=== PATIENT | male | born 1970 | race Caucasian/White ===

== ENCOUNTER 2017-11-18 22:18 | Emergency (ER) | payer OTHER, MEDICAID, SELFPAY ==
[2017-11-18 22:41] VITALS: BP 148/98; PULSE 99; RESP 16; TEMP 36.3; O2SAT 99; BMI 24.3
[2017-11-18 23:04] LABS: Bacteria Urine None Seen
[2017-11-18 23:16] LABS: RBC Urine 30-100/HPF (0-5/HPF); WBC Urine 1-5/HPF (0-5/HPF)
[2017-11-18 23:17] LABS: Culture Indicated Urine Cult Not Indicated; Sperm Urine Few
--- NOTE | 2017-11-18 23:26 | DI.RAD.S_ITS ---
PROCEDURE: XR KUB INDICATIONS: known kidney stones left side TECHNIQUE: One view of the abdomen acquired. COMPARISON: [facility], CT, KIDNEY/ URETER/BLADDER, 06/21/2017, 7:36. [facility], CR, KUB XRAY (1 VIEW ABDOMEN), 05/29/2014, 17:12. FINDINGS: Surgical changes and devices: Right upper quadrant and bilateral lower quadrant surgical clips. Bowel: Bowel gas pattern is normal. Large amount of stool present in the right colon. Soft tissues: Previously identified small right renal calculi are not well visualized radiographically due to overlying stool projecting in the right kidney. There is a left pelvic calcification, which is technically nonspecific either phlebolith or previously described left ureteral calculus. Visualized solid organ contours appear normal in size. Bones: No suspicious bony lesions. IMPRESSION: Left pelvic calcification, possibly corresponding to the distal left ureteral calculus seen on the prior CT from 06/21/17 although technically indeterminate (especially since a similar appearing calcification was present on prior study dated 05/29/14 in this region). For further evaluation, dedicated CT KUB could be performed. Dictated by: Lacho Schwarz M.D. on 11/19/2017 at 8:14 Approved by: Lacho Schwarz M.D. on 11/19/2017 at 8:21
[2017-11-18 23:38] LABS: Add Manual Diff / Slide Review NO; Basophils Percent Auto 0.9 % (0-2); Eosinophils Percent Auto 1.5 % (2-4); Hematocrit 44.7 % (41-53); Hemoglobin 15.2 g/dL (13.5-17.5); Lymphocytes Percent Auto 26.8 % (25-40); Mean Corpuscular Hemoglobin 30.1 PG (26-34); Mean Corpuscular Volume 88.3 fL (80-100); Monocytes Percent Auto 7.8 % (3-14); Neutrophils Absolute Auto 4500 /uL (3000-5900); Platelet Count 350 X10^3/uL (150-400); Red Blood Cell Count 5.06 X10^6/uL (4.5-5.9); Red Cell Distribution Width 15.1 % (11.6-14.8); White Blood Cell Count 7.1 X10^3/uL (4.5-11.0)
[2017-11-18 23:39] LABS: Alanine Aminotransferase 63 IU/L (21-72); Albumin 5.1 g/dL (3.5-5.0); Albumin Globulin Ratio 1.5 (1.0-2.8); Alkaline Phosphatase 92 U/L (38-126); Aspartate Aminotransferase 43 IU/L (17-59); BUN Creatinine Ratio 15.6 (6-22); Bilirubin Total 0.7 mg/dL (0.2-1.3); Blood Urea Nitrogen 14 mg/dL (9-20); Calcium 10.4 mg/dL (8.4-10.2); Carbon Dioxide 24 mmol/L (22-32); Chloride 102 mmol/L (98-107); Estimated Glomerular Filt Rate > 60.0 mL/min (>60); Globulin 3.4 g/dL (1.7-4.1); Glucose 117 mg/dL (70-100); HEMOLYSIS < 15 (0-50); Lipase 246 U/L (23-300); Potassium 4.4 mmol/L (3.4-5.1); Sodium 143 mmol/L (137-145); Total Protein 8.5 g/dL (6.3-8.2)
[2017-11-18] MEDS: KETOROLAC 60 MG/2 ML VIAL 30 MG IV (23:49)
[2017-11-18] MEDS: ONDANSETRON 4 MG/2 ML INJ IV (23:50)
--- NOTE | 2017-11-19 00:21 | ED.ABDPAIN ---
HPI - Abdominal Pain General Chief Complaint: Abdominal Pain Stated Complaint: KIDNEY STONES Time Seen by Provider: 11/18/17 23:16 Source: patient Mode of arrival: ambulatory Limitations: no limitations History of Present Illness HPI narrative: Patient is a 47-year-old male who presents with left-sided flank abdominal pain. He has history of kidney stones. He usually passes them he can feel it when a calming he takes Flomax on usually not a big deal. He has had lithotripsy in the past. Of however this 1 he feels like it is stuck at the bladder. He has been taking Flomax he has not taken anything for pain. It has been going on for a day and a half but tonight it has become unbearable. He denies nausea or vomiting. No fever chills no flank pain. Related Data Home Medications Medication Instructions Recorded Confirmed tamsulosin [Flomax] 1 cap PO PRN PRN #0 06/21/17 11/18/17 ondansetron 4 mg SUBLINGUAL Q6HP PRN 11/18/17 11/18/17 Previous Rx's Medication Instructions Recorded oxycodone-acetaminophen 1 tab PO Q6H PRN #6 tab 11/19/17 Allergies Allergy/AdvReac Type Severity Reaction Status Date / Time No Known Allergies Allergy Uncoded 09/22/17 13:04 Review of Systems Review of Systems GENERAL: Denies chills, fatigue, malaise, fever, sweats, travel HEENT: Denies sinus pain, ear pain, sore throat, difficulty swallowing, neck pain RESPIRATORY: Denies dyspnea, cough, wheezing, hemoptysis, sputum. CARDIOVASCULAR: Denies chest pain, palpitations, orthopnea, edema GASTROINTESTINAL: Denies nausea, vomiting, abdominal pain, diarrhea, constipation, melena. : See HPI, denies testicular pain MUSCULOSKELETAL: Denies weakness, joint pain, or bony pain SKIN: No rash, no erythema, no pruritus NEUROLOGIC: Denies weakness, dizziness, headache, numbness, change in speech, confusion PSYCHIATRIC: No concerning psychosocial issues. 12 point review of systems is negative except for those stated above and HPI PFSH Medical History CVA (cerebral vascular accident) (Acute) Kidney stones (Acute) Patent foramen ovale (Acute) Surgical History History of lithotripsy (Acute) Social History Smoking Status: Current every day smoker Exam Initial Vital Signs Initial Vital Signs: Vital Signs Temperature 97.4 F L 11/18/17 22:41 Pulse Rate 99 H 11/18/17 22:41 Respiratory Rate 16 11/18/17 22:41 Blood Pressure 148/98 H 11/18/17 22:41 Pulse Oximetry 99 11/18/17 22:41 GENERAL: Well-appearing, well-nourished and in no acute distress. HEENT: Head atraumatic,EOMI, pupils reactive CARDIOVASCULAR: Regular rate and rhythm without murmurs, rubs or gallops. RESPIRATORY: Breath sounds equal bilaterally, no wheezes rales or rhonchi. ABDOMEN: Soft, mild left lower quadrant pain no guarding or rebound : No CVA tenderness EXTREMITIES: Normal range of motion, no clubbing or edema. Neurovascularly intact NEUROLOGICAL: Alert and oriented x4.Normal gait and speech. Cranial nerves II through XII grossly intact. SKIN: Warm, dry, no laceration, no petechiae, no rashes or lesions. Course Orders Ordered: ED Orders 11/18/17 22:25 Urine Microscopic Stat 11/18/17 22:35 Complete Blood Count AUTO DIFF Stat Comprehensive Metabolic Panel Stat Lipase Stat 11/18/17 23:26 XR KUB Stat Discontinued Medications Ketorolac Tromethamine (Toradol) 30 mg IV NOW ONE Stop: 11/18/17 23:27 Last Admin: 11/18/17 23:49 Dose: 30 mg Ondansetron HCl (Zofran) 4 mg IV NOW ONE Stop: 11/18/17 23:27 Last Admin: 11/18/17 23:50 Dose: 4 mg Oxycodone/Acetaminophen (Endocet 5/325 Prepack) 1 bottle MISC SEEINSTR ONE Stop: 11/19/17 00:27 Vital Signs - 8 hr 11/18/17 22:41 11/19/17 00:26 Temperature 97.4 F L Pulse Rate 99 H 63 Respiratory Rate 16 12 Blood Pressure 148/98 H Blood Pressure [Right Arm] 112/73 Pulse Oximetry 99 96 MDM - Abdominal Pain Lab Data Attestation: I reviewed the patient's lab results. Result diagrams: 11/18/17 22:35 11/18/17 22:35 Lab Results 11/18/17 11/18/17 11/18/17 Range/Units 22:25 22:35 22:35 WBC 7.1 (4.5-11.0) X10^3/uL RBC 5.06 (4.5-5.9) X10^6/uL Hgb 15.2 (13.5-17.5) g/dL Hct 44.7 (41-53) % MCV 88.3 (80-100) fL MCH 30.1 (26-34) PG MCHC 34.0 (30-36) % RDW 15.1 H (11.6-14.8) % Plt Count 350 (150-400) X10^3/uL Neut % (Auto) 63.0 (50-75) % Lymph % (Auto) 26.8 (25-40) % [place] % (Auto) 7.8 (3-14) % Eos % (Auto) 1.5 L (2-4) % Baso % (Auto) 0.9 (0-2) % Neut # (Auto) 4500 (6794-1650) /uL Sodium 143 (137-145) mmol/L Potassium 4.4 (3.4-5.1) mmol/L Chloride 102 (98-107) mmol/L Carbon Dioxide 24 (22-32) mmol/L BUN 14 (9-20) mg/dL Creatinine 0.90 (0.66-1.25) mg/dL Estimated GFR > 60.0 (>60) mL/min BUN/Creatinine Ratio 15.6 (6-22) Glucose 117 H (70-100) mg/dL Calcium 10.4 H (8.4-10.2) mg/dL Total Bilirubin 0.7 (0.2-1.3) mg/dL AST 43 (17-59) IU/L ALT 63 (21-72) IU/L Alkaline Phosphatase 92 (38-126) U/L Total Protein 8.5 H (6.3-8.2) g/dL Albumin 5.1 H (3.5-5.0) g/dL Globulin 3.4 (1.7-4.1) g/dL Albumin/Globulin Ratio 1.5 (1.0-2.8) Lipase 246 (23-300) U/L Urine RBC 30-100/hpf H (0-5/HPF) Urine WBC 1-5/hpf (0-5/HPF) Urine Bacteria None seen (None) Urine Sperm Few Ur Culture Indicated? Cult not indicated Micro UA Comment Not Reportable Imaging Data XR-KUB: Attestation: I personally reviewed and interpreted this imaging study as follows: My impression: Possible kidney stone in the pelvic region measures less than <0.2 cm. MDM Narrative Medical decision making narrative: Patient has no sign of renal failure or infection. History of kidney stones this is presenting like kidney stones. With probable kidney stone identified on x-ray. Discussed with him at this time trying hold off CT hopefully he passes the kidney stone soon. He has Flomax at home at. His pain actually did improve some with Toradol. He is given a prescription for small amount of Percocet. Recommended patient follow up with a urologist. Discharge Plan Departure Patient Disposition: Home, Self-Care Clinical Impression: Kidney stone on left side Instructions: DI for Kidney Stones Activity Restrictions/Additional Instructions: *You have been diagnosed with kidney stone *What to do: Increase fluid intake, blood work within normal limits no sign of infection at this time. If pain continues on you may require a CT *Continue to take medications as directed -Flomax once daily -Percocet 1 tablet every 6 hr if needed for severe pain *Follow up with your primary care provider in 2-3 days, follow up with Urology, call tomorrow to schedule point *Return to ER if you should have increased or worsening pain or any new, worsening or concerning symptoms CONTROLLED SUBSTANCE DISCHARGE (Narcotoic/benzodiazepine/Flexeril/Phenergan) 1. You have been prescribed narcotic medications, it does have acetaminophen/Tylenol/paracetamol in it so do not take extra Tylenol or Tylenol containing products 2. Please understand that we cannot provide further refills of narcotics, benzodiazepines or controlled substances through the ED and her pain management will need to be through your provider. 3. While on these medications you cannot drive or operate heavy machinery. 4. You cannot sign legal documents or perform any duties such as this. 5. As long as you're taking opiate pain medications he should also be taking a stool softener such as Colace, Dulcolax, MiraLAX or prune juice, to help avoid constipation. Prescriptions: New oxycodone-acetaminophen 5-325 mg tablet 1 tab PO Q6H PRN (Reason: pain) Qty: 6 RF: 0 No Action tamsulosin [Flomax] 0.4 MG capsule,extended release 24hr 1 cap PO PRN PRN (Reason: Nausea And Vomiting) Qty: 0 RF: 0 ondansetron 4 MG tablet,disintegrating 4 mg Sublingual Q6HP PRN (Reason: Nausea) RF: 0 Referrals: [facility] [Provider Group] Julio César Tompkins MD [Primary Care Provider] -
[2017-11-19 00:26] VITALS: BP 112/73; PULSE 63; RESP 12; O2SAT 96
[2017-11-19] MEDS: OXYCODONE/APAP 5/325 PREPACK 1 BOTTLE MISC (00:37)
== END 2017-11-19 00:38 | disposition home or self-care (01) ==
PROVIDERS: Emergency Provider Emergency Medicine; Family Provider Family Medicine; PCP Family Medicine
DX: N20.0 Calculus of kidney (principal)
CPT/HCPCS: 36591; 74018; 80053; 81003; 81015; 83690; 85025; 96374; 96375; 99283; 99284; J1885; J2405

== ENCOUNTER 2017-12-03 05:07 | Emergency (ER) | payer OTHER, MEDICAID, SELFPAY ==
--- NOTE | 2017-12-03 05:32 | DI.CT.S_ITS ---
PROCEDURE: CT KIDNEY URETER BLADDER (KUB) INDICATIONS: right flank pain, recently passed left stone TECHNIQUE: Noncontrast 5 mm thick sections acquired from the diaphragms to the symphysis. 5 mm thick coronal and sagittal reformats were then performed. For radiation dose reduction, the following was used: automated exposure control, adjustment of mA and/or kV according to patient size. COMPARISON: [facility], CT, KIDNEY/ URETER/BLADDER, 06/21/2017, 7:36. 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 Lung bases: Lung bases are clear. Heart size is normal. Urinary system: The left hydroureteronephrosis on last exam has resolved. No additional left kidney stones. The 5 mm calcification in the inferior pole of the right kidney is unchanged. The smaller 3 mm calcification previously present in the right kidney is now causing obstructive uropathy in the midportion of the right ureter at the S1 level. Urinary bladder is unremarkable with no stones. Prostate is normal in size and contains central calcifications. Other solid organs: Liver is normal in size. Gallbladder is surgically absent. Pancreas is normal in contours. Spleen is normal in size. No adrenal nodules. Peritoneum and bowel: Unenhanced bowel loops demonstrate normal wall thickness and caliber. The appendix is not seen, surgical changes around the cecum. Scattered colonic diverticula. No free fluid or air. Nodes and vessels: No retroperitoneal or mesenteric adenopathy by size criteria. Aorta and inferior vena cava are normal in caliber. Abdominal wall: No ventral hernias. Pelvis: No free pelvic fluid. No inguinal hernias or adenopathy. Bones: No suspicious bony lesions. No vertebral body compression fractures. IMPRESSION: 1. Right hydroureteronephrosis secondary to a 3 mm obstructing calculus in the midureter at the S1 level. Residual 5 mm right renal stone. 2. Left kidney, ureter and urinary bladder appear normal. 3. Status post cholecystectomy. Surgical changes around the cecum. Findings are concordant with the preliminary report. Dictated by: Steve Cuevas M.D. on 12/03/2017 at 8:17 Approved by: Steve Cuevas M.D. on 12/03/2017 at 8:30
[2017-12-03 05:39] VITALS: BP 136/91; PULSE 62; RESP 15; TEMP 36.5; O2SAT 97; BMI 25.1
--- NOTE | 2017-12-03 05:39 | ED_ITS ---
HPI - Abdominal Pain General Chief Complaint: Urogenital-Male Stated Complaint: HAS ANOTHER KIDNEY STONE Time Seen by Provider: 12/03/17 05:16 Source: patient, RN notes reviewed and old records reviewed Mode of arrival: ambulatory Limitations: no limitations History of Present Illness HPI narrative: Patient is a 47-year-old male with history of kidney stones presenting with right-sided flank pain. He said this time it started around 3: 00 a.m. this morning. He recently just passed left kidney stone. He says this 1 is pretty intense. Nauseated no vomiting sharp stabbing flank pain radiating to his groin. Similar to all other previous kidney stones. He was seen and evaluated here 11/19/2017 for left-sided stone. MD complaint: flank pain (Right) Onset (ago): hour(s) Related Data Home Medications Medication Instructions Recorded Confirmed tamsulosin [Flomax] 1 cap PO PRN PRN #0 06/21/17 11/18/17 ondansetron 4 mg SUBLINGUAL Q6HP PRN 11/18/17 11/18/17 Previous Rx's Medication Instructions Recorded oxycodone-acetaminophen 1 tab PO Q6H PRN #6 tab 11/19/17 ondansetron [Zofran ODT] 4 mg PO Q6H PRN #10 tab 12/03/17 oxycodone-acetaminophen [Percocet] 1 tab PO Q6H PRN #10 tab 12/03/17 Allergies Allergy/AdvReac Type Severity Reaction Status Date / Time No Known Drug Allergies Allergy Verified 12/03/17 05:39 Review of Systems Review of Systems GENERAL: Denies chills, fatigue, malaise, fever, sweats, travel HEENT: Denies sinus pain, ear pain, sore throat, difficulty swallowing, neck pain RESPIRATORY: Denies dyspnea, cough, wheezing, hemoptysis, sputum. CARDIOVASCULAR: Denies chest pain, palpitations, orthopnea, edema GASTROINTESTINAL: Denies nausea, vomiting, abdominal pain, diarrhea, constipation, melena. : See HPI MUSCULOSKELETAL: Denies weakness, joint pain, or bony pain SKIN: No rash, no erythema, no pruritus NEUROLOGIC: Denies weakness, dizziness, headache, numbness, change in speech, confusion PSYCHIATRIC: No concerning psychosocial issues. 12 point review of systems is negative except for those stated above and HPI PFSH Medical History CVA (cerebral vascular accident) (Acute) Kidney stones (Acute) Patent foramen ovale (Acute) Surgical History History of lithotripsy (Acute) Social History Smoking Status: Current every day smoker Exam Initial Vital Signs Initial Vital Signs: Vital Signs Temperature 97.7 F 12/03/17 05:39 Pulse Rate 62 12/03/17 05:39 Respiratory Rate 15 12/03/17 05:39 Blood Pressure 136/91 H 12/03/17 05:39 Pulse Oximetry 97 12/03/17 05:39 GENERAL: Well-appearing, well-nourished and in no acute distress. HEENT: Head atraumatic,EOMI, pupils reactive, face symmetric, moist mucous membranes CARDIOVASCULAR: Regular rate and rhythm without murmurs, rubs or gallops. RESPIRATORY: Breath sounds equal bilaterally, no wheezes rales or rhonchi. ABDOMEN: Soft, mild right lower quadrant pain. Normoactive bowel sounds all 4 quadrants. No guarding or rebound. : Right CVA tenderness EXTREMITIES: Normal range of motion, no clubbing or edema. Neurovascularly intact NEUROLOGICAL: Alert and oriented x4.Normal gait and speech. Cranial nerves II through XII grossly intact. SKIN: Warm, dry, no laceration, no petechiae, no rashes or lesions. Course Orders Ordered: Discontinued Medications Sodium Chloride (Normal Saline 0.9%) 1,000 mls @ 1,000 mls/hr IV CONT ELISABETH Last Infusion: 12/03/17 06:57 Dose: 1,000 mls/hr Admin: 12/03/17 06:12 Dose: 1,000 mls/hr Lidocaine HCl 6 ml/ Sodium (Chloride) 56 mls @ 336 mls/hr IV NOW ONE Stop: 12/03/17 05:40 Last Infusion: 12/03/17 06:24 Dose: 336 mls/hr Admin: 12/03/17 06:11 Dose: 336 mls/hr Ketorolac Tromethamine (Toradol) 30 mg IV NOW ONE Stop: 12/03/17 05:35 Last Admin: 12/03/17 06:10 Dose: 30 mg Ondansetron HCl (Zofran) 4 mg IV NOW ONE Stop: 12/03/17 05:35 Last Admin: 12/03/17 06:11 Dose: 4 mg Vital Signs - 8 hr 12/03/17 05:39 Temperature 97.7 F Pulse Rate 62 Respiratory Rate 15 Blood Pressure 136/91 H Pulse Oximetry 97 MDM - Abdominal Pain Medical Records Attestation: I reviewed the patient's medical records. Lab Data Attestation: I reviewed the patient's lab results. Result diagrams: 12/03/17 05:24 12/03/17 05:24 Lab Results 12/03/17 12/03/17 12/03/17 Range/Units 05:24 05:24 06:30 WBC 6.2 (4.5-11.0) X10^3/uL RBC 5.18 (4.5-5.9) X10^6/uL Hgb 15.7 (13.5-17.5) g/dL Hct 46.2 (41-53) % MCV 89.2 (80-100) fL MCH 30.3 (26-34) PG MCHC 34.0 (30-36) % RDW 15.2 H (11.6-14.8) % Plt Count 324 (150-400) X10^3/uL Neut % (Auto) 48.4 L (50-75) % Lymph % (Auto) 39.0 (25-40) % [place] % (Auto) 7.0 (3-14) % Eos % (Auto) 4.4 H (2-4) % Baso % (Auto) 1.2 (0-2) % Neut # (Auto) 3000 (5883-8154) /uL Sodium 139 (137-145) mmol/L Potassium 4.3 (3.4-5.1) mmol/L Chloride 102 (98-107) mmol/L Carbon Dioxide 23 (22-32) mmol/L BUN 13 (9-20) mg/dL Creatinine 0.80 (0.66-1.25) mg/dL Estimated GFR > 60.0 (>60) mL/min BUN/Creatinine Ratio 16.3 (6-22) Glucose 113 H (70-100) mg/dL Calcium 9.8 (8.4-10.2) mg/dL Total Bilirubin 0.4 (0.2-1.3) mg/dL AST 27 (17-59) IU/L ALT 45 (21-72) IU/L Alkaline Phosphatase 93 (38-126) U/L Total Protein 8.0 (6.3-8.2) g/dL Albumin 4.6 (3.5-5.0) g/dL Globulin 3.4 (1.7-4.1) g/dL Albumin/Globulin Ratio 1.4 (1.0-2.8) Lipase 221 (23-300) U/L Urine RBC 10-30/hpf H (0-5/HPF) Urine WBC None seen (0-5/HPF) Urine Bacteria None seen (None) Ur Culture Indicated? 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 The ureter is dilated to approximately image number 61 and 62 where there may be a small 2.5 mm calculus. There is no evidence of free air or free fluid. No gross bowel wall lesions identified. Surgical suture line in the right colon. Appendix is not visualized. Bladder appears morphologically unremarkable and there are no stones. There is calcification in the prostate gland where there are phleboliths in the pelvis. Discharge Plan Departure Patient Disposition: Home, Self-Care Clinical Impression: Kidney stone on right side Discharge Date/Time: 12/03/17 06:59 Interventions: ED Discharge Assessment Last Done: 12/03/17 06:58 Instructions: DI for Kidney Stones Activity Restrictions/Additional Instructions: *Increase fluid intake *Call urology office tomorrow, to schedule follow-up appointment. Strain urine, try to catch stone -If you should have fever, or pain is uncontrolled with medication at home or any other concerning symptoms return to ER for further evaluation MEDICATIONS Take Motrin 800 mg every 8 hours as needed for pain Take Percocet every 6 hours if needed for severe pain Take Zofran every 4-6 hours if needed for nausea CONTROLLED SUBSTANCE DISCHARGE (Narcotoic/benzodiazepine) 1. You have been prescribed narcotic medications, it does have acetaminophen/ Tylenol/paracetamol in it so do not take extra Tylenol or Tylenol containing products 2. Please understand that we cannot provide further refills of narcotics, benzodiazepines or controlled substances through the ED and her pain management will need to be through your provider. 3. While on these medications you cannot drive or operate heavy machinery. 4. You cannot sign legal documents or perform any duties such as this. 5. As long as you're taking opiate pain medications he should also be taking a stool softener such as Colace, Dulcolax, MiraLAX or prune juice, to help avoid constipation. Prescriptions: New ondansetron [Zofran ODT] 4 mg tablet,disintegrating 4 mg PO Q6H PRN (Reason: nausea and vomiting) Qty: 10 RF: 0 oxycodone-acetaminophen [Percocet] 5-325 mg tablet 1 tab PO Q6H PRN (Reason: pain) Qty: 10 RF: 0 No Action tamsulosin [Flomax] 0.4 MG capsule,extended release 24hr 1 cap PO PRN PRN (Reason: Nausea And Vomiting) Qty: 0 RF: 0 ondansetron 4 MG tablet,disintegrating 4 mg Sublingual Q6HP PRN (Reason: Nausea) RF: 0 oxycodone-acetaminophen 5-325 mg tablet 1 tab PO Q6H PRN (Reason: pain) Qty: 6 RF: 0 Referrals: Julio César Tompkins MD [Primary Care Provider] -
[2017-12-03 05:40] LABS: Add Manual Diff / Slide Review NO; Basophils Percent Auto 1.2 % (0-2); Eosinophils Percent Auto 4.4 % (2-4); Hematocrit 46.2 % (41-53); Hemoglobin 15.7 g/dL (13.5-17.5); Mean Corpuscular Hemoglobin 30.3 PG (26-34); Mean Corpuscular Volume 89.2 fL (80-100); Neutrophils Absolute Auto 3000 /uL (3000-5900); Neutrophils Percent Auto 48.4 % (50-75); Platelet Count 324 X10^3/uL (150-400); Red Blood Cell Count 5.18 X10^6/uL (4.5-5.9); Red Cell Distribution Width 15.2 % (11.6-14.8); White Blood Cell Count 6.2 X10^3/uL (4.5-11.0)
[2017-12-03 05:47] LABS: Alanine Aminotransferase 45 IU/L (21-72); Albumin 4.6 g/dL (3.5-5.0); Albumin Globulin Ratio 1.4 (1.0-2.8); Alkaline Phosphatase 93 U/L (38-126); Aspartate Aminotransferase 27 IU/L (17-59); BUN Creatinine Ratio 16.3 (6-22); Bilirubin Total 0.4 mg/dL (0.2-1.3); Blood Urea Nitrogen 13 mg/dL (9-20); Calcium 9.8 mg/dL (8.4-10.2); Carbon Dioxide 23 mmol/L (22-32); Chloride 102 mmol/L (98-107); Estimated Glomerular Filt Rate > 60.0 mL/min (>60); Globulin 3.4 g/dL (1.7-4.1); Glucose 113 mg/dL (70-100); HEMOLYSIS 36 (0-50); Lipase 221 U/L (23-300); Potassium 4.3 mmol/L (3.4-5.1); Sodium 139 mmol/L (137-145)
[2017-12-03] MEDS: KETOROLAC 60 MG/2 ML VIAL 30 MG IV (06:10)
[2017-12-03] MEDS: LIDOCAINE 2% 6 ML in SODIUM CHLORIDE 0.9% 50 ML 336 ML IV (06:11)
[2017-12-03] MEDS: ONDANSETRON 4 MG/2 ML INJ IV (06:11)
[2017-12-03] MEDS: SODIUM CHLORIDE 0.9% 1,000 ML 1000 ML IV (06:12)
[2017-12-03 06:58] VITALS: BP 110/83; PULSE 58; RESP 20; O2SAT 99
[2017-12-03 07:01] LABS: Bacteria Urine None Seen; WBC Urine None Seen (0-5/HPF)
[2017-12-03 07:09] LABS: Culture Indicated Urine Cult Not Indicated; RBC Urine 10-30/HPF (0-5/HPF)
== END 2017-12-03 06:59 | disposition home or self-care (01) ==
PROVIDERS: Emergency Provider Emergency Medicine; Family Provider Family Medicine; PCP Family Medicine
DX: N20.0 Calculus of kidney (principal)
CPT/HCPCS: 36591; 74176; 80053; 81003; 81015; 83690; 85025; 96361; 96374; 96375; 99283; 99284; J1885; J2405

== ENCOUNTER 2018-05-23 03:55 | Emergency (ER) | payer OTHER, MEDICAID, SELFPAY ==
[2018-05-23 04:16] VITALS: BMI 25.1
[2018-05-23 04:18] VITALS: BP 138/88; PULSE 67; RESP 18; TEMP 36.8; O2SAT 95
[2018-05-23 04:18] LABS: Bacteria Urine None Seen
--- NOTE | 2018-05-23 04:19 | DI.CT.S_ITS ---
PROCEDURE: CT KIDNEY URETER BLADDER (KUB) INDICATIONS: R flank pain, hematuria TECHNIQUE: Noncontrast 5 mm thick sections acquired from the diaphragms to the symphysis. 5 mm thick coronal and sagittal reformats were then performed. For radiation dose reduction, the following was used: automated exposure control, adjustment of mA and/or kV according to patient size. COMPARISON: [facility], CT, CT KIDNEY URETER BLADDER (KUB), 12/03/2017, 5:37. FINDINGS: Image quality: Excellent. Lung bases: No acute consolidation. There is scattered subsegmental atelectasis and/or scarring Heart size is normal. Urinary system: Trace right perinephric stranding. Multiple right renal calculi measuring from 3-5 mm. Mild-moderate right hydroureteronephrosis related to 3 mm mid to distal right ureteral calculus seen on image 65 series 2. No evidence of left-sided urolithiasis. or perinephric fat stranding. Both ureters appear non-dilated throughout their expected courses. Bladder wall thickness is normal; no calcified bladder stones. Other solid organs: Liver is normal in size. Gallbladder surgically absent. Pancreas is normal in contours. Spleen is normal in size. No adrenal nodules. Peritoneum and bowel: Unenhanced bowel loops demonstrate normal wall thickness and caliber. Also the anastomosis in the right lower quadrant. The appendix is not clearly identified however no suspicious pericecal inflammatory changes are identified No free fluid or air. Nodes and vessels: No retroperitoneal or mesenteric adenopathy by size criteria. Aorta and inferior vena cava are normal in caliber. Abdominal wall: No ventral hernias. Pelvis: No free pelvic fluid. No inguinal hernias or adenopathy. Bones: No suspicious bony lesions. No vertebral body compression fractures. IMPRESSION: Moderately obstructive 3 mm distal right ureteral calculus. Additional right nephrolithiasis as above. Status post cholecystectomy. Dictated by: Lacho Schwarz M.D. on 05/23/2018 at 7:25 Approved by: Lacho Schwarz M.D. on 05/23/2018 at 7:31
--- NOTE | 2018-05-23 04:33 | ED_ITS ---
HPI - Male Genitourinary General Chief complaint: Urogenital-Male Stated complaint: right side pain/back into groin poss kidney stone Time Seen by Provider: 05/23/18 04:15 Source: patient Mode of arrival: ambulatory Limitations: no limitations History of Present Illness HPI Narrative: The patient complains of pain in his right flank and pelvis, which feels like prior kidney stones. He states that he has not had any dysuria or fevers. No nausea or vomiting. Patient states that he has not noticed any gross blood in his urine. Patient said he has been seen by Urology in the past. He rates his pain 12/21. Nothing seems to make it better or worse he states. Related Data Home Medications Medication Instructions Recorded Confirmed tamsulosin [Flomax] 1 cap PO PRN PRN #0 06/21/17 11/18/17 ondansetron 4 mg SUBLINGUAL Q6HP PRN 11/18/17 11/18/17 Previous Rx's Medication Instructions Recorded oxycodone-acetaminophen 1 tab PO Q6H PRN #6 tab 11/19/17 ondansetron [Zofran ODT] 4 mg PO Q6H PRN #10 tab 12/03/17 oxycodone-acetaminophen [Percocet] 1 tab PO Q6H PRN #10 tab 12/03/17 hydrocodone-acetaminophen 2 tab PO Q4-6H PRN #7 tab 05/23/18 ondansetron 4 mg PO QID PRN #14 tab 05/23/18 Allergies Allergy/AdvReac Type Severity Reaction Status Date / Time No Known Drug Allergies Allergy Verified 12/03/17 05:39 Review of Systems Review of Systems All systems reviewed & are unremarkable except as noted in HPI and below Constitutional Denies chills, Denies fever(s), Denies lethargy and Denies weakness Eyes Denies change in vision, Denies eye discharge, Denies irritation and Denies loss of vision ENT Ears, Nose, Mouth, and Throat: Denies change in voice, Denies neck pain and Denies sore throat Cardiovascular Denies chest pain, Denies irregular heart rhythm, Denies lightheadedness, Denies palpitations, Denies dyspnea, Denies dyspnea on exertion and Denies orthopnea Respiratory Denies cough, Denies dyspnea, Denies dyspnea on exertion and Denies wheezing Gastrointestinal Gastrointestinal: Reports abdominal pain ( Pelvic), Denies change in bowel habits, Denies diarrhea, Denies nausea and Denies vomiting Genitourinary Denies hematuria, Denies flank pain, Denies urinary incontinence and Denies urinary urgency Musculoskeletal Denies neck pain Integumentary/Breasts Denies pruritus, Denies erythema, Denies rash and Denies wounds Neurologic Denies confusion, Denies loss of vision and Denies weakness Psychiatric Denies anxiety, Denies confusion, Denies depression, Denies homicidal ideation and Denies suicidal ideation Endocrine Denies palpitations Hematologic/Lymphatic Denies easy bruising Allergic/Immunologic Denies wheezing FORMERLY [facility], [facility] Medical History Kidney stones (Acute) CVA (cerebral vascular accident) (Acute) Surgical History History of lithotripsy (Acute) Patent foramen ovale (Acute) Social History Smoking Status: Current every day smoker Exam Initial Vital Signs Initial Vital Signs: Vital Signs Temperature 98.2 F 05/23/18 04:18 Pulse Rate 67 05/23/18 04:18 Respiratory Rate 18 05/23/18 04:18 Blood Pressure 138/88 05/23/18 04:18 Pulse Oximetry 95 05/23/18 04:18 Const General: cooperative and well developed Nutritional Appearance: well nourished Orientation: alert, awake, oriented x3 and not confused Other: Patient appears moderately uncomfortable. HENWI Head: normocephalic and atraumatic Ears: external ears normal and TM's normal bilaterally Nose: external nose normal and No nasal discharge Face and sinus: sinuses nontender, face symmetric, no sinus tenderness and No dry mucous membranes Mouth: oral mucosae normal and moist mucous membranes Teeth and gingiva: dentition normal Throat: tonsils normal and uvula midline Eyes General: appearance normal, both eyes and all related structures Eyelids: eyelids normal Conjunctivae: conjunctivae normal Sclera: sclerae normal Pupils: PERRL EOM: EOM intact bilaterally Neck Neck: normal visual inspection, trachea midline, No lymphadenopathy, No midline deformity and No JVD Lymphatic: No lymphedema Chest Chest: normal inspection of the chest Resp Effort & Inspection: normal respiratory effort, able to speak in complete sentences, no respiratory distress and no use of accessory muscles Auscultation: clear to auscultation bilaterally, no rales, no rhonchi and no wheezes Cardio Rate: regular rate Rhythm: regular rhythm Heart Sounds: no click, no gallops, no murmurs and no rubs Pulses: normal peripheral pulses GI Inspection: non-distended Palpation: soft, no hepatosplenomegaly, No guarding, No pulsatile mass and tender ( Moderate, right pelvis.) Back/Spine/Pelvis Back: No CVA tenderness Cervical Spine: cervical ROM normal and No pain with cervical ROM Thoracic/Lumbar Spine: thoracic and lumbar spine normal to inspection Skin General: no rashes or lesions noted, No jaundice and No petechiae Neuro General: alert, oriented x3, gait normal and no focal motor deficits Speech: speech normal Extrem General: full ROM, no clubbing, cyanosis or edema, no pedal edema and no calf tenderness Psych Appearance: well kempt Mental Status: mental status grossly normal Attitude: cooperative Thought Content: normal and suicidality Judgment: judgment good Course Course Narrative: Patient was treated symptomatically with IV fluids and analgesia. His urinalysis did show hematuria. He was sent for CT scan of the abdomen and pelvis without contrast , which did show a 3 mm right distal ureteral stone. I discussed with patient that he has been found to have a kidney stone again. He has been treated symptomatically in the emergency department and is symptomatically improved. Patient is very familiar with kidney stones as he has had many in the past, and states he will drink plenty of water and follow up with his urologist. Orders Ordered: ED Orders 05/23/18 04:00 Urine Microscopic Stat 05/23/18 04:19 CT kidney ureter bladder (KUB) Stat Discontinued Medications Hydromorphone HCl (Dilaudid) 0.5 mg IV NOW ONE Stop: 05/23/18 05:19 Hydromorphone HCl (Dilaudid) 1 mg IV NOW ONE Stop: 05/23/18 05:25 Last Admin: 05/23/18 05:31 Dose: 1 mg Sodium Chloride (Normal Saline 0.9%) 1,000 mls @ 1,000 mls/hr IV BOLUS ONE Stop: 05/23/18 05:32 Last Admin: 05/23/18 04:43 Dose: 1,000 mls/hr Ketorolac Tromethamine (Toradol) 30 mg IV NOW ONE Stop: 05/23/18 04:34 Last Admin: 05/23/18 04:43 Dose: 30 mg Vital Signs - 8 hr 05/23/18 04:18 Temperature 98.2 F Pulse Rate 67 Respiratory Rate 18 Blood Pressure [Right Arm] 138/88 Pulse Oximetry 95 MDM - Male Genitourinary Medical Records Attestation: I reviewed the patient's medical records. Lab Data Attestation: I reviewed the patient's lab results. Lab Results 05/23/18 Range/Units 04:00 Urine RBC >100/hpf (0-5/HPF) Urine WBC 0-1/hpf (0-5/HPF) Urine Bacteria None seen (None) Ur Culture Indicated? Cult not indicated Micro UA Comment Not Reportable Urine Dip Bedside Urine Glucose Negative Bedside Urine Bilirubin - Negative Bedside Urine Ketone - Negative Urine Specific [place] 1.030 Bedside Urine Occult Blood +++ Bedside Urine pH 6.0 Bedside Urine Protein +/- 15 Bedside Urine Urobilinogen - Negative Bedside Urine Nitrite - Negative Bedside Urine Leukocytes - Negative Esterase Imaging Data CT scan - abdomen: Radiologist's impression: PROCEDURE: CT KIDNEY URETER BLADDER (KUB) INDICATIONS: right flank pain, recently passed left stone TECHNIQUE: Noncontrast 5 mm thick sections acquired from the diaphragms to the symphysis. 5 mm thick coronal and sagittal reformats were then performed. For radiation dose reduction, the following was used: automated exposure control, adjustment of mA and/or kV according to patient size. COMPARISON: [facility], CT, KIDNEY/ URETER/BLADDER, 06/21/2017, 7:36. FINDINGS: Preliminary report by material handler 1st shift radiology Image quality: Excellent. Lung bases: Lung bases are clear. Heart size is normal. Urinary system: The left hydroureteronephrosis on last exam has resolved. No additional left kidney stones. The 5 mm calcification in the inferior pole of the right kidney is unchanged. The smaller 3 mm calcification previously present in the right kidney is now causing obstructive uropathy in the midportion of the right ureter at the S1 level. Urinary bladder is unremarkable with no stones. Prostate is normal in size and contains central calcifications. Other solid organs: Liver is normal in size. Gallbladder is surgically absent. Pancreas is normal in contours. Spleen is normal in size. No adrenal nodules. Peritoneum and bowel: Unenhanced bowel loops demonstrate normal wall thickness and caliber. The appendix is not seen, surgical changes around the cecum. Scattered colonic diverticula. No free fluid or air. Nodes and vessels: No retroperitoneal or mesenteric adenopathy by size criteria. Aorta and inferior vena cava are normal in caliber. Abdominal wall: No ventral hernias. Pelvis: No free pelvic fluid. No inguinal hernias or adenopathy. Bones: No suspicious bony lesions. No vertebral body compression fractures. IMPRESSION: 1. Right hydroureteronephrosis secondary to a 3 mm obstructing calculus in the midureter at the S1 level. Residual 5 mm right renal stone. 2. Left kidney, ureter and urinary bladder appear normal. 3. Status post cholecystectomy. Surgical changes around the cecum. Findings are concordant with the preliminary report. Dictated by: Steve Cuevas M.D. on 12/03/2017 at 8:17 Approved by: Steve Cuevas M.D. on 12/03/2017 at 8:30 Discharge Plan Departure Patient Disposition: Home Clinical Impression: Kidney stones Instructions: DI for Kidney Stones Activity Restrictions/Additional Instructions: Your CT scan shows you have a stone in your right ureter, the tube that goes between your kidney and bladder. This should pass soon, as it is only 3 mm, and has made it most of the way through the tube. Prescriptions: New hydrocodone-acetaminophen 5-325 mg tablet 2 tab PO Q4-6H PRN (Reason: pain) Qty: 7 RF: 0 ondansetron 4 mg tablet,disintegrating 4 mg PO QID PRN (Reason: nausea and vomiting) Qty: 14 RF: 0 No Action tamsulosin [Flomax] 0.4 MG capsule,extended release 24hr 1 cap PO PRN PRN (Reason: Nausea And Vomiting) Qty: 0 RF: 0 ondansetron 4 MG tablet,disintegrating 4 mg Sublingual Q6HP PRN (Reason: Nausea) RF: 0 oxycodone-acetaminophen 5-325 mg tablet 1 tab PO Q6H PRN (Reason: pain) Qty: 6 RF: 0 ondansetron [Zofran ODT] 4 mg tablet,disintegrating 4 mg PO Q6H PRN (Reason: nausea and vomiting) Qty: 10 RF: 0 oxycodone-acetaminophen [Percocet] 5-325 mg tablet 1 tab PO Q6H PRN (Reason: pain) Qty: 10 RF: 0 Referrals: Julio César Tompkins MD [Primary Care Provider] -
[2018-05-23] MEDS: KETOROLAC 60 MG/2 ML VIAL 30 MG IV (04:43)
[2018-05-23] MEDS: SODIUM CHLORIDE 0.9% 1,000 ML 1000 ML IV (04:43)
[2018-05-23 04:45] LABS: Culture Indicated Urine Cult Not Indicated; RBC Urine >100/HPF (0-5/HPF); WBC Urine 0-1/HPF (0-5/HPF)
[2018-05-23] MEDS: HYDROMORPHONE 1 MG INJ IV (05:31)
[2018-05-23 06:21] VITALS: BP 114/69; PULSE 74; RESP 15; O2SAT 95
--- NOTE | 2018-07-19 02:52 | PC.NURSE ---
LATE ENTRY 1 liter NS infused IV. Completed 05/23/18 at 0540.
== END 2018-05-23 06:22 | disposition home or self-care (01) ==
PROVIDERS: Emergency Provider Emergency Medicine; Family Provider Family Medicine; PCP Family Medicine
DX: N20.0 Calculus of kidney (principal)
CPT/HCPCS: 74176; 81003; 81015; 96361; 96374; 96375; 99282; 99284; J1170; J1885

== ENCOUNTER 2018-07-14 14:14 | Emergency (ER) | payer OTHER, MEDICAID, SELFPAY ==
[2018-07-14 14:25] VITALS: BP 121/84; PULSE 73; RESP 16; TEMP 36.4; O2SAT 100
[2018-07-14 14:30] VITALS: BP 119/85; PULSE 72; RESP 16; O2SAT 99
--- NOTE | 2018-07-14 14:40 | PC.NURSE ---
pt reports episode of dizziness, fussy ,blurry lasting 5minutes, occured this morning at 9am, then felt fatigue,tired. denies dm, denies nausea,vomiting and diarrhea. hx of s\p titanium plug heart last january,at [facility] , also has hx of stroke.
--- NOTE | 2018-07-14 14:44 | PC.NURSE ---
asymptomatic at this time.
--- NOTE | 2018-07-14 14:56 | ED.DIZZY ---
HPI - Dizziness General Chief Complaint: Dizziness Stated Complaint: dizzy spells Time Seen by Provider: 07/14/18 14:44 Source: patient Mode of arrival: ambulatory Limitations: no limitations History of Present Illness HPI Narrative: Patient is a 48-year-old male who presents with dizziness. He says he he got onto some scaffolding this afternoon where he had sudden-onset dizziness he had a grab on to something so he did not fall off. He went home lie down and still does not feel quite right. It is worse whenever he moves. He had some blurry vision. No focal deficits. He has felt nauseated at times but no vomiting. MD complaint: dizziness and lightheadedness Timing: sudden onset Description: sense of movement Related Data Home Medications Medication Instructions Recorded Confirmed tamsulosin [Flomax] 1 cap PO PRN PRN #0 06/21/17 11/18/17 ondansetron 4 mg SUBLINGUAL Q6HP PRN 11/18/17 11/18/17 Previous Rx's Medication Instructions Recorded oxycodone-acetaminophen 1 tab PO Q6H PRN #6 tab 11/19/17 hydrocodone-acetaminophen 2 tab PO Q4-6H PRN #7 tab 05/23/18 meclizine 25 mg PO BID-TID PRN #20 tab 07/14/18 ondansetron 4 mg PO Q6-8H PRN #10 tab 07/14/18 Allergies Allergy/AdvReac Type Severity Reaction Status Date / Time No Known Drug Allergies Allergy Verified 07/14/18 14:24 Review of Systems Review of Systems ROS Unobtainable: All systems reviewed & are unremarkable except as noted in HPI and below Constitutional Denies chills, Denies fever(s), Denies lethargy and Denies weakness Cardiovascular Denies chest pain, Denies syncope, Reports palpitations and Denies dyspnea Respiratory Denies chest congestion, Denies cough and Denies dyspnea Gastrointestinal Gastrointestinal: Denies abdominal pain, Denies change in bowel habits, Denies diarrhea, Reports nausea and Denies vomiting Genitourinary Denies hematuria, Denies flank pain, Denies urinary incontinence and Denies urinary urgency Musculoskeletal Denies back pain, Denies muscle weakness, Denies numbness and Denies tingling Integumentary/Breasts Denies pruritus, Denies erythema, Denies rash and Denies wounds Neurologic Denies syncope, Denies numbness, Denies tingling and Denies weakness Endocrine Reports palpitations [facility] Medical History CVA (cerebral vascular accident) (Acute) Kidney stones (Acute) Surgical History History of lithotripsy (Acute) Patent foramen ovale (Acute) Social History Smoking Status: Current every day smoker Social History Smoking Status: Current every day smoker Exam Initial Vital Signs Initial Vital Signs: Vital Signs Temperature 97.6 F 07/14/18 14:25 Pulse Rate 73 07/14/18 14:25 Respiratory Rate 16 07/14/18 14:25 Blood Pressure 121/84 07/14/18 14:25 Pulse Oximetry 100 07/14/18 14:25 GENERAL: Well-appearing male in no acute distress HEENT: Head atraumatic,EOMI, pupils reactive, face symmetric, moist mucous membranes CARDIOVASCULAR: Regular rate and rhythm without murmurs, rubs or gallops. RESPIRATORY: Breath sounds equal bilaterally, no wheezes rales or rhonchi. ABDOMEN: Soft, nontender. Normoactive bowel sounds all 4 quadrants. No guarding or rebound. EXTREMITIES: Normal range of motion, no clubbing or edema. Neurovascularly intact NEUROLOGICAL: Alert and oriented x4.Normal gait and speech. Cranial nerves II through XII grossly intact. Good [id number], good [id number], strength equal bilaterally, no dysarthria or aphasia, sensation in tact to soft touch bilaterally, no visual changes, no facial droop SKIN: Warm, dry, no laceration, no petechiae, no rashes or lesions. Scores NIH Stroke Scale Level of Conciousness: Alert, keenly responsive Ask month/age: Answers both questions correctly. Open/close eyes, close hand: Performs both tasks correctly Best gaze horizontal: Normal Visual barney: No visual loss Facial palsy: Normal symetrical movement Left arm drift: No drift for full 10 sec Right arm drift: No drift for full 10 sec Left leg drift: No drift for full 10 sec Right leg drift: No drift for full 10 sec Limb ataxia: Absent Sensory on face/arms/legs: Normal, no sensory loss Best language: No aphasia, normal Dysarthria: Normal Extinction or inattention: No abnormality Total NIH Stroke scale score: 0 Course Orders Ordered: ED Orders 07/14/18 14:27 EKG-12 Lead Stat 07/14/18 14:50 Complete Blood Count AUTO DIFF Stat Comprehensive Metabolic Panel Stat Troponin & CK Cardiac Panel Stat 07/14/18 15:07 CT head/brain wo con Stat Discontinued Medications Sodium Chloride (Normal Saline 0.9%) 1,000 mls @ 1,000 mls/hr IV BOLUS ONE Stop: 07/14/18 16:05 Last Infusion: 07/14/18 16:38 Dose: 0 mls/hr Admin: 07/14/18 15:20 Dose: 1,000 mls/hr Meclizine HCl (Antivert) 25 mg PO NOW ONE Stop: 07/14/18 15:07 Last Admin: 07/14/18 15:20 Dose: 25 mg Ondansetron HCl (Zofran) 4 mg IV NOW ONE Stop: 07/14/18 15:07 Last Admin: 07/14/18 15:20 Dose: 4 mg Vital Signs - 8 hr 07/14/18 14:25 07/14/18 14:30 07/14/18 15:00 Temperature 97.6 F Pulse Rate 73 72 68 Respiratory Rate 16 16 18 Blood Pressure 121/84 Blood Pressure [Left Arm] 119/85 122/83 Pulse Oximetry 100 99 98 07/14/18 15:55 07/14/18 16:00 Temperature Pulse Rate 64 69 Respiratory Rate 15 19 Blood Pressure Blood Pressure [Left Arm] 124/79 115/85 Pulse Oximetry 98 98 MDM - Dizziness Lab Data Attestation: I reviewed the patient's lab results. Result diagrams: 07/14/18 14:50 07/14/18 14:50 Lab Results 07/14/18 07/14/18 Range/Units 14:50 14:50 WBC 7.3 (4.5-11.0) X10^3/uL RBC 4.96 (4.5-5.9) X10^6/uL Hgb 15.2 (13.5-17.5) g/dL Hct 45.2 (41-53) % MCV 91.0 (80-100) fL MCH 30.7 (26-34) PG MCHC 33.7 (30-36) % RDW 15.3 H (11.6-14.8) % Plt Count 324 (150-400) X10^3/uL Neut % (Auto) 72.9 (50-75) % Lymph % (Auto) 20.6 L (25-40) % [place] % (Auto) 4.4 (3-14) % Eos % (Auto) 1.1 L (2-4) % Baso % (Auto) 1.0 (0-2) % Neut # (Auto) 5400 (9636-1827) /uL Lymph # (Auto) 1500 (8113-0469) /uL [place] # (Auto) 300 (0-900) /uL Eos # (Auto) 100 (0-450) /uL Baso # (Auto) 100 (0-100) /uL Sodium 143 (137-145) mmol/L Potassium 4.1 (3.4-5.1) mmol/L Chloride 105 (98-107) mmol/L Carbon Dioxide 27 (22-32) mmol/L BUN 15 (9-20) mg/dL Creatinine 1.10 (0.66-1.25) mg/dL Estimated GFR > 60.0 (>60) mL/min BUN/Creatinine Ratio 13.6 (6-22) Glucose 102 H (70-100) mg/dL Calcium 9.8 (8.4-10.2) mg/dL Total Bilirubin 0.4 (0.2-1.3) mg/dL AST 30 (17-59) IU/L ALT 47 (21-72) IU/L Alkaline Phosphatase 75 (38-126) U/L Total Creatine Kinase 190 H (55-170) U/L CK-MB (CK-2) 0.98 (<2.37) ng/mL CK-MB (CK-2) Rel Index 0.5 L (1.5-5.0) % Troponin I < 0.012 (0.01-0.034) ng/mL Total Protein 7.6 (6.3-8.2) g/dL Albumin 4.7 (3.5-5.0) g/dL Globulin 2.9 (1.7-4.1) g/dL Albumin/Globulin Ratio 1.6 (1.0-2.8) ECG Data Attestation: I personally reviewed and interpreted this ECG as follows: Prior ECG tracings: available for review Interpretation: Normal sinus rhythm rate [address] changes no T-wave inversions except for lead 3 which is unchanged. WA interval 134 MDM Narrative Medical decision making narrative: Patient overall is feeling much better. He is sitting up looking at photos of his dog with his friend. Does not appear in any acute distress. Feels ready and able to go home. I strongly advised him not to be a dangerous heights while feeling dizzy in case he fell. Discharge Plan Departure Patient Disposition: Home Clinical Impression: Benign paroxysmal positional vertigo Discharge Date/Time: 07/14/18 16:57 Interventions: ED Discharge Assessment Last Done: 07/14/18 16:56 Instructions: Benign Paroxysmal Positional Vertigo Activity Restrictions/Additional Instructions: *You have been diagnosed with benign paroxysmal positional vertigo *What to do: Recommending rest increase fluids. This should resolve spontaneously. Recommend not being in high or dangerous places until vertigo has resolved *Continue to take medications as directed Meclizine 25-50 mg every 8 hr if needed for dizziness Zofran 4 mg every 6-8 hours as needed for nausea or vomiting *Follow up with your primary care provider in 2-3 days *Return to ER if you should have worsening dizziness persistent vomiting weakness speech difficulty or any new, worsening or concerning symptoms Prescriptions: New meclizine 25 mg tablet 25 mg PO BID-TID PRN (Reason: dizziness) Qty: 20 RF: 0 ondansetron 4 mg tablet,disintegrating 4 mg PO Q6-8H PRN (Reason: nausea and vomiting) Qty: 10 RF: 0 No Action tamsulosin [Flomax] 0.4 MG capsule,extended release 24hr 1 cap PO PRN PRN (Reason: Nausea And Vomiting) Qty: 0 RF: 0 ondansetron 4 MG tablet,disintegrating 4 mg Sublingual Q6HP PRN (Reason: Nausea) RF: 0 oxycodone-acetaminophen 5-325 mg tablet 1 tab PO Q6H PRN (Reason: pain) Qty: 6 RF: 0 hydrocodone-acetaminophen 5-325 mg tablet 2 tab PO Q4-6H PRN (Reason: pain) Qty: 7 RF: 0 Referrals: Julio César Tompkins MD [Primary Care Provider] -
[2018-07-14 15:00] VITALS: BP 122/83; PULSE 68; RESP 18; O2SAT 98
[2018-07-14 15:05] LABS: Add Manual Diff / Slide Review NO; Basophils Absolute Auto 100 /uL (0-100); Eosinophils Absolute Auto 100 /uL (0-450); Eosinophils Percent Auto 1.1 % (2-4); Hematocrit 45.2 % (41-53); Hemoglobin 15.2 g/dL (13.5-17.5); Lymphocytes Absolute Auto 1500 /uL (1100-4500); Lymphocytes Percent Auto 20.6 % (25-40); Mean Corpuscular HGB Conc 33.7 % (30-36); Mean Corpuscular Hemoglobin 30.7 PG (26-34); Monocytes Absolute Auto 300 /uL (0-900); Monocytes Percent Auto 4.4 % (3-14); Neutrophils Absolute Auto 5400 /uL (1500-7000); Neutrophils Percent Auto 72.9 % (50-75); Platelet Count 324 X10^3/uL (150-400); Red Blood Cell Count 4.96 X10^6/uL (4.5-5.9); Red Cell Distribution Width 15.3 % (11.6-14.8); White Blood Cell Count 7.3 X10^3/uL (4.5-11.0)
--- NOTE | 2018-07-14 15:07 | DI.CT.S_ITS ---
PROCEDURE: CT HEAD/BRAIN WO CON INDICATIONS: Dizziness, history of cerebral vascular accident TECHNIQUE: Noncontrast 4.5 mm thick angled axial sections acquired from the foramen magnum to the vertex, with coronal and sagittal reformats. For radiation dose reduction, the following was used: automated exposure control, adjustment of mA and/or kV according to patient size. COMPARISON: [facility], CT, HEAD WITHOUT CONTRAST, 06/25/2017, 11:27. FINDINGS: Image quality: Excellent. CSF spaces: Basal cisterns are patent. No extra-axial fluid collections. Ventricles are normal in size and shape. Brain: No intracranial hemorrhage, mass, or mass effect. Snider-white matter interface is preserved. Skull and face: Calvarium and visualized facial bones are intact, without suspicious lesions. Sinuses: Visualized sinuses and mastoids are clear. IMPRESSION: 1. No acute intracranial abnormality. Dictated by: Sampson Hardwick M.D. on 07/14/2018 at 15:45 Approved by: Sampson Hardwick M.D. on 07/14/2018 at 15:46
[2018-07-14 15:10] LABS: BUN Creatinine Ratio 13.6 (6-22); Blood Urea Nitrogen 15 mg/dL (9-20); Calcium 9.8 mg/dL (8.4-10.2); Carbon Dioxide 27 mmol/L (22-32); Chloride 105 mmol/L (98-107); Estimated Glomerular Filt Rate > 60.0 mL/min (>60); Glucose 102 mg/dL (70-100); HEMOLYSIS 27 (0-50); Potassium 4.1 mmol/L (3.4-5.1); Sodium 143 mmol/L (137-145)
[2018-07-14] MEDS: SODIUM CHLORIDE 0.9% 1,000 ML 1000 ML IV (15:20)
[2018-07-14] MEDS: MECLIZINE HCL 12.5 MG TABLET 25 MG PO (15:20)
[2018-07-14] MEDS: ONDANSETRON 4 MG/2 ML INJ IV (15:20)
[2018-07-14 15:26] LABS: Troponin I < 0.012 ng/mL (0.01-0.034)
[2018-07-14 15:55] VITALS: BP 124/79; PULSE 64; RESP 15; O2SAT 98
[2018-07-14 16:00] VITALS: BP 115/85; PULSE 69; RESP 19; O2SAT 98
[2018-07-14 16:22] LABS: Alanine Aminotransferase 47 IU/L (21-72); Albumin 4.7 g/dL (3.5-5.0); Albumin Globulin Ratio 1.6 (1.0-2.8); Alkaline Phosphatase 75 U/L (38-126); Aspartate Aminotransferase 30 IU/L (17-59); Bilirubin Total 0.4 mg/dL (0.2-1.3); Creatine Kinase 190 U/L (55-170); Globulin 2.9 g/dL (1.7-4.1); Total Protein 7.6 g/dL (6.3-8.2)
[2018-07-14 16:38] LABS: CKMB % Relative Index 0.5 % (1.5-5.0); Creatine Kinase MB 0.98 ng/mL (<2.37)
== END 2018-07-14 16:57 | disposition home or self-care (01) ==
PROVIDERS: Emergency Provider Emergency Medicine; Family Provider Family Medicine; PCP Family Medicine
DX: H81.10 Benign paroxysmal vertigo, unspecified ear (principal)
CPT/HCPCS: 70450; 80053; 82550; 82553; 84484; 85025; 93005; 96361; 96374; 99283; 99285; 99291; J2405

== ENCOUNTER 2018-08-21 20:24 | Emergency (ER) | payer OTHER, MEDICAID, SELFPAY ==
[2018-08-21 21:15] VITALS: BP 146/93; PULSE 79; RESP 18; TEMP 37.1; O2SAT 98; BMI 25.1
--- NOTE | 2018-08-21 22:17 | ED_ITS ---
HPI - Extremity Injury (Upper) <JAMES Montero - Last Filed: 08/21/18 22:20> General Chief Complaint: Extremity Injury, Upper Stated Complaint: swollen right elbow Time Seen by Provider: 08/21/18 20:47 Source: patient Mode of arrival: ambulatory Limitations: no limitations History of Present Illness HPI narrative: 48-year-old male with history of Crohn's disease and is an everyday smoker here for complaint of pain and redness to his right elbow area that started earlier today. He denies any trauma to the area. He reports increased pain with palpitation to the right elbow. He denies any recent strenuous activities. He denies any fevers or chills. No drainage from the right elbow area. No other concerns or complaints at this timeframe. Related Data Home Medications Medication Instructions Recorded Confirmed tamsulosin [Flomax] 1 cap PO PRN PRN #0 06/21/17 11/18/17 ondansetron 4 mg SUBLINGUAL Q6HP PRN 11/18/17 11/18/17 Previous Rx's Medication Instructions Recorded oxycodone-acetaminophen 1 tab PO Q6H PRN #6 tab 11/19/17 hydrocodone-acetaminophen 2 tab PO Q4-6H PRN #7 tab 05/23/18 meclizine 25 mg PO BID-TID PRN #20 tab 07/14/18 ondansetron 4 mg PO Q6-8H PRN #10 tab 07/14/18 clindamycin HCl 450 mg PO TID 14 Days #126 cap 08/21/18 Allergies Allergy/AdvReac Type Severity Reaction Status Date / Time No Known Drug Allergies Allergy Verified 08/21/18 21:19 Review of Systems <JAMES Montero - Last Filed: 08/21/18 22:20> Constitutional Denies chills, Denies fever(s), Denies lethargy and Denies weakness Eyes Denies change in vision, Denies eye discharge, Denies irritation and Denies loss of vision ENT Ears, Nose, Mouth, and Throat: Denies change in voice, Denies neck pain and Denies sore throat Cardiovascular Denies chest pain, Denies irregular heart rhythm, Denies lightheadedness, Denies palpitations, Denies dyspnea, Denies dyspnea on exertion and Denies orthopnea Respiratory Denies cough, Denies dyspnea, Denies dyspnea on exertion and Denies wheezing Gastrointestinal Gastrointestinal: Denies abdominal pain, Denies change in bowel habits, Denies diarrhea, Denies nausea and Denies vomiting Genitourinary Denies hematuria, Denies flank pain, Denies urinary incontinence and Denies ur inary urgency Musculoskeletal Denies neck pain Comments: Redness and swelling to right elbow Integumentary/Breasts Denies pruritus, Denies erythema, Denies rash and Denies wounds Neurologic Denies confusion, Denies loss of vision and Denies weakness Psychiatric Denies anxiety, Denies confusion, Denies depression, Denies homicidal ideation and Denies suicidal ideation Endocrine Denies palpitations Hematologic/Lymphatic Denies easy bruising Allergic/Immunologic Denies wheezing PFSH <JAMES Montero - Last Filed: 08/21/18 22:20> Medical History CVA (cerebral vascular accident) (Acute) Kidney stones (Acute) Surgical History History of lithotripsy (Acute) Patent foramen ovale (Acute) Social History Smoking Status: Current every day smoker Social History Smoking Status: Current every day smoker Exam <JAMES Montero - Last Filed: 08/21/18 22:20> Initial Vital Signs Initial Vital Signs: Vital Signs Temperature 98.7 F 08/21/18 21:15 Pulse Rate 79 08/21/18 21:15 Respiratory Rate 18 08/21/18 21:15 Blood Pressure 146/93 H 08/21/18 21:15 Pulse Oximetry 98 08/21/18 21:15 Const General: cooperative and well developed Nutritional Appearance: well nourished Orientation: alert, awake, oriented x3 and not confused HENMT Mouth: oral mucosae normal and moist mucous membranes Eyes Conjunctivae: conjunctivae normal Sclera: sclerae normal Pupils: PERRL EOM: EOM intact bilaterally Resp Effort & Inspection: normal respiratory effort, able to speak in complete sentences, no respiratory distress and no use of accessory muscles Auscultation: clear to auscultation bilaterally, no rales, no rhonchi and no w heezes Cardio Rate: regular rate Rhythm: regular rhythm Heart Sounds: no click, no gallops, no murmurs and no rubs Pulses: normal peripheral pulses Skin General: no rashes or lesions noted, No jaundice and No petechiae Neuro General: alert, oriented x3, gait normal and no focal motor deficits Speech: speech normal Extrem Other: Swelling and redness to the right elbow to the olcranon area. No open lesions. Distal sensation is intact. Distal pulses are intact. Distal range of motion is intact. <Arcenio Marte DO - Last Filed: 08/22/18 04:27> Initial Vital Signs Initial Vital Signs: Vital Signs Temperature 98.7 F 08/21/18 21:15 Pulse Rate 79 08/21/18 21:15 Respiratory Rate 18 08/21/18 21:15 Blood Pressure 146/93 H 08/21/18 21:15 Pulse Oximetry 98 08/21/18 21:15 Course <JAMES Montero - Last Filed: 08/21/18 22:20> Orders Ordered: Discontinued Medications Clindamycin HCl (Cleocin) 450 mg PO NOW ONE Stop: 08/21/18 22:12 Last Admin: 08/21/18 22:19 Dose: 450 mg Vital Signs - 8 hr 08/21/18 21:15 Temperature 98.7 F Pulse Rate 79 Respiratory Rate 18 Blood Pressure 146/93 H Pulse Oximetry 98 <Arcenio Marte DO - Last Filed: 08/22/18 04:27> Orders Ordered: Discontinued Medications Clindamycin HCl (Cleocin) 450 mg PO NOW ONE Stop: 08/21/18 22:12 Last Admin: 08/21/18 22:19 Dose: 450 mg Vital Signs - 8 hr 08/21/18 21:15 Temperature 98.7 F Pulse Rate 79 Respiratory Rate 18 Blood Pressure 146/93 H Pulse Oximetry 98 MDM - Extremity Injury (Upper) <JAMES Montero - Last Filed: 08/21/18 22:20> [facility] Narrative Medical decision making narrative: Sinus symptoms presents as a starting septic bursitis to the right olcranon area. Attempted to drain fluid from the bursitis area and was unable to obtain any drainage. Patient tolerated well no complications. He is placed on clindamycin. [id number] ibuprofen as needed for any discomfort. Follow up with primary care for the next few days for re-evaluation. For any worsening symptoms return to the emergency room. Discharge Plan Departure Patient Disposition: Home Clinical Impression: Bursitis of elbow Qualifiers: Elbow bursitis location: olecranon bursitis Laterality: right Qualified Code(s): M70.21 - Olecranon bursitis, right elbow Discharge Date/Time: 08/21/18 22:37 Interventions: ED Discharge Assessment Last Done: 08/21/18 22:37 Instructions: DI for Elbow Bursitis Activity Restrictions/Additional Instructions: Sinus symptoms presents as bursitis to the right elbow with infection. UR placed on an antibiotic called clindamycin use as directed. Follow up with her primary care provider next few days for re-evaluation. [id number] Tylenol or Motrin as needed for any discomfort. For any worsening symptoms return to the emergency room. Prescriptions: New clindamycin HCl 150 mg capsule 450 mg PO TID 14 Days Qty: 126 RF: 0 No Action tamsulosin [Flomax] 0.4 MG capsule,extended release 24hr 1 cap PO PRN PRN (Reason: Nausea And Vomiting) Qty: 0 RF: 0 ondansetron 4 MG tablet,disintegrating 4 mg Sublingual Q6HP PRN (Reason: Nausea) RF: 0 oxycodone-acetaminophen 5-325 mg tablet 1 tab PO Q6H PRN (Reason: pain) Qty: 6 RF: 0 hydrocodone-acetaminophen 5-325 mg tablet 2 tab PO Q4-6H PRN (Reason: pain) Qty: 7 RF: 0 meclizine 25 mg tablet 25 mg PO BID-TID PRN (Reason: dizziness) Qty: 20 RF: 0 ondansetron 4 mg tablet,disintegrating 4 mg PO Q6-8H PRN (Reason: nausea and vomiting) Qty: 10 RF: 0 Referrals: Julio César Tompkins MD [Primary Care Provider] - <Arcenio Marte DO - Last Filed: 08/22/18 04:27> [facility] Att[facility]: I was immediately available in the department for consultation. Documentation has been reviewed. I agree with assessment and plan.
[2018-08-21] MEDS: CLINDAMYCIN 150 MG CAPSULE 450 MG PO (22:19)
== END 2018-08-21 22:37 | disposition home or self-care (01) ==
PROVIDERS: Emergency Provider Nurse Practitioner Family; Family Provider Family Medicine; PCP Family Medicine
DX: M70.21 Olecranon bursitis, right elbow (principal)
CPT/HCPCS: 99282; 99283

== ENCOUNTER 2018-10-13 16:29 | Emergency (ER) | payer OTHER, MEDICAID, SELFPAY ==
[2018-10-13 16:32] VITALS: BP 137/92; PULSE 91; RESP 17; TEMP 36.4; O2SAT 97
[2018-10-13 17:16] LABS: Bacteria Urine None Seen
[2018-10-13 17:50] LABS: Calcium Oxalate Crystals Urine Occasional; RBC Urine 1-5/HPF (0-5/HPF); WBC Urine 0-1/HPF (0-5/HPF)
[2018-10-13 17:51] LABS: Culture Indicated Urine Cult Not Indicated
--- NOTE | 2018-10-13 17:53 | ED.MALEGU ---
HPI - Male Genitourinary General Chief complaint: Urogenital-Male Stated complaint: Kidney stones Time Seen by Provider: 10/13/18 17:47 Source: patient Mode of arrival: ambulatory Limitations: no limitations History of Present Illness HPI Narrative: 48-year-old former smoker with a history of kidney stones presents with severe, sudden onset right flank pain. His pain has no provocation or palliation and radiates into his right groin. He denies fever or shaking chills. He denies dysuria, frequency or urgency. He states this feels like prior episodes of kidney stones. Onset (ago): hour(s) Duration: intermittent Radiation: right flank Severity: moderate Quality: aching, burning and sharp Relieving factors: none Exacerbating factors: none Reports denies other symptoms Related Data Home Medications Medication Instructions Recorded Confirmed tamsulosin [Flomax] 1 cap PO PRN PRN #0 06/21/17 11/18/17 ondansetron 4 mg SUBLINGUAL Q6HP PRN 11/18/17 11/18/17 Previous Rx's Medication Instructions Recorded oxycodone-acetaminophen 1 tab PO Q6H PRN #6 tab 11/19/17 hydrocodone-acetaminophen 2 tab PO Q4-6H PRN #7 tab 05/23/18 meclizine 25 mg PO BID-TID PRN #20 tab 07/14/18 ondansetron 4 mg PO Q6-8H PRN #10 tab 07/14/18 hydrocodone-acetaminophen 1 tab PO Q4-6H PRN #10 tab 10/13/18 ketorolac 10 mg PO Q6H PRN #14 tab 10/13/18 ondansetron 4 mg PO TID-QID PRN #10 tab 10/13/18 tamsulosin [Flomax] 0.4 mg PO DAILY #10 cap 10/13/18 Allergies Allergy/AdvReac Type Severity Reaction Status Date / Time No Known Drug Allergies Allergy Verified 10/13/18 16:32 Review of Systems Constitutional Denies chills, Denies fever(s), Denies lethargy and Denies weakness Eyes Denies change in vision, Denies eye discharge, Denies irritation and Denies loss of vision ENT Ears, Nose, Mouth, and Throat: Denies change in voice, Denies neck pain and Denies sore throat Cardiovascular Denies chest pain, Denies irregular heart rhythm, Denies lightheadedness, Denies palpitations, Denies dyspnea, Denies dyspnea on exertion and Denies orthopnea Respiratory Denies cough, Denies dyspnea, Denies dyspnea on exertion and Denies wheezing Gastrointestinal Gastrointestinal: Denies abdominal pain, Denies change in bowel habits, Denies diarrhea, Denies nausea and Denies vomiting Genitourinary Denies hematuria, Reports flank pain, Denies urinary incontinence and Denies urinary urgency Musculoskeletal Denies neck pain Integumentary/Breasts Denies pruritus, Denies erythema, Denies rash and Denies wounds Neurologic Denies confusion, Denies loss of vision and Denies weakness Psychiatric Denies anxiety, Denies confusion, Denies depression, Denies homicidal ideation and Denies suicidal ideation Endocrine Denies palpitations Hematologic/Lymphatic Denies easy bruising Allergic/Immunologic Denies wheezing [facility] Medical History CVA (cerebral vascular accident) (Acute) Kidney stones (Acute) Surgical History History of lithotripsy (Acute) Patent foramen ovale (Acute) Social History Smoking Status: Current every day smoker Social History Smoking Status: Current every day smoker Exam Narrative Exam Narrative: GENERAL: 48-year-old male, obviously uncomfortable, pacing in his room and clutching his right flank HEAD: Atraumatic. Normocephalic. No temporal or scalp tenderness. EYES: Pupils equal round and reactive. Extraocular motions intact. No scleral icterus. No injection or drainage. ENT: Nose without bleeding, purulent drainage or septal hematoma. Throat without erythema, tonsillar hypertrophy or exudate. Uvula midline. Airway patent. NECK: Trachea midline. No JVD or lymphadenopathy. Supple, nontender, no meningeal signs. CARDIOVASCULAR: Regular rate and rhythm without murmurs, gallops, or rubs. RESPIRATORY: Clear to auscultation. Breath sounds equal bilaterally. No wheezes, rales, or rhonchi. GASTROINTESTINAL: Abdomen soft, non-tender, nondistended. No hepato-splenomegaly, or palpable masses. No guarding. EXTREMITIES: No clubbing, cyanosis, or edema. No joint tenderness, effusion, or edema noted. BACK: Nontender without deformity or crepitance. No flank tenderness. NEURO: AOx3. SKIN: No rash or erythema. Initial Vital Signs Initial Vital Signs: Vital Signs Temperature 97.6 F 10/13/18 16:32 Pulse Rate 91 H 10/13/18 16:32 Respiratory Rate 17 10/13/18 16:32 Blood Pressure 137/92 H 10/13/18 16:32 Pulse Oximetry 97 10/13/18 16:32 Course Orders Ordered: Discontinued Medications Hydromorphone HCl (Dilaudid) 1 mg IV NOW ONE Stop: 10/13/18 19:22 Last Admin: 10/13/18 19:31 Dose: 1 mg Sodium Chloride (Normal Saline 0.9%) 1,000 mls @ 1,000 mls/hr IV BOLUS ONE Stop: 10/13/18 19:30 Last Infusion: 10/13/18 20:17 Dose: 0 mls/hr Admin: 10/13/18 18:40 Dose: 1,000 mls/hr Ketorolac Tromethamine (Toradol) 15 mg IV NOW ONE Stop: 10/13/18 18:32 Last Admin: 10/13/18 18:41 Dose: 15 mg Vital Signs - 8 hr 10/13/18 16:32 Temperature 97.6 F Pulse Rate 91 H Respiratory Rate 17 Blood Pressure 137/92 H Pulse Oximetry 97 MDM - Male Genitourinary Lab Data Result diagrams: 10/13/18 18:20 10/13/18 18:20 Lab Results 10/13/18 10/13/18 10/13/18 Range/Units 17:00 18:20 18:20 WBC 7.1 (4.5-11.0) X10^3/uL RBC 4.95 (4.5-5.9) X10^6/uL Hgb 14.9 (13.5-17.5) g/dL Hct 45.0 (41-53) % MCV 90.9 (80-100) fL MCH 30.2 (26-34) PG MCHC 33.2 (30-36) % RDW 14.5 (11.6-14.8) % Plt Count 316 (150-400) X10^3/uL Neut % (Auto) 56.4 (50-75) % Lymph % (Auto) 30.8 (25-40) % Marshall % (Auto) 9.9 (3-14) % Eos % (Auto) 2.0 (2-4) % Baso % (Auto) 0.9 (0-2) % Neut # (Auto) 4000 (6326-7840) /uL Lymph # (Auto) 2200 (4887-2493) /uL Marshall # (Auto) 700 (0-900) /uL Eos # (Auto) 100 (0-450) /uL Baso # (Auto) 100 (0-100) /uL Sodium 137 (137-145) mmol/L Potassium 4.3 (3.4-5.1) mmol/L Chloride 102 (98-107) mmol/L Carbon Dioxide 24 (22-32) mmol/L BUN 15 (9-20) mg/dL Creatinine 0.90 (0.66-1.25) mg/dL Estimated GFR > 60.0 (>60) mL/min BUN/Creatinine Ratio 16.7 (6-22) Glucose 100 (70-100) mg/dL Calcium 9.7 (8.4-10.2) mg/dL Urine RBC 1-5/hpf (0-5/HPF) Urine WBC 0-1/hpf (0-5/HPF) Calcium Oxalate Crystal Occasional H Urine Bacteria None seen (None) Ur Culture Indicated? Cult not indicated Urine Dip Bedside Urine Glucose Negative Bedside Urine Bilirubin - Negative Bedside Urine Ketone - Negative Urine Specific [place] 1.025 Bedside Urine Occult Blood + Bedside Urine pH 6.5 Bedside Urine Protein +/- 15 Bedside Urine Urobilinogen - Negative Bedside Urine Nitrite - Negative Bedside Urine Leukocytes - Negative Esterase Imaging Data CT scan - abdomen: Radiologist's impression: [address] [address] [address] Scan Report Signed Patient: Maceil Urban RMR#: [id number] : 1970Acct:[id number] Age/Sex: 48 / MDate of Service: 10/13/18 Loc: ED Accession Number: [id number] Procedure: CT kidney ureter bladder (KUB) Ordering Provider: Arcenio Marte D.O. PROCEDURE: CT KIDNEY URETER BLADDER (KUB) INDICATIONS: kidney stone pain TECHNIQUE: Noncontrast 5 mm thick sections acquired from the diaphragms to the symphysis. 5 mm thick coronal and sagittal reformats were then performed. For radiation dose reduction, the following was used: automated exposure control, adjustment of mA and/or kV according to patient size. COMPARISON: [facility], CT, CT KIDNEY URETER BLADDER (KUB), 05/23/2018, 4:43. FINDINGS: Image quality: Excellent. Lung bases: Lung bases are clear. Heart size is normal. Urinary system: Multiple right renal calculi measuring up to 5 mm in size. No left nephrolithiasis. No perinephric stranding. No hydronephrosis. No bladder calculus seen. Ureters are nondilated. Other solid organs: Liver is normal in size. Gallbladder surgically absent. Pancreas is normal in contours. Spleen is normal in size. No adrenal nodules. Peritoneum and bowel: Unenhanced bowel loops demonstrate normal wall thickness and caliber. No free fluid or air. Surgical anastomosis in the right lower quadrant. Appendix is not clearly identified however no suspicious pericecal inflammatory changes are identified Nodes and vessels: No retroperitoneal or mesenteric adenopathy by size criteria. Aorta and inferior vena cava are normal in caliber. Abdominal wall: No ventral hernias. Pelvis: No free pelvic fluid. No inguinal hernias or adenopathy. Bones: No suspicious bony lesions. No vertebral body compression fractures. IMPRESSION: Right nephrolithiasis measuring up to 5 mm. No evidence of urinary obstruction. Elsewhere, no acute process. Dictated by: Lacho Schwarz M.D. on 10/13/2018 at 19:35 Approved by: Lacho Schwarz M.D. on 10/13/2018 at 19:44 Discharge Plan Departure Patient Disposition: Home Clinical Impression: Ureterolithiasis Discharge Date/Time: 10/13/18 20:15 Interventions: ED Discharge Assessment Last Done: 10/13/18 20:15 Instructions: DI for Kidney Stones Prescriptions: New hydrocodone-acetaminophen 5-325 mg tablet 1 tab PO Q4-6H PRN (Reason: pain) Qty: 10 RF: 0 ketorolac 10 mg tablet 10 mg PO Q6H PRN (Reason: pain) Qty: 14 RF: 0 tamsulosin [Flomax] 0.4 mg capsule 0.4 mg PO DAILY Qty: 10 RF: 0 ondansetron 4 mg tablet,disintegrating 4 mg PO TID-QID PRN (Reason: nausea and vomiting) Qty: 10 RF: 0 No Action tamsulosin [Flomax] 0.4 MG capsule,extended release 24hr 1 cap PO PRN PRN (Reason: Nausea And Vomiting) Qty: 0 RF: 0 ondansetron 4 MG tablet,disintegrating 4 mg Sublingual Q6HP PRN (Reason: Nausea) RF: 0 oxycodone-acetaminophen 5-325 mg tablet 1 tab PO Q6H PRN (Reason: pain) Qty: 6 RF: 0 hydrocodone-acetaminophen 5-325 mg tablet 2 tab PO Q4-6H PRN (Reason: pain) Qty: 7 RF: 0 meclizine 25 mg tablet 25 mg PO BID-TID PRN (Reason: dizziness) Qty: 20 RF: 0 ondansetron 4 mg tablet,disintegrating 4 mg PO Q6-8H PRN (Reason: nausea and vomiting) Qty: 10 RF: 0 Referrals: Farrukh Jauregui MD [Non-Staff] -
--- NOTE | 2018-10-13 18:04 | PC.NURSE ---
Hx of multiple kidney stones and feels over past few days one may be stuck
--- NOTE | 2018-10-13 18:31 | DI.CT.S_ITS ---
PROCEDURE: CT KIDNEY URETER BLADDER (KUB) INDICATIONS: kidney stone pain TECHNIQUE: Noncontrast 5 mm thick sections acquired from the diaphragms to the symphysis. 5 mm thick coronal and sagittal reformats were then performed. For radiation dose reduction, the following was used: automated exposure control, adjustment of mA and/or kV according to patient size. COMPARISON: [facility], CT, CT KIDNEY URETER BLADDER (KUB), 05/23/2018, 4:43. FINDINGS: Image quality: Excellent. Lung bases: Lung bases are clear. Heart size is normal. Urinary system: Multiple right renal calculi measuring up to 5 mm in size. No left nephrolithiasis. No perinephric stranding. No hydronephrosis. No bladder calculus seen. Ureters are nondilated. Other solid organs: Liver is normal in size. Gallbladder surgically absent. Pancreas is normal in contours. Spleen is normal in size. No adrenal nodules. Peritoneum and bowel: Unenhanced bowel loops demonstrate normal wall thickness and caliber. No free fluid or air. Surgical anastomosis in the right lower quadrant. Appendix is not clearly identified however no suspicious pericecal inflammatory changes are identified Nodes and vessels: No retroperitoneal or mesenteric adenopathy by size criteria. Aorta and inferior vena cava are normal in caliber. Abdominal wall: No ventral hernias. Pelvis: No free pelvic fluid. No inguinal hernias or adenopathy. Bones: No suspicious bony lesions. No vertebral body compression fractures. IMPRESSION: Right nephrolithiasis measuring up to 5 mm. No evidence of urinary obstruction. Elsewhere, no acute process. Dictated by: Lacho Schwarz M.D. on 10/13/2018 at 19:35 Approved by: Lacho Schwarz M.D. on 10/13/2018 at 19:44
[2018-10-13 18:38] LABS: Add Manual Diff / Slide Review NO; Basophils Absolute Auto 100 /uL (0-100); Basophils Percent Auto 0.9 % (0-2); Eosinophils Absolute Auto 100 /uL (0-450); Hemoglobin 14.9 g/dL (13.5-17.5); Lymphocytes Absolute Auto 2200 /uL (1100-4500); Lymphocytes Percent Auto 30.8 % (25-40); Mean Corpuscular HGB Conc 33.2 % (30-36); Mean Corpuscular Hemoglobin 30.2 PG (26-34); Mean Corpuscular Volume 90.9 fL (80-100); Monocytes Absolute Auto 700 /uL (0-900); Monocytes Percent Auto 9.9 % (3-14); Neutrophils Absolute Auto 4000 /uL (1500-7000); Neutrophils Percent Auto 56.4 % (50-75); Platelet Count 316 X10^3/uL (150-400); Red Blood Cell Count 4.95 X10^6/uL (4.5-5.9); Red Cell Distribution Width 14.5 % (11.6-14.8); White Blood Cell Count 7.1 X10^3/uL (4.5-11.0)
[2018-10-13] MEDS: SODIUM CHLORIDE 0.9% 1,000 ML 1000 ML IV (18:40)
[2018-10-13] MEDS: KETOROLAC 30 MG/ML VIAL 15 MG IV (18:41)
[2018-10-13 18:48] LABS: BUN Creatinine Ratio 16.7 (6-22); Blood Urea Nitrogen 15 mg/dL (9-20); Calcium 9.7 mg/dL (8.4-10.2); Carbon Dioxide 24 mmol/L (22-32); Chloride 102 mmol/L (98-107); Estimated Glomerular Filt Rate > 60.0 mL/min (>60); Glucose 100 mg/dL (70-100); HEMOLYSIS < 15 (0-50); Potassium 4.3 mmol/L (3.4-5.1); Sodium 137 mmol/L (137-145)
[2018-10-13] MEDS: HYDROMORPHONE 1 MG INJ IV (19:31)
--- NOTE | 2018-10-13 20:04 | ED_ITS ---
HPI - Male Genitourinary General Chief complaint: Urogenital-Male Stated complaint: Kidney stones Time Seen by Provider: 10/13/18 17:47 Source: patient Mode of arrival: ambulatory Limitations: no limitations History of Present Illness HPI Narrative: 48-year-old former smoker with a history of kidney stones presents with severe, sudden onset right flank pain. His pain has no provocation or palliation and radiates into his right groin. He denies fever or shaking chills. He denies dysuria, frequency or urgency. He states this feels like prior episodes of kidney stones. Onset (ago): hour(s) Duration: intermittent Radiation: right flank Severity: moderate Quality: aching, burning and sharp Relieving factors: none Exacerbating factors: none Reports denies other symptoms Related Data Home Medications Medication Instructions Recorded Confirmed tamsulosin [Flomax] 1 cap PO PRN PRN #0 06/21/17 11/18/17 ondansetron 4 mg SUBLINGUAL Q6HP PRN 11/18/17 11/18/17 Previous Rx's Medication Instructions Recorded oxycodone-acetaminophen 1 tab PO Q6H PRN #6 tab 11/19/17 hydrocodone-acetaminophen 2 tab PO Q4-6H PRN #7 tab 05/23/18 meclizine 25 mg PO BID-TID PRN #20 tab 07/14/18 ondansetron 4 mg PO Q6-8H PRN #10 tab 07/14/18 hydrocodone-acetaminophen 1 tab PO Q4-6H PRN #10 tab 10/13/18 ketorolac 10 mg PO Q6H PRN #14 tab 10/13/18 ondansetron 4 mg PO TID-QID PRN #10 tab 10/13/18 tamsulosin [Flomax] 0.4 mg PO DAILY #10 cap 10/13/18 Allergies Allergy/AdvReac Type Severity Reaction Status Date / Time No Known Drug Allergies Allergy Verified 10/13/18 16:32 Review of Systems Constitutional Denies chills, Denies fever(s), Denies lethargy and Denies weakness Eyes Denies change in vision, Denies eye discharge, Denies irritation and Denies loss of vision ENT Ears, Nose, Mouth, and Throat: Denies change in voice, Denies neck pain and Denies sore throat Cardiovascular Denies chest pain, Denies irregular heart rhythm, Denies lightheadedness, Denies palpitations, Denies dyspnea, Denies dyspnea on exertion and Denies orthopnea Respiratory Denies cough, Denies dyspnea, Denies dyspnea on exertion and Denies wheezing Gastrointestinal Gastrointestinal: Denies abdominal pain, Denies change in bowel habits, Denies diarrhea, Denies nausea and Denies vomiting Genitourinary Denies hematuria, Reports flank pain, Denies urinary incontinence and Denies urinary urgency Musculoskeletal Denies neck pain Integumentary/Breasts Denies pruritus, Denies erythema, Denies rash and Denies wounds Neurologic Denies confusion, Denies loss of vision and Denies weakness Psychiatric Denies anxiety, Denies confusion, Denies depression, Denies homicidal ideation and Denies suicidal ideation Endocrine Denies palpitations Hematologic/Lymphatic Denies easy bruising Allergic/Immunologic Denies wheezing [facility] Medical History CVA (cerebral vascular accident) (Acute) Kidney stones (Acute) Surgical History History of lithotripsy (Acute) Patent foramen ovale (Acute) Social History Smoking Status: Current every day smoker Social History Smoking Status: Current every day smoker Exam Narrative Exam Narrative: GENERAL: 48-year-old male, obviously uncomfortable, pacing in his room and clutching his right flank HEAD: Atraumatic. Normocephalic. No temporal or scalp tenderness. EYES: Pupils equal round and reactive. Extraocular motions intact. No scleral icterus. No injection or drainage. ENT: Nose without bleeding, purulent drainage or septal hematoma. Throat without erythema, tonsillar hypertrophy or exudate. Uvula midline. Airway patent. NECK: Trachea midline. No JVD or lymphadenopathy. Supple, nontender, no meningeal signs. CARDIOVASCULAR: Regular rate and rhythm without murmurs, gallops, or rubs. RESPIRATORY: Clear to auscultation. Breath sounds equal bilaterally. No wheezes, rales, or rhonchi. GASTROINTESTINAL: Abdomen soft, non-tender, nondistended. No hepato-splenomegal y, or palpable masses. No guarding. EXTREMITIES: No clubbing, cyanosis, or edema. No joint tenderness, effusion, or edema noted. BACK: Nontender without deformity or crepitance. No flank tenderness. NEURO: AOx3. SKIN: No rash or erythema. Initial Vital Signs Initial Vital Signs: Vital Signs Temperature 97.6 F 10/13/18 16:32 Pulse Rate 91 H 10/13/18 16:32 Respiratory Rate 17 10/13/18 16:32 Blood Pressure 137/92 H 10/13/18 16:32 Pulse Oximetry 97 10/13/18 16:32 Course Orders Ordered: Discontinued Medications Hydromorphone HCl (Dilaudid) 1 mg IV NOW ONE Stop: 10/13/18 19:22 Last Admin: 10/13/18 19:31 Dose: 1 mg Sodium Chloride (Normal Saline 0.9%) 1,000 mls @ 1,000 mls/hr IV BOLUS ONE Stop: 10/13/18 19:30 Last Infusion: 10/13/18 20:17 Dose: 0 mls/hr Admin: 10/13/18 18:40 Dose: 1,000 mls/hr Ketorolac Tromethamine (Toradol) 15 mg IV NOW ONE Stop: 10/13/18 18:32 Last Admin: 10/13/18 18:41 Dose: 15 mg Vital Signs - 8 hr 10/13/18 16:32 Temperature 97.6 F Pulse Rate 91 H Respiratory Rate 17 Blood Pressure 137/92 H Pulse Oximetry 97 MDM - Male Genitourinary Lab Data Result diagrams: 10/13/18 18:20 10/13/18 18:20 Lab Results 10/13/18 10/13/18 10/13/18 Range/Units 17:00 18:20 18:20 WBC 7.1 (4.5-11.0) X10^3/uL RBC 4.95 (4.5-5.9) X10^6/uL Hgb 14.9 (13.5-17.5) g/dL Hct 45.0 (41-53) % MCV 90.9 (80-100) fL MCH 30.2 (26-34) PG MCHC 33.2 (30-36) % RDW 14.5 (11.6-14.8) % Plt Count 316 (150-400) X10^3/uL Neut % (Auto) 56.4 (50-75) % Lymph % (Auto) 30.8 (25-40) % Phelps % (Auto) 9.9 (3-14) % Eos % (Auto) 2.0 (2-4) % Baso % (Auto) 0.9 (0-2) % Neut # (Auto) 4000 (0011-8195) /uL Lymph # (Auto) 2200 (4782-0809) /uL Phelps # (Auto) 700 (0-900) /uL Eos # (Auto) 100 (0-450) /uL Baso # (Auto) 100 (0-100) /uL Sodium 137 (137-145) mmol/L Potassium 4.3 (3.4-5.1) mmol/L Chloride 102 (98-107) mmol/L Carbon Dioxide 24 (22-32) mmol/L BUN 15 (9-20) mg/dL Creatinine 0.90 (0.66-1.25) mg/dL Estimated GFR > 60.0 (>60) mL/min BUN/Creatinine Ratio 16.7 (6-22) Glucose 100 (70-100) mg/dL Calcium 9.7 (8.4-10.2) mg/dL Urine RBC 1-5/hpf (0-5/HPF) Urine WBC 0-1/hpf (0-5/HPF) Calcium Oxalate Crystal Occasional H Urine Bacteria None seen (None) Ur Culture Indicated? Cult not indicated Urine Dip Bedside Urine Glucose Negative Bedside Urine Bilirubin - Negative Bedside Urine Ketone - Negative Urine Specific [place] 1.025 Bedside Urine Occult Blood + Bedside Urine pH 6.5 Bedside Urine Protein +/- 15 Bedside Urine Urobilinogen - Negative Bedside Urine Nitrite - Negative Bedside Urine Leukocytes - Negative Esterase Imaging Data CT scan - abdomen: Radiologist's impression: [address] [address] [address] Scan Report Signed Patient: Maciel Urban RMR#: [id number] : 1970Acct:[id number] Age/Sex: 48 / MDate of Service: 10/13/18 Loc: ED Accession Number: [id number] Procedure: CT kidney ureter bladder (KUB) Ordering Provider: Arcenio Marte D.O. PROCEDURE: CT KIDNEY URETER BLADDER (KUB) INDICATIONS: kidney stone pain TECHNIQUE: Noncontrast 5 mm thick sections acquired from the diaphragms to the symphysis. 5 mm thick coronal and sagittal reformats were then performed. For radiation dose reduction, the following was used: automated exposure control, adjustment of mA and/or kV according to patient size. COMPARISON: [facility], CT, CT KIDNEY URETER BLADDER (KUB), 05/23/2018, 4:43. FINDINGS: Image quality: Excellent. Lung bases: Lung bases are clear. Heart size is normal. Urinary system: Multiple right renal calculi measuring up to 5 mm in size. No left nephrolithiasis. No perinephric stranding. No hydronephrosis. No bladder calculus seen. Ureters are nondilated. Other solid organs: Liver is normal in size. Gallbladder surgically absent. Pancreas is normal in contours. Spleen is normal in size. No adrenal nodules. Peritoneum and bowel: Unenhanced bowel loops demonstrate normal wall thickness and caliber. No free fluid or air. Surgical anastomosis in the right lower quadr ant. Appendix is not clearly identified however no suspicious pericecal inflammatory changes are identified Nodes and vessels: No retroperitoneal or mesenteric adenopathy by size criteria. Aorta and inferior vena cava are normal in caliber. Abdominal wall: No ventral hernias. Pelvis: No free pelvic fluid. No inguinal hernias or adenopathy. Bones: No suspicious bony lesions. No vertebral body compression fractures. IMPRESSION: Right nephrolithiasis measuring up to 5 mm. No evidence of urinary obstruction. Elsewhere, no acute process. Dictated by: Lacho Schwarz M.D. on 10/13/2018 at 19:35 Approved by: Lacho Schwarz M.D. on 10/13/2018 at 19:44 Discharge Plan Departure Patient Disposition: Home Clinical Impression: Ureterolithiasis Discharge Date/Time: 10/13/18 20:15 Interventions: ED Discharge Assessment Last Done: 10/13/18 20:15 Instructions: DI for Kidney Stones Prescriptions: New hydrocodone-acetaminophen 5-325 mg tablet 1 tab PO Q4-6H PRN (Reason: pain) Qty: 10 RF: 0 ketorolac 10 mg tablet 10 mg PO Q6H PRN (Reason: pain) Qty: 14 RF: 0 tamsulosin [Flomax] 0.4 mg capsule 0.4 mg PO DAILY Qty: 10 RF: 0 ondansetron 4 mg tablet,disintegrating 4 mg PO TID-QID PRN (Reason: nausea and vomiting) Qty: 10 RF: 0 No Action tamsulosin [Flomax] 0.4 MG capsule,extended release 24hr 1 cap PO PRN PRN (Reason: Nausea And Vomiting) Qty: 0 RF: 0 ondansetron 4 MG tablet,disintegrating 4 mg Sublingual Q6HP PRN (Reason: Nausea) RF: 0 oxycodone-acetaminophen 5-325 mg tablet 1 tab PO Q6H PRN (Reason: pain) Qty: 6 RF: 0 hydrocodone-acetaminophen 5-325 mg tablet 2 tab PO Q4-6H PRN (Reason: pain) Qty: 7 RF: 0 meclizine 25 mg tablet 25 mg PO BID-TID PRN (Reason: dizziness) Qty: 20 RF: 0 ondansetron 4 mg tablet,disintegrating 4 mg PO Q6-8H PRN (Reason: nausea and vomiting) Qty: 10 RF: 0 Referrals: Farrukh Jauregui MD [Non-Staff] -
[2018-10-13 20:15] VITALS: BP 119/76; PULSE 80; RESP 16; O2SAT 98
== END 2018-10-13 20:15 | disposition home or self-care (01) ==
PROVIDERS: Emergency Medicine; Emergency Provider Emergency Medicine; Family Provider Family Medicine; PCP Family Medicine
DX: N20.1 Calculus of ureter (principal)
CPT/HCPCS: 36591; 74176; 80048; 81003; 81015; 85025; 96361; 96374; 96375; 99283; 99284; J1170; J1885

== ENCOUNTER 2018-10-19 14:50 | Emergency (ER) | payer OTHER, MEDICAID, SELFPAY ==
[2018-10-19 14:54] VITALS: BP 126/84; PULSE 96; RESP 19; TEMP 36.6; O2SAT 96; BMI 25.1
--- NOTE | 2018-10-19 15:20 | DI.US.S_ITS ---
PROCEDURE: US RENAL COMPLETE INDICATIONS: STONES, WORSENING PAIN TECHNIQUE: Real-time scanning was performed of the kidneys and bladder, with image documentation. COMPARISON: [facility], CT, CT KIDNEY URETER BLADDER (KUB), 10/13/2018, 19:06. FINDINGS: Kidneys: Right kidney measures 12.5 cm long; left kidney measures 12.3 cm long. Right renal cortical thickness is 1.6 cm; left renal cortical thickness is 1.4 cm. Renal cortical echotexture is normal. No hydronephrosis. There are clustered small renal stones inserted within the inferior pole of the right kidney corresponding to the findings on recent CT. These measure up to approximately 0.5 cm. The right superior pole stone seen on CT is not discretely visualized on ultrasound. No left renal stones identified. Bladder: Pre-void bladder volume is 31 mL. Post-void residual is 0 mL. Pre-void images demonstrate no intraluminal masses or stones. On pre-void images, the right ureteral jet is noted with color Doppler interrogation. (Of note, ureteral jets may not be detectable in up to 25% of cases due to insufficient differences in specific gravity between ureteral and bladder urine). Miscellaneous: There is an echogenic focus within the prostate compatible with nonspecific prostatic calcifications. No free pelvic fluid. There is increased hepatic echogenicity compatible with steatosis. IMPRESSION: 1. No evidence of hydronephrosis. 2. Right nephrolithiasis redemonstrated as seen on the recent CT. Dictated by: Sampson Hardwick M.D. on 10/19/2018 at 16:54 Approved by: Sampson Hardwick M.D. on 10/19/2018 at 16:58
--- NOTE | 2018-10-19 15:22 | ED.MALEGU ---
HPI - Male Genitourinary <SUGEY Storm - Last Filed: 10/19/18 18:19> General Chief complaint: Urogenital-Male Stated complaint: kidney stones Time Seen by Provider: 10/19/18 14:59 Source: patient Mode of arrival: ambulatory Limitations: no limitations History of Present Illness HPI Narrative: The patient is a 48 year male current smoker with history of kidney stones who presents with a chief complaint of flank pain. he was seen at this facility on 10/13, head CT and was found to have multiple right renal calculi. He states he is still taking his Flomax and Toradol, but he is out of his [place]. He states his flank pain is worsening. He denies any fevers and nausea vomiting diarrhea. He states he has not followed up with his primary care or his urologist. He states he is out of his pain medication. He took Toradol this morning. He denies any dysuria urgency or frequency. he states that he knows what it feels like to have an infected kidney stone and this one is not. He states he has had to have multiple stones removed via lithotripsy in the past. Related Data Home Medications Medication Instructions Recorded Confirmed amoxicillin 500 mg PO TID 10/19/18 10/19/18 Previous Rx's Medication Instructions Recorded hydrocodone-acetaminophen 2 tab PO Q4-6H PRN #7 tab 05/23/18 meclizine 25 mg PO BID-TID PRN #20 tab 07/14/18 ketorolac 10 mg PO Q6H PRN #14 tab 10/13/18 ondansetron 4 mg PO TID-QID PRN #10 tab 10/13/18 tamsulosin [Flomax] 0.4 mg PO DAILY #10 cap 10/13/18 hydrocodone-acetaminophen 1 tab PO Q4-6H PRN #10 tab 10/19/18 Allergies Allergy/AdvReac Type Severity Reaction Status Date / Time No Known Drug Allergies Allergy Verified 10/13/18 16:32 Review of Systems <SUGEY Storm - Last Filed: 10/19/18 18:19> Review of Systems GENERAL: Denies chills, fatigue, malaise, fever, sweats. HEENT: Denies sinus pain, ear pain, sore throat, difficulty swallowing, dizziness. RESPIRATORY: Denies dyspnea, cough, wheezing, hemoptysis, sputum. CARDIOVASCULAR: Denies chest pain, palpitations, orthopnea, edema, GASTROINTESTINAL: See HPI : See HPI MUSCULOSKELETAL: denies weakness, joint pain, or bony pain SKIN: Denies rash, skin lesions, or other NEUROLOGIC: Denies weakness, headache, numbness, change in speech, confusion, seizures, incoordination. PSYCHIATRIC: No concerning psychosocial issues. 12 point review of systems is negative except for those stated above PFSH <SUGEY Storm - Last Filed: 10/19/18 18:19> Medical History CVA (cerebral vascular accident) (Acute) Kidney stones (Acute) Surgical History History of lithotripsy (Acute) Patent foramen ovale (Acute) Social History Smoking Status: Current every day smoker Social History Smoking Status: Current every day smoker Exam <SUGEY Storm - Last Filed: 10/19/18 18:19> Narrative Exam Narrative: GENERAL: This is a well-nourished, well-developed patient, no acute distress HEAD: Atraumatic. Normocephalic. No temporal or scalp tenderness. EYES: Pupils equal round and reactive. Extraocular motions intact. No scleral icterus. No injection or drainage. ENT: Nose without bleeding, purulent drainage or septal hematoma. Throat without erythema, tonsillar hypertrophy or exudate. Uvula midline. Airway patent. NECK: Trachea midline. No JVD or lymphadenopathy. Supple, nontender, no meningeal signs. CARDIOVASCULAR: Regular rate and rhythm RESPIRATORY: Clear to auscultation. Breath sounds equal bilaterally. No wheezes, rales, or rhonchi. No cough. No increased respiratory effort. GASTROINTESTINAL: Abdomen soft, non-tender, nondistended. No hepato-splenomegaly, or palpable masses. No guarding. active bowel sounds. EXTREMITIES: No clubbing, cyanosis, or edema. No joint tenderness, effusion, or edema noted. BACK: Nontender without deformity or crepitance. Flank tenderness on right side. No CVA tenderness left side. NEURO: AOx3. SKIN: No rash or erythema. Initial Vital Signs Initial Vital Signs: Vital Signs Temperature 98 F 10/19/18 14:54 Pulse Rate 96 H 10/19/18 14:54 Respiratory Rate 10/19/18 14:54 Blood Pressure 126/84 10/19/18 14:54 Pulse Oximetry 96 10/19/18 14:54 <Arcenio Marte DO - Last Filed: 10/20/18 08:48> Initial Vital Signs Initial Vital Signs: Vital Signs Temperature 98 F 10/19/18 14:54 Pulse Rate 96 H 10/19/18 14:54 Respiratory Rate 10/19/18 14:54 Blood Pressure 126/84 10/19/18 14:54 Pulse Oximetry 96 10/19/18 14:54 Course <MARIA DE JESUS Storm-JUANITA - Last Filed: 10/19/18 18:19> Orders Ordered: Discontinued Medications Hydromorphone HCl (Dilaudid) 0.5 mg IV NOW ONE Stop: 10/19/18 16:04 Last Admin: 10/19/18 16:13 Dose: 0.5 mg Sodium Chloride (Normal Saline 0.9%) 1,000 mls @ 1,000 mls/hr IV BOLUS ONE Stop: 10/19/18 16:06 Last Infusion: 10/19/18 16:37 Dose: 0 mls/hr Admin: 10/19/18 15:32 Dose: 1,000 mls/hr Ketorolac Tromethamine (Toradol) 15 mg IV NOW ONE Stop: 10/19/18 15:23 Last Admin: 10/19/18 15:33 Dose: 15 mg Vital Signs - 8 hr 10/19/18 14:54 10/19/18 15:30 10/19/18 17:00 Temperature 98 F Pulse Rate 96 H 78 76 Respiratory Rate 19 17 16 Blood Pressure 126/84 Blood Pressure [Right Arm] 132/76 129/76 Pulse Oximetry 96 99 97 <Arcenio Marte DO - Last Filed: 10/20/18 08:48> Orders Ordered: Discontinued Medications Hydromorphone HCl (Dilaudid) 0.5 mg IV NOW ONE Stop: 10/19/18 16:04 Last Admin: 10/19/18 16:13 Dose: 0.5 mg Sodium Chloride (Normal Saline 0.9%) 1,000 mls @ 1,000 mls/hr IV BOLUS ONE Stop: 10/19/18 16:06 Last Infusion: 10/19/18 16:37 Dose: 0 mls/hr Admin: 10/19/18 15:32 Dose: 1,000 mls/hr Ketorolac Tromethamine (Toradol) 15 mg IV NOW ONE Stop: 10/19/18 15:23 Last Admin: 10/19/18 15:33 Dose: 15 mg Vital Signs - 8 hr 10/19/18 14:54 10/19/18 15:30 10/19/18 17:00 Temperature 98 F Pulse Rate 96 H 78 76 Respiratory Rate 19 17 16 Blood Pressure 126/84 Blood Pressure [Right Arm] 132/76 129/76 Pulse Oximetry 96 99 97 MDM - Male Genitourinary <MARIA DE JESUS Storm- - Last Filed: 10/19/18 18:19> Lab Data Result diagrams: 10/19/18 15:30 10/19/18 15:30 Lab Results 10/19/18 10/19/18 10/19/18 Range/Units 15:30 15:30 16:30 WBC 7.2 (4.5-11.0) X10^3/uL RBC 5.02 (4.5-5.9) X10^6/uL Hgb 15.1 (13.5-17.5) g/dL Hct 45.7 (41-53) % MCV 91.0 (80-100) fL MCH 30.0 (26-34) PG MCHC 32.9 (30-36) % RDW 14.8 (11.6-14.8) % Plt Count 295 (150-400) X10^3/uL Neut % (Auto) 67.5 (50-75) % Lymph % (Auto) 24.5 L (25-40) % Craig % (Auto) 6.3 (3-14) % Eos % (Auto) 1.0 L (2-4) % Baso % (Auto) 0.7 (0-2) % Neut # (Auto) 4800 (6011-1146) /uL Lymph # (Auto) 1800 (8761-9330) /uL Craig # (Auto) 500 (0-900) /uL Eos # (Auto) 100 (0-450) /uL Baso # (Auto) 100 (0-100) /uL Sodium 141 (137-145) mmol/L Potassium 4.1 (3.4-5.1) mmol/L Chloride 106 (98-107) mmol/L Carbon Dioxide 24 (22-32) mmol/L BUN 17 (9-20) mg/dL Creatinine 1.00 (0.66-1.25) mg/dL Estimated GFR > 60.0 (>60) mL/min BUN/Creatinine Ratio 17.0 (6-22) Glucose 108 H (70-100) mg/dL Calcium 10.0 (8.4-10.2) mg/dL Total Bilirubin 0.4 (0.2-1.3) mg/dL AST 31 (17-59) IU/L ALT 47 (21-72) IU/L Alkaline Phosphatase 87 (38-126) U/L Total Protein 8.0 (6.3-8.2) g/dL Albumin 4.9 (3.5-5.0) g/dL Globulin 3.1 (1.7-4.1) g/dL Albumin/Globulin Ratio 1.6 (1.0-2.8) Urine Ictotest Negative (Negative) Urine RBC 5-10/hpf H (0-5/HPF) Urine WBC 5-10/hpf H (0-5/HPF) Ur Squamous Epith Cells 0-1 /hpf (0-5/HPF) Calcium Oxalate Crystal Few H Urine Bacteria Occasional (0-1) (None) Urine Mucus 1+ H (Negative) Ur Culture Indicated? Specimen cultured Urine Dip Bedside Urine Glucose Negative Bedside Urine Bilirubin + 1 Bedside Urine Ketone +/- 5 Urine Specific [place] 1.030 Bedside Urine Occult Blood +/- Bedside Urine pH 5.5 Bedside Urine Protein +/- 15 Bedside Urine Urobilinogen +/- 1mg Bedside Urine Nitrite - Negative Bedside Urine Leukocytes +/- 15 Esterase Imaging Data renal US: Radiologist's impression: [address] [address] Ultrasound Report Signed Patient: Maciel Urban RMR#: [id number] : 1970Acct:[id number] Age/Sex: 48 / MDate of Service: 10/19/18 Loc: ED Accession Number: [id number] Procedure: US renal complete Ordering Provider: Elidia Forte PROCEDURE: US RENAL COMPLETE INDICATIONS: STONES, WORSENING PAIN TECHNIQUE: Real-time scanning was performed of the kidneys and bladder, with image documentation. COMPARISON: [facility], CT, CT KIDNEY URETER BLADDER ([facility]), 10/13/2018, 19:06. FINDINGS: Kidneys: Right kidney measures 12.5 cm long; left kidney measures 12.3 cm long. Right renal cortical thickness is 1.6 cm; left renal cortical thickness is 1.4 cm. Renal cortical echotexture is normal. No hydronephrosis. There are clustered small renal stones inserted within the inferior pole of the right kidney corresponding to the findings on recent CT. These measure up to approximately 0.5 cm. The right superior pole stone seen on CT is not discretely visualized on ultrasound. No left renal stones identified. Bladder: Pre-void bladder volume is 31 mL. Post-void residual is 0 mL. Pre-void images demonstrate no intraluminal masses or stones. On pre-void images, the right ureteral jet is noted with color Doppler interrogation. (Of note, ureteral jets may not be detectable in up to 25% of cases due to insufficient differences in specific gravity between ureteral and bladder urine). Miscellaneous: There is an echogenic focus within the prostate compatible with nonspecific prostatic calcifications. No free pelvic fluid. There is increased hepatic echogenicity compatible with steatosis. IMPRESSION: 1. No evidence of hydronephrosis. 2. Right nephrolithiasis redemonstrated as seen on the recent CT. Dictated by: Sampson Hardwick M.D. on 10/19/2018 at 16:54 Approved by: Sampson Hardwick M.D. on 10/19/2018 at 16:58 [facility] Narrative Medical decision making narrative: The patient is a 48-year-old male with recent history of renal calculi who presents with continued flank pain. he does not have any nitrates or significant bacteria in his urinalysis. His renal function is good bye labs as well as ultrasound. I did give him a small prescription of pain medication with strict instructions to follow up with primary care and/or urologist if he does not pass the stones. He states he has enough nausea medication and Flomax at home. He is hemodynamically stable throughout stay in the emergency department. Of note the patient requested 10 mg hydrocodone upon discharge, stating that the 5 mg were not strong enough. I continued 5 mg dosage. Discussed return precautions including chest pain or shortness of breath. patient has no questions or concerns upon discharge. <Arcenio Marte, DO - Last Filed: 10/20/18 08:48> Lab Data Lab Results 10/19/18 10/19/18 10/19/18 Range/Units 15:30 15:30 16:30 WBC 7.2 (4.5-11.0) X10^3/uL RBC 5.02 (4.5-5.9) X10^6/uL Hgb 15.1 (13.5-17.5) g/dL Hct 45.7 (41-53) % MCV 91.0 (80-100) fL MCH 30.0 (26-34) PG MCHC 32.9 (30-36) % RDW 14.8 (11.6-14.8) % Plt Count 295 (150-400) X10^3/uL Neut % (Auto) 67.5 (50-75) % Lymph % (Auto) 24.5 L (25-40) % Craig % (Auto) 6.3 (3-14) % Eos % (Auto) 1.0 L (2-4) % Baso % (Auto) 0.7 (0-2) % Neut # (Auto) 4800 (0005-5264) /uL Lymph # (Auto) 1800 (7719-5021) /uL Craig # (Auto) 500 (0-900) /uL Eos # (Auto) 100 (0-450) /uL Baso # (Auto) 100 (0-100) /uL Sodium 141 (137-145) mmol/L Potassium 4.1 (3.4-5.1) mmol/L Chloride 106 (98-107) mmol/L Carbon Dioxide 24 (22-32) mmol/L BUN 17 (9-20) mg/dL Creatinine 1.00 (0.66-1.25) mg/dL Estimated GFR > 60.0 (>60) mL/min BUN/Creatinine Ratio 17.0 (6-22) Glucose 108 H (70-100) mg/dL Calcium 10.0 (8.4-10.2) mg/dL Total Bilirubin 0.4 (0.2-1.3) mg/dL AST 31 (17-59) IU/L ALT 47 (21-72) IU/L Alkaline Phosphatase 87 (38-126) U/L Total Protein 8.0 (6.3-8.2) g/dL Albumin 4.9 (3.5-5.0) g/dL Globulin 3.1 (1.7-4.1) g/dL Albumin/Globulin Ratio 1.6 (1.0-2.8) Urine Ictotest Negative (Negative) Urine RBC 5-10/hpf H (0-5/HPF) Urine WBC 5-10/hpf H (0-5/HPF) Ur Squamous Epith Cells 0-1 /hpf (0-5/HPF) Calcium Oxalate Crystal Few H Urine Bacteria Occasional (0-1) (None) Urine Mucus 1+ H (Negative) Ur Culture Indicated? Specimen cultured Urine Dip Bedside Urine Glucose Negative Bedside Urine Bilirubin + 1 Bedside Urine Ketone +/- 5 Urine Specific [place] 1.030 Bedside Urine Occult Blood +/- Bedside Urine pH 5.5 Bedside Urine Protein +/- 15 Bedside Urine Urobilinogen +/- 1mg Bedside Urine Nitrite - Negative Bedside Urine Leukocytes +/- 15 Esterase Discharge Plan Departure Patient Disposition: Home Clinical Impression: Renal calculi Discharge Date/Time: 10/19/18 17:47 Interventions: ED Discharge Assessment Last Done: 10/19/18 17:46 Instructions: DI for Kidney Stones Activity Restrictions/Additional Instructions: I have given you another prescription for some pain medicine. Please follow up with primary care provider soon as possible. Please continue straining your urine. Please continue Flomax. Please follow up with primary care provider and/or urologist as soon as possible. Back to the emergency department for any urgent concerns such as chest pain or shortness of breath. we are sending off a urine culture. These results are normal, you will get a phone call in a few days. Prescriptions: New hydrocodone-acetaminophen 5-325 mg tablet 1 tab PO Q4-6H PRN (Reason: pain) Qty: 10 RF: 0 No Action hydrocodone-acetaminophen 5-325 mg tablet 2 tab PO Q4-6H PRN (Reason: pain) Qty: 7 RF: 0 amoxicillin 500 mg capsule 500 mg PO TID RF: 0 meclizine 25 mg tablet 25 mg PO BID-TID PRN (Reason: dizziness) Qty: 20 RF: 0 ketorolac 10 mg tablet 10 mg PO Q6H PRN (Reason: pain) Qty: 14 RF: 0 tamsulosin [Flomax] 0.4 mg capsule 0.4 mg PO DAILY Qty: 10 RF: 0 ondansetron 4 mg tablet,disintegrating 4 mg PO TID-QID PRN (Reason: nausea and vomiting) Qty: 10 RF: 0 Referrals: Julio César Tompkins MD [Primary Care Provider] - <Arcenio Marte DO - Last Filed: 10/20/18 08:48> Cosign ED Attending Siennaature Attestation: I was immediately available in the department for consultation. Documentation has been reviewed. I agree with assessment and plan.
[2018-10-19 15:30] VITALS: BP 132/76; PULSE 78; RESP 17; O2SAT 99
[2018-10-19] MEDS: SODIUM CHLORIDE 0.9% 1,000 ML 1000 ML IV (15:32)
[2018-10-19] MEDS: KETOROLAC 60 MG/2 ML VIAL 15 MG IV (15:33)
[2018-10-19 15:36] LABS: Add Manual Diff / Slide Review NO; Basophils Absolute Auto 100 /uL (0-100); Basophils Percent Auto 0.7 % (0-2); Eosinophils Absolute Auto 100 /uL (0-450); Hematocrit 45.7 % (41-53); Hemoglobin 15.1 g/dL (13.5-17.5); Lymphocytes Absolute Auto 1800 /uL (1100-4500); Lymphocytes Percent Auto 24.5 % (25-40); Mean Corpuscular HGB Conc 32.9 % (30-36); Monocytes Absolute Auto 500 /uL (0-900); Monocytes Percent Auto 6.3 % (3-14); Neutrophils Absolute Auto 4800 /uL (1500-7000); Neutrophils Percent Auto 67.5 % (50-75); Platelet Count 295 X10^3/uL (150-400); Red Blood Cell Count 5.02 X10^6/uL (4.5-5.9); Red Cell Distribution Width 14.8 % (11.6-14.8); White Blood Cell Count 7.2 X10^3/uL (4.5-11.0)
--- NOTE | 2018-10-19 15:44 | PC.NURSE ---
Known kidney stones, has passed 2-3 of them but is still in extreme pain. Ran out of vicodin.
[2018-10-19 15:50] LABS: Alanine Aminotransferase 47 IU/L (21-72); Albumin 4.9 g/dL (3.5-5.0); Albumin Globulin Ratio 1.6 (1.0-2.8); Alkaline Phosphatase 87 U/L (38-126); Aspartate Aminotransferase 31 IU/L (17-59); Bilirubin Total 0.4 mg/dL (0.2-1.3); Blood Urea Nitrogen 17 mg/dL (9-20); Carbon Dioxide 24 mmol/L (22-32); Chloride 106 mmol/L (98-107); Estimated Glomerular Filt Rate > 60.0 mL/min (>60); Globulin 3.1 g/dL (1.7-4.1); Glucose 108 mg/dL (70-100); HEMOLYSIS < 15 (0-50); Potassium 4.1 mmol/L (3.4-5.1); Sodium 141 mmol/L (137-145)
[2018-10-19] MEDS: HYDROMORPHONE 1 MG INJ 0.5 MG IV (16:13)
--- NOTE | 2018-10-19 16:37 | ED_ITS ---
HPI - Male Genitourinary <SUGEY Storm - Last Filed: 10/19/18 18:19> General Chief complaint: Urogenital-Male Stated complaint: kidney stones Time Seen by Provider: 10/19/18 14:59 Source: patient Mode of arrival: ambulatory Limitations: no limitations History of Present Illness HPI Narrative: The patient is a 48 year male current smoker with history of kidney stones who presents with a chief complaint of flank pain. he was seen at this facility on 10/13, head CT and was found to have multiple right renal calculi. He states he is still taking his Flomax and Toradol, but he is out of his [place]. He states his flank pain is worsening. He denies any fevers and nausea vomiting diarrhea. He states he has not followed up with his primary care or his urologist. He states he is out of his pain medication. He took Toradol this morning. He denies any dysuria urgency or frequency. he states that he knows what it feels like to have an infected kidney stone and this one is not. He states he has had to have multiple stones removed via lithotripsy in the past. Related Data Home Medications Medication Instructions Recorded Confirmed amoxicillin 500 mg PO TID 10/19/18 10/19/18 Previous Rx's Medication Instructions Recorded hydrocodone-acetaminophen 2 tab PO Q4-6H PRN #7 tab 05/23/18 meclizine 25 mg PO BID-TID PRN #20 tab 07/14/18 ketorolac 10 mg PO Q6H PRN #14 tab 10/13/18 ondansetron 4 mg PO TID-QID PRN #10 tab 10/13/18 tamsulosin [Flomax] 0.4 mg PO DAILY #10 cap 10/13/18 hydrocodone-acetaminophen 1 tab PO Q4-6H PRN #10 tab 10/19/18 Allergies Allergy/AdvReac Type Severity Reaction Status Date / Time No Known Drug Allergies Allergy Verified 10/13/18 16:32 Review of Systems <SUGEY Storm - Last Filed: 10/19/18 18:19> Review of Systems GENERAL: Denies chills, fatigue, malaise, fever, sweats. HEENT: Denies sinus pain, ear pain, sore throat, difficulty swallowing, dizziness. RESPIRATORY: Denies dyspnea, cough, wheezing, hemoptysis, sputum. CARDIOVASCULAR: Denies chest pain, palpitations, orthopnea, edema, GASTROINTESTINAL: See HPI : See HPI MUSCULOSKELETAL: denies weakness, joint pain, or bony pain SKIN: Denies rash, skin lesions, or other NEUROLOGIC: Denies weakness, headache, numbness, change in speech, confusion, seizures, incoordination. PSYCHIATRIC: No concerning psychosocial issues. 12 point review of systems is negative except for those stated above PFSH <SUGEY Storm - Last Filed: 10/19/18 18:19> Medical History CVA (cerebral vascular accident) (Acute) Kidney stones (Acute) Surgical History History of lithotripsy (Acute) Patent foramen ovale (Acute) Social History Smoking Status: Current every day smoker Social History Smoking Status: Current every day smoker Exam <SUGEY Storm - Last Filed: 10/19/18 18:19> Narrative Exam Narrative: GENERAL: This is a well-nourished, well-developed patient, no acute distress HEAD: Atraumatic. Normocephalic. No temporal or scalp tenderness. EYES: Pupils equal round and reactive. Extraocular motions intact. No scleral icterus. No injection or drainage. ENT: Nose without bleeding, purulent drainage or septal hematoma. Throat without erythema, tonsillar hypertrophy or exudate. Uvula midline. Airway patent. NECK: Trachea midline. No JVD or lymphadenopathy. Supple, nontender, no meningeal signs. CARDIOVASCULAR: Regular rate and rhythm RESPIRATORY: Clear to auscultation. Breath sounds equal bilaterally. No wheezes, rales, or rhonchi. No cough. No increased respiratory effort. GASTROINTESTINAL: Abdomen soft, non-tender, nondistended. No hepato- splenomegaly, or palpable masses. No guarding. active bowel sounds. EXTREMITIES: No clubbing, cyanosis, or edema. No joint tenderness, effusion, or edema noted. BACK: Nontender without deformity or crepitance. Flank tenderness on right side. No CVA tenderness left side. NEURO: AOx3. SKIN: No rash or erythema. Initial Vital Signs Initial Vital Signs: Vital Signs Temperature 98 F 10/19/18 14:54 Pulse Rate 96 H 10/19/18 14:54 Respiratory Rate 10/19/18 14:54 Blood Pressure 126/84 10/19/18 14:54 Pulse Oximetry 96 10/19/18 14:54 <Arcenio Marte DO - Last Filed: 10/20/18 08:48> Initial Vital Signs Initial Vital Signs: Vital Signs Temperature 98 F 10/19/18 14:54 Pulse Rate 96 H 10/19/18 14:54 Respiratory Rate 10/19/18 14:54 Blood Pressure 126/84 10/19/18 14:54 Pulse Oximetry 96 10/19/18 14:54 Course <MARIA DE JESUS Storm-JUANITA - Last Filed: 10/19/18 18:19> Orders Ordered: Discontinued Medications Hydromorphone HCl (Dilaudid) 0.5 mg IV NOW ONE Stop: 10/19/18 16:04 Last Admin: 10/19/18 16:13 Dose: 0.5 mg Sodium Chloride (Normal Saline 0.9%) 1,000 mls @ 1,000 mls/hr IV BOLUS ONE Stop: 10/19/18 16:06 Last Infusion: 10/19/18 16:37 Dose: 0 mls/hr Admin: 10/19/18 15:32 Dose: 1,000 mls/hr Ketorolac Tromethamine (Toradol) 15 mg IV NOW ONE Stop: 10/19/18 15:23 Last Admin: 10/19/18 15:33 Dose: 15 mg Vital Signs - 8 hr 10/19/18 14:54 10/19/18 15:30 10/19/18 17:00 Temperature 98 F Pulse Rate 96 H 78 76 Respiratory Rate 19 17 16 Blood Pressure 126/84 Blood Pressure [Right Arm] 132/76 129/76 Pulse Oximetry 96 99 97 <Arcenio Marte DO - Last Filed: 10/20/18 08:48> Orders Ordered: Discontinued Medications Hydromorphone HCl (Dilaudid) 0.5 mg IV NOW ONE Stop: 10/19/18 16:04 Last Admin: 10/19/18 16:13 Dose: 0.5 mg Sodium Chloride (Normal Saline 0.9%) 1,000 mls @ 1,000 mls/hr IV BOLUS ONE Stop: 10/19/18 16:06 Last Infusion: 10/19/18 16:37 Dose: 0 mls/hr Admin: 10/19/18 15:32 Dose: 1,000 mls/hr Ketorolac Tromethamine (Toradol) 15 mg IV NOW ONE Stop: 10/19/18 15:23 Last Admin: 10/19/18 15:33 Dose: 15 mg Vital Signs - 8 hr 10/19/18 14:54 10/19/18 15:30 10/19/18 17:00 Temperature 98 F Pulse Rate 96 H 78 76 Respiratory Rate 19 17 16 Blood Pressure 126/84 Blood Pressure [Right Arm] 132/76 129/76 Pulse Oximetry 96 99 97 MDM - Male Genitourinary <MARIA DE JESUS Storm- - Last Filed: 10/19/18 18:19> Lab Data Result diagrams: 10/19/18 15:30 10/19/18 15:30 Lab Results 10/19/18 10/19/18 10/19/18 Range/Units 15:30 15:30 16:30 WBC 7.2 (4.5-11.0) X10^3/uL RBC 5.02 (4.5-5.9) X10^6/uL Hgb 15.1 (13.5-17.5) g/dL Hct 45.7 (41-53) % MCV 91.0 (80-100) fL MCH 30.0 (26-34) PG MCHC 32.9 (30-36) % RDW 14.8 (11.6-14.8) % Plt Count 295 (150-400) X10^3/uL Neut % (Auto) 67.5 (50-75) % Lymph % (Auto) 24.5 L (25-40) % [place] % (Auto) 6.3 (3-14) % Eos % (Auto) 1.0 L (2-4) % Baso % (Auto) 0.7 (0-2) % Neut # (Auto) 4800 (2085-1548) /uL Lymph # (Auto) 1800 (1157-2066) /uL [place] # (Auto) 500 (0-900) /uL Eos # (Auto) 100 (0-450) /uL Baso # (Auto) 100 (0-100) /uL Sodium 141 (137-145) mmol/L Potassium 4.1 (3.4-5.1) mmol/L Chloride 106 (98-107) mmol/L Carbon Dioxide 24 (22-32) mmol/L BUN 17 (9-20) mg/dL Creatinine 1.00 (0.66-1.25) mg/dL Estimated GFR > 60.0 (>60) mL/min BUN/Creatinine Ratio 17.0 (6-22) Glucose 108 H (70-100) mg/dL Calcium 10.0 (8.4-10.2) mg/dL Total Bilirubin 0.4 (0.2-1.3) mg/dL AST 31 (17-59) IU/L ALT 47 (21-72) IU/L Alkaline Phosphatase 87 (38-126) U/L Total Protein 8.0 (6.3-8.2) g/dL Albumin 4.9 (3.5-5.0) g/dL Globulin 3.1 (1.7-4.1) g/dL Albumin/Globulin Ratio 1.6 (1.0-2.8) Urine Ictotest Negative (Negative) Urine RBC 5-10/hpf H (0-5/HPF) Urine WBC 5-10/hpf H (0-5/HPF) Ur Squamous Epith Cells 0-1 /hpf (0-5/HPF) Calcium Oxalate Crystal Few H Urine Bacteria Occasional (0-1) (None) Urine Mucus 1+ H (Negative) Ur Culture Indicated? Specimen cultured Urine Dip Bedside Urine Glucose Negative Bedside Urine Bilirubin + 1 Bedside Urine Ketone +/- 5 Urine Specific [place] 1.030 Bedside Urine Occult Blood +/- Bedside Urine pH 5.5 Bedside Urine Protein +/- 15 Bedside Urine Urobilinogen +/- 1mg Bedside Urine Nitrite - Negative Bedside Urine Leukocytes +/- 15 Esterase Imaging Data renal US: Radiologist's impression: [address] [address] Ultrasound Report Signed Patient: Maciel Urban RMR#: [id number] : 1970Acct:[id number] Age/Sex: 48 / MDate of Service: 10/19/18 Loc: ED Accession Number: [id number] Procedure: US renal complete Ordering Provider: Elidia Forte PROCEDURE: US RENAL COMPLETE INDICATIONS: STONES, WORSENING PAIN TECHNIQUE: Real-time scanning was performed of the kidneys and bladder, with image documentation. COMPARISON: [facility], CT, CT KIDNEY URETER BLADDER (KUB), 10/13/2018, 19:06. FINDINGS: Kidneys: Right kidney measures 12.5 cm long; left kidney measures 12.3 cm long. Right renal cortical thickness is 1.6 cm; left renal cortical thickness is 1.4 cm. Renal cortical echotexture is normal. No hydronephrosis. There are clustered small renal stones inserted within the inferior pole of the right kidney corresponding to the findings on recent CT. These measure up to approximately 0.5 cm. The right superior pole stone seen on CT is not discretely visualized on ultrasound. No left renal stones identified. Bladder: Pre-void bladder volume is 31 mL. Post-void residual is 0 mL. Pre- void images demonstrate no intraluminal masses or stones. On pre-void images, the right ureteral jet is noted with color Doppler interrogation. (Of note, ureteral jets may not be detectable in up to 25% of cases due to insufficient differences in specific gravity between ureteral and bladder urine). Miscellaneous: There is an echogenic focus within the prostate compatible with nonspecific prostatic calcifications. No free pelvic fluid. There is increased hepatic echogenicity compatible with steatosis. IMPRESSION: 1. No evidence of hydronephrosis. 2. Right nephrolithiasis redemonstrated as seen on the recent CT. Dictated by: Sampson Hardwick M.D. on 10/19/2018 at 16:54 Approved by: Sampson Hardwick M.D. on 10/19/2018 at 16:58 [facility] Narrative Medical decision making narrative: The patient is a 48-year-old male with recent history of renal calculi who presents with continued flank pain. he does not have any nitrates or significant bacteria in his urinalysis. His renal function is good bye labs as well as ultrasound. I did give him a small prescription of pain medication with strict instructions to follow up with primary care and/or urologist if he does not pass the stones. He states he has enough nausea medication and Flomax at home. He is hemodynamically stable throughout stay in the emergency department. Of note the patient requested 10 mg hydrocodone upon discharge, stating that the 5 mg were not strong enough. I continued 5 mg dosage. Discussed return precautions including chest pain or shortness of breath. patient has no questions or concerns upon discharge. <Arcenio Marte, DO - Last Filed: 10/20/18 08:48> Lab Data Lab Results 10/19/18 10/19/18 10/19/18 Range/Units 15:30 15:30 16:30 WBC 7.2 (4.5-11.0) X10^3/uL RBC 5.02 (4.5-5.9) X10^6/uL Hgb 15.1 (13.5-17.5) g/dL Hct 45.7 (41-53) % MCV 91.0 (80-100) fL MCH 30.0 (26-34) PG MCHC 32.9 (30-36) % RDW 14.8 (11.6-14.8) % Plt Count 295 (150-400) X10^3/uL Neut % (Auto) 67.5 (50-75) % Lymph % (Auto) 24.5 L (25-40) % [place] % (Auto) 6.3 (3-14) % Eos % (Auto) 1.0 L (2-4) % Baso % (Auto) 0.7 (0-2) % Neut # (Auto) 4800 (2530-8303) /uL Lymph # (Auto) 1800 (0322-6655) /uL [place] # (Auto) 500 (0-900) /uL Eos # (Auto) 100 (0-450) /uL Baso # (Auto) 100 (0-100) /uL Sodium 141 (137-145) mmol/L Potassium 4.1 (3.4-5.1) mmol/L Chloride 106 (98-107) mmol/L Carbon Dioxide 24 (22-32) mmol/L BUN 17 (9-20) mg/dL Creatinine 1.00 (0.66-1.25) mg/dL Estimated GFR > 60.0 (>60) mL/min BUN/Creatinine Ratio 17.0 (6-22) Glucose 108 H (70-100) mg/dL Calcium 10.0 (8.4-10.2) mg/dL Total Bilirubin 0.4 (0.2-1.3) mg/dL AST 31 (17-59) IU/L ALT 47 (21-72) IU/L Alkaline Phosphatase 87 (38-126) U/L Total Protein 8.0 (6.3-8.2) g/dL Albumin 4.9 (3.5-5.0) g/dL Globulin 3.1 (1.7-4.1) g/dL Albumin/Globulin Ratio 1.6 (1.0-2.8) Urine Ictotest Negative (Negative) Urine RBC 5-10/hpf H (0-5/HPF) Urine WBC 5-10/hpf H (0-5/HPF) Ur Squamous Epith Cells 0-1 /hpf (0-5/HPF) Calcium Oxalate Crystal Few H Urine Bacteria Occasional (0-1) (None) Urine Mucus 1+ H (Negative) Ur Culture Indicated? Specimen cultured Urine Dip Bedside Urine Glucose Negative Bedside Urine Bilirubin + 1 Bedside Urine Ketone +/- 5 Urine Specific [place] 1.030 Bedside Urine Occult Blood +/- Bedside Urine pH 5.5 Bedside Urine Protein +/- 15 Bedside Urine Urobilinogen +/- 1mg Bedside Urine Nitrite - Negative Bedside Urine Leukocytes +/- 15 Esterase Discharge Plan Departure Patient Disposition: Home Clinical Impression: Renal calculi Discharge Date/Time: 10/19/18 17:47 Interventions: ED Discharge Assessment Last Done: 10/19/18 17:46 Instructions: DI for Kidney Stones Activity Restrictions/Additional Instructions: I have given you another prescription for some pain medicine. Please follow up with primary care provider soon as possible. Please continue straining your urine. Please continue Flomax. Please follow up with primary care provider and/or urologist as soon as possible. Back to the emergency department for any urgent concerns such as chest pain or shortness of breath. we are sending off a urine culture. These results are normal, you will get a phone call in a few days. Prescriptions: New hydrocodone-acetaminophen 5-325 mg tablet 1 tab PO Q4-6H PRN (Reason: pain) Qty: 10 RF: 0 No Action hydrocodone-acetaminophen 5-325 mg tablet 2 tab PO Q4-6H PRN (Reason: pain) Qty: 7 RF: 0 amoxicillin 500 mg capsule 500 mg PO TID RF: 0 meclizine 25 mg tablet 25 mg PO BID-TID PRN (Reason: dizziness) Qty: 20 RF: 0 ketorolac 10 mg tablet 10 mg PO Q6H PRN (Reason: pain) Qty: 14 RF: 0 tamsulosin [Flomax] 0.4 mg capsule 0.4 mg PO DAILY Qty: 10 RF: 0 ondansetron 4 mg tablet,disintegrating 4 mg PO TID-QID PRN (Reason: nausea and vomiting) Qty: 10 RF: 0 Referrals: Julio César Tompkins MD [Primary Care Provider] - <Arcenio Marte DO - Last Filed: 10/20/18 08:48> Cosign ED Attending Siennaature Attestation: I was immediately available in the department for consultation. Documentation has been reviewed. I agree with assessment and plan.
[2018-10-19 16:52] LABS: Bacteria Urine Occasional (0-1); Calcium Oxalate Crystals Urine Few; Culture Indicated Urine Specimen Cultured; Ictotest Urine Negative (Negative); Mucus Urine 1+ (Negative); RBC Urine 5-10/HPF (0-5/HPF); Squamous Epithelial Cell Urine 0-1 /HPF (0-5/HPF); WBC Urine 5-10/HPF (0-5/HPF)
[2018-10-19 17:00] VITALS: BP 129/76; PULSE 76; RESP 16; O2SAT 97
== END 2018-10-19 17:47 | disposition home or self-care (01) ==
PROVIDERS: Emergency Provider Nurse Practitioner Family; Family Provider Family Medicine; PCP Family Medicine
DX: N20.0 Calculus of kidney (principal); R10.9 Unspecified abdominal pain
CPT/HCPCS: 36591; 76770; 80053; 81003; 81015; 85025; 87086; 96361; 96374; 96375; 99283; 99284; J1170; J1885

== ENCOUNTER 2018-12-10 07:11 | Emergency (ER) | payer OTHER, MEDICAID, SELFPAY ==
[2018-12-10 07:16] VITALS: BP 140/94; PULSE 76; RESP 18; O2SAT 97; BMI 55.3
--- NOTE | 2018-12-10 07:29 | ED.MALEGU ---
HPI - Male Genitourinary General Chief complaint: Urogenital-Male Stated complaint: Kidney stone Time Seen by Provider: 12/10/18 07:22 Source: patient Mode of arrival: ambulatory Limitations: no limitations History of Present Illness HPI Narrative: Patient is a 48-year-old male with history of kidney stones presenting with right flank and right testicle pain. Started this morning he took a hydrocodone at home but he still in quite severe pain. He actually had a kidney stone in October he was seen evaluated here twice for the same. At that time he was found to have a 5 mm stone on the right side CT showed multiple stones in the kidney pelvis. He says his urine is dark this morning but does not notice any gross blood. He feels nauseous this feels like previous kidney stones. Duration: intermittent and progressively worsening Location: right flank Radiation: right testicle Severity: moderate Quality: sharp Related Data Home Medications Medication Instructions Recorded Confirmed amoxicillin 500 mg PO TID 10/19/18 10/19/18 Previous Rx's Medication Instructions Recorded hydrocodone-acetaminophen 2 tab PO Q4-6H PRN #7 tab 05/23/18 meclizine 25 mg PO BID-TID PRN #20 tab 07/14/18 ketorolac 10 mg PO Q6H PRN #14 tab 10/13/18 ondansetron 4 mg PO TID-QID PRN #10 tab 10/13/18 tamsulosin [Flomax] 0.4 mg PO DAILY #10 cap 10/13/18 hydrocodone-acetaminophen 1 tab PO Q4-6H PRN #10 tab 10/19/18 hydrocodone-acetaminophen [[place]] 1 tab PO Q4-6H PRN #14 tab 12/10/18 ondansetron 4 mg PO Q6-8H PRN #20 tab 12/10/18 tamsulosin [Flomax] 0.4 mg PO DAILY #30 cap 12/10/18 Allergies Allergy/AdvReac Type Severity Reaction Status Date / Time No Known Drug Allergies Allergy Verified 10/13/18 16:32 Review of Systems Review of Systems GENERAL: Denies chills, fatigue, malaise, fever, sweats, travel HEENT: Denies sinus pain, ear pain, sore throat, difficulty swallowing, neck pain RESPIRATORY: Denies dyspnea, cough, wheezing, hemoptysis, sputum. CARDIOVASCULAR: Denies chest pain, palpitations, orthopnea, edema GASTROINTESTINAL: Denies nausea, vomiting, abdominal pain, diarrhea, constipation, melena. : See HPI MUSCULOSKELETAL: Denies weakness, joint pain, or bony pain SKIN: No rash, no erythema, no pruritus NEUROLOGIC: Denies weakness, dizziness, headache, numbness, change in speech, confusion PSYCHIATRIC: No concerning psychosocial issues. 12 point review of systems is negative except for those stated above and HPI [facility] Medical History CVA (cerebral vascular accident) (Acute) Kidney stones (Acute) Surgical History History of lithotripsy (Acute) Patent foramen ovale (Acute) Social History Smoking Status: Current every day smoker Social History Smoking Status: Current every day smoker Exam Initial Vital Signs Initial Vital Signs: Vital Signs Pulse Rate 76 12/10/18 07:16 Respiratory Rate 18 12/10/18 07:16 Blood Pressure 140/94 H 12/10/18 07:16 Pulse Oximetry 97 12/10/18 07:16 GENERAL: Patient appears in pain and in no acute distress. HEENT: Head atraumatic,EOMI, pupils reactive CARDIOVASCULAR: Regular rate and rhythm without murmurs, rubs or gallops. RESPIRATORY: Breath sounds equal bilaterally, no wheezes rales or rhonchi. ABDOMEN: Soft, minimal tenderness in right lower abdomen no guarding no rebound : Mild right CVA tenderness EXTREMITIES: Normal range of motion, no clubbing or edema. Neurovascularly intact NEUROLOGICAL: Alert and oriented x4.Normal gait and speech. Cranial nerves II through XII grossly intact. SKIN: Warm, dry, no laceration, no petechiae, no rashes or lesions. Course Orders Ordered: ED Orders 12/10/18 05:49 Urine Culture Stat Urine Microscopic Stat 12/10/18 07:28 renal complete Stat 12/10/18 07:30 Complete Blood Count AUTO DIFF Stat Comprehensive Metabolic Panel Stat Lipase Stat Partial Thromboplastin Time Stat Prothrombin Time INR Stat Discontinued Medications Hydromorphone HCl (Dilaudid) 1 mg IV NOW ONE Stop: 12/10/18 07:29 Last Admin: 12/10/18 07:38 Dose: 1 mg Hydromorphone HCl (Dilaudid) 0.5 mg IV NOW ONE Stop: 12/10/18 09:19 Last Admin: 12/10/18 09:36 Dose: 0.5 mg Ketorolac Tromethamine (Toradol) 30 mg IV NOW ONE Stop: 12/10/18 07:23 Last Admin: 12/10/18 07:38 Dose: 30 mg Ondansetron HCl (Zofran) 4 mg IV NOW ONE Stop: 12/10/18 07:40 Last Admin: 12/10/18 07:39 Dose: 4 mg Vital Signs - 8 hr 12/10/18 07:16 12/10/18 08:34 12/10/18 09:32 Pulse Rate 76 70 72 Respiratory Rate 18 18 16 Blood Pressure 140/94 H Blood Pressure [Right Arm] 122/80 127/85 Pulse Oximetry 97 97 98 MDM - Male Genitourinary Lab Data Attestation: I reviewed the patient's lab results. Result diagrams: 12/10/18 07:30 12/10/18 07:30 Lab Results 12/10/18 12/10/18 12/10/18 Range/Units 05:49 07:30 07:30 WBC 9.1 (4.5-11.0) X10^3/uL RBC 5.05 (4.5-5.9) X10^6/uL Hgb 15.5 (13.5-17.5) g/dL Hct 45.8 (41-53) % MCV 90.5 (80-100) fL MCH 30.7 (26-34) PG MCHC 33.9 (30-36) % RDW 14.8 (11.6-14.8) % Plt Count 307 (150-400) X10^3/uL Neut % (Auto) 59.6 (50-75) % Lymph % (Auto) 28.8 (25-40) % [place] % (Auto) 7.6 (3-14) % Eos % (Auto) 2.9 (2-4) % Baso % (Auto) 1.1 (0-2) % Neut # (Auto) 5400 (6236-7378) /uL Lymph # (Auto) 2600 (9778-4453) /uL [place] # (Auto) 700 (0-900) /uL Eos # (Auto) 300 (0-450) /uL Baso # (Auto) 100 (0-100) /uL PT 9.9 L (10.1-12.7) SECONDS INR 0.9 (0.9-1.3) APTT 33 (26.4-36.2) SECONDS Sodium (137-145) mmol/L Potassium (3.4-5.1) mmol/L Chloride (98-107) mmol/L Carbon Dioxide (22-32) mmol/L BUN (9-20) mg/dL Creatinine (0.66-1.25) mg/dL Estimated GFR (>60) mL/min BUN/Creatinine Ratio (6-22) Glucose (70-100) mg/dL Calcium (8.4-10.2) mg/dL Total Bilirubin (0.2-1.3) mg/dL AST (17-59) IU/L ALT (21-72) IU/L Alkaline Phosphatase (38-126) U/L Total Protein (6.3-8.2) g/dL Albumin (3.5-5.0) g/dL Globulin (1.7-4.1) g/dL Albumin/Globulin Ratio (1.0-2.8) Lipase (23-300) U/L Urine RBC >100/hpf (0-5/HPF) Urine WBC 1-5/hpf (0-5/HPF) Ur Squamous Epith Cells 0-1 /hpf (0-5/HPF) Calcium Oxalate Crystal Few H Urine Bacteria Moderate (10-30) H (None) Urine Mucus 4+ H D (Negative) Ur Culture Indicated? Specimen cultured 12/10/18 Range/Units 07:30 WBC (4.5-11.0) X10^3/uL RBC (4.5-5.9) X10^6/uL Hgb (13.5-17.5) g/dL Hct (41-53) % MCV (80-100) fL MCH (26-34) PG MCHC (30-36) % RDW (11.6-14.8) % Plt Count (150-400) X10^3/uL Neut % (Auto) (50-75) % Lymph % (Auto) (25-40) % [place] % (Auto) (3-14) % Eos % (Auto) (2-4) % Baso % (Auto) (0-2) % Neut # (Auto) (4245-6534) /uL Lymph # (Auto) (4859-8620) /uL [place] # (Auto) (0-900) /uL Eos # (Auto) (0-450) /uL Baso # (Auto) (0-100) /uL PT (10.1-12.7) SECONDS INR (0.9-1.3) APTT (26.4-36.2) SECONDS Sodium 145 (137-145) mmol/L Potassium 4.1 (3.4-5.1) mmol/L Chloride 109 H (98-107) mmol/L Carbon Dioxide 23 (22-32) mmol/L BUN 16 (9-20) mg/dL Creatinine 1.00 (0.66-1.25) mg/dL Estimated GFR > 60.0 (>60) mL/min BUN/Creatinine Ratio 16.0 (6-22) Glucose 94 (70-100) mg/dL Calcium 9.9 (8.4-10.2) mg/dL Total Bilirubin 0.4 (0.2-1.3) mg/dL AST 23 (17-59) IU/L ALT 29 (21-72) IU/L Alkaline Phosphatase 100 (38-126) U/L Total Protein 7.6 (6.3-8.2) g/dL Albumin 4.5 (3.5-5.0) g/dL Globulin 3.1 (1.7-4.1) g/dL Albumin/Globulin Ratio 1.5 (1.0-2.8) Lipase 320 H (23-300) U/L Urine RBC (0-5/HPF) Urine WBC (0-5/HPF) Ur Squamous Epith Cells (0-5/HPF) Calcium Oxalate Crystal Urine Bacteria (None) Urine Mucus (Negative) Ur Culture Indicated? Urine Dip Bedside Urine Glucose Negative Bedside Urine Bilirubin + 1 Bedside Urine Ketone +/- 5 Urine Specific [place] 1.030 Bedside Urine Occult Blood +++ Bedside Urine pH 6.0 Bedside Urine Protein + 30 Bedside Urine Urobilinogen +/- 1mg Bedside Urine Nitrite - Negative Bedside Urine Leukocytes +/- 15 Esterase Imaging Data us renal: Radiologist's impression: PROCEDURE: US RENAL COMPLETE INDICATIONS: RT FLANK PAIN, HX OF MANY STONES TECHNIQUE: Real-time scanning was performed of the kidneys and bladder, with image documentation. COMPARISON: [facility], , US RENAL COMPLETE, 10/19/2018, 16:05. FINDINGS: Kidneys: Kidneys are normal in size. Right kidney measures 11.7 cm long; left kidney measures 12.2 cm long. Right renal cortical thickness is 1.6 cm; left renal cortical thickness is 1.8 cm. Renal cortical echotexture is normal. No hydronephrosis or nephrolithiasis on the left. Note is made of a dilatation of the right ureter up to 1.2 cm and there is a moderate to moderately severe degree of right-sided hydronephrosis with collecting system calculi at the lower third of the right renal collecting system measuring up to 9 mm. A left-sided smaller calculus is seen measuring 5 mm within the mid kidney which is not associated with hydronephrosis. No suspicious solid mass lesions. Bladder: Pre-void bladder volume is 103 mL. Post-void residual is 7.0 mL. Pre-void images demonstrate no intraluminal masses or stones. On pre-void images, neither ureteral jets are noted with color Doppler interrogation. (Of note, ureteral jets may not be detectable in up to 25% of cases due to insufficient differences in specific gravity between ureteral and bladder urine). Note is made of a calculus seen in the distal right ureter at the ureteral-vesicular junction. Miscellaneous: No free pelvic fluid. IMPRESSION: Moderately severe hydronephrosis on the right with a far distal right ureteral stone identified by transve bladder imaging. The ureter on the right measures up to 1.2 cm in diameter. The calculus at the far distal right ureter measures approximately 9 mm, and a stone of this size may not pass into the bladder lumen without urologic intervention. Small calculus noted within the nondistended left renal collecting system, mid-kidney level. Dictated by: Miguelito Meek M.D. on 12/10/2018 at 9:44 MDM Narrative Medical decision making narrative: I spoke with Dr. turcios who will help arrange for urology referral and outpatient follow-up. Discharge Plan Departure Patient Disposition: Home Clinical Impression: Kidney stones Discharge Date/Time: 12/10/18 10:20 Interventions: ED Discharge Assessment Last Done: 12/10/18 10:23 Instructions: DI for Kidney Stones Activity Restrictions/Additional Instructions: *Increase fluid intake *Call urology office tomorrow, to schedule follow-up appointment. Strain urine, try to catch stone -If you should have fever, or pain is uncontrolled with medication at home or any other concerning symptoms return to ER for further evaluation MEDICATIONS--> SENT TO [facility] Take Motrin 800 mg every 8 hours as needed for pain Take [place] every 6 hours if needed for severe pain Take Zofran every 4-6 hours if needed for nausea Take Flomax 1 tablet daily to help with passage of stone CONTROLLED SUBSTANCE DISCHARGE (Narcotoic/benzodiazepine) 1. You have been prescribed narcotic medications, it does have acetaminophen/Tylenol/paracetamol in it so do not take extra Tylenol or Tylenol containing products 2. Please understand that we cannot provide further refills of narcotics, benzodiazepines or controlled substances through the ED and her pain management will need to be through your provider. 3. While on these medications you cannot drive or operate heavy machinery. 4. You cannot sign legal documents or perform any duties such as this. 5. As long as you're taking opiate pain medications he should also be taking a stool softener such as Colace, Dulcolax, MiraLAX or prune juice, to help avoid constipation. Prescriptions: New tamsulosin [Flomax] 0.4 mg capsule,extended release 24hr 0.4 mg PO DAILY Qty: 30 RF: 0 hydrocodone-acetaminophen [[place]] 5-325 mg tablet 1 tab PO Q4-6H PRN (Reason: pain) Qty: 14 RF: 0 ondansetron 4 mg tablet,disintegrating 4 mg PO Q6-8H PRN (Reason: nausea and vomiting) Qty: 20 RF: 0 No Action hydrocodone-acetaminophen 5-325 mg tablet 2 tab PO Q4-6H PRN (Reason: pain) Qty: 7 RF: 0 amoxicillin 500 mg capsule 500 mg PO TID RF: 0 hydrocodone-acetaminophen 5-325 mg tablet 1 tab PO Q4-6H PRN (Reason: pain) Qty: 10 RF: 0 meclizine 25 mg tablet 25 mg PO BID-TID PRN (Reason: dizziness) Qty: 20 RF: 0 ketorolac 10 mg tablet 10 mg PO Q6H PRN (Reason: pain) Qty: 14 RF: 0 tamsulosin [Flomax] 0.4 mg capsule 0.4 mg PO DAILY Qty: 10 RF: 0 ondansetron 4 mg tablet,disintegrating 4 mg PO TID-QID PRN (Reason: nausea and vomiting) Qty: 10 RF: 0 Referrals: Latesha Ulloa MD [Non-Staff] - Julio César Tompkins MD [Primary Care Provider] - Patricia Bourne MD [Non-Staff] - Farrukh Jauregui MD [Non-Staff] -
--- NOTE | 2018-12-10 07:32 | ED_ITS ---
HPI - Male Genitourinary General Chief complaint: Urogenital-Male Stated complaint: Kidney stone Time Seen by Provider: 12/10/18 07:22 Source: patient Mode of arrival: ambulatory Limitations: no limitations History of Present Illness HPI Narrative: Patient is a 48-year-old male with history of kidney stones presenting with right flank and right testicle pain. Started this morning he took a hydrocodone at home but he still in quite severe pain. He actually had a kidney stone in October he was seen evaluated here twice for the same. At that time he was found to have a 5 mm stone on the right side CT showed multiple stones in the kidney pelvis. He says his urine is dark this morning but does not notice any gross blood. He feels nauseous this feels like previous kidney stones. Duration: intermittent and progressively worsening Location: right flank Radiation: right testicle Severity: moderate Quality: sharp Related Data Home Medications Medication Instructions Recorded Confirmed amoxicillin 500 mg PO TID 10/19/18 10/19/18 Previous Rx's Medication Instructions Recorded hydrocodone-acetaminophen 2 tab PO Q4-6H PRN #7 tab 05/23/18 meclizine 25 mg PO BID-TID PRN #20 tab 07/14/18 ketorolac 10 mg PO Q6H PRN #14 tab 10/13/18 ondansetron 4 mg PO TID-QID PRN #10 tab 10/13/18 tamsulosin [Flomax] 0.4 mg PO DAILY #10 cap 10/13/18 hydrocodone-acetaminophen 1 tab PO Q4-6H PRN #10 tab 10/19/18 hydrocodone-acetaminophen [Shafter] 1 tab PO Q4-6H PRN #14 tab 12/10/18 ondansetron 4 mg PO Q6-8H PRN #20 tab 12/10/18 tamsulosin [Flomax] 0.4 mg PO DAILY #30 cap 12/10/18 Allergies Allergy/AdvReac Type Severity Reaction Status Date / Time No Known Drug Allergies Allergy Verified 10/13/18 16:32 Review of Systems Review of Systems GENERAL: Denies chills, fatigue, malaise, fever, sweats, travel HEENT: Denies sinus pain, ear pain, sore throat, difficulty swallowing, neck p ain RESPIRATORY: Denies dyspnea, cough, wheezing, hemoptysis, sputum. CARDIOVASCULAR: Denies chest pain, palpitations, orthopnea, edema GASTROINTESTINAL: Denies nausea, vomiting, abdominal pain, diarrhea, constipation, melena. : See HPI MUSCULOSKELETAL: Denies weakness, joint pain, or bony pain SKIN: No rash, no erythema, no pruritus NEUROLOGIC: Denies weakness, dizziness, headache, numbness, change in speech, confusion PSYCHIATRIC: No concerning psychosocial issues. 12 point review of systems is negative except for those stated above and HPI [facility] Medical History CVA (cerebral vascular accident) (Acute) Kidney stones (Acute) Surgical History History of lithotripsy (Acute) Patent foramen ovale (Acute) Social History Smoking Status: Current every day smoker Social History Smoking Status: Current every day smoker Exam Initial Vital Signs Initial Vital Signs: Vital Signs Pulse Rate 76 12/10/18 07:16 Respiratory Rate 18 12/10/18 07:16 Blood Pressure 140/94 H 12/10/18 07:16 Pulse Oximetry 97 12/10/18 07:16 GENERAL: Patient appears in pain and in no acute distress. HEENT: Head atraumatic,EOMI, pupils reactive CARDIOVASCULAR: Regular rate and rhythm without murmurs, rubs or gallops. RESPIRATORY: Breath sounds equal bilaterally, no wheezes rales or rhonchi. ABDOMEN: Soft, minimal tenderness in right lower abdomen no guarding no rebound : Mild right CVA tenderness EXTREMITIES: Normal range of motion, no clubbing or edema. Neurovascularly intact NEUROLOGICAL: Alert and oriented x4.Normal gait and speech. Cranial nerves II through XII grossly intact. SKIN: Warm, dry, no laceration, no petechiae, no rashes or lesions. Course Orders Ordered: ED Orders 12/10/18 05:49 Urine Culture Stat Urine Microscopic Stat 12/10/18 07:28 US renal complete Stat 12/10/18 07:30 Complete Blood Count AUTO DIFF Stat Comprehensive Metabolic Panel Stat Lipase Stat Partial Thromboplastin Time Stat Prothrombin Time INR Stat Discontinued Medications Hydromorphone HCl (Dilaudid) 1 mg IV NOW ONE Stop: 12/10/18 07:29 Last Admin: 12/10/18 07:38 Dose: 1 mg Hydromorphone HCl (Dilaudid) 0.5 mg IV NOW ONE Stop: 12/10/18 09:19 Last Admin: 12/10/18 09:36 Dose: 0.5 mg Ketorolac Tromethamine (Toradol) 30 mg IV NOW ONE Stop: 12/10/18 07:23 Last Admin: 12/10/18 07:38 Dose: 30 mg Ondansetron HCl (Zofran) 4 mg IV NOW ONE Stop: 12/10/18 07:40 Last Admin: 12/10/18 07:39 Dose: 4 mg Vital Signs - 8 hr 12/10/18 07:16 12/10/18 08:34 12/10/18 09:32 Pulse Rate 76 70 72 Respiratory Rate 18 18 16 Blood Pressure 140/94 H Blood Pressure [Right Arm] 122/80 127/85 Pulse Oximetry 97 97 98 MDM - Male Genitourinary Lab Data Attestation: I reviewed the patient's lab results. Result diagrams: 12/10/18 07:30 12/10/18 07:30 Lab Results 12/10/18 12/10/18 12/10/18 Range/Units 05:49 07:30 07:30 WBC 9.1 (4.5-11.0) X10^3/uL RBC 5.05 (4.5-5.9) X10^6/uL Hgb 15.5 (13.5-17.5) g/dL Hct 45.8 (41-53) % MCV 90.5 (80-100) fL MCH 30.7 (26-34) PG MCHC 33.9 (30-36) % RDW 14.8 (11.6-14.8) % Plt Count 307 (150-400) X10^3/uL Neut % (Auto) 59.6 (50-75) % Lymph % (Auto) 28.8 (25-40) % [place] % (Auto) 7.6 (3-14) % Eos % (Auto) 2.9 (2-4) % Baso % (Auto) 1.1 (0-2) % Neut # (Auto) 5400 (6950-9526) /uL Lymph # (Auto) 2600 (9966-7891) /uL [place] # (Auto) 700 (0-900) /uL Eos # (Auto) 300 (0-450) /uL Baso # (Auto) 100 (0-100) /uL PT 9.9 L (10.1-12.7) SECONDS INR 0.9 (0.9-1.3) APTT 33 (26.4-36.2) SECONDS Sodium (137-145) mmol/L Potassium (3.4-5.1) mmol/L Chloride (98-107) mmol/L Carbon Dioxide (22-32) mmol/L BUN (9-20) mg/dL Creatinine (0.66-1.25) mg/dL Estimated GFR (>60) mL/min BUN/Creatinine Ratio (6-22) Glucose (70-100) mg/dL Calcium (8.4-10.2) mg/dL Total Bilirubin (0.2-1.3) mg/dL AST (17-59) IU/L ALT (21-72) IU/L Alkaline Phosphatase (38-126) U/L Total Protein (6.3-8.2) g/dL Albumin (3.5-5.0) g/dL Globulin (1.7-4.1) g/dL Albumin/Globulin Ratio (1.0-2.8) Lipase (23-300) U/L Urine RBC >100/hpf (0-5/HPF) Urine WBC 1-5/hpf (0-5/HPF) Ur Squamous Epith Cells 0-1 /hpf (0-5/HPF) Calcium Oxalate Crystal Few H Urine Bacteria Moderate (10-30) H (None) Urine Mucus 4+ H D (Negative) Ur Culture Indicated? Specimen cultured 12/10/18 Range/Units 07:30 WBC (4.5-11.0) X10^3/uL RBC (4.5-5.9) X10^6/uL Hgb (13.5-17.5) g/dL Hct (41-53) % MCV (80-100) fL MCH (26-34) PG MCHC (30-36) % RDW (11.6-14.8) % Plt Count (150-400) X10^3/uL Neut % (Auto) (50-75) % Lymph % (Auto) (25-40) % [place] % (Auto) (3-14) % Eos % (Auto) (2-4) % Baso % (Auto) (0-2) % Neut # (Auto) (2518-6008) /uL Lymph # (Auto) (5860-9139) /uL [place] # (Auto) (0-900) /uL Eos # (Auto) (0-450) /uL Baso # (Auto) (0-100) /uL PT (10.1-12.7) SECONDS INR (0.9-1.3) APTT (26.4-36.2) SECONDS Sodium 145 (137-145) mmol/L Potassium 4.1 (3.4-5.1) mmol/L Chloride 109 H (98-107) mmol/L Carbon Dioxide 23 (22-32) mmol/L BUN 16 (9-20) mg/dL Creatinine 1.00 (0.66-1.25) mg/dL Estimated GFR > 60.0 (>60) mL/min BUN/Creatinine Ratio 16.0 (6-22) Glucose 94 (70-100) mg/dL Calcium 9.9 (8.4-10.2) mg/dL Total Bilirubin 0.4 (0.2-1.3) mg/dL AST 23 (17-59) IU/L ALT 29 (21-72) IU/L Alkaline Phosphatase 100 (38-126) U/L Total Protein 7.6 (6.3-8.2) g/dL Albumin 4.5 (3.5-5.0) g/dL Globulin 3.1 (1.7-4.1) g/dL Albumin/Globulin Ratio 1.5 (1.0-2.8) Lipase 320 H (23-300) U/L Urine RBC (0-5/HPF) Urine WBC (0-5/HPF) Ur Squamous Epith Cells (0-5/HPF) Calcium Oxalate Crystal Urine Bacteria (None) Urine Mucus (Negative) Ur Culture Indicated? Urine Dip Bedside Urine Glucose Negative Bedside Urine Bilirubin + 1 Bedside Urine Ketone +/- 5 Urine Specific [place] 1.030 Bedside Urine Occult Blood +++ Bedside Urine pH 6.0 Bedside Urine Protein + 30 Bedside Urine Urobilinogen +/- 1mg Bedside Urine Nitrite - Negative Bedside Urine Leukocytes +/- 15 Esterase Imaging Data us renal: Radiologist's impression: PROCEDURE: US RENAL COMPLETE INDICATIONS: RT FLANK PAIN, HX OF MANY STONES TECHNIQUE: Real-time scanning was performed of the kidneys and bladder, with image documentation. COMPARISON: [facility], , US RENAL COMPLETE, 10/19/2018, 16:05. FINDINGS: Kidneys: Kidneys are normal in size. Right kidney measures 11.7 cm long; left kidney measures 12.2 cm long. Right renal cortical thickness is 1.6 cm; left renal cor tical thickness is 1.8 cm. Renal cortical echotexture is normal. No hydronephrosis or nephrolithiasis on the left. Note is made of a dilatation of the right ureter up to 1.2 cm and there is a moderate to moderately severe degree of right-sided hydronephrosis with collecting system calculi at the lower third of the right renal collecting system measuring up to 9 mm. A left-sided smaller calculus is seen measuring 5 mm within the mid kidney which is not associated with hydronephrosis. No suspicious solid mass lesions. Bladder: Pre-void bladder volume is 103 mL. Post-void residual is 7.0 mL. Pre-void images demonstrate no intraluminal masses or stones. On pre-void images, n either ureteral jets are noted with color Doppler interrogation. (Of note, ureteral jets may not be detectable in up to 25% of cases due to insufficient differences in specific gravity between ureteral and bladder urine). Note is made of a calculus seen in the distal right ureter at the ureteral-vesicular junction. Miscellaneous: No free pelvic fluid. IMPRESSION: Moderately severe hydronephrosis on the right with a far distal right ureteral stone identified by transve bladder imaging. The ureter on the right measures up to 1.2 cm in diameter. The calculus at the far distal right ureter measures approximately 9 mm, and a stone of this size may not pass into the bladder lumen without urologic intervention. Small calculus noted within the nondistended left renal collecting system, mid- kidney level. Dictated by: Miguelito Meek M.D. on 12/10/2018 at 9:44 MDM Narrative Medical decision making narrative: I spoke with Dr. turcios who will help arrange for urology referral and outpatient follow-up. Discharge Plan Departure Patient Disposition: Home Clinical Impression: Kidney stones Discharge Date/Time: 12/10/18 10:20 Interventions: ED Discharge Assessment Last Done: 12/10/18 10:23 Instructions: DI for Kidney Stones Activity Restrictions/Additional Instructions: *Increase fluid intake *Call urology office tomorrow, to schedule follow-up appointment. Strain urine, try to catch stone -If you should have fever, or pain is uncontrolled with medication at home or any other concerning symptoms return to ER for further evaluation MEDICATIONS--> SENT TO [facility] Take Motrin 800 mg every 8 hours as needed for pain Take Shafter every 6 hours if needed for severe pain Take Zofran every 4-6 hours if needed for nausea Take Flomax 1 tablet daily to help with passage of stone CONTROLLED SUBSTANCE DISCHARGE (Narcotoic/benzodiazepine) 1. You have been prescribed narcotic medications, it does have acetaminophen/Tylenol/paracetamol in it so do not take extra Tylenol or Tylenol containing products 2. Please understand that we cannot provide further refills of narcotics, benzodiazepines or controlled substances through the ED and her pain management will need to be through your provider. 3. While on these medications you cannot drive or operate heavy machinery. 4. You cannot sign legal documents or perform any duties such as this. 5. As long as you're taking opiate pain medications he should also be taking a stool softener such as Colace, Dulcolax, MiraLAX or prune juice, to help avoid constipation. Prescriptions: New tamsulosin [Flomax] 0.4 mg capsule,extended release 24hr 0.4 mg PO DAILY Qty: 30 RF: 0 hydrocodone-acetaminophen [Shafter] 5-325 mg tablet 1 tab PO Q4-6H PRN (Reason: pain) Qty: 14 RF: 0 ondansetron 4 mg tablet,disintegrating 4 mg PO Q6-8H PRN (Reason: nausea and vomiting) Qty: 20 RF: 0 No Action hydrocodone-acetaminophen 5-325 mg tablet 2 tab PO Q4-6H PRN (Reason: pain) Qty: 7 RF: 0 amoxicillin 500 mg capsule 500 mg PO TID RF: 0 hydrocodone-acetaminophen 5-325 mg tablet 1 tab PO Q4-6H PRN (Reason: pain) Qty: 10 RF: 0 meclizine 25 mg tablet 25 mg PO BID-TID PRN (Reason: dizziness) Qty: 20 RF: 0 ketorolac 10 mg tablet 10 mg PO Q6H PRN (Reason: pain) Qty: 14 RF: 0 tamsulosin [Flomax] 0.4 mg capsule 0.4 mg PO DAILY Qty: 10 RF: 0 ondansetron 4 mg tablet,disintegrating 4 mg PO TID-QID PRN (Reason: nausea and vomiting) Qty: 10 RF: 0 Referrals: Latesha Ulloa MD [Non-Staff] - Julio César Tompkins MD [Primary Care Provider] - Patricia Bourne MD [Non-Staff] - Farrukh Jauregui MD [Non-Staff] -
[2018-12-10] MEDS: HYDROMORPHONE 1 MG INJ IV (07:38)
[2018-12-10] MEDS: KETOROLAC 60 MG/2 ML VIAL 30 MG IV (07:38)
[2018-12-10] MEDS: ONDANSETRON 4 MG/2 ML INJ IV (07:39)
[2018-12-10 07:42] LABS: Add Manual Diff / Slide Review NO; Basophils Absolute Auto 100 /uL (0-100); Basophils Percent Auto 1.1 % (0-2); Eosinophils Absolute Auto 300 /uL (0-450); Eosinophils Percent Auto 2.9 % (2-4); Hematocrit 45.8 % (41-53); Hemoglobin 15.5 g/dL (13.5-17.5); Lymphocytes Absolute Auto 2600 /uL (1100-4500); Lymphocytes Percent Auto 28.8 % (25-40); Mean Corpuscular HGB Conc 33.9 % (30-36); Mean Corpuscular Hemoglobin 30.7 PG (26-34); Mean Corpuscular Volume 90.5 fL (80-100); Monocytes Absolute Auto 700 /uL (0-900); Monocytes Percent Auto 7.6 % (3-14); Neutrophils Absolute Auto 5400 /uL (1500-7000); Neutrophils Percent Auto 59.6 % (50-75); Platelet Count 307 X10^3/uL (150-400); Red Blood Cell Count 5.05 X10^6/uL (4.5-5.9); Red Cell Distribution Width 14.8 % (11.6-14.8); White Blood Cell Count 9.1 X10^3/uL (4.5-11.0)
--- NOTE | 2018-12-10 07:47 | PC.NURSE ---
Patient has chronic kidney stones. Had severe right flank pain upon waking this morning. Vomited x1 in shower secondary to pain. Patient reports shooting pains to tip of penis and testicles.
[2018-12-10 07:53] LABS: INR 0.9 (0.9-1.3); Prothrombin Time 9.9 SECONDS (10.1-12.7)
[2018-12-10 07:55] LABS: PTT Partial Thromboplastin Tim 33 SECONDS (26.4-36.2)
[2018-12-10 07:57] LABS: Alanine Aminotransferase 29 IU/L (21-72); Albumin 4.5 g/dL (3.5-5.0); Albumin Globulin Ratio 1.5 (1.0-2.8); Alkaline Phosphatase 100 U/L (38-126); Aspartate Aminotransferase 23 IU/L (17-59); Bilirubin Total 0.4 mg/dL (0.2-1.3); Blood Urea Nitrogen 16 mg/dL (9-20); Calcium 9.9 mg/dL (8.4-10.2); Carbon Dioxide 23 mmol/L (22-32); Chloride 109 mmol/L (98-107); Estimated Glomerular Filt Rate > 60.0 mL/min (>60); Globulin 3.1 g/dL (1.7-4.1); Glucose 94 mg/dL (70-100); HEMOLYSIS 38 (0-50); Lipase 320 U/L (23-300); Potassium 4.1 mmol/L (3.4-5.1); Sodium 145 mmol/L (137-145); Total Protein 7.6 g/dL (6.3-8.2)
[2018-12-10 08:16] LABS: RBC Urine >100/HPF (0-5/HPF); Squamous Epithelial Cell Urine 0-1 /HPF (0-5/HPF); WBC Urine 1-5/HPF (0-5/HPF)
[2018-12-10 08:17] LABS: Calcium Oxalate Crystals Urine Few
[2018-12-10 08:18] LABS: Bacteria Urine Moderate (10-30); Culture Indicated Urine Specimen Cultured; Mucus Urine 4+ (Negative)
[2018-12-10 08:34] VITALS: BP 122/80; PULSE 70; RESP 18; O2SAT 97
[2018-12-10 09:32] VITALS: BP 127/85; PULSE 72; RESP 16; O2SAT 98
[2018-12-10] MEDS: HYDROMORPHONE 1 MG INJ 0.5 MG IV (09:36)
== END 2018-12-10 10:20 | disposition home or self-care (01) ==
PROVIDERS: Emergency Provider Emergency Medicine; PCP Family Medicine
DX: N20.0 Calculus of kidney (principal)
CPT/HCPCS: 36415; 36591; 76770; 80053; 81003; 81015; 83690; 85025; 85610; 85730; 87086; 96374; 96375; 96376; 99282; 99284; J1170; J1885; J2405

== ENCOUNTER 2018-12-12 20:10 | Emergency (ER) | payer OTHER, MEDICAID, SELFPAY ==
[2018-12-12 20:14] VITALS: BP 128/90; PULSE 81; RESP 18; TEMP 36.4; O2SAT 98; BMI 25.1
--- NOTE | 2018-12-12 20:26 | ED_ITS ---
HPI - Male Genitourinary General Chief complaint: Urogenital-Male Stated complaint: Kidney Stones Time Seen by Provider: 12/12/18 20:21 Source: patient Mode of arrival: ambulatory Limitations: no limitations History of Present Illness HPI Narrative: 48-year-old male with history of kidney stones with a known right-sided 9 mm distal kidney stone seen when he was in the emergency department several days ago. He has a follow-up with his primary doctor on Wednesday to discuss further evaluation. Here for pain control. He states that he has run out of all of his pain medications. Denies any fevers. Still ureva merrillg found any problems. Related Data Home Medications Medication Instructions Recorded Confirmed amoxicillin 500 mg PO TID 10/19/18 10/19/18 Previous Rx's Medication Instructions Recorded hydrocodone-acetaminophen 2 tab PO Q4-6H PRN #7 tab 05/23/18 meclizine 25 mg PO BID-TID PRN #20 tab 07/14/18 ketorolac 10 mg PO Q6H PRN #14 tab 10/13/18 ondansetron 4 mg PO TID-QID PRN #10 tab 10/13/18 tamsulosin [Flomax] 0.4 mg PO DAILY #10 cap 10/13/18 hydrocodone-acetaminophen 1 tab PO Q4-6H PRN #10 tab 10/19/18 hydrocodone-acetaminophen [[place]] 1 tab PO Q4-6H PRN #14 tab 12/10/18 ondansetron 4 mg PO Q6-8H PRN #20 tab 12/10/18 tamsulosin [Flomax] 0.4 mg PO DAILY #30 cap 12/10/18 oxycodone-acetaminophen [Percocet] 1 tab PO Q4-6H PRN #14 tab 12/12/18 Allergies Allergy/AdvReac Type Severity Reaction Status Date / Time No Known Drug Allergies Allergy Verified 10/13/18 16:32 Review of Systems Constitutional Denies fever(s) Cardiovascular Denies chest pain, Denies palpitations and Denies dyspnea Respiratory Denies dyspnea Gastrointestinal Gastrointestinal: Denies abdominal pain, Denies nausea and Denies vomiting Genitourinary Comments: Blood in his urine Musculoskeletal Denies myalgias and Denies arthralgias Integumentary/Breasts Denies rash Endocrine Denies palpitations Hematologic/Lymphatic Denies easy bleeding and Denies easy bruising [facility] Medical History CVA (cerebral vascular accident) (Acute) Kidney stones (Acute) Social History Smoking Status: Current every day smoker Exam Initial Vital Signs Initial Vital Signs: Vital Signs Temperature 97.6 F 12/12/18 20:14 Pulse Rate 81 12/12/18 20:14 Respiratory Rate 18 12/12/18 20:14 Blood Pressure 128/90 12/12/18 20:14 Pulse Oximetry 98 12/12/18 20:14 Const General: cooperative, comfortable, well developed, well groomed and No acute distress Orientation: alert and awake HENMT Head: normal to inspection and normocephalic Resp Effort & Inspection: normal respiratory effort Cardio Rate: regular rate Skin Lesions: no lesions Rashes: no rashes Neuro General: alert and awake Cognition: normal cognition Speech: speech normal Extrem General: normal to inspection and capillary refill normal Psych Appearance: grossly normal and well kempt Course Orders Ordered: ED Orders 12/12/18 20:46 Urine Culture Stat Urine Microscopic Stat 12/12/18 20:50 Basic Metabolic Panel Stat Complete Blood Count AUTO DIFF Stat Discontinued Medications Hydromorphone HCl (Dilaudid) 1 mg IM NOW ONE Stop: 12/12/18 20:33 Last Admin: 12/12/18 20:46 Dose: 1 mg Oxycodone/Acetaminophen (Endocet 5/325 Prepack) 1 bottle MISC SEEINSTR ONE Stop: 12/12/18 21:34 Last Admin: 12/12/18 21:39 Dose: 1 bottle Vital Signs - 8 hr 12/12/18 20:14 12/12/18 21:41 Temperature 97.6 F 97.7 F Pulse Rate 81 69 Respiratory Rate 18 18 Blood Pressure 128/90 121/82 Pulse Oximetry 98 98 MDM - Male Genitourinary Lab Data Attestation: I reviewed the patient's lab results. Result diagrams: 12/12/18 20:50 12/12/18 20:50 Lab Results 12/12/18 12/12/18 12/12/18 Range/Units 20:46 20:50 20:50 WBC 7.5 (4.5-11.0) X10^3/uL RBC 5.01 (4.5-5.9) X10^6/uL Hgb 15.3 (13.5-17.5) g/dL Hct 45.1 (41-53) % MCV 90.1 (80-100) fL MCH 30.5 (26-34) PG MCHC 33.9 (30-36) % RDW 14.6 (11.6-14.8) % Plt Count 310 (150-400) X10^3/uL Neut % (Auto) 63.5 (50-75) % Lymph % (Auto) 26.3 (25-40) % [place] % (Auto) 7.3 (3-14) % Eos % (Auto) 2.1 (2-4) % Baso % (Auto) 0.8 (0-2) % Neut # (Auto) 4800 (4714-7839) /uL Lymph # (Auto) 2000 (8409-3031) /uL [place] # (Auto) 500 (0-900) /uL Eos # (Auto) 200 (0-450) /uL Baso # (Auto) 100 (0-100) /uL Sodium 142 (137-145) mmol/L Potassium 4.1 (3.4-5.1) mmol/L Chloride 104 (98-107) mmol/L Carbon Dioxide 29 (22-32) mmol/L BUN 15 (9-20) mg/dL Creatinine 1.10 (0.66-1.25) mg/dL Estimated GFR > 60.0 (>60) mL/min BUN/Creatinine Ratio 13.6 (6-22) Glucose 103 H (70-100) mg/dL Calcium 10.1 (8.4-10.2) mg/dL Urine RBC 30-100/hpf H (0-5/HPF) Urine WBC 1-5/hpf (0-5/HPF) Ur Squamous Epith Cells 0-1 /hpf (0-5/HPF) Calcium Oxalate Crystal Few H Amorphous Sediment 1+ Urine Bacteria Occasional (0-1) D (None) Urine Mucus 2+ H D (Negative) Ur Culture Indicated? Specimen cultured Urine Dip Bedside Urine Glucose Negative Bedside Urine Bilirubin - Negative Bedside Urine Ketone - Negative Urine Specific [place] 1.025 Bedside Urine Occult Blood +++ Bedside Urine pH 6.0 Bedside Urine Protein +/- 15 Bedside Urine Urobilinogen +/- 1mg Bedside Urine Nitrite - Negative Bedside Urine Leukocytes +/- 15 Esterase MDM Narrative Medical decision making narrative: Urine shows no signs of infection, creatinine is unremarkable. He does have a follow-up with his primary doctor in a couple days. Refill his pain medication for that period of time and have him keep this follow-up appoint. He was given return precautions and follow-up instructions. He expressed understanding and agreement with plan. Discharge Plan Departure Patient Disposition: Home Clinical Impression: Renal colic Discharge Date/Time: 12/12/18 21:46 Interventions: ED Discharge Assessment Last Done: 12/12/18 21:41 Instructions: DI for Kidney Stones Activity Restrictions/Additional Instructions: Continue your medications as directed. Keep your follow-up appointment on Wednesday. Return to the emergency department for any new symptoms to include worsening pain, fevers, inability to urinate or any other concerning symptoms. Prescriptions: New oxycodone-acetaminophen [Percocet] 5-325 mg tablet 1 tab PO Q4-6H PRN (Reason: pain) Qty: 14 RF: 0 No Action hydrocodone-acetaminophen 5-325 mg tablet 2 tab PO Q4-6H PRN (Reason: pain) Qty: 7 RF: 0 amoxicillin 500 mg capsule 500 mg PO TID RF: 0 hydrocodone-acetaminophen 5-325 mg tablet 1 tab PO Q4-6H PRN (Reason: pain) Qty: 10 RF: 0 meclizine 25 mg tablet 25 mg PO BID-TID PRN (Reason: dizziness) Qty: 20 RF: 0 ketorolac 10 mg tablet 10 mg PO Q6H PRN (Reason: pain) Qty: 14 RF: 0 tamsulosin [Flomax] 0.4 mg capsule 0.4 mg PO DAILY Qty: 10 RF: 0 ondansetron 4 mg tablet,disintegrating 4 mg PO TID-QID PRN (Reason: nausea and vomiting) Qty: 10 RF: 0 tamsulosin [Flomax] 0.4 mg capsule,extended release 24hr 0.4 mg PO DAILY Qty: 30 RF: 0 hydrocodone-acetaminophen [[place]] 5-325 mg tablet 1 tab PO Q4-6H PRN (Reason: pain) Qty: 14 RF: 0 ondansetron 4 mg tablet,disintegrating 4 mg PO Q6-8H PRN (Reason: nausea and vomiting) Qty: 20 RF: 0 Referrals: Julio César Tompkins MD [Primary Care Provider] -
[2018-12-12] MEDS: HYDROMORPHONE 1 MG INJ IM (20:46)
[2018-12-12 21:05] LABS: Add Manual Diff / Slide Review NO; Basophils Absolute Auto 100 /uL (0-100); Basophils Percent Auto 0.8 % (0-2); Eosinophils Absolute Auto 200 /uL (0-450); Eosinophils Percent Auto 2.1 % (2-4); Hematocrit 45.1 % (41-53); Hemoglobin 15.3 g/dL (13.5-17.5); Lymphocytes Absolute Auto 2000 /uL (1100-4500); Lymphocytes Percent Auto 26.3 % (25-40); Mean Corpuscular HGB Conc 33.9 % (30-36); Mean Corpuscular Hemoglobin 30.5 PG (26-34); Mean Corpuscular Volume 90.1 fL (80-100); Monocytes Absolute Auto 500 /uL (0-900); Monocytes Percent Auto 7.3 % (3-14); Neutrophils Absolute Auto 4800 /uL (1500-7000); Neutrophils Percent Auto 63.5 % (50-75); Platelet Count 310 X10^3/uL (150-400); Red Blood Cell Count 5.01 X10^6/uL (4.5-5.9); Red Cell Distribution Width 14.6 % (11.6-14.8); White Blood Cell Count 7.5 X10^3/uL (4.5-11.0)
[2018-12-12 21:12] LABS: BUN Creatinine Ratio 13.6 (6-22); Blood Urea Nitrogen 15 mg/dL (9-20); Calcium 10.1 mg/dL (8.4-10.2); Carbon Dioxide 29 mmol/L (22-32); Chloride 104 mmol/L (98-107); Estimated Glomerular Filt Rate > 60.0 mL/min (>60); Glucose 103 mg/dL (70-100); HEMOLYSIS < 15 (0-50); Potassium 4.1 mmol/L (3.4-5.1); Sodium 142 mmol/L (137-145)
[2018-12-12 21:31] LABS: Amorphous Sediment Urine 1+; Bacteria Urine Occasional (0-1); Calcium Oxalate Crystals Urine Few; Culture Indicated Urine Specimen Cultured; Mucus Urine 2+ (Negative); RBC Urine 30-100/HPF (0-5/HPF); Squamous Epithelial Cell Urine 0-1 /HPF (0-5/HPF); WBC Urine 1-5/HPF (0-5/HPF)
[2018-12-12] MEDS: OXYCODONE/APAP 5/325 PREPACK 1 BOTTLE MISC (21:39)
[2018-12-12 21:41] VITALS: BP 121/82; PULSE 69; RESP 18; TEMP 36.5; O2SAT 98
== END 2018-12-12 21:46 | disposition home or self-care (01) ==
PROVIDERS: Emergency Provider Emergency Medicine; PCP Family Medicine
DX: N23 Unspecified renal colic (principal)
CPT/HCPCS: 36415; 80048; 81003; 81015; 85025; 87086; 96372; 99282; 99283; J1170

== ENCOUNTER → 2019-01-10 09:03 | Outpatient (CLI) | payer OTHER, MEDICAID, SELFPAY ==
--- NOTE | 2019-01-10 09:06 | DI.CT.S_ITS ---
PROCEDURE: CT KIDNEY URETER BLADDER (KUB) INDICATIONS: KIDNEY STONES TECHNIQUE: Noncontrast 5 mm thick sections acquired from the diaphragms to the symphysis. 5 mm thick coronal and sagittal reformats were then performed. For radiation dose reduction, the following was used: automated exposure control, adjustment of mA and/or kV according to patient size. COMPARISON: [facility], CT, CT KIDNEY URETER BLADDER (KUB), 10/13/2018, 19:06. [facility], CT, CT KIDNEY URETER BLADDER (KUB), 12/03/2017, 5:37. [facility], CT, KIDNEY/ URETER/BLADDER, 01/23/2016, 10:20. FINDINGS: Image quality: Diagnostic. Lung bases: Lung bases are clear. Heart size is normal. Urinary system: There is a large at least partially obstructing mid right ureteral calculus that measures 6.8 x 8 mm (image 57, series 2) with corresponding dominant hydronephrosis and hydroureter. An additional nonobstructing inferior right renal calculus is present. No additional ureteral calculi are present. No left-sided renal or ureteral calculi are evident. There is no left-sided hydronephrosis or hydroureter. The urinary bladder is decompressed. No bladder calculi are evident. The prostate gland is borderline enlarged and contains coarse calcifications. Other solid organs: The liver is somewhat hypodense when compared to the spleen with areas of abnormal density within the region of the gallbladder fossa. The gallbladder is surgically absent. The spleen, adrenals, and pancreas are within normal limits. Peritoneum and bowel: The stomach and duodenum are grossly unremarkable, but not well valuated without intraluminal contrast. The small bowel loops are nondilated. There appear to be postoperative changes at the base of the cecum. Areas of distal colonic diverticulosis are present. There appear to be areas of fatty infiltration involving the wall of the rectosigmoid colon. No surrounding mesenteric inflammation is evident. No free fluid, loculated fluid collection or free air is evident. Nodes and vessels: No retroperitoneal or mesenteric adenopathy by size criteria. Aorta and inferior vena cava are normal in caliber. Other pelvic soft tissues: No free pelvic fluid. No inguinal hernias or adenopathy. No free fluid or loculated fluid collection is appreciated. Bones: No suspicious bony lesions. No vertebral body compression fractures. Moderate degenerative changes of the bilateral sacroiliac joints are noted. There mild degenerative changes of the lower lumbar spine and bilateral hips. IMPRESSION: 1. Prominent at least partially obstructing distal right ureteral calculus measuring up to 8 mm. 2. Moderate to severe right-sided hydronephrosis and proximal hydroureter. 3. Hepatic steatosis. 4. Mild rectosigmoid wall fatty infiltration is often seen in the setting of chronic inflammation. Please correlate clinically to exclude the possibility of an infectious or inflammatory colitis-type process, such as Crohn's disease or ulcerative colitis. 5. Prominence of the wall of the stomach and proximal small bowel is nonspecific and likely within normal limits. Please correlate clinically to exclude gastroenteritis. Dictated by: Duncan Tejeda M.D. on 01/10/2019 at 10:17 Approved by: Duncan Tejeda M.D. on 01/10/2019 at 10:29
== END ==
PROVIDERS: PCP Student in an Organized Health Care Education/Training Program; Visit Provider Urology
DX: N20.0 Calculus of kidney (principal); N13.30 Unspecified hydronephrosis; N13.4 Hydroureter; K76.0 Fatty (change of) liver, not elsewhere classified
CPT/HCPCS: 74176

== ENCOUNTER 2019-01-29 21:15 | Emergency (ER) | payer OTHER, MEDICAID, SELFPAY ==
[2019-01-29 21:21] VITALS: BP 127/82; PULSE 78; RESP 16; TEMP 36.8; O2SAT 95; BMI 25.8
[2019-01-29 21:55] LABS: Bacteria Urine None Seen
[2019-01-29 22:00] VITALS: BP 125/85; PULSE 68; O2SAT 96
[2019-01-29 22:00] LABS: Add Manual Diff / Slide Review NO; Basophils Absolute Auto 100 /uL (0-100); Basophils Percent Auto 0.7 % (0-2); Eosinophils Absolute Auto 200 /uL (0-450); Eosinophils Percent Auto 3.1 % (2-4); Hematocrit 45.5 % (41-53); Hemoglobin 15.5 g/dL (13.5-17.5); Lymphocytes Absolute Auto 2300 /uL (1100-4500); Lymphocytes Percent Auto 30.9 % (25-40); Mean Corpuscular HGB Conc 34.1 % (30-36); Mean Corpuscular Hemoglobin 30.8 PG (26-34); Mean Corpuscular Volume 90.2 fL (80-100); Monocytes Absolute Auto 700 /uL (0-900); Monocytes Percent Auto 8.8 % (3-14); Neutrophils Absolute Auto 4200 /uL (1500-7000); Neutrophils Percent Auto 56.5 % (50-75); Platelet Count 317 X10^3/uL (150-400); Red Blood Cell Count 5.04 X10^6/uL (4.5-5.9); Red Cell Distribution Width 14.6 % (11.6-14.8); White Blood Cell Count 7.4 X10^3/uL (4.5-11.0)
[2019-01-29 22:06] LABS: BUN Creatinine Ratio 14.4 (6-22); Blood Urea Nitrogen 13 mg/dL (9-20); Calcium 10.1 mg/dL (8.4-10.2); Carbon Dioxide 27 mmol/L (22-32); Chloride 104 mmol/L (98-107); Estimated Glomerular Filt Rate > 60.0 mL/min (>60); Glucose 97 mg/dL (70-100); HEMOLYSIS < 15 (0-50); Potassium 4.1 mmol/L (3.4-5.1); Sodium 138 mmol/L (137-145)
[2019-01-29 22:07] LABS: Calcium Oxalate Crystals Urine Many; Culture Indicated Urine Specimen Cultured; RBC Urine 5-10/HPF (0-5/HPF); Squamous Epithelial Cell Urine None Seen (0-5/HPF); WBC Urine 5-10/HPF (0-5/HPF)
--- NOTE | 2019-01-29 22:23 | DI.US.S_ITS ---
PROCEDURE: US RENAL COMPLETE INDICATIONS: RIGHT FLANK PAIN TECHNIQUE: Real-time scanning was performed of the kidneys and bladder, with image documentation. COMPARISON: None. FINDINGS: Kidneys: Kidneys are normal in size. Right kidney measures 10.7 cm long; left kidney measures 13.5 cm long. Right renal cortical thickness is 1.7 cm; left renal cortical thickness is 1.9 cm. Renal cortical echotexture is normal. The 5 mm and 6 mm stones are noted in the inferior pole of the right kidney. Moderate right sided hydronephrosis. No suspicious solid mass lesions. Bladder: Pre-void bladder volume is 86 mL. Post-void residual is minimal zero mL. Pre-void images demonstrate no intraluminal masses or stones. On pre-void images, left ureteral jet is noted with color Doppler interrogation. (Of note, ureteral jets may not be detectable in up to 25% of cases due to insufficient differences in specific gravity between ureteral and bladder urine). Miscellaneous: No free pelvic fluid. IMPRESSION: Right nephrolithiasis, right hydronephrosis and hydroureter with absence of right ureteral jet. Findings highly concerning for right ureteral stone. Recommend CT KUB for further evaluation. Dictated by: Candy Menon MD, PhD on 01/30/2019 at 8:45 Approved by: Candy Menon MD, PhD on 01/30/2019 at 8:49
[2019-01-29] MEDS: HYDROMORPHONE 1 MG INJ IV (22:28)
[2019-01-29 23:06] VITALS: BP 124/99; PULSE 85; RESP 17; O2SAT 69
--- NOTE | 2019-01-29 23:58 | ED_ITS ---
HPI - Male Genitourinary General Chief complaint: Urogenital-Male Stated complaint: kidney stones,left side shoulder numbness Time Seen by Provider: 01/29/19 21:19 Source: patient and family Mode of arrival: ambulatory Limitations: no limitations History of Present Illness HPI Narrative: 48-year-old male smoker with history of kidney stones and a known right-sided kidney stone presents with worsening right flank pain. He admits to some worsening of pain, worse with motions and improves with rest. He denies fever, chills, N/V. He has an appointment on Wednesday with [facility] to have this surgically addressed, has known stone is 8-9 mm Onset (ago): week(s) Duration: constant Location: right flank Radiation: right inguinal region Severity: moderate Quality: aching and sharp Relieving factors: none Exacerbating factors: none Reports denies other symptoms Related Data Home Medications Medication Instructions Recorded Confirmed amoxicillin 500 mg PO TID 10/19/18 10/19/18 Previous Rx's Medication Instructions Recorded hydrocodone-acetaminophen 2 tab PO Q4-6H PRN #7 tab 05/23/18 meclizine 25 mg PO BID-TID PRN #20 tab 07/14/18 ketorolac 10 mg PO Q6H PRN #14 tab 10/13/18 ondansetron 4 mg PO TID-QID PRN #10 tab 10/13/18 tamsulosin [Flomax] 0.4 mg PO DAILY #10 cap 10/13/18 hydrocodone-acetaminophen 1 tab PO Q4-6H PRN #10 tab 10/19/18 hydrocodone-acetaminophen [[facility]] 1 tab PO Q4-6H PRN #14 tab 12/10/18 ondansetron 4 mg PO Q6-8H PRN #20 tab 12/10/18 tamsulosin [Flomax] 0.4 mg PO DAILY #30 cap 12/10/18 oxycodone-acetaminophen [Percocet] 1 tab PO Q4-6H PRN #14 tab 12/12/18 cephalexin [Keflex] 500 mg PO QID 7 Days #28 cap 01/29/19 hydrocodone-acetaminophen 1 tab PO Q4-6H PRN #10 tab 01/29/19 Allergies Allergy/AdvReac Type Severity Reaction Status Date / Time No Known Drug Allergies Allergy Verified 01/29/19 21:25 Review of Systems Constitutional Denies chills, Denies fever(s), Denies lethargy and Denies weakness Eyes Denies change in vision, Denies eye discharge, Denies irritation and Denies loss of vision ENT Ears, Nose, Mouth, and Throat: Denies change in voice, Denies neck pain and Denies sore throat Cardiovascular Denies chest pain, Denies irregular heart rhythm, Denies lightheadedness, Denies palpitations, Denies dyspnea, Denies dyspnea on exertion and Denies orthopnea Respiratory Denies cough, Denies dyspnea, Denies dyspnea on exertion and Denies wheezing Gastrointestinal Gastrointestinal: Denies abdominal pain, Denies change in bowel habits, Denies diarrhea, Denies nausea and Denies vomiting Genitourinary Denies hematuria, Reports flank pain, Denies urinary incontinence and Denies urinary urgency Musculoskeletal Denies neck pain Integumentary/Breasts Denies pruritus, Denies erythema, Denies rash and Denies wounds Neurologic Denies confusion, Denies loss of vision and Denies weakness Psychiatric Denies anxiety, Denies confusion, Denies depression, Denies homicidal ideation and Denies suicidal ideation Endocrine Denies palpitations Hematologic/Lymphatic Denies easy bruising Allergic/Immunologic Denies wheezing PFSH Medical History CVA (cerebral vascular accident) (Acute) Kidney stones (Acute) Surgical History History of lithotripsy (Acute) Patent foramen ovale (Acute) Social History Smoking Status: Current every day smoker Social History Smoking Status: Current every day smoker Exam Narrative Exam Narrative: GENERAL: [48] year old patient appears stated age. Well- nourished, well-developed patient, in mild distress. HEAD: Atraumatic. Normocephalic. EYES: Pupils equal round and reactive. Extraocular motions intact. No scleral icterus. No injection or drainage. ENT: Nose without bleeding, purulent drainage. Throat without erythema, tonsillar hypertrophy or exudate. Airway patent. NECK: Trachea midline. Non tender CARDIOVASCULAR: Regular rate and rhythm without murmurs, gallops, or rubs. RESPIRATORY: Clear to auscultation. Breath sounds equal bilaterally. No wheezes, rales, or rhonchi. GASTROINTESTINAL: Abdomen soft, non-tender, nondistended. EXTREMITIES: No edema or joint tenderness. BACK: Nontender without deformity or crepitance. Right flank tenderness to palpation NEURO: AOx3. SKIN: No rash or erythema of visible areas Initial Vital Signs Initial Vital Signs: Vital Signs Temperature 98.2 F 01/29/19 21:21 Pulse Rate 78 01/29/19 21:21 Respiratory Rate 16 01/29/19 21:21 Blood Pressure 127/82 01/29/19 21:21 Pulse Oximetry 95 01/29/19 21:21 Course Orders Ordered: Discontinued Medications Hydrocodone Bitart/Acetaminophen (Vicodin Prepack) 1 bottle MISC SEEINSTR ONE Stop: 01/29/19 23:42 Last Admin: 01/30/19 00:06 Dose: 1 bottle Cefazolin Sodium (Keflex 250 Mg Prepack) 1 bottle MISC SEEINSTR ONE Stop: 01/29/19 23:42 Last Admin: 01/30/19 00:06 Dose: 2 cap Hydromorphone HCl (Dilaudid) 1 mg IV NOW ONE Stop: 01/29/19 22:19 Last Admin: 01/29/19 22:28 Dose: 1 mg Vital Signs - 8 hr 01/30/19 00:14 Temperature 98.5 F Pulse Rate 70 Respiratory Rate 13 Blood Pressure 130/83 Pulse Oximetry 95 MDM - Male Genitourinary Lab Data Result diagrams: 01/29/19 21:45 01/29/19 21:45 Lab Results 01/29/19 01/29/19 01/29/19 Range/Units 21:36 21:45 21:45 WBC 7.4 (4.5-11.0) X10^3/uL RBC 5.04 (4.5-5.9) X10^6/uL Hgb 15.5 (13.5-17.5) g/dL Hct 45.5 (41-53) % MCV 90.2 (80-100) fL MCH 30.8 (26-34) PG MCHC 34.1 (30-36) % RDW 14.6 (11.6-14.8) % Plt Count 317 (150-400) X10^3/uL Neut % (Auto) 56.5 (50-75) % Lymph % (Auto) 30.9 (25-40) % [place] % (Auto) 8.8 (3-14) % Eos % (Auto) 3.1 (2-4) % Baso % (Auto) 0.7 (0-2) % Neut # (Auto) 4200 (5813-5553) /uL Lymph # (Auto) 2300 (0434-4675) /uL [place] # (Auto) 700 (0-900) /uL Eos # (Auto) 200 (0-450) /uL Baso # (Auto) 100 (0-100) /uL Sodium 138 (137-145) mmol/L Potassium 4.1 (3.4-5.1) mmol/L Chloride 104 (98-107) mmol/L Carbon Dioxide 27 (22-32) mmol/L BUN 13 (9-20) mg/dL Creatinine 0.90 (0.66-1.25) mg/dL Estimated GFR > 60.0 (>60) mL/min BUN/Creatinine Ratio 14.4 (6-22) Glucose 97 (70-100) mg/dL Calcium 10.1 (8.4-10.2) mg/dL Urine RBC 5-10/hpf H (0-5/HPF) Urine WBC 5-10/hpf H (0-5/HPF) Ur Squamous Epith Cells None seen (0-5/HPF) Calcium Oxalate Crystal Many H Urine Bacteria None seen (None) Ur Culture Indicated? Specimen cultured Urine Dip Bedside Urine Glucose Negative Bedside Urine Bilirubin + 1 Bedside Urine Ketone +/- 5 Urine Specific [employer] 1.020 Bedside Urine Occult Blood + Bedside Urine pH 6.5 Bedside Urine Protein +/- 15 Bedside Urine Urobilinogen +/- 1mg Bedside Urine Nitrite - Negative Bedside Urine Leukocytes +/- 15 Esterase Discharge Plan Departure Patient Disposition: Home Clinical Impression: Kidney stone, Acute UTI Discharge Date/Time: 01/30/19 00:16 Interventions: ED Discharge Assessment Last Done: 01/30/19 00:14 Instructions: DI for Kidney Stones Activity Restrictions/Additional Instructions: *You have been diagnosed with [ kidney stone, UTI ] *What to do: *Take medications as directed *Follow up with your primary care provider in 2-3 days, call for an appointment. Let them know you were seen in the Emergency Department and that we ask that you be seen in follow up *Return to ER if you should have any new, worsening or concerning symptoms Prescriptions: New hydrocodone-acetaminophen 5-325 mg tablet 1 tab PO Q4-6H PRN (Reason: pain) Qty: 10 RF: 0 cephalexin [Keflex] 500 mg capsule 500 mg PO QID 7 Days Qty: 28 RF: 0 No Action hydrocodone-acetaminophen 5-325 mg tablet 2 tab PO Q4-6H PRN (Reason: pain) Qty: 7 RF: 0 amoxicillin 500 mg capsule 500 mg PO TID RF: 0 hydrocodone-acetaminophen 5-325 mg tablet 1 tab PO Q4-6H PRN (Reason: pain) Qty: 10 RF: 0 oxycodone-acetaminophen [Percocet] 5-325 mg tablet 1 tab PO Q4-6H PRN (Reason: pain) Qty: 14 RF: 0 meclizine 25 mg tablet 25 mg PO BID-TID PRN (Reason: dizziness) Qty: 20 RF: 0 ketorolac 10 mg tablet 10 mg PO Q6H PRN (Reason: pain) Qty: 14 RF: 0 tamsulosin [Flomax] 0.4 mg capsule 0.4 mg PO DAILY Qty: 10 RF: 0 ondansetron 4 mg tablet,disintegrating 4 mg PO TID-QID PRN (Reason: nausea and vomiting) Qty: 10 RF: 0 tamsulosin [Flomax] 0.4 mg capsule,extended release 24hr 0.4 mg PO DAILY Qty: 30 RF: 0 hydrocodone-acetaminophen [[facility]] 5-325 mg tablet 1 tab PO Q4-6H PRN (Reason: pain) Qty: 14 RF: 0 ondansetron 4 mg tablet,disintegrating 4 mg PO Q6-8H PRN (Reason: nausea and vomiting) Qty: 20 RF: 0 Referrals: Patricia Bourne MD [Primary Care Provider] -
[2019-01-30] MEDS: HYDROCODONE/ACET 5/325 PREPACK 1 BOTTLE MISC (00:06)
[2019-01-30] MEDS: cephALEXin 250 MG PREPACK 1 BOTTLE MISC (00:06)
[2019-01-30 00:14] VITALS: BP 130/83; PULSE 70; RESP 13; TEMP 36.9; O2SAT 95
== END 2019-01-30 00:16 | disposition home or self-care (01) ==
PROVIDERS: Emergency Provider Emergency Medicine; PCP Student in an Organized Health Care Education/Training Program
DX: N20.0 Calculus of kidney (principal); N39.0 Urinary tract infection, site not specified
CPT/HCPCS: 36591; 76770; 80048; 81003; 81015; 85025; 87086; 96374; 99282; 99284; J1170

== ENCOUNTER 2019-02-04 19:19 | Emergency (ER) | payer OTHER, MEDICAID, SELFPAY ==
[2019-02-04 19:28] VITALS: BP 142/95; PULSE 67; RESP 18; TEMP 36.5; O2SAT 100; BMI 25.8
--- NOTE | 2019-02-04 19:29 | ED.GENADULT ---
HPI - General Adult General Chief complaint: Urogenital-Male Stated complaint: recent kidney stone removal,still bleeding,dizzy Time Seen by Provider: 02/04/19 19:23 Source: patient Mode of arrival: ambulatory Limitations: no limitations History of Present Illness HPI narrative: Patient is a 49-year-old male who has been seen multiple times in this emergency department over the past several weeks/months for right-sided kidney stone. Yesterday he underwent a removal of the stone with a stent placed. Was sent home with pain medication. He is still currently on antibiotics from a prior visit. He states that he has continued to have some bleeding and also some abdominal pain. He states that he has never had this much bleeding this far out from the procedure with prior stent placements. He also describes lightheadedness. Has no vertigo. Has not passed out. Related Data Home Medications Medication Instructions Recorded Confirmed amoxicillin 500 mg PO TID 10/19/18 10/19/18 Previous Rx's Medication Instructions Recorded hydrocodone-acetaminophen 2 tab PO Q4-6H PRN #7 tab 05/23/18 meclizine 25 mg PO BID-TID PRN #20 tab 07/14/18 ketorolac 10 mg PO Q6H PRN #14 tab 10/13/18 ondansetron 4 mg PO TID-QID PRN #10 tab 10/13/18 tamsulosin [Flomax] 0.4 mg PO DAILY #10 cap 10/13/18 hydrocodone-acetaminophen 1 tab PO Q4-6H PRN #10 tab 10/19/18 hydrocodone-acetaminophen [[place]] 1 tab PO Q4-6H PRN #14 tab 12/10/18 ondansetron 4 mg PO Q6-8H PRN #20 tab 12/10/18 tamsulosin [Flomax] 0.4 mg PO DAILY #30 cap 12/10/18 oxycodone-acetaminophen [Percocet] 1 tab PO Q4-6H PRN #14 tab 12/12/18 hydrocodone-acetaminophen 1 tab PO Q4-6H PRN #10 tab 01/29/19 hydrocodone-acetaminophen [[facility]] 1 tab PO Q4-6H PRN #10 tab 02/04/19 Allergies Allergy/AdvReac Type Severity Reaction Status Date / Time No Known Drug Allergies Allergy Verified 01/29/19 21:25 Review of Systems Constitutional Denies fever(s), Denies frequent falls and Denies headache(s) ENT Ears, Nose, Mouth, and Throat: Denies headache(s) and Reports disequilibrium Cardiovascular Denies chest pain and Denies dyspnea Respiratory Denies dyspnea Gastrointestinal Gastrointestinal: Reports abdominal pain, Denies nausea and Denies vomiting Genitourinary Reports hematuria Musculoskeletal Denies tingling Integumentary/Breasts Denies lesions and Denies rash Neurologic Denies frequent falls, Denies headache(s), Denies focal weakness, Denies tingling, Denies paresthesias and Reports disequilibrium Hematologic/Lymphatic Denies easy bleeding and Denies easy bruising [facility] Medical History CVA (cerebral vascular accident) (Acute) Kidney stones (Acute) Social History Smoking Status: Current every day smoker Exam Initial Vital Signs Initial Vital Signs: Vital Signs Temperature 97.7 F 02/04/19 19:28 Pulse Rate 67 02/04/19 19:28 Respiratory Rate 18 02/04/19 19:28 Blood Pressure 142/95 H 02/04/19 19:28 Pulse Oximetry 100 02/04/19 19:28 Const General: cooperative, well developed and well groomed Orientation: alert and awake [facility] Head: normal to inspection and normocephalic Resp Effort & Inspection: normal respiratory effort Auscultation: clear to auscultation bilaterally Cardio Rate: regular rate Rhythm: regular rhythm GI Inspection: non-distended Palpation: soft and tender (Diffuse tenderness) Skin Lesions: no lesions Neuro General: alert and awake Cognition: normal cognition Speech: speech normal Extrem General: normal to inspection and capillary refill normal Course Orders Ordered: ED Orders 02/04/19 19:30 Basic Metabolic Panel Stat Complete Blood Count AUTO DIFF Stat EKG-12 Lead Stat Vital Signs - 8 hr 02/04/19 19:28 02/04/19 21:00 02/04/19 21:36 Temperature 97.7 F Pulse Rate 67 62 60 Respiratory Rate 18 16 16 Blood Pressure 142/95 H 138/92 H Blood Pressure [Left Arm] 138/92 H Pulse Oximetry 100 96 96 Medical Decision Making Lab Data Lab results reviewed: Yes I reviewed the patient's lab results. Result diagrams: 02/04/19 19:30 02/04/19 19:30 Lab Results 02/04/19 02/04/19 Range/Units 19:30 19:30 WBC 8.6 (4.5-11.0) X10^3/uL RBC 5.03 (4.5-5.9) X10^6/uL Hgb 15.5 (13.5-17.5) g/dL Hct 45.2 (41-53) % MCV 89.9 (80-100) fL MCH 30.8 (26-34) PG MCHC 34.3 (30-36) % RDW 14.9 H (11.6-14.8) % Plt Count 290 (150-400) X10^3/uL Neut % (Auto) 62.1 (50-75) % Lymph % (Auto) 28.1 (25-40) % [place] % (Auto) 6.9 (3-14) % Eos % (Auto) 1.8 L (2-4) % Baso % (Auto) 1.1 (0-2) % Neut # (Auto) 5300 (7164-5300) /uL Lymph # (Auto) 2400 (1437-4471) /uL [place] # (Auto) 600 (0-900) /uL Eos # (Auto) 200 (0-450) /uL Baso # (Auto) 100 (0-100) /uL Sodium 140 (137-145) mmol/L Potassium 3.9 (3.4-5.1) mmol/L Chloride 101 (98-107) mmol/L Carbon Dioxide 27 (22-32) mmol/L BUN 13 (9-20) mg/dL Creatinine 1.00 (0.66-1.25) mg/dL Estimated GFR > 60.0 (>60) mL/min BUN/Creatinine Ratio 13.0 (6-22) Glucose 127 H (70-100) mg/dL Calcium 10.1 (8.4-10.2) mg/dL ECG Data Attestation: I personally reviewed and interpreted this ECG as follows: Prior ECG tracings: not available for review Interpretation: Sinus bradycardia Ventricular rate of 59 Normal axis Normal QRS Normal QTC No ST T wave changes MDM Narrative Medical decision making narrative: Labs unremarkable, patient is not anemic. EKG is unremarkable. Creatinine is unremarkable. I do suspect that all of his symptoms are secondary to the procedure he had performed yesterday. I tried to reassure the patient that having bleeding and abdominal pain after these types of procedures is not uncommon. I will send home with another short course of pain medication. I did inform him that further pain medication does need to come from either his primary provider or his urologist. The patient expressed understanding and agreement. Discharge Plan Departure Patient Disposition: Home Clinical Impression: Pain due to ureteral stent Qualifiers: Encounter type: initial encounter Qualified Code(s): T83.84XA - Pain due to genitourinary prosthetic devices, implants and grafts, initial encounter Discharge Date/Time: 02/04/19 21:37 Interventions: ED Discharge Assessment Last Done: 02/04/19 21:36 Instructions: DI for Ureteral Stent Placement Activity Restrictions/Additional Instructions: Future pain management does need to come by either your primary provider or your urologist. Return to the emergency department for any new or worsening symptoms Prescriptions: New hydrocodone-acetaminophen [[place]] 5-325 mg tablet 1 tab PO Q4-6H PRN (Reason: pain) Qty: 10 RF: 0 No Action hydrocodone-acetaminophen 5-325 mg tablet 2 tab PO Q4-6H PRN (Reason: pain) Qty: 7 RF: 0 amoxicillin 500 mg capsule 500 mg PO TID RF: 0 hydrocodone-acetaminophen 5-325 mg tablet 1 tab PO Q4-6H PRN (Reason: pain) Qty: 10 RF: 0 oxycodone-acetaminophen [Percocet] 5-325 mg tablet 1 tab PO Q4-6H PRN (Reason: pain) Qty: 14 RF: 0 meclizine 25 mg tablet 25 mg PO BID-TID PRN (Reason: dizziness) Qty: 20 RF: 0 ketorolac 10 mg tablet 10 mg PO Q6H PRN (Reason: pain) Qty: 14 RF: 0 tamsulosin [Flomax] 0.4 mg capsule 0.4 mg PO DAILY Qty: 10 RF: 0 ondansetron 4 mg tablet,disintegrating 4 mg PO TID-QID PRN (Reason: nausea and vomiting) Qty: 10 RF: 0 tamsulosin [Flomax] 0.4 mg capsule,extended release 24hr 0.4 mg PO DAILY Qty: 30 RF: 0 hydrocodone-acetaminophen [[place]] 5-325 mg tablet 1 tab PO Q4-6H PRN (Reason: pain) Qty: 14 RF: 0 ondansetron 4 mg tablet,disintegrating 4 mg PO Q6-8H PRN (Reason: nausea and vomiting) Qty: 20 RF: 0 hydrocodone-acetaminophen 5-325 mg tablet 1 tab PO Q4-6H PRN (Reason: pain) Qty: 10 RF: 0 Referrals: Patricia Bourne MD [Primary Care Provider] -
[2019-02-04 19:41] LABS: Add Manual Diff / Slide Review NO; Basophils Absolute Auto 100 /uL (0-100); Basophils Percent Auto 1.1 % (0-2); Eosinophils Absolute Auto 200 /uL (0-450); Eosinophils Percent Auto 1.8 % (2-4); Hematocrit 45.2 % (41-53); Hemoglobin 15.5 g/dL (13.5-17.5); Lymphocytes Absolute Auto 2400 /uL (1100-4500); Lymphocytes Percent Auto 28.1 % (25-40); Mean Corpuscular HGB Conc 34.3 % (30-36); Mean Corpuscular Hemoglobin 30.8 PG (26-34); Mean Corpuscular Volume 89.9 fL (80-100); Monocytes Absolute Auto 600 /uL (0-900); Monocytes Percent Auto 6.9 % (3-14); Neutrophils Absolute Auto 5300 /uL (1500-7000); Neutrophils Percent Auto 62.1 % (50-75); Platelet Count 290 X10^3/uL (150-400); Red Blood Cell Count 5.03 X10^6/uL (4.5-5.9); Red Cell Distribution Width 14.9 % (11.6-14.8); White Blood Cell Count 8.6 X10^3/uL (4.5-11.0)
[2019-02-04 19:57] LABS: Blood Urea Nitrogen 13 mg/dL (9-20); Calcium 10.1 mg/dL (8.4-10.2); Carbon Dioxide 27 mmol/L (22-32); Chloride 101 mmol/L (98-107); Estimated Glomerular Filt Rate > 60.0 mL/min (>60); Glucose 127 mg/dL (70-100); HEMOLYSIS 39 (0-50); Potassium 3.9 mmol/L (3.4-5.1); Sodium 140 mmol/L (137-145)
[2019-02-04 21:00] VITALS: BP 138/92; PULSE 62; RESP 16; O2SAT 96
[2019-02-04 21:36] VITALS: BP 138/92; PULSE 60; RESP 16; O2SAT 96
== END 2019-02-04 21:37 | disposition home or self-care (01) ==
PROVIDERS: Emergency Provider Emergency Medicine; PCP Student in an Organized Health Care Education/Training Program
DX: T83.84XA Pain due to genitourinary prosthetic devices, implants and grafts, initial encounter (principal)
CPT/HCPCS: 36591; 51798; 80048; 85025; 93005; 99283; 99284

== ENCOUNTER 2019-02-21 17:38 | Emergency (ER) | payer OTHER, MEDICAID, SELFPAY ==
[2019-02-21 17:48] VITALS: BP 136/80; PULSE 87; RESP 18; TEMP 36.7; O2SAT 98
[2019-02-21 18:10] LABS: Add Manual Diff / Slide Review NO; Basophils Absolute Auto 100 /uL (0-100); Basophils Percent Auto 1.4 % (0-2); Eosinophils Absolute Auto 200 /uL (0-450); Eosinophils Percent Auto 1.7 % (2-4); Hematocrit 42.1 % (41-53); Hemoglobin 14.6 g/dL (13.5-17.5); Lymphocytes Absolute Auto 1700 /uL (1100-4500); Lymphocytes Percent Auto 18.6 % (25-40); Mean Corpuscular HGB Conc 34.6 % (30-36); Mean Corpuscular Hemoglobin 31.2 PG (26-34); Mean Corpuscular Volume 90.3 fL (80-100); Monocytes Absolute Auto 500 /uL (0-900); Monocytes Percent Auto 5.9 % (3-14); Neutrophils Absolute Auto 6600 /uL (1500-7000); Neutrophils Percent Auto 72.4 % (50-75); Platelet Count 338 X10^3/uL (150-400); Red Blood Cell Count 4.67 X10^6/uL (4.5-5.9); Red Cell Distribution Width 14.3 % (11.6-14.8); White Blood Cell Count 9.1 X10^3/uL (4.5-11.0)
[2019-02-21 18:20] LABS: HEMOLYSIS < 15 (0-50); Potassium 3.6 mmol/L (3.4-5.1)
[2019-02-21 18:22] LABS: Alanine Aminotransferase 36 IU/L (21-72); Albumin 4.5 g/dL (3.5-5.0); Albumin Globulin Ratio 1.5 (1.0-2.8); Alkaline Phosphatase 88 U/L (38-126); Aspartate Aminotransferase 30 IU/L (17-59); BUN Creatinine Ratio 14.4 (6-22); Bilirubin Total 0.5 mg/dL (0.2-1.3); Blood Urea Nitrogen 13 mg/dL (9-20); Calcium 9.8 mg/dL (8.4-10.2); Carbon Dioxide 25 mmol/L (22-32); Chloride 103 mmol/L (98-107); Estimated Glomerular Filt Rate > 60.0 mL/min (>60); Globulin 3.1 g/dL (1.7-4.1); Glucose 125 mg/dL (70-100); Sodium 141 mmol/L (137-145); Total Protein 7.6 g/dL (6.3-8.2)
[2019-02-21] MEDS: ONDANSETRON 4 MG/2 ML INJ IV (18:27)
[2019-02-21] MEDS: SODIUM CHLORIDE 0.9% 1,000 ML 1000 ML IV (18:28)
[2019-02-21] MEDS: MECLIZINE HCL 12.5 MG TABLET 25 MG PO (18:28)
--- NOTE | 2019-02-21 18:50 | ED.DIZZY ---
HPI - Dizziness General Chief Complaint: Dizziness Stated Complaint: Dizziness Time Seen by Provider: 02/21/19 17:42 Source: patient Mode of arrival: ambulatory Limitations: no limitations History of Present Illness HPI Narrative: This is a 49-year-old male comes to the emergency department with complaint of dizziness. Patient states that he had a ureteral stent that had complications with surgically removed had another 1 placed and that 1 was removed today. He states he has been urinating blood and had a little bit of discomfort and dribbling with urination. Patient today at 1:00 p.m. Um felt very dizzy, he denies vertigo or room spinning symptoms but describes it sort of like when your drunk and feel dizzy. Patient states that he laid down and felt better, he got better about 2 or 230 and had another episode. He had some fluids and orally hydrated. He continues to feel sort of fuzzy. He does not have any spinning of the room, he does not have any numbness or tingling except for a spot on his calf which resolved. He denies any weakness. He denies any nausea or vomiting denies any vision changes other than feeling it is a little blurry, he denies any headache. Denies any chest pain or shortness of breath. Patient has been taking Flomax, Zofran he has tramadol available as well as Percocet and Vicodin as needed. He does have a history of CVA in the past, he states it was noted on MRI and he had a what sounds like a PFO that was closed several months later. He has had a cholecystectomy, appendectomy and portion of his small bowel removed. He denies any allergies. He does continue to smoke. Related Data Previous Rx's Medication Instructions Recorded tamsulosin [Flomax] 0.4 mg PO DAILY #30 cap 12/10/18 oxycodone-acetaminophen [Percocet] 1 tab PO Q4-6H PRN #14 tab 12/12/18 hydrocodone-acetaminophen [[place]] 1 tab PO Q4-6H PRN #10 tab 02/04/19 meclizine 25 mg PO TID PRN #14 tab 02/21/19 Allergies Allergy/AdvReac Type Severity Reaction Status Date / Time No Known Drug Allergies Allergy Verified 01/29/19 21:25 Review of Systems Review of Systems ROS Unobtainable: All systems reviewed & are unremarkable except as noted in HPI and below Constitutional Constitutional: Denies chills, Denies fever(s), Denies headache(s), Denies lethargy and Denies weakness Eyes Eyes: Reports blurry vision (quickly resolved) and Denies other (facialdroop) ENT Ears, Nose, Mouth, and Throat: Denies headache(s) and Reports disequilibrium Cardiovascular Cardiovascular: Denies chest pain, Denies diaphoresis, Denies syncope, Denies rapid heart rate, Denies irregular heart rhythm, Reports lightheadedness, Denies radiating jaw, neck or arm pain, Denies palpitations, Denies dyspnea, Denies dyspnea on exertion and Denies orthopnea Respiratory Respiratory: Denies dyspnea and Denies dyspnea on exertion Gastrointestinal Gastrointestinal: Denies abdominal pain, Denies change in bowel habits, Denies diarrhea, Denies nausea and Denies vomiting Genitourinary Genitourinary: Reports as per HPI, Denies hematuria, Reports difficulty urinating (dribbling), Denies dysuria, Denies flank pain, Reports urinary frequency, Reports urinary hesitancy, Denies urinary incontinence and Denies urinary urgency Musculoskeletal Musculoskeletal: Reports as per HPI, Denies abnormal gait, Denies limited range of motion, Denies muscle weakness, Reports numbness and Denies tingling Neurologic Neurologic: Reports as per HPI, Denies abnormal movements, Denies abnormal speech, Denies abnormal gait, Denies syncope, Denies headache(s), Denies focal weakness, Reports numbness, Denies sensory deficit, Denies tingling, Reports disequilibrium and Denies weakness Endocrine Endocrine: Denies palpitations [facility] Medical History CVA (cerebral vascular accident) (Acute) Kidney stones (Acute) Surgical History History of lithotripsy (Acute) Patent foramen ovale (Acute) Social History Smoking Status: Current every day smoker Social History Smoking Status: Current every day smoker Exam Narrative Exam Narrative: GEN: well nourished, well appearing male, alert and oriented x 3, patient appears to be in moderate distress. HEENT: Atraumatic, pupils are equal round reactive to light, extraocular movements are intact, nares are clear, no facial droop. HEART: Regular rate and rhythm without murmur, clicks, rubs. Pulses are equal in upper and lower extremities LUNGS:Lungs clear to auscultation, no wheezes, rales, crackles, chest moves symmetrically ABD:bowel sounds normal, soft, non-tender, no guarding, rebound, rigidity, no masses noted, no hepatosplenomegaly MSCL: Non-tender, no muscle atrophy, muscles strength 5/5 upper and lower extremities, full range of motion, normal gait NEURO:CN 2-12 intact, sensation normal, reflexes 2/4 upper and lower extremities. finger nose finger test normal, heel pace test normal. Normal speech. SKIN: no rash, no petechiae, no ecchymosis. Initial Vital Signs Initial Vital Signs: Vital Signs Temperature 98.1 F 02/21/19 17:48 Pulse Rate 87 02/21/19 17:48 Respiratory Rate 18 02/21/19 17:48 Blood Pressure 136/80 02/21/19 17:48 Pulse Oximetry 98 02/21/19 17:48 Scores NIH Stroke Scale Level of Conciousness: Alert, keenly responsive Ask month/age: Answers both questions correctly. Open/close eyes, close hand: Performs both tasks correctly Best gaze horizontal: Normal Visual barney: No visual loss Facial palsy: Normal symetrical movement Left arm drift: No drift for full 10 sec Right arm drift: No drift for full 10 sec Left leg drift: No drift for full 10 sec Right leg drift: No drift for full 10 sec Limb ataxia: Absent Sensory on face/arms/legs: Normal, no sensory loss Best language: No aphasia, normal Dysarthria: Normal Extinction or inattention: No abnormality Total NIH Stroke scale score: 0 Course Orders Ordered: ED Orders 02/21/19 17:45 EKG-12 Lead Stat 02/21/19 18:00 Complete Blood Count AUTO DIFF Stat Comprehensive Metabolic Panel Stat Partial Thromboplastin Time Stat Prothrombin Time INR Stat Troponin & CK Cardiac Panel Stat 02/21/19 19:13 CT head/brain wo con Stat 02/21/19 19:56 Urine Culture Stat Urine Microscopic Stat Discontinued Medications Sodium Chloride (Normal Saline 0.9%) 1,000 mls @ 1,000 mls/hr IV CONT ELISABETH Last Infusion: 02/21/19 19:43 Dose: 0 mls/hr Documented by: Admin: 02/21/19 18:28 Dose: 1,000 mls/hr Documented by: RUSSELL Meclizine HCl (Antivert) 25 mg PO NOW ONE Stop: 02/21/19 17:49 Last Admin: 02/21/19 18:28 Dose: 25 mg Documented by: RUSSELL Ondansetron HCl (Zofran) 4 mg IV NOW ONE Stop: 02/21/19 17:49 Last Admin: 02/21/19 18:27 Dose: 4 mg Documented by: RUSSELL Vital Signs Vital signs: Vital Signs - 8 hr 02/21/19 17:48 02/21/19 19:48 02/21/19 20:40 Temperature 98.1 F Pulse Rate 87 74 65 Respiratory Rate 18 20 20 Blood Pressure 136/80 Blood Pressure [Right Arm] 119/76 121/74 Pulse Oximetry 98 100 98 02/21/19 21:04 Temperature Pulse Rate 64 Respiratory Rate 15 Blood Pressure 121/74 Blood Pressure [Right Arm] Pulse Oximetry 97 MDM - Dizziness Lab Data Attestation: I reviewed the patient's lab results. Result diagrams: 02/21/19 18:00 02/21/19 18:00 Labs: Lab Results 02/21/19 02/21/19 02/21/19 Range/Units 18:00 18:00 18:00 WBC 9.1 (4.5-11.0) X10^3/uL RBC 4.67 (4.5-5.9) X10^6/uL Hgb 14.6 (13.5-17.5) g/dL Hct 42.1 (41-53) % MCV 90.3 (80-100) fL MCH 31.2 (26-34) PG MCHC 34.6 (30-36) % RDW 14.3 (11.6-14.8) % Plt Count 338 (150-400) X10^3/uL Neut % (Auto) 72.4 (50-75) % Lymph % (Auto) 18.6 L (25-40) % [place] % (Auto) 5.9 (3-14) % Eos % (Auto) 1.7 L (2-4) % Baso % (Auto) 1.4 (0-2) % Neut # (Auto) 6600 (2720-5538) /uL Lymph # (Auto) 1700 (3416-9508) /uL [place] # (Auto) 500 (0-900) /uL Eos # (Auto) 200 (0-450) /uL Baso # (Auto) 100 (0-100) /uL PT (10.1-12.7) SECONDS INR (0.9-1.3) APTT (26.4-36.2) SECONDS Sodium 141 (137-145) mmol/L Potassium 3.6 (3.4-5.1) mmol/L Chloride 103 (98-107) mmol/L Carbon Dioxide 25 (22-32) mmol/L BUN 13 (9-20) mg/dL Creatinine 0.90 (0.66-1.25) mg/dL Estimated GFR > 60.0 (>60) mL/min BUN/Creatinine Ratio 14.4 (6-22) Glucose 125 H (70-100) mg/dL Calcium 9.8 (8.4-10.2) mg/dL Total Bilirubin 0.5 (0.2-1.3) mg/dL AST 30 (17-59) IU/L ALT 36 (21-72) IU/L Alkaline Phosphatase 88 (38-126) U/L Total Creatine Kinase 208 H (55-170) U/L CK-MB (CK-2) 0.54 (<2.37) ng/mL CK-MB (CK-2) Rel Index 0.3 L (1.5-5.0) % Troponin I < 0.012 (0.01-0.034) ng/mL Total Protein 7.6 (6.3-8.2) g/dL Albumin 4.5 (3.5-5.0) g/dL Globulin 3.1 (1.7-4.1) g/dL Albumin/Globulin Ratio 1.5 (1.0-2.8) Urine RBC (0-5/HPF) Urine WBC (0-5/HPF) Urine Bacteria (None) Ur Culture Indicated? 02/21/19 02/21/19 Range/Units 18:00 19:56 WBC (4.5-11.0) X10^3/uL RBC (4.5-5.9) X10^6/uL Hgb (13.5-17.5) g/dL Hct (41-53) % MCV (80-100) fL MCH (26-34) PG MCHC (30-36) % RDW (11.6-14.8) % Plt Count (150-400) X10^3/uL Neut % (Auto) (50-75) % Lymph % (Auto) (25-40) % [place] % (Auto) (3-14) % Eos % (Auto) (2-4) % Baso % (Auto) (0-2) % Neut # (Auto) (6549-4623) /uL Lymph # (Auto) (6638-4473) /uL [place] # (Auto) (0-900) /uL Eos # (Auto) (0-450) /uL Baso # (Auto) (0-100) /uL PT 11.5 (10.1-12.7) SECONDS INR 1.0 (0.9-1.3) APTT 34 (26.4-36.2) SECONDS Sodium (137-145) mmol/L Potassium (3.4-5.1) mmol/L Chloride (98-107) mmol/L Carbon Dioxide (22-32) mmol/L BUN (9-20) mg/dL Creatinine (0.66-1.25) mg/dL Estimated GFR (>60) mL/min BUN/Creatinine Ratio (6-22) Glucose (70-100) mg/dL Calcium (8.4-10.2) mg/dL Total Bilirubin (0.2-1.3) mg/dL AST (17-59) IU/L ALT (21-72) IU/L Alkaline Phosphatase (38-126) U/L Total Creatine Kinase (55-170) U/L CK-MB (CK-2) (<2.37) ng/mL CK-MB (CK-2) Rel Index (1.5-5.0) % Troponin I (0.01-0.034) ng/mL Total Protein (6.3-8.2) g/dL Albumin (3.5-5.0) g/dL Globulin (1.7-4.1) g/dL Albumin/Globulin Ratio (1.0-2.8) Urine RBC 30-100/hpf H (0-5/HPF) Urine WBC 10-30/hpf H (0-5/HPF) Urine Bacteria None seen (None) Ur Culture Indicated? Specimen cultured Urine Dip Bedside Urine Glucose Negative Bedside Urine Bilirubin - Negative Bedside Urine Ketone +/- 5 Urine Specific [place] 1.020 Bedside Urine Occult Blood +++ Bedside Urine pH 6.0 Bedside Urine Protein ++ 100 Bedside Urine Urobilinogen +/- 1mg Bedside Urine Nitrite - Negative Bedside Urine Leukocytes + [address] scan - head: Radiologist's impression: Maciel Urban 49 M [address] [id number] [address] Scan Report Signed Patient: Maciel Urban RMR#: [id number] : 1970Acct:[id number] Age/Sex: 49 / MDate of Service: 02/21/19 Loc: ED Accession Number: [id number] Procedure: CT head/brain wo con Ordering Provider: Elidia Madsen D.O. PROCEDURE: CT HEAD/BRAIN WO CON INDICATIONS: dizziness, procedure today, hx cva TECHNIQUE: Noncontrast 4.5 mm thick angled axial sections acquired from the foramen magnum to the vertex, with coronal and sagittal reformats. For radiation dose reduction, the following was used: automated exposure control, adjustment of mA and/or kV according to patient size. COMPARISON: [facility], CT, CT HEAD/BRAIN WO CON, 07/14/2018, 15:17. FINDINGS: Image quality: Excellent. CSF spaces: Basal cisterns are patent. No extra-axial fluid collections. Ventricles are normal in size and shape. Brain: No midline shift. No intracranial masses or hemorrhage. Snider-white matter interface is normal. Skull and face: Calvarium and visualized facial bones are intact, without suspicious lesions. Sinuses: Visualized sinuses and mastoids are clear. IMPRESSION: 1. No acute intracranial process. Dictated by: Joanna Peralta M.D. on 02/21/2019 at 19:55 Approved by: Joanna Peralta M.D. on 02/21/2019 at 19:57 ECG Data Attestation: I personally reviewed and interpreted this ECG as follows: Interpretation: Sinus rhythm with a rate 86 P are 131 QRS of 105 and QTC of 404. No ST elevation or depression appreciated. MDM Narrative Medical decision making narrative: patient has blood and leuks, sent for urine culture. Patient aware it is pending. He just had his stent removed today so this is not unexpected findings but he has not had any clear UTI symptoms other than some dribbling and blood on urination. Discussed with patient he has had some dizziness but his symptoms are not quite vertigo in nature. He did complain of a small area of numbness on his leg. He has had a history of stroke in the past his NIH is 0 but we discussed I cannot rule out that he potentially could have stroke. Patient was offered observation but prefers to return home and follow up with primary care for outpatient MRI and workup. Patient's lab work does not show any other acute abnormalities he is feeling much better after meclizine. Patient's CK is slightly elevated at 208 and his glucose is 125 but no other major abnormalities were noted. We did discuss that he did not have any medications when he had his procedure earlier today. He is feeling better and was able to ambulate to the bathroom without issue. His prior stroke symptoms included cecile-neglect that lasted for an hour and a half. Spoke with Dr. Montiel, he will have Dr. Bourne contact tomorrow and they will get him in for follow up. Discharge Plan Departure Patient Disposition: Home Clinical Impression: Dizziness Discharge Date/Time: 02/21/19 21:05 Instructions: DI for Dizziness-Nonvertigo Activity Restrictions/Additional Instructions: Follow up with Dr. Bourne, call for an appointment in the next 24-48 hours for recheck. Discuss with your physician about getting and MRI as outpatient. Continue home medications as prescribed. You may take meclizine 1-2 tablets every 6-8 hours as needed for symptoms. This medication can make you sleepy so do not drive, for his have his activities or make any major decisions while taking it. Your prescription was sent to [facility] Return to the emergency department for fevers greater than 100.4, new severe headaches, vision changes, difficulty with speech no weakness numbness, loss of sensation or other new or concerning symptoms. Prescriptions: New meclizine 25 mg tablet,chewable 25 mg PO TID PRN (Reason: dizziness) Qty: 14 RF: 0 No Action oxycodone-acetaminophen [Percocet] 5-325 mg tablet 1 tab PO Q4-6H PRN (Reason: pain) Qty: 14 RF: 0 hydrocodone-acetaminophen [[place]] 5-325 mg tablet 1 tab PO Q4-6H PRN (Reason: pain) Qty: 10 RF: 0 tamsulosin [Flomax] 0.4 mg capsule,extended release 24hr 0.4 mg PO DAILY Qty: 30 RF: 0 Referrals: Patricia Bourne MD [Primary Care Provider] -
--- NOTE | 2019-02-21 19:13 | DI.CT.S_ITS ---
PROCEDURE: CT HEAD/BRAIN WO CON INDICATIONS: dizziness, procedure today, hx cva TECHNIQUE: Noncontrast 4.5 mm thick angled axial sections acquired from the foramen magnum to the vertex, with coronal and sagittal reformats. For radiation dose reduction, the following was used: automated exposure control, adjustment of mA and/or kV according to patient size. COMPARISON: [facility], CT, CT HEAD/BRAIN WO CON, 07/14/2018, 15:17. FINDINGS: Image quality: Excellent. CSF spaces: Basal cisterns are patent. No extra-axial fluid collections. Ventricles are normal in size and shape. Brain: No midline shift. No intracranial masses or hemorrhage. Snider-white matter interface is normal. Skull and face: Calvarium and visualized facial bones are intact, without suspicious lesions. Sinuses: Visualized sinuses and mastoids are clear. IMPRESSION: 1. No acute intracranial process. Dictated by: Joanna Peralta M.D. on 02/21/2019 at 19:55 Approved by: Joanna Peralta M.D. on 02/21/2019 at 19:57
[2019-02-21 19:25] LABS: Prothrombin Time 11.5 SECONDS (10.1-12.7)
[2019-02-21 19:28] LABS: PTT Partial Thromboplastin Tim 34 SECONDS (26.4-36.2)
[2019-02-21 19:29] LABS: Creatine Kinase 208 U/L (55-170)
[2019-02-21 19:42] LABS: Troponin I < 0.012 ng/mL (0.01-0.034)
[2019-02-21 19:45] LABS: CKMB % Relative Index 0.3 % (1.5-5.0); Creatine Kinase MB 0.54 ng/mL (<2.37)
[2019-02-21 19:48] VITALS: BP 119/76; PULSE 74; RESP 20; O2SAT 100
[2019-02-21 20:24] LABS: Bacteria Urine None Seen
[2019-02-21 20:31] LABS: Culture Indicated Urine Specimen Cultured; RBC Urine 30-100/HPF (0-5/HPF); WBC Urine 10-30/HPF (0-5/HPF)
[2019-02-21 20:40] VITALS: BP 121/74; PULSE 65; RESP 20; O2SAT 98
[2019-02-21 21:04] VITALS: BP 121/74; PULSE 64; RESP 15; O2SAT 97
== END 2019-02-21 21:05 | disposition home or self-care (01) ==
PROVIDERS: Emergency Medicine; Emergency Provider Emergency Medicine; PCP Student in an Organized Health Care Education/Training Program
DX: R42 Dizziness and giddiness (principal)
CPT/HCPCS: 36591; 51798; 70450; 80053; 81003; 81015; 82550; 82553; 84484; 85025; 85610; 85730; 87086; 93005; 93010; 96361; 96374; 99283; 99285; J2405

== ENCOUNTER 2019-03-29 05:43 | Emergency (ER) | payer OTHER, MEDICAID, SELFPAY ==
[2019-03-29 05:51] VITALS: BP 148/90; PULSE 55; RESP 15; TEMP 36.2; O2SAT 100; BMI 25.8
[2019-03-29] MEDS: ONDANSETRON 4 MG/2 ML INJ IV (06:09)
[2019-03-29] MEDS: SODIUM CHLORIDE 0.9% 1,000 ML 1000 ML IV (06:09)
[2019-03-29] MEDS: HYDROMORPHONE 1 MG INJ IV (06:10)
--- NOTE | 2019-03-29 06:12 | ED_ITS ---
HPI - Male Genitourinary <DO Marcelina Neville Last Filed: 03/29/19 07:15> General Chief complaint: Urogenital-Male Stated complaint: states right side pain, thinks kidney stone Time Seen by Provider: 03/29/19 05:56 Source: patient Mode of arrival: Ambulatory Limitations: no limitations History of Present Illness HPI Narrative: Patient is a 49-year-old male with history of kidney stone pre senting with right-sided flank pain. It woke him from sleep around 4:30 a.m.. He took Flomax and heating pad at home. He says it is not helping. He had a stent and lithotripsy back in February. He has been doing okay until now. This feels like his typical kidney stone pain. His previous stone was 8-9 mm. Duration: intermittent Related Data Previous Rx's Medication Instructions Recorded tamsulosin [Flomax] 0.4 mg PO DAILY #30 cap 12/10/18 oxycodone-acetaminophen [Percocet] 1 tab PO Q4-6H PRN #14 tab 12/12/18 hydrocodone-acetaminophen [[place]] 1 tab PO Q4-6H PRN #10 tab 02/04/19 meclizine 25 mg PO TID PRN #14 tab 02/21/19 Allergies Allergy/AdvReac Type Severity Reaction Status Date / Time No Known Drug Allergies Allergy Verified 01/29/19 21:25 Review of Systems <DO Marcelina Neville Last Filed: 03/29/19 07:15> Review of Systems Narrative: GENERAL: Denies chills, fatigue, malaise, fever, sweats, travel HEENT: Denies sinus pain, ear pain, sore throat, difficulty swallowing, neck pain RESPIRATORY: Denies dyspnea, cough, wheezing, hemoptysis, sputum. CARDIOVASCULAR: Denies chest pain, palpitations, orthopnea, edema GASTROINTESTINAL: Denies nausea, vomiting, abdominal pain, diarrhea, constipation, melena. : see HPI MUSCULOSKELETAL: Denies weakness, joint pain, or bony pain SKIN: No rash, no erythema, no pruritus NEUROLOGIC: Denies weakness, dizziness, headache, numbness, change in speech, confusion PSYCHIATRIC: No concerning psychosocial issues. 12 point review of systems is negative except for those stated above and HPI Patient History <DO Marcelina Neville Last Filed: 03/29/19 07:15> Social History Smoking Status: Current every day smoker alcohol intake frequency: a few times a month Substance Use Type: does not use Exam <Litzy Toney DO - Last Filed: 03/29/19 07:15> Initial Vital Signs Initial Vital Signs: Vital Signs Temperature 97.1 F L 03/29/19 05:51 Pulse Rate 55 L 03/29/19 05:51 Respiratory Rate 15 03/29/19 05:51 Blood Pressure 148/90 H 03/29/19 05:51 Pulse Oximetry 100 03/29/19 05:51 GENERAL: Alert male appears in pain HEENT: Head atraumatic,EOMI, pupils reactive, face symmetric, moist mucous m embranes CARDIOVASCULAR: Regular rate and rhythm without murmurs, rubs or gallops. RESPIRATORY: Breath sounds equal bilaterally, no wheezes rales or rhonchi. ABDOMEN: Soft, nontender. Normoactive bowel sounds all 4 quadrants. No guarding or rebound. : Right CVA tenderness EXTREMITIES: Normal range of motion, no clubbing or edema. Neurovascularly intact NEUROLOGICAL: Alert and oriented x4.Normal gait and speech. Cranial nerves II through XII grossly intact. SKIN: Warm, dry, no laceration, no petechiae, no rashes or lesions. <Bel Woods MD - Last Filed: 03/30/19 08:42> Initial Vital Signs Initial Vital Signs: Vital Signs Temperature 97.1 F L 03/29/19 05:51 Pulse Rate 55 L 03/29/19 05:51 Respiratory Rate 15 03/29/19 05:51 Blood Pressure 148/90 H 03/29/19 05:51 Pulse Oximetry 100 03/29/19 05:51 Course <Litzy Toney DO - Last Filed: 03/29/19 07:15> Orders Ordered: Discontinued Medications Hydromorphone HCl (Dilaudid) 1 mg IV NOW ONE Stop: 03/29/19 05:58 Last Admin: 03/29/19 06:10 Dose: 1 mg Documented by: MMCFARL Sodium Chloride (Normal Saline 0.9%) 1,000 mls @ 1,000 mls/hr IV CONT ELISABETH Last Infusion: 03/29/19 07:30 Dose: 0 mls/hr Documented by: Admin: 03/29/19 06:09 Dose: 1,000 mls/hr Documented by: ODETTE Lidocaine HCl 6.1 ml/ Sodium (Chloride) 56.1 mls @ 336.6 mls/hr IV NOW ONE Stop: 03/29/19 06:53 Last Infusion: 03/29/19 07:50 Dose: 0 mls/hr Documented by: Admin: 03/29/19 07:39 Dose: 336.6 mls/hr Documented by: ASHLEY Ketorolac Tromethamine (Toradol) 30 mg IV NOW ONE Stop: 03/29/19 06:53 Last Admin: 03/29/19 06:58 Dose: 30 mg Documented by: ODETTE Ondansetron HCl (Zofran) 4 mg IV NOW ONE Stop: 03/29/19 05:58 Last Admin: 03/29/19 06:09 Dose: 4 mg Documented by: ODETTE Vital Signs Vital signs: Vital Signs - 8 hr 03/29/19 05:51 Temperature 97.1 F L Pulse Rate 55 L Respiratory Rate 15 Blood Pressure 148/90 H Pulse Oximetry 100 <Bel Woods MD - Last Filed: 03/30/19 08:42> Course Course Narrative: Peggy note: Patient was signed out to me by Dr. Toney, pending CT scan results. He presented to the emergency department with flank pain which felt like his prior kidney stone pain. The patient had an extensive history of urinary calculi, with ongoing urological management. He had been seen about a month and ago for stones with stent placement and lithotripsy at that time. The patient's CT scan showed the stone fragments to have migrated slightly, but to still be in the mid ureter and causing some hydronephrosis that appeared somewhat worse than the patient's last scan. The patient appointment coming up with Urology, I have instructed him to call their office and try to be seen as soon as possible to discuss this ongoing issue. The patient has been treated with analgesia been given a prescription for analgesics to take at home. We have discussed the usual indications for return. Orders Ordered: Discontinued Medications Hydromorphone HCl (Dilaudid) 1 mg IV NOW ONE Stop: 03/29/19 05:58 Last Admin: 03/29/19 06:10 Dose: 1 mg Documented by: ODETTE Sodium Chloride (Normal Saline 0.9%) 1,000 mls @ 1,000 mls/hr IV CONT ELISABETH Last Infusion: 03/29/19 07:30 Dose: 0 mls/hr Documented by: Admin: 03/29/19 06:09 Dose: 1,000 mls/hr Documented by: ODETTE Lidocaine HCl 6.1 ml/ Sodium (Chloride) 56.1 mls @ 336.6 mls/hr IV NOW ONE Stop: 03/29/19 06:53 Last Infusion: 03/29/19 07:50 Dose: 0 mls/hr Documented by: Admin: 03/29/19 07:39 Dose: 336.6 mls/hr Documented by: ASHLEY Ketorolac Tromethamine (Toradol) 30 mg IV NOW ONE Stop: 03/29/19 06:53 Last Admin: 03/29/19 06:58 Dose: 30 mg Documented by: ODETTE Ondansetron HCl (Zofran) 4 mg IV NOW ONE Stop: 03/29/19 05:58 Last Admin: 03/29/19 06:09 Dose: 4 mg Documented by: ODETET Vital Signs Vital signs: Vital Signs - 8 hr 03/29/19 05:51 Temperature 97.1 F L Pulse Rate 55 L Respiratory Rate 15 Blood Pressure 148/90 H Pulse Oximetry 100 MDM - Male Genitourinary <Litzy Toney DO - Last Filed: 03/29/19 07:15> Lab Data Attestation: I reviewed the patient's lab results. Result diagrams: 03/29/19 05:57 03/29/19 05:57 Labs: Lab Results 03/29/19 03/29/19 03/29/19 Range/Units 05:57 05:57 07:40 WBC 7.4 (4.5-11.0) X10^3/uL RBC 4.92 (4.5-5.9) X10^6/uL Hgb 15.1 (13.5-17.5) g/dL Hct 45.0 (41-53) % MCV 91.4 (80-100) fL MCH 30.8 (26-34) PG MCHC 33.7 (30-36) % RDW 14.7 (11.6-14.8) % Plt Count 317 (150-400) X10^3/uL Neut % (Auto) 58.7 (50-75) % Lymph % (Auto) 28.6 (25-40) % [place] % (Auto) 9.4 (3-14) % Eos % (Auto) 2.4 (2-4) % Baso % (Auto) 0.9 (0-2) % Neut # (Auto) 4300 (5255-9033) /uL Lymph # (Auto) 2100 (7696-7270) /uL [place] # (Auto) 700 (0-900) /uL Eos # (Auto) 200 (0-450) /uL Baso # (Auto) 100 (0-100) /uL Sodium 141 (137-145) mmol/L Potassium 4.6 (3.4-5.1) mmol/L Chloride 104 (98-107) mmol/L Carbon Dioxide 21 L (22-32) mmol/L BUN 15 (9-20) mg/dL Creatinine 0.90 (0.66-1.25) mg/dL Estimated GFR > 60.0 (>60) mL/min BUN/Creatinine Ratio 16.7 (6-22) Glucose 97 (70-100) mg/dL Calcium 8.5 (8.4-10.2) mg/dL Total Bilirubin 0.6 (0.2-1.3) mg/dL AST 51 (17-59) IU/L ALT 32 (21-72) IU/L Alkaline Phosphatase 88 (38-126) U/L Total Protein 7.7 (6.3-8.2) g/dL Albumin 4.7 (3.5-5.0) g/dL Globulin 3.0 (1.7-4.1) g/dL Albumin/Globulin Ratio 1.6 (1.0-2.8) Lipase 241 (23-300) U/L Urine RBC 10-30/hpf H (0-5/HPF) Urine WBC 5-10/hpf H (0-5/HPF) Urine Bacteria None seen (None) Ur Culture Indicated? Specimen cultured Urine Dip Bedside Urine Glucose Negative Bedside Urine Bilirubin - Negative Bedside Urine Ketone - Negative Urine Specific [place] 1.020 Bedside Urine Occult Blood +++ Bedside Urine pH 6.0 Bedside Urine Protein +/- 15 Bedside Urine Urobilinogen +/- 1mg Bedside Urine Nitrite - Negative Bedside Urine Leukocytes + 70 Esterase MDM Narrative Medical decision making narrative: Signed out to Dr. Woods awaiting CT. Need pain control. <Bel Woods MD - Last Filed: 03/30/19 08:42> Medical Records Attestation: I reviewed the patient's medical records. Lab Data Attestation: I reviewed the patient's lab results. Labs: Lab Results 03/29/19 03/29/19 03/29/19 Range/Units 05:57 05:57 07:40 WBC 7.4 (4.5-11.0) X10^3/uL RBC 4.92 (4.5-5.9) X10^6/uL Hgb 15.1 (13.5-17.5) g/dL Hct 45.0 (41-53) % MCV 91.4 (80-100) fL MCH 30.8 (26-34) PG MCHC 33.7 (30-36) % RDW 14.7 (11.6-14.8) % Plt Count 317 (150-400) X10^3/uL Neut % (Auto) 58.7 (50-75) % Lymph % (Auto) 28.6 (25-40) % [place] % (Auto) 9.4 (3-14) % Eos % (Auto) 2.4 (2-4) % Baso % (Auto) 0.9 (0-2) % Neut # (Auto) 4300 (5466-4110) /uL Lymph # (Auto) 2100 (3745-3571) /uL [place] # (Auto) 700 (0-900) /uL Eos # (Auto) 200 (0-450) /uL Baso # (Auto) 100 (0-100) /uL Sodium 141 (137-145) mmol/L Potassium 4.6 (3.4-5.1) mmol/L Chloride 104 (98-107) mmol/L Carbon Dioxide 21 L (22-32) mmol/L BUN 15 (9-20) mg/dL Creatinine 0.90 (0.66-1.25) mg/dL Estimated GFR > 60.0 (>60) mL/min BUN/Creatinine Ratio 16.7 (6-22) Glucose 97 (70-100) mg/dL Calcium 8.5 (8.4-10.2) mg/dL Total Bilirubin 0.6 (0.2-1.3) mg/dL AST 51 (17-59) IU/L ALT 32 (21-72) IU/L Alkaline Phosphatase 88 (38-126) U/L Total Protein 7.7 (6.3-8.2) g/dL Albumin 4.7 (3.5-5.0) g/dL Globulin 3.0 (1.7-4.1) g/dL Albumin/Globulin Ratio 1.6 (1.0-2.8) Lipase 241 (23-300) U/L Urine RBC 10-30/hpf H (0-5/HPF) Urine WBC 5-10/hpf H (0-5/HPF) Urine Bacteria None seen (None) Ur Culture Indicated? Specimen cultured Urine Dip Bedside Urine Glucose Negative Bedside Urine Bilirubin - Negative Bedside Urine Ketone - Negative Urine Specific [place] 1.020 Bedside Urine Occult Blood +++ Bedside Urine pH 6.0 Bedside Urine Protein +/- 15 Bedside Urine Urobilinogen +/- 1mg Bedside Urine Nitrite - Negative Bedside Urine Leukocytes + [address] scan - abdomen: Radiologist's impression: PROCEDURE: CT KIDNEY URETER BLADDER (KUB) INDICATIONS: right falnk pain TECHNIQUE: Noncontrast 5 mm thick sections acquired from the diaphragms to the symphysis. 5 mm thick coronal and sagittal reformats were then performed. For radiation dose reduction, the following was used: automated exposure control, adjustment of mA and/or kV according to patient size. COMPARISON: Renal ultrasound 03/28/2019. Retrograde urogram 02/16/2019. [facility], CT, CT KIDNEY URETER BLADDER (KUB), 01/10/2019, 9:10. FINDINGS: Image quality: Excellent. Lung bases: Mild atelectasis at the right lung base. No pleural effusion. Heart size is normal. ASD closure device. Urinary system: Both kidneys are normal in size. Two obstructing calculi in the inferior right ureter measuring 4 x 3 mm and 2 mm, (/). The stone is now fragmented and has moved distally compared to the prior CT. There is severe right-sided hydroureteronephrosis, increased. Additional nonobstructing right kidney inferior pole calculus measuring 6 mm, unchanged. A few punctate nodular calculi the left kidney. Bladder wall thickness is normal; no calcified bladder stones. Bladder is mostly decompressed. Other solid organs: Liver is normal in size. Hepatic steatosis. Gallbladder is surgically absent. Pancreas is normal in contours. Spleen is normal in size. No adrenal nodules. Peritoneum and bowel: Unenhanced bowel loops demonstrate normal wall thickness and caliber. No free fluid or air. Nodes and vessels: No retroperitoneal or mesenteric adenopathy by size criteria. Aorta and inferior vena cava are normal in caliber. Abdominal wall: No ventral hernias. Pelvis: No free pelvic fluid. No inguinal hernias or adenopathy. Bones: No suspicious bony lesions. No vertebral body compression fractures. Sclerosis of the anterior lower thoracic vertebral bodies, unchanged. IMPRESSION: 1. Fragmented stone in the inferior right ureter has moved distally. However, there is increased severe right-sided hydroureteronephrosis. 2. Stable additional nonobstructing calculus in the inferior pole the right kidney. Punctate nonobstructing calculi in the left kidney. 3. Hepatic steatosis. Dictated by: Johny Whaley M.D. on 03/29/2019 at 8:03 Approved by: Johny Whaley M.D. on 03/29/2019 at 8:22 ADDENDUM: Results were called to the emergency room and relayed to Bel Woods M.D. at 8:25 AM by Johny Whaley M.D. Dictated by: Johny Whaley M.D. on 03/29/2019 at 8:25 Approved by: Johny Whaley M.D. on 03/29/2019 at 8:27 Addendum Dictated By:Johny Whaley MD Addendum Signed By: Addendum Cosigned By: DD/ TD/TT: 03/29/19 PROCEDURE: CT KIDNEY URETER BLADDER (KUB) INDICATIONS: right falnk pain TECHNIQUE: Noncontrast 5 mm thick sections acquired from the diaphragms to the symphysis. 5 mm thick coronal and sagittal reformats were then performed. For radiation dose reduction, the following was used: automated exposure control, adjustment of mA and/or kV according to patient size. COMPARISON: Renal ultrasound 03/28/2019. Retrograde urogram 02/16/2019. [facility], CT, CT KIDNEY URETER BLADDER (KUB), 01/10/2019, 9:10. FINDINGS: Image quality: Excellent. Lung bases: Mild atelectasis at the right lung base. No pleural effusion. Heart size is normal. ASD closure device. Urinary system: Both kidneys are normal in size. Two obstructing calculi in the inferior right ureter measuring 4 x 3 mm and 2 mm, (5/35). The stone is now fragmented and has moved distally compared to the prior CT. There is severe right-sided hydroureteronephrosis, increased. Additional nonobstructing right kidney inferior pole calculus measuring 6 mm, unchanged. A few punctate nodular calculi the left kidney. Bladder wall thickness is normal; no calcified bladder stones. Bladder is mostly decompressed. Other solid organs: Liver is normal in size. Hepatic steatosis. Gallbladder is surgically absent. Pancreas is normal in contours. Spleen is normal in size. No adrenal nodules. Peritoneum and bowel: Unenhanced bowel loops demonstrate normal wall thickness and caliber. No free fluid or air. Nodes and vessels: No retroperitoneal or mesenteric adenopathy by size criteria. Aorta and inferior vena cava are normal in caliber. Abdominal wall: No ventral hernias. Pelvis: No free pelvic fluid. No inguinal hernias or adenopathy. Bones: No suspicious bony lesions. No vertebral body compression fractures. Sclerosis of the anterior lower thoracic vertebral bodies, unchanged. IMPRESSION: 1. Fragmented stone in the inferior right ureter has moved distally. However, there is increased severe right-sided hydroureteronephrosis. 2. Stable additional nonobstructing calculus in the inferior pole the right kidney. Punctate nonobstructing calculi in the left kidney. 3. Hepatic steatosis. Dictated by: Johny Whaley M.D. on 03/29/2019 at 8:03 Approved by: Johny Whaley M.D. on 03/29/2019 at 8:22 Discharge Plan Departure Patient Disposition: Home Clinical Impression: Ureterolithiasis Discharge Date/Time: 03/29/19 08:59 Instructions: DI for Kidney Stones Activity Restrictions/Additional Instructions: Your labs today look good. Your CT scan shows that you still have stones in place in your right ureter, and that there is still some backup of urine which appears to have gotten somewhat worse since your last CT scan. As such, you will need to see the urologist again to determine what further should be done to help the stones to pass. Please call their office today to set up an appointment for follow-up within the next week. If you have any trouble getting an appointment within this time frame, please call our emergency department back today. Prescriptions: No Action oxycodone-acetaminophen [Percocet] 5-325 mg tablet 1 tab PO Q4-6H PRN (Reason: pain) Qty: 14 RF: 0 hydrocodone-acetaminophen [[place]] 5-325 mg tablet 1 tab PO Q4-6H PRN (Reason: pain) Qty: 10 RF: 0 meclizine 25 mg tablet,chewable 25 mg PO TID PRN (Reason: dizziness) Qty: 14 RF: 0 tamsulosin [Flomax] 0.4 mg capsule,extended release 24hr 0.4 mg PO DAILY Qty: 30 RF: 0 Referrals: [facility] [Provider Group] Patricia Bourne MD [Primary Care Provider] -
[2019-03-29 06:19] LABS: Add Manual Diff / Slide Review NO; Basophils Absolute Auto 100 /uL (0-100); Basophils Percent Auto 0.9 % (0-2); Eosinophils Absolute Auto 200 /uL (0-450); Eosinophils Percent Auto 2.4 % (2-4); Hemoglobin 15.1 g/dL (13.5-17.5); Lymphocytes Absolute Auto 2100 /uL (1100-4500); Lymphocytes Percent Auto 28.6 % (25-40); Mean Corpuscular HGB Conc 33.7 % (30-36); Mean Corpuscular Hemoglobin 30.8 PG (26-34); Mean Corpuscular Volume 91.4 fL (80-100); Monocytes Absolute Auto 700 /uL (0-900); Monocytes Percent Auto 9.4 % (3-14); Neutrophils Absolute Auto 4300 /uL (1500-7000); Neutrophils Percent Auto 58.7 % (50-75); Platelet Count 317 X10^3/uL (150-400); Red Blood Cell Count 4.92 X10^6/uL (4.5-5.9); Red Cell Distribution Width 14.7 % (11.6-14.8); White Blood Cell Count 7.4 X10^3/uL (4.5-11.0)
[2019-03-29 06:24] LABS: Alanine Aminotransferase 32 IU/L (21-72); Albumin 4.7 g/dL (3.5-5.0); Albumin Globulin Ratio 1.6 (1.0-2.8); Alkaline Phosphatase 88 U/L (38-126); Aspartate Aminotransferase 51 IU/L (17-59); BUN Creatinine Ratio 16.7 (6-22); Bilirubin Total 0.6 mg/dL (0.2-1.3); Blood Urea Nitrogen 15 mg/dL (9-20); Calcium 8.5 mg/dL (8.4-10.2); Carbon Dioxide 21 mmol/L (22-32); Chloride 104 mmol/L (98-107); Estimated Glomerular Filt Rate > 60.0 mL/min (>60); Glucose 97 mg/dL (70-100); Lipase 241 U/L (23-300); Potassium 4.6 mmol/L (3.4-5.1); Sodium 141 mmol/L (137-145); Total Protein 7.7 g/dL (6.3-8.2)
[2019-03-29 06:25] LABS: HEMOLYSIS 52 (0-50)
[2019-03-29] MEDS: KETOROLAC 60 MG/2 ML VIAL 30 MG IV (06:58)
--- NOTE | 2019-03-29 07:11 | DI.CT.S_ITS ---
PROCEDURE: CT KIDNEY URETER BLADDER (KUB) INDICATIONS: right falnk pain TECHNIQUE: Noncontrast 5 mm thick sections acquired from the diaphragms to the symphysis. 5 mm thick coronal and sagittal reformats were then performed. For radiation dose reduction, the following was used: automated exposure control, adjustment of mA and/or kV according to patient size. COMPARISON: Renal ultrasound 03/28/2019. Retrograde urogram 02/16/2019. [facility], CT, CT KIDNEY URETER BLADDER (KUB), 01/10/2019, 9:10. FINDINGS: Image quality: Excellent. Lung bases: Mild atelectasis at the right lung base. No pleural effusion. Heart size is normal. ASD closure device. Urinary system: Both kidneys are normal in size. Two obstructing calculi in the inferior right ureter measuring 4 x 3 mm and 2 mm, (5/35). The stone is now fragmented and has moved distally compared to the prior CT. There is severe right-sided hydroureteronephrosis, increased. Additional nonobstructing right kidney inferior pole calculus measuring 6 mm, unchanged. A few punctate nodular calculi the left kidney. Bladder wall thickness is normal; no calcified bladder stones. Bladder is mostly decompressed. Other solid organs: Liver is normal in size. Hepatic steatosis. Gallbladder is surgically absent. Pancreas is normal in contours. Spleen is normal in size. No adrenal nodules. Peritoneum and bowel: Unenhanced bowel loops demonstrate normal wall thickness and caliber. No free fluid or air. Nodes and vessels: No retroperitoneal or mesenteric adenopathy by size criteria. Aorta and inferior vena cava are normal in caliber. Abdominal wall: No ventral hernias. Pelvis: No free pelvic fluid. No inguinal hernias or adenopathy. Bones: No suspicious bony lesions. No vertebral body compression fractures. Sclerosis of the anterior lower thoracic vertebral bodies, unchanged. IMPRESSION: 1. Fragmented stone in the inferior right ureter has moved distally. However, there is increased severe right-sided hydroureteronephrosis. 2. Stable additional nonobstructing calculus in the inferior pole the right kidney. Punctate nonobstructing calculi in the left kidney. 3. Hepatic steatosis. Dictated by: Johny Whaley M.D. on 03/29/2019 at 8:03 Approved by: Johny Whaley M.D. on 03/29/2019 at 8:22
[2019-03-29] MEDS: LIDOCAINE 2% 6.1 ML in SODIUM CHLORIDE 0.9% 50 ML 336.6 ML IV (07:39)
--- NOTE | 2019-03-29 07:40 | PC.NURSE ---
pt placed on dance master and Lido infusion initiated. Pt in NAD. given warm blanket.
[2019-03-29 07:49] VITALS: BP 127/91; PULSE 57; RESP 21; O2SAT 100
[2019-03-29 07:58] LABS: Bacteria Urine None Seen
[2019-03-29 08:01] VITALS: BP 123/92; PULSE 56; RESP 12; O2SAT 99
[2019-03-29 08:12] LABS: Culture Indicated Urine Specimen Cultured; RBC Urine 10-30/HPF (0-5/HPF); WBC Urine 5-10/HPF (0-5/HPF)
== END 2019-03-29 08:59 | disposition home or self-care (01) ==
PROVIDERS: Emergency Medicine; Emergency Provider Emergency Medicine; PCP Student in an Organized Health Care Education/Training Program
DX: N20.2 Calculus of kidney with calculus of ureter (principal); Z87.442 Personal history of urinary calculi
CPT/HCPCS: 36415; 74176; 80053; 81003; 81015; 83690; 85025; 87086; 96361; 96374; 96375; 99283; 99284; J1170; J1885; J2405

== ENCOUNTER 2019-04-29 11:10 | Emergency (ER) | payer OTHER, MEDICAID, SELFPAY ==
[2019-04-29 11:23] VITALS: BP 137/89; PULSE 75; RESP 14; TEMP 36.4; O2SAT 98
[2019-04-29 11:31] LABS: Bacteria Urine None Seen
--- NOTE | 2019-04-29 11:32 | DI.US.S_ITS ---
PROCEDURE: US RENAL COMPLETE INDICATIONS: FLANK PAIN, HISTORY STONES TECHNIQUE: Real-time scanning was performed of the kidneys and bladder, with image documentation. COMPARISON: [facility], CT, CT KIDNEY URETER BLADDER (KUB), 03/29/2019, 6:31. FINDINGS: Kidneys: Kidneys are normal in size. Right kidney measures 12.2 cm long; left kidney measures 12.3 cm long. Right renal cortical thickness is 1.1 cm; left renal cortical thickness is 1.8 cm. Renal cortical echotexture is normal. Previously seen right-sided hydronephrosis has resolved in the interim. There is a catheter was positioned evident involving the anterior margin of the right kidney. A calculus within the mid-to inferior aspect of the left kidney also appears to be present. Bladder: Pre-void bladder volume is 162 mL. Post-void residual is 5 mL. Pre-void images demonstrate no intraluminal masses or stones. On pre-void images, bilateral ureteral jets are noted with color Doppler interrogation. Miscellaneous: No free pelvic fluid. Increased echogenicity of the liver suggestive of hepatic steatosis. IMPRESSION: 1. Previously seen a prominent right sided hydronephrosis has resolved. 2. Nonobstructing nephrolithiasis. 3. Probable hepatic steatosis. Dictated by: Duncan Tejeda M.D. on 04/29/2019 at 12:07 Approved by: Duncan Tejeda M.D. on 04/29/2019 at 12:08
--- NOTE | 2019-04-29 11:36 | ED_ITS ---
HPI - Male Genitourinary <SUGEY Storm - Last Filed: 04/29/19 16:44> General Chief complaint: Urogenital-Male Stated complaint: Kidney stone Lft side/Fever, nauseous Time Seen by Provider: 04/29/19 11:19 Source: patient Mode of arrival: Ambulatory Limitations: no limitations History of Present Illness HPI Narrative: The patient is a 49-year-old male current smoker with history of kidney stones who presents with a chief complaint of left-sided flank pain that started yesterday, fever chills and nausea that started yesterday. He states that he feels like he has the flu, as night sweats and muscle aches. He does have an extensive history of kidney stones and has been seen at this facility multiple times for the kidney stones. He states that his left flank pain started yesterday, that he took Flomax and ibuprofen yesterday. Today he states his pain is 10/10 and nonradiating and his left flank and very consistent with his previous kidney stones. He states he woke up yesterday feeling congested, febrile, overall aches and pains. Denies any cough. States he has chronic diarrhea, some nausea no vomiting. Denies any dysuria urgency or frequency. Does complain of some hematuria. Have history of lithotripsy last month. Related Data Previous Rx's Medication Instructions Recorded tamsulosin [Flomax] 0.4 mg PO DAILY #30 cap 12/10/18 oxycodone-acetaminophen [Percocet] 1 tab PO Q4-6H PRN #14 tab 12/12/18 hydrocodone-acetaminophen [[place]] 1 tab PO Q4-6H PRN #10 tab 02/04/19 meclizine 25 mg PO TID PRN #14 tab 02/21/19 hydrocodone-acetaminophen 1 tab PO Q4-6H PRN #7 tab 04/29/19 ketorolac 10 mg PO Q6H PRN #14 tab 04/29/19 ondansetron 4 mg PO Q6H PRN #20 tab 04/29/19 tamsulosin 0.4 mg PO DAILY #7 cap 04/29/19 Allergies Allergy/AdvReac Type Severity Reaction Status Date / Time No Known Drug Allergies Allergy Verified 01/29/19 21:25 Review of Systems <SUGEY Storm - Last Filed: 04/29/19 16:44> Review of Systems Narrative: GENERAL: See HPI HEENT: Denies sinus pain, ear pain, sore throat, difficulty swallowing, dizz iness. RESPIRATORY: Denies dyspnea, cough, wheezing, hemoptysis, sputum. CARDIOVASCULAR: Denies chest pain, palpitations, orthopnea, edema, GASTROINTESTINAL: See HPI : See HPI MUSCULOSKELETAL: denies weakness, joint pain, or bony pain SKIN: Denies rash, skin lesions, or other NEUROLOGIC: Denies weakness, headache, numbness, change in speech, confusion, seizures, incoordination. PSYCHIATRIC: No concerning psychosocial issues. 12 point review of systems is negative except for those stated above Patient History <SUGEY Storm - Last Filed: 04/29/19 16:44> Medical History CVA (cerebral vascular accident) (Acute) Kidney stones (Acute) Surgical History History of lithotripsy (Acute) Patent foramen ovale (Acute) Social History Smoking Status: Current every day smoker alcohol intake frequency: a few times a month Substance Use Type: does not use Exam <SUGEY Storm - Last Filed: 04/29/19 16:44> Narrative Exam Narrative: GENERAL: This is a well-nourished, well-developed patient, in appears uncomfortable HEAD: Atraumatic. Normocephalic. No temporal or scalp tenderness. EYES: Pupils equal round and reactive. Extraocular motions intact. No scleral icterus. No injection or drainage. ENT: Nose without bleeding, purulent drainage or septal hematoma. Throat without erythema, tonsillar hypertrophy or exudate. Uvula midline. Airway patent. NECK: Trachea midline. No JVD or lymphadenopathy. Supple, nontender, no meningeal signs. CARDIOVASCULAR: Regular rate and rhythm RESPIRATORY: Clear to auscultation. Breath sounds equal bilaterally. No wheezes, rales, or rhonchi. No cough. No increased respiratory effort. No accessory muscle use. GASTROINTESTINAL: Abdomen soft, non-tender, nondistended. No hepato- splenomegaly, or palpable masses. No guarding. EXTREMITIES: No clubbing, cyanosis, or edema. No joint tenderness, effusion, or edema noted. BACK: Nontender without deformity or crepitance. Flank tenderness noted on exam, no flank tenderness on right side NEURO: AOx3. Clear speech. No gross cranial nerve deficit. No accessory muscle use. SKIN: No rash or erythema on visible skin Initial Vital Signs Initial Vital Signs: Vital Signs Temperature 97.5 F L 04/29/19 11:23 Pulse Rate 75 04/29/19 11:23 Respiratory Rate 14 04/29/19 11:23 Blood Pressure 137/89 04/29/19 11:23 Pulse Oximetry 98 04/29/19 11:23 <Arcenio Marte DO - Last Filed: 04/30/19 07:39> Initial Vital Signs Initial Vital Signs: Vital Signs Temperature 97.5 F L 04/29/19 11:23 Pulse Rate 75 04/29/19 11:23 Respiratory Rate 14 04/29/19 11:23 Blood Pressure 137/89 04/29/19 11:23 Pulse Oximetry 98 04/29/19 11:23 Course <MARIA DE JESUS Storm-BC - Last Filed: 04/29/19 16:44> Orders Ordered: Discontinued Medications Hydromorphone HCl (Dilaudid) 1 mg IV NOW ONE Stop: 04/29/19 11:32 Last Admin: 04/29/19 11:48 Dose: 1 mg Documented by: MODESTASENAngelo Sodium Chloride (Normal Saline 0.9%) 1,000 mls @ 1,000 mls/hr IV BOLUS ONE Stop: 04/29/19 12:30 Last Infusion: 04/29/19 13:43 Dose: 0 mls/hr Documented by: Admin: 04/29/19 11:48 Dose: 1,000 mls/hr Documented by: MEISENAngelo Ketorolac Tromethamine (Toradol) 30 mg IV NOW ONE Stop: 04/29/19 11:46 Last Admin: 04/29/19 11:50 Dose: 30 mg Documented by: MEISENAngelo Ondansetron HCl (Zofran) 4 mg IV NOW ONE Stop: 04/29/19 11:32 Last Admin: 04/29/19 11:48 Dose: 4 mg Documented by: MODESTASENAngelo Vital Signs Vital signs: Vital Signs - 8 hr 04/29/19 11:23 04/29/19 12:53 04/29/19 13:59 Temperature 97.5 F L Pulse Rate 75 56 L 59 L Respiratory Rate 14 16 16 Blood Pressure 137/89 Blood Pressure [Right Arm] 138/83 131/90 Pulse Oximetry 98 95 97 <Arcenio Marte DO - Last Filed: 04/30/19 07:39> Orders Ordered: Discontinued Medications Hydromorphone HCl (Dilaudid) 1 mg IV NOW ONE Stop: 04/29/19 11:32 Last Admin: 04/29/19 11:48 Dose: 1 mg Documented by: MODESTASENAngelo Sodium Chloride (Normal Saline 0.9%) 1,000 mls @ 1,000 mls/hr IV BOLUS ONE Stop: 04/29/19 12:30 Last Infusion: 04/29/19 13:43 Dose: 0 mls/hr Documented by: Admin: 04/29/19 11:48 Dose: 1,000 mls/hr Documented by: MODESTASENAngelo Ketorolac Tromethamine (Toradol) 30 mg IV NOW ONE Stop: 04/29/19 11:46 Last Admin: 04/29/19 11:50 Dose: 30 mg Documented by: MODESTASENAngelo Ondansetron HCl (Zofran) 4 mg IV NOW ONE Stop: 04/29/19 11:32 Last Admin: 04/29/19 11:48 Dose: 4 mg Documented by: MODESTASENAngelo Vital Signs Vital signs: Vital Signs - 8 hr 04/29/19 11:23 04/29/19 12:53 04/29/19 13:59 Temperature 97.5 F L Pulse Rate 75 56 L 59 L Respiratory Rate 14 16 16 Blood Pressure 137/89 Blood Pressure [Right Arm] 138/83 131/90 Pulse Oximetry 98 95 97 MDM - Male Genitourinary <SUGEY Storm - Last Filed: 04/29/19 16:44> Lab Data Result diagrams: 04/29/19 11:25 04/29/19 11:25 Labs: Lab Results 04/29/19 04/29/19 04/29/19 Range/Units 11:25 11:25 11:25 WBC 7.1 (4.5-11.0) X10^3/uL RBC 4.96 (4.5-5.9) X10^6/uL Hgb 15.5 (13.5-17.5) g/dL Hct 45.0 (41-53) % MCV 90.7 (80-100) fL MCH 31.3 (26-34) PG MCHC 34.5 (30-36) % RDW 14.9 H (11.6-14.8) % Plt Count 291 (150-400) X10^3/uL Neut % (Auto) 66.4 (50-75) % Lymph % (Auto) 22.5 L (25-40) % [place] % (Auto) 7.9 (3-14) % Eos % (Auto) 2.2 (2-4) % Baso % (Auto) 1.0 (0-2) % Neut # (Auto) 4700 (7634-2336) /uL Lymph # (Auto) 1600 (3174-0663) /uL [place] # (Auto) 600 (0-900) /uL Eos # (Auto) 200 (0-450) /uL Baso # (Auto) 100 (0-100) /uL Sodium 140 (137-145) mmol/L Potassium 4.4 (3.4-5.1) mmol/L Chloride 106 (98-107) mmol/L Carbon Dioxide 23 (22-32) mmol/L BUN 11 (9-20) mg/dL Creatinine 0.90 (0.66-1.25) mg/dL Estimated GFR > 60.0 (>60) mL/min BUN/Creatinine Ratio 12.2 (6-22) Glucose 109 H (70-100) mg/dL Calcium 10.1 (8.4-10.2) mg/dL Total Bilirubin 0.6 (0.2-1.3) mg/dL AST 43 (17-59) IU/L ALT 32 (<50) IU/L Alkaline Phosphatase 90 (38-126) U/L Total Protein 7.6 (6.3-8.2) g/dL Albumin 4.7 (3.5-5.0) g/dL Globulin 2.9 (1.7-4.1) g/dL Albumin/Globulin Ratio 1.6 (1.0-2.8) Amylase 103 (30-110) U/L Lipase 224 (23-300) U/L Urine RBC (0-5/HPF) Urine WBC (0-5/HPF) Urine Bacteria (None) Ur Culture Indicated? Influenza A & B (PCR) Negative (Negative) 04/29/19 Range/Units 11:29 WBC (4.5-11.0) X10^3/uL RBC (4.5-5.9) X10^6/uL Hgb (13.5-17.5) g/dL Hct (41-53) % MCV (80-100) fL MCH (26-34) PG MCHC (30-36) % RDW (11.6-14.8) % Plt Count (150-400) X10^3/uL Neut % (Auto) (50-75) % Lymph % (Auto) (25-40) % [place] % (Auto) (3-14) % Eos % (Auto) (2-4) % Baso % (Auto) (0-2) % Neut # (Auto) (2475-6404) /uL Lymph # (Auto) (4556-1928) /uL [place] # (Auto) (0-900) /uL Eos # (Auto) (0-450) /uL Baso # (Auto) (0-100) /uL Sodium (137-145) mmol/L Potassium (3.4-5.1) mmol/L Chloride (98-107) mmol/L Carbon Dioxide (22-32) mmol/L BUN (9-20) mg/dL Creatinine (0.66-1.25) mg/dL Estimated GFR (>60) mL/min BUN/Creatinine Ratio (6-22) Glucose (70-100) mg/dL Calcium (8.4-10.2) mg/dL Total Bilirubin (0.2-1.3) mg/dL AST (17-59) IU/L ALT (<50) IU/L Alkaline Phosphatase (38-126) U/L Total Protein (6.3-8.2) g/dL Albumin (3.5-5.0) g/dL Globulin (1.7-4.1) g/dL Albumin/Globulin Ratio (1.0-2.8) Amylase (30-110) U/L Lipase (23-300) U/L Urine RBC 1-5/hpf D (0-5/HPF) Urine WBC 5-10/hpf H (0-5/HPF) Urine Bacteria None seen (None) Ur Culture Indicated? Specimen cultured Influenza A & B (PCR) (Negative) Urine Dip Bedside Urine Glucose Negative Bedside Urine Bilirubin - Negative Bedside Urine Ketone +/- 5 Urine Specific [place] 1.015 Bedside Urine Occult Blood +/- Bedside Urine pH 6.0 Bedside Urine Protein + 30 Bedside Urine Urobilinogen +/- 1mg Bedside Urine Nitrite - Negative Bedside Urine Leukocytes +/- 15 Esterase MDM Narrative Medical decision making narrative: Male well known to this department for history of kidney stones. The presents with chief complaint of chills, flank pain on his left side, and concern for a kidney stone. His urine has no nitrites and no bacteria decreasing concern for an infected stone at this point time. He has no leukocytosis as well. The patient has had multiple abdomen pelvis CTs in the past year, we elected to get an ultrasound rather about another CT. His previously right-sided hydronephrosis has resolved. He has non obstructing nephrolithiasis, and a calculus noted in the mid to inferior aspect of the left kidney. I discussed at length the importance of following up with his urologist, PCP etc. Discussed use of Flomax, Toradol, pain medicine and nausea medicine. Patient has no questions or concerns upon discharge and states understanding of return precautions of acute concerns such as inability keep down fluids, signs of UTI etc. <Arcenio Marte, DO - Last Filed: 04/30/19 07:39> Lab Data Labs: Lab Results 04/29/19 04/29/19 04/29/19 Range/Units 11:25 11:25 11:25 WBC 7.1 (4.5-11.0) X10^3/uL RBC 4.96 (4.5-5.9) X10^6/uL Hgb 15.5 (13.5-17.5) g/dL Hct 45.0 (41-53) % MCV 90.7 (80-100) fL MCH 31.3 (26-34) PG MCHC 34.5 (30-36) % RDW 14.9 H (11.6-14.8) % Plt Count 291 (150-400) X10^3/uL Neut % (Auto) 66.4 (50-75) % Lymph % (Auto) 22.5 L (25-40) % [place] % (Auto) 7.9 (3-14) % Eos % (Auto) 2.2 (2-4) % Baso % (Auto) 1.0 (0-2) % Neut # (Auto) 4700 (1245-4648) /uL Lymph # (Auto) 1600 (9208-0990) /uL [place] # (Auto) 600 (0-900) /uL Eos # (Auto) 200 (0-450) /uL Baso # (Auto) 100 (0-100) /uL Sodium 140 (137-145) mmol/L Potassium 4.4 (3.4-5.1) mmol/L Chloride 106 (98-107) mmol/L Carbon Dioxide 23 (22-32) mmol/L BUN 11 (9-20) mg/dL Creatinine 0.90 (0.66-1.25) mg/dL Estimated GFR > 60.0 (>60) mL/min BUN/Creatinine Ratio 12.2 (6-22) Glucose 109 H (70-100) mg/dL Calcium 10.1 (8.4-10.2) mg/dL Total Bilirubin 0.6 (0.2-1.3) mg/dL AST 43 (17-59) IU/L ALT 32 (<50) IU/L Alkaline Phosphatase 90 (38-126) U/L Total Protein 7.6 (6.3-8.2) g/dL Albumin 4.7 (3.5-5.0) g/dL Globulin 2.9 (1.7-4.1) g/dL Albumin/Globulin Ratio 1.6 (1.0-2.8) Amylase 103 (30-110) U/L Lipase 224 (23-300) U/L Urine RBC (0-5/HPF) Urine WBC (0-5/HPF) Urine Bacteria (None) Ur Culture Indicated? Influenza A & B (PCR) Negative (Negative) 04/29/19 Range/Units 11:29 WBC (4.5-11.0) X10^3/uL RBC (4.5-5.9) X10^6/uL Hgb (13.5-17.5) g/dL Hct (41-53) % MCV (80-100) fL MCH (26-34) PG MCHC (30-36) % RDW (11.6-14.8) % Plt Count (150-400) X10^3/uL Neut % (Auto) (50-75) % Lymph % (Auto) (25-40) % [place] % (Auto) (3-14) % Eos % (Auto) (2-4) % Baso % (Auto) (0-2) % Neut # (Auto) (8614-1147) /uL Lymph # (Auto) (2388-6762) /uL [place] # (Auto) (0-900) /uL Eos # (Auto) (0-450) /uL Baso # (Auto) (0-100) /uL Sodium (137-145) mmol/L Potassium (3.4-5.1) mmol/L Chloride (98-107) mmol/L Carbon Dioxide (22-32) mmol/L BUN (9-20) mg/dL Creatinine (0.66-1.25) mg/dL Estimated GFR (>60) mL/min BUN/Creatinine Ratio (6-22) Glucose (70-100) mg/dL Calcium (8.4-10.2) mg/dL Total Bilirubin (0.2-1.3) mg/dL AST (17-59) IU/L ALT (<50) IU/L Alkaline Phosphatase (38-126) U/L Total Protein (6.3-8.2) g/dL Albumin (3.5-5.0) g/dL Globulin (1.7-4.1) g/dL Albumin/Globulin Ratio (1.0-2.8) Amylase (30-110) U/L Lipase (23-300) U/L Urine RBC 1-5/hpf D (0-5/HPF) Urine WBC 5-10/hpf H (0-5/HPF) Urine Bacteria None seen (None) Ur Culture Indicated? Specimen cultured Influenza A & B (PCR) (Negative) Urine Dip Bedside Urine Glucose Negative Bedside Urine Bilirubin - Negative Bedside Urine Ketone +/- 5 Urine Specific [place] 1.015 Bedside Urine Occult Blood +/- Bedside Urine pH 6.0 Bedside Urine Protein + 30 Bedside Urine Urobilinogen +/- 1mg Bedside Urine Nitrite - Negative Bedside Urine Leukocytes +/- 15 Esterase Discharge Plan Departure Patient Disposition: Home Clinical Impression: Left nephrolithiasis, Acute left flank pain Discharge Date/Time: 04/29/19 14:09 Instructions: Kidney Stones -- Adult, DI for Kidney Stones Activity Restrictions/Additional Instructions: As discussed, please follow up with primary care provider as well as urologist. Please come back to the emergency department for any acute concerns such as inability keep down fluids, please monitor for signs of urinary tract infection or infection I have given you a prescription of Toradol. This is an NSAID. Do not combine it with other NSAIDs such as Aleve or ibuprofen. I suggest taking it with some food, as it can irritate your stomach. Be aware that the [place] can be constipating and sedating. Prescriptions: New hydrocodone-acetaminophen 5-325 mg tablet 1 tab PO Q4-6H PRN (Reason: pain) Qty: 7 RF: 0 tamsulosin 0.4 mg capsule 0.4 mg PO DAILY Qty: 7 RF: 0 ketorolac 10 mg tablet 10 mg PO Q6H PRN (Reason: pain) Qty: 14 RF: 0 ondansetron 4 mg tablet,disintegrating 4 mg PO Q6H PRN (Reason: nausea and vomiting) Qty: 20 RF: 0 No Action oxycodone-acetaminophen [Percocet] 5-325 mg tablet 1 tab PO Q4-6H PRN (Reason: pain) Qty: 14 RF: 0 hydrocodone-acetaminophen [[place]] 5-325 mg tablet 1 tab PO Q4-6H PRN (Reason: pain) Qty: 10 RF: 0 meclizine 25 mg tablet,chewable 25 mg PO TID PRN (Reason: dizziness) Qty: 14 RF: 0 tamsulosin [Flomax] 0.4 mg capsule,extended release 24hr 0.4 mg PO DAILY Qty: 30 RF: 0 Referrals: Patricia Bourne MD [Primary Care Provider] -
[2019-04-29 11:42] LABS: Add Manual Diff / Slide Review NO; Basophils Absolute Auto 100 /uL (0-100); Eosinophils Absolute Auto 200 /uL (0-450); Eosinophils Percent Auto 2.2 % (2-4); Hemoglobin 15.5 g/dL (13.5-17.5); Lymphocytes Absolute Auto 1600 /uL (1100-4500); Lymphocytes Percent Auto 22.5 % (25-40); Mean Corpuscular HGB Conc 34.5 % (30-36); Mean Corpuscular Hemoglobin 31.3 PG (26-34); Mean Corpuscular Volume 90.7 fL (80-100); Monocytes Absolute Auto 600 /uL (0-900); Monocytes Percent Auto 7.9 % (3-14); Neutrophils Absolute Auto 4700 /uL (1500-7000); Neutrophils Percent Auto 66.4 % (50-75); Platelet Count 291 X10^3/uL (150-400); Red Blood Cell Count 4.96 X10^6/uL (4.5-5.9); Red Cell Distribution Width 14.9 % (11.6-14.8); White Blood Cell Count 7.1 X10^3/uL (4.5-11.0)
[2019-04-29 11:47] LABS: Culture Indicated Urine Specimen Cultured; RBC Urine 1-5/HPF (0-5/HPF); WBC Urine 5-10/HPF (0-5/HPF)
[2019-04-29] MEDS: ONDANSETRON 4 MG/2 ML INJ IV (11:48)
[2019-04-29] MEDS: SODIUM CHLORIDE 0.9% 1,000 ML 1000 ML IV (11:48)
[2019-04-29] MEDS: HYDROMORPHONE 1 MG INJ IV (11:48)
[2019-04-29 11:50] LABS: Alanine Aminotransferase 32 IU/L (<50); Albumin 4.7 g/dL (3.5-5.0); Albumin Globulin Ratio 1.6 (1.0-2.8); Alkaline Phosphatase 90 U/L (38-126); Amylase 103 U/L (30-110); Aspartate Aminotransferase 43 IU/L (17-59); BUN Creatinine Ratio 12.2 (6-22); Bilirubin Total 0.6 mg/dL (0.2-1.3); Blood Urea Nitrogen 11 mg/dL (9-20); Calcium 10.1 mg/dL (8.4-10.2); Carbon Dioxide 23 mmol/L (22-32); Chloride 106 mmol/L (98-107); Estimated Glomerular Filt Rate > 60.0 mL/min (>60); Globulin 2.9 g/dL (1.7-4.1); Glucose 109 mg/dL (70-100); HEMOLYSIS 20 (0-50); Lipase 224 U/L (23-300); Potassium 4.4 mmol/L (3.4-5.1); Sodium 140 mmol/L (137-145); Total Protein 7.6 g/dL (6.3-8.2)
[2019-04-29] MEDS: KETOROLAC 60 MG/2 ML VIAL 30 MG IV (11:50)
[2019-04-29 11:53] LABS: Influenza A and B by PCR Rapid Negative (Negative)
[2019-04-29 12:53] VITALS: BP 138/83; PULSE 56; RESP 16; O2SAT 95
[2019-04-29 13:59] VITALS: BP 131/90; PULSE 59; RESP 16; O2SAT 97
== END 2019-04-29 14:09 | disposition home or self-care (01) ==
PROVIDERS: Emergency Provider Nurse Practitioner Family; PCP Student in an Organized Health Care Education/Training Program
DX: N20.0 Calculus of kidney (principal); Z87.442 Personal history of urinary calculi; R10.9 Unspecified abdominal pain
CPT/HCPCS: 36415; 76770; 80053; 81003; 81015; 82150; 83690; 85025; 87086; 87502; 96361; 96374; 96375; 99283; 99284; J1170; J1885; J2405

== ENCOUNTER 2019-06-14 16:26 | Emergency (ER) | payer OTHER, MEDICAID, SELFPAY ==
[2019-06-14 16:38] VITALS: BP 126/84; PULSE 78; RESP 16; TEMP 35.9; O2SAT 97; BMI 25.8
--- NOTE | 2019-06-14 16:42 | DI.RAD.S_ITS ---
PROCEDURE: XR CHEST 2V INDICATIONS: coughing x 2 weeks TECHNIQUE: 2 views of the chest were acquired. COMPARISON: [facility], CHEST 1 VIEW, 05/23/2017, 7:54. [facility], CHEST 1 VIEW, 06/25/2017, 11:06. FINDINGS: Surgical changes and devices: A cardiac closure device can be seen. Cholecystectomy clips are seen. Lungs and pleura: Lungs are clear. No pleural effusions or pneumothorax. Mediastinum: Mediastinal contours are normal. Heart size is normal. Bones and chest wall: No suspicious bony abnormalities. Accentuated thoracic kyphosis is seen. Soft tissues appear unremarkable. IMPRESSION: No acute cardiopulmonary process is seen. Dictated by: Terry Sanabria M.D. on 06/14/2019 at 15:52 Approved by: Terry Sanabria M.D. on 06/14/2019 at 15:53
[2019-06-14 17:21] LABS: Influenza A - CEPHEID Flu A NEGATIVE (NEGATIVE); Influenza B - CEPHEID Flu B NEGATIVE (NEGATIVE)
[2019-06-14 18:47] VITALS: BP 136/83; PULSE 75; RESP 16; TEMP 36.7; O2SAT 97
--- NOTE | 2019-06-15 | ED_ITS ---
HPI - URI/Sore Throat <JAMES Mullen - Last Filed: 06/15/19 00:13> General Chief Complaint: Upper Respiratory Symptoms Stated Complaint: thinks he has a head cold Time Seen by Provider: 06/14/19 17:55 Source: patient Mode of arrival: Ambulatory Limitations: no limitations History of Present Illness HPI Narrative: This is a 49-year-old male, smoker, who presents to ED with significant other with 4 day duration of pressure behind his eyes, head pressure discomfort, ringing sensation in his ears. Patient usually has allergy symptoms around this time of the year and has been using Afrin greater than 72 hours. Patient denies fever, chills or vomiting but felt hot and sweaty today with mild nausea. Patient also has been coughing for last 4 days with increased postnasal drips. Patient reports in the past had used Flonase, Claritin, Rhinocort, Sudafed which had not helped with his symptoms with seasonal allergy symptoms. Patient states can't do the nasal rinses which makes him gag. Related Data Previous Rx's Medication Instructions Recorded tamsulosin [Flomax] 0.4 mg PO DAILY #30 cap 12/10/18 oxycodone-acetaminophen [Percocet] 1 tab PO Q4-6H PRN #14 tab 12/12/18 hydrocodone-acetaminophen [Swan] 1 tab PO Q4-6H PRN #10 tab 02/04/19 meclizine 25 mg PO TID PRN #14 tab 02/21/19 hydrocodone-acetaminophen 1 tab PO Q4-6H PRN #7 tab 04/29/19 ketorolac 10 mg PO Q6H PRN #14 tab 04/29/19 ondansetron 4 mg PO Q6H PRN #20 tab 04/29/19 tamsulosin 0.4 mg PO DAILY #7 cap 04/29/19 Allergies Allergy/AdvReac Type Severity Reaction Status Date / Time No Known Drug Allergies Allergy Verified 01/29/19 21:25 Review of Systems <JAMES Mullen - Last Filed: 06/15/19 00:13> Review of Systems Narrative: General: Fell hot and sweaty today. Denies fever, chills, fatigue, malaise. HEENT: Denies sinus pain, ear pain, sore throat, difficulty swallowing, dizziness. Respiratory: Denies dyspnea, cough, wheezing, hemoptysis, sputum. Cardiovascular: Denies chest pain, palpitations, orthopnea, edema. Gastrointestinal: Reports mild nausea today. Denies vomiting, abdominal pain, diarrhea, constipation, melena. : Denies dysuria, frequency, incontinence, hematuria, urinary retention. Musculoskeletal: Denies weakness, joint pain or bony pain. Skin: Denies rash, skin lesions, or other. Neurologic: Denies weakness, headache, numbness, change in speech, confusion, seizures, incoordination. Psychiatric: No concerning psychosocial issues. 12-point review of systems is negative except for those stated above. Patient History <JAMES Mullen - Last Filed: 06/15/19 00:13> Medical History Crohn's colitis (Acute) CVA (cerebral vascular accident) (Acute) Kidney stones (Acute) Surgical History History of bowel resection (Acute) History of lithotripsy (Acute) Patent foramen ovale (Acute) Social History Smoking Status: Current every day smoker Smoking Status: Current every day smoker alcohol intake frequency: a few times a month Substance Use Type: does not use Exam <JAMES Mullen - Last Filed: 06/15/19 00:13> Narrative Exam Narrative: GEN: Alert, oriented x 3, well appearing and nourished, and in no acute distress. Head: Normal cephalic, atraumatic. No scalp or temporal tenderness, palpable mass or rash. EYES: Pupils are equal, round, and reactive to light and accommodation. Extraocular muscles are intact bilaterally. There is no subconjunctival hemorrhage, exudate and sclera non-icteric. ENT: Bilateral auditory canals and presence of clear middle ear fluid in left ear without injection. Hearing grossly intact. Nose without bleeding, purulent discharge or deviation. Facial sinuses nontender to palpate. Mucous membrane moist, no mucosal lesion. Throat without erythema, tonsillar hypertrophy or exudate. Uvula in midline, airway patent. Neck: Trachea in midline. No JVD, non-tender without lymphadenopathy. No masses or thyroid megaly. Supple, non-tender and no meningeal signs. CARDIAC: Normal regular rate and rhythm without murmurs, gallops, or rubs. No chest wall tenderness. No peripheral edema, cyanosis or pallor. Capillary refill is less than 2 seconds. RESPIRATORY: Lungs are clear to auscultate bilaterally. No cough, wheezes, rales, or rhonchi. No stridor, respiratory distress, increase work of breathing, or accessary muscle used. ABD: Abdomen soft, nontender and non-distended. No guarding or rebound tenderness to palpate. Bowel sounds are normal in all 4 quadrants. There is no palpable masses or organomegaly. EXT: Full painless ROM of all extremities with no loss of sensation, strength, effusion or edema. SKIN: Warm, dry, normal color for patient. No erythema, lesions or rash over visible areas. BACK: Nontender without deformity or crepitance. No flank tenderness. NEUROLOGICAL: Alert and oriented to place, time and person. Sensation and motor function intact bilaterally. No facial droops, dysphasia. PSYCHIATRIC: Good judgement and reason, without hallucinations, abnormal affect or abnormal behaviors during the examination. Initial Vital Signs Initial Vital Signs: Vital Signs Temperature 96.6 F L 06/14/19 16:38 Pulse Rate 78 06/14/19 16:38 Respiratory Rate 16 06/14/19 16:38 Blood Pressure 126/84 06/14/19 16:38 Pulse Oximetry 97 06/14/19 16:38 <Elidia Madsen DO - Last Filed: 06/15/19 16:53> Initial Vital Signs Initial Vital Signs: Vital Signs Temperature 96.6 F L 06/14/19 16:38 Pulse Rate 78 06/14/19 16:38 Respiratory Rate 16 06/14/19 16:38 Blood Pressure 126/84 06/14/19 16:38 Pulse Oximetry 97 06/14/19 16:38 Scores <JAMES Mullen - Last Filed: 06/15/19 00:13> [facility] [place] coma scale eye opening: Spontaneous Jessica coma scale verbal response: Orientated Jessica coma scale motor response: Obey commands Jessica coma scale total score: 15 Course <JAMES Mullen - Last Filed: 06/15/19 00:13> Orders Ordered: ED Orders 06/14/19 16:42 Chest [XR chest 2V] Stat Influenza A & B (PCR) Stat Vital Signs Vital signs: Vital Signs - 8 hr 06/14/19 16:38 06/14/19 18:47 Temperature 96.6 F L 98.0 F Pulse Rate 78 75 Respiratory Rate 16 16 Blood Pressure 126/84 Blood Pressure [Left Arm] 136/83 Pulse Oximetry 97 97 <Elidia Madsen DO - Last Filed: 06/15/19 16:53> Orders Ordered: ED Orders 06/14/19 16:42 Chest [XR chest 2V] Stat Influenza A & B (PCR) Stat Vital Signs Vital signs: Vital Signs - 8 hr 06/14/19 16:38 06/14/19 18:47 Temperature 96.6 F L 98.0 F Pulse Rate 78 75 Respiratory Rate 16 16 Blood Pressure 126/84 Blood Pressure [Left Arm] 136/83 Pulse Oximetry 97 97 MDM - URI/Sore Throat <Stepan JAMES Oquendo - Last Filed: 06/15/19 00:13> Differential Diagnosis Differential diagnosis: Likely upper respiratory infection, sinusitis, viral infection and other (Otitis media with effusion) Medical Records Attestation: I reviewed the patient's medical records. Lab Data Attestation: I reviewed the patient's lab results. Labs: Lab Results 06/14/19 Range/Units 16:42 Influenza A (RT-PCR) Flu a negative (NEGATIVE) Influenza B (RT-PCR) Flu b negative (NEGATIVE) Imaging Data Chest x-ray: Radiologist's Impression: Maciel Urban M [address] [address] XRay Report Signed Patient: Maciel Urban RMR#: [id number] : 1970Acct:[id number] Age/Sex: 49 / MDate of Service: 06/14/19 Loc: ED Accession Number: [id number] Procedure: XR chest 2V Ordering Provider: Elidia Madsen D.O. PROCEDURE: XR CHEST 2V INDICATIONS: coughing x 2 weeks TECHNIQUE: 2 views of the chest were acquired. COMPARISON: [facility], , CHEST 1 VIEW, 05/23/2017, 7:54. [facility], CR, CHEST 1 VIEW, 06/25/2017, 11:06. FINDINGS: Surgical changes and devices: A cardiac closure device can be seen. Cholecystectomy clips are seen. Lungs and pleura: Lungs are clear. No pleural effusions or pneumothorax. Mediastinum: Mediastinal contours are normal. Heart size is normal. Bones and chest wall: No suspicious bony abnormalities. Accentuated thoracic kyphosis is seen. Soft tissues appear unremarkable. IMPRESSION: No acute cardiopulmonary process is seen. Dictated by: Terry Sanabria M.D. on 06/14/2019 at 15:52 Approved by: Terry Sanabria M.D. on 06/14/2019 at 15:53 MDM Narrative Medical decision making narrative: This is a 49-year-old gentleman who presents to ED with sinus pressure, congestion, ear fullness and ringing sensation without fever, chills for last 4 days with productive cough and increased postnasal drips which started today. Patient reports subjective hot and sweaty feeling today. Patient's left ear physical exam with middle ear fluid without obvious infection. Patient had nasal congestion without purulent discharge in his nares. Patient has chronic seasonal allergies and has been using Afrin greater than 72 hours he states this is only medication that works for him to breathe. Findings were discussed with the patient and patient advised to use supportive treatments such as nasal steroid inhaler, full strength of Sudafed, guaifenesin, [id number] Tylenol Motrin for discomfort and possible fever, and nasal rinses will help with the seasonal allergy symptoms and congestion. Advised not to use Afrin greater than 72 hours due to rebound congestion. Patient also advised to stop smoking. Given patient's history and physical exam, antibiotic medication has not been prescribed today. However, Return precautions were discussed with the patient and advised to follow-up primary care physician if discomfort continues to for re-evaluation especially with fever and malaise. Patient verbalized understanding and agrees with the treatment plan. <Elidia Madsen, - Last Filed: 06/15/19 16:53> Lab Data Labs: Lab Results 06/14/19 Range/Units 16:42 Influenza A (RT-PCR) Flu a negative (NEGATIVE) Influenza B (RT-PCR) Flu b negative (NEGATIVE) Discharge Plan Departure Patient Disposition: Home Clinical Impression: Upper respiratory infection Qualifiers: URI type: unspecified URI Qualified Code(s): J06.9 - Acute upper respiratory infection, unspecified Discharge Date/Time: 06/14/19 18:53 Instructions: DI for Viral Upper Respiratory Infection -- Adult Activity Restrictions/Additional Instructions: You have been diagnosed with [upper respiratory infection likely from virus. T he ear congestion, nasal congestion, headache is likely from cold symptoms.]. What to do: *Take your medications as directed. Please try nasal steroids inhaler, Sudafed (You have to ask a pharmacist for stronger strength), allergy medications, and or Mucinex. Please increase oral hydration. You can use humidifier for comfort. Consider nasal rinses with sterile water for your symptoms. You can use [id number] Tylenol and or Motrin as needed for discomfort. You can take up to Tylenol 4000 mg in 24 hour period. Ibuprofen 600-800 mg 3 times a day with food. *Follow up with your primary care provider in 2-3 days, call for an appointment. Let them know you were seen in the ED and that we asked you to be seen in follow up. *Return to ED if you have any new, worsening, or concerning symptoms, such as [chest pain, high fever, breathing difficulty, productive cough, unable to tolerate fluids or any acute concerns]. Prescriptions: No Action oxycodone-acetaminophen [Percocet] 5-325 mg tablet 1 tab PO Q4-6H PRN (Reason: pain) Qty: 14 RF: 0 hydrocodone-acetaminophen [Swan] 5-325 mg tablet 1 tab PO Q4-6H PRN (Reason: pain) Qty: 10 RF: 0 meclizine 25 mg tablet,chewable 25 mg PO TID PRN (Reason: dizziness) Qty: 14 RF: 0 tamsulosin [Flomax] 0.4 mg capsule,extended release 24hr 0.4 mg PO DAILY Qty: 30 RF: 0 hydrocodone-acetaminophen 5-325 mg tablet 1 tab PO Q4-6H PRN (Reason: pain) Qty: 7 RF: 0 tamsulosin 0.4 mg capsule 0.4 mg PO DAILY Qty: 7 RF: 0 ketorolac 10 mg tablet 10 mg PO Q6H PRN (Reason: pain) Qty: 14 RF: 0 ondansetron 4 mg tablet,disintegrating 4 mg PO Q6H PRN (Reason: nausea and vomiting) Qty: 20 RF: 0 Referrals: Patricia Bourne MD [Primary Care Provider] -
== END 2019-06-14 18:53 | disposition home or self-care (01) ==
PROVIDERS: Emergency Medicine; Emergency Provider Nurse Practitioner Family; PCP Student in an Organized Health Care Education/Training Program
DX: J06.9 Acute upper respiratory infection, unspecified (principal); R11.0 Nausea; F17.200 Nicotine dependence, unspecified, uncomplicated
CPT/HCPCS: 71046; 87502; 99283

== ENCOUNTER 2019-07-18 04:10 | Emergency (ER) | payer OTHER, MEDICAID, SELFPAY ==
[2019-07-18 04:10] VITALS: BP 128/92; PULSE 73; RESP 16; TEMP 36.6; O2SAT 97; BMI 25.8
--- NOTE | 2019-07-18 05:16 | ED.NECK ---
HPI - Neck Pain/Injury General Chief Complaint: Neck Pain/Injury Stated Complaint: neck stiff can't turn it well pain Time Seen by Provider: 07/18/19 05:16 Source: patient Mode of arrival: Ambulatory History of Present Illness HPI Narrative: The patient has right neck pain that started yesterday with woke up. He has limited range of motion. He has no pain radiating into the head. He has no visual changes or ENT complaints. He slept well the night before, he awoke with the symptoms. His no priors to neck injury. He has no weakness or numbness in his extremities. His no chest pain, no dyspnea. He has no history of cervical spine injury. Related Data Previous Rx's Medication Instructions Recorded tamsulosin [Flomax] 0.4 mg PO DAILY #30 cap 12/10/18 oxycodone-acetaminophen [Percocet] 1 tab PO Q4-6H PRN #14 tab 12/12/18 hydrocodone-acetaminophen [Sweeden] 1 tab PO Q4-6H PRN #10 tab 02/04/19 meclizine 25 mg PO TID PRN #14 tab 02/21/19 hydrocodone-acetaminophen 1 tab PO Q4-6H PRN #7 tab 04/29/19 ketorolac 10 mg PO Q6H PRN #14 tab 04/29/19 ondansetron 4 mg PO Q6H PRN #20 tab 04/29/19 tamsulosin 0.4 mg PO DAILY #7 cap 04/29/19 oxycodone-acetaminophen [Percocet] 2 tab PO Q4-6H PRN #10 tab 07/18/19 Allergies Allergy/AdvReac Type Severity Reaction Status Date / Time No Known Drug Allergies Allergy Verified 01/29/19 21:25 Review of Systems Review of Systems ROS Unobtainable: All systems reviewed & are unremarkable except as noted in HPI and below Constitutional Constitutional: Denies body ache(s), Denies chills and Denies fever(s) Comments: No recent illness or injury. Eyes Eyes: Denies change in vision and Denies loss of vision ENT Ears, Nose, Mouth, and Throat: Denies change in voice, Reports mouth pain and Denies sore throat Cardiovascular Cardiovascular: Denies chest pain, Denies lightheadedness, Denies palpitations and Denies dyspnea Respiratory Respiratory: Denies dyspnea Gastrointestinal Gastrointestinal: Reports vomiting Musculoskeletal Musculoskeletal: Denies back pain, Denies joint swelling and Reports limited range of motion Integumentary/Breasts Skin/Breast: Denies rash Neurologic Neurologic: Denies loss of vision Endocrine Endocrine: Denies palpitations Patient History Medical History Crohn's colitis (Acute) CVA (cerebral vascular accident) (Acute) Kidney stones (Acute) Surgical History History of bowel resection (Acute) History of lithotripsy (Acute) Patent foramen ovale (Acute) Social History Smoking Status: Current every day smoker Smoking Status: Current every day smoker alcohol intake frequency: a few times a month Substance Use Type: does not use Exam Initial Vital Signs Initial Vital Signs: Vital Signs Temperature 97.8 F 07/18/19 04:10 Pulse Rate 73 07/18/19 04:10 Respiratory Rate 16 07/18/19 04:10 Blood Pressure 128/92 H 07/18/19 04:10 Pulse Oximetry 97 07/18/19 04:10 Const General: cooperative and well developed Nutritional Appearance: well nourished [facility] Head: normal to inspection, normocephalic and atraumatic Mouth: oral mucosae normal Throat: posterior oropharynx normal and tonsils normal Eyes General: appearance normal, both eyes and all related structures Visual Barney: normal visual barney by confrontation Eyelids: eyelids normal Conjunctivae: conjunctivae normal Sclera: sclerae normal Pupils: PERRL EOM: EOM intact bilaterally Neck Neck: trachea midline, No anterior neck swelling and No lymphadenopathy Thyroid: thyroid normal Other: Right paraspinal tenderness with spasm. No tenderness over the cervical spine. Pain radiates to the right supraspinatus muscle. Cardio Rate: regular rate Rhythm: regular rhythm Heart Sounds: S1 normal, S2 normal, no click, no gallops, no murmurs and no rubs Pulses: normal peripheral pulses GI Palpation: soft Percussion: normal to percussion Auscultation: normal bowel sounds Skin General: no rashes or lesions noted Neuro General: alert, oriented x3, gait normal and no focal motor deficits Speech: speech normal Extrem Other: Normal range of motion. Normal strength. Course Course Course Narrative: He is starting improved after receiving the Toradol and Valium. He has been using heat packs. He will be instructed continue, with medications prescribed. He has a plan to see a keoneuse later this week. Orders Ordered: Discontinued Medications Diazepam (Valium) 5 mg PO NOW ONE Stop: 07/18/19 05:23 Last Admin: 07/18/19 05:32 Dose: 5 mg Documented by: SAMMY Ketorolac Tromethamine (Toradol) 60 mg IM NOW ONE Stop: 07/18/19 05:23 Last Admin: 07/18/19 05:32 Dose: 60 mg Documented by: SAMMY Vital Signs Vital signs: Vital Signs - 8 hr 07/18/19 04:10 Temperature 97.8 F Pulse Rate 73 Respiratory Rate 16 Blood Pressure 128/92 H Pulse Oximetry 97 Discharge Plan Departure Patient Disposition: Home Clinical Impression: Acute cervical myofascial strain Qualifiers: Encounter type: initial encounter Qualified Code(s): S16.1XXA - Strain of muscle, fascia and tendon at neck level, initial encounter Instructions: Whiplash Activity Restrictions/Additional Instructions: Advil 3 tablets every 6 hours as needed for pain. Percocet every 4 hours as needed for extra pain control. Apply warm complex to neck frequently for the next 2-3 days. Recheck with her doctor if not improving in 3-4 days. Return the ER if necessary. Prescriptions: New oxycodone-acetaminophen [Percocet] 5-325 mg tablet 2 tab PO Q4-6H PRN (Reason: pain) Qty: 10 RF: 0 No Action oxycodone-acetaminophen [Percocet] 5-325 mg tablet 1 tab PO Q4-6H PRN (Reason: pain) Qty: 14 RF: 0 hydrocodone-acetaminophen [Sweeden] 5-325 mg tablet 1 tab PO Q4-6H PRN (Reason: pain) Qty: 10 RF: 0 meclizine 25 mg tablet,chewable 25 mg PO TID PRN (Reason: dizziness) Qty: 14 RF: 0 tamsulosin [Flomax] 0.4 mg capsule,extended release 24hr 0.4 mg PO DAILY Qty: 30 RF: 0 hydrocodone-acetaminophen 5-325 mg tablet 1 tab PO Q4-6H PRN (Reason: pain) Qty: 7 RF: 0 tamsulosin 0.4 mg capsule 0.4 mg PO DAILY Qty: 7 RF: 0 ketorolac 10 mg tablet 10 mg PO Q6H PRN (Reason: pain) Qty: 14 RF: 0 ondansetron 4 mg tablet,disintegrating 4 mg PO Q6H PRN (Reason: nausea and vomiting) Qty: 20 RF: 0 Referrals: Patricia Bourne MD [Primary Care Provider] -
[2019-07-18] MEDS: diazePAM 5 MG TABLET PO (05:32)
[2019-07-18] MEDS: KETOROLAC 60 MG/2 ML VIAL IM (05:32)
== END 2019-07-18 07:19 | disposition home or self-care (01) ==
PROVIDERS: Emergency Provider Emergency Medicine; PCP Student in an Organized Health Care Education/Training Program
DX: S16.1XXA Strain of muscle, fascia and tendon at neck level, initial encounter (principal)
CPT/HCPCS: 96372; 99283; J1885

== ENCOUNTER 2019-11-03 18:06 | Emergency (ER) | payer OTHER, MEDICAID, SELFPAY ==
--- NOTE | 2019-11-03 18:20 | DI.CT.S_ITS ---
PROCEDURE: CT KIDNEY URETER BLADDER (KUB) INDICATIONS: R flank pain, h/o renal stones TECHNIQUE: Noncontrast 5 mm thick sections acquired from the diaphragms to the symphysis. 5 mm thick coronal and sagittal reformats were then performed. For radiation dose reduction, the following was used: automated exposure control, adjustment of mA and/or kV according to patient size. COMPARISON: [facility], CT, CT KIDNEY URETER BLADDER (KUB), 03/29/2019, 6:31. [facility], CT, CT KIDNEY URETER BLADDER (KUB), 01/10/2019, 9:10. [facility], US, US RENAL COMPLETE, 01/29/2019, 22:48. [facility], CT, CT KIDNEY URETER BLADDER (KUB), 10/13/2018, 19:06. [facility], CT, CT KIDNEY URETER BLADDER (KUB), 05/23/2018, 4:43. [facility], CT, CT KIDNEY URETER BLADDER (KUB), 12/03/2017, 5:37. FINDINGS: Image quality: Excellent. Lung bases: Lung bases are clear. Heart size is normal. A cardiac closure device is seen. Urinary system: On precontrast imaging, there are non-obstructing recent kidney stones seen that measure up to 5 mm. There is a nonobstructing 1-2 mm left-sided kidney stone also seen. Both kidneys are normal in size. No hydronephrosis or perinephric fat stranding. Both ureters appear non-dilated throughout their expected courses. Bladder wall thickness is normal; no calcified bladder stones. Other solid organs: Liver is normal in size. Diffuse fatty liver infiltration is noted. Gallbladder has been removed. Pancreas is normal in contours. Spleen is normal in size. Accessory splenules are seen along the inferior aspect of the primary spleen. No adrenal nodules. Peritoneum and bowel: Right lower quadrant anastomotic staple lines are seen. Unenhanced bowel loops demonstrate normal wall thickness and caliber. No free fluid or air. Nodes and vessels: No retroperitoneal or mesenteric adenopathy by size criteria. Aorta and inferior vena cava are normal in caliber. Abdominal wall: No ventral hernias. Pelvis: No free pelvic fluid. No inguinal hernias or adenopathy. Bones: No suspicious bony lesions. No vertebral body compression fractures. IMPRESSION: Nonobstructing bilateral renal stones are seen, right larger than left. No ureteral stones or other findings of obstructive uropathy can be seen. Right lower quadrant anastomotic staple lines are seen. Incidental note is made of: Cardiac closure device Cholecystectomy Fatty liver infiltration Dictated by: Terry Sanabria M.D. on 11/03/2019 at 17:37 Approved by: Terry Sanabria M.D. on 11/03/2019 at 17:40
[2019-11-03 18:21] VITALS: BP 138/98; PULSE 85; RESP 16; TEMP 36.7; O2SAT 97; BMI 25.8
[2019-11-03] MEDS: SODIUM CHLORIDE 0.9% 1,000 ML 1000 ML IV (18:50)
[2019-11-03] MEDS: ONDANSETRON 4 MG/2 ML INJ IV (18:50)
[2019-11-03] MEDS: KETOROLAC 60 MG/2 ML VIAL 15 MG IV (18:50)
[2019-11-03 18:51] LABS: Add Manual Diff / Slide Review NO; Basophils Absolute Auto 100 /uL (0-100); Basophils Percent Auto 0.9 % (0-2); Eosinophils Absolute Auto 100 /uL (0-450); Eosinophils Percent Auto 1.5 % (2-4); Hematocrit 45.2 % (41-53); Hemoglobin 15.7 g/dL (13.5-17.5); Lymphocytes Absolute Auto 1300 /uL (1100-4500); Lymphocytes Percent Auto 21.9 % (25-40); Mean Corpuscular HGB Conc 34.7 % (30-36); Mean Corpuscular Hemoglobin 31.6 PG (26-34); Monocytes Absolute Auto 500 /uL (0-900); Monocytes Percent Auto 7.8 % (3-14); Neutrophils Absolute Auto 4200 /uL (1500-7000); Neutrophils Percent Auto 67.9 % (50-75); Platelet Count 274 X10^3/uL (150-400); Red Blood Cell Count 4.96 X10^6/uL (4.5-5.9); Red Cell Distribution Width 14.9 % (11.6-14.8); White Blood Cell Count 6.1 X10^3/uL (4.5-11.0)
[2019-11-03 19:04] LABS: Alanine Aminotransferase 42 IU/L (<50); Albumin 4.8 g/dL (3.5-5.0); Albumin Globulin Ratio 1.5 (1.0-2.8); Alkaline Phosphatase 84 U/L (38-126); Aspartate Aminotransferase 32 IU/L (17-59); BUN Creatinine Ratio 13.1 (6-22); Bilirubin Total 0.4 mg/dL (0.2-1.3); Blood Urea Nitrogen 14 mg/dL (9-20); Carbon Dioxide 27 mmol/L (22-32); Chloride 106 mmol/L (98-107); Estimated Glomerular Filt Rate > 60.0 mL/min (>60); Globulin 3.2 g/dL (1.7-4.1); Glucose 99 mg/dL (70-100); HEMOLYSIS < 15 (0-50); Potassium 4.1 mmol/L (3.4-5.1); Sodium 141 mmol/L (137-145)
[2019-11-03 19:46] LABS: Thyroid Stimulating Hormone 0.58 uIU/mL (0.47-4.68)
[2019-11-03] MEDS: OXYCODONE/ACETAMINOPHEN 5/325 TABLET 2 TAB PO (19:59)
[2019-11-03] MEDS: MAGNESIUM CITRATE 300 ML SOLUTION PO (19:59)
--- NOTE | 2019-11-04 00:14 | ED_ITS ---
HPI - General Adult General Chief complaint: Urogenital-Male Stated complaint: kidney stones Time Seen by Provider: 11/03/19 18:19 Source: patient Mode of arrival: Family Vehicle Limitations: no limitations History of Present Illness HPI narrative: 49-year-old gentleman with a history of stroke 18 months ago secondary to a patent foramen ovale that has since been closed with a closure device, history of Crohn's disease, history of multiple renal stones who presents with right flank pain. It started approximately 3 hours prior to presentation he describes it is a deep ache not as severe as his usual stone pain but quite uncomfortable. He notes that he typically has frequent diarrhea due to his Crohn's disease. Has had a partial colon resection including his terminal ileum and he has made significant dietary adjustments to help with the diarrhea. With the abdominal pain he is having today there is no associated fevers, vomiting, cough, chest pain, radiating pain into the flank of the testicle, rashes, back pain. Second problem that he brings up is intermittent episodes of memory loss and confusion. Post his stroke he had 3 episodes that sound like absance type seizures, each leaving him with an approximately 15-20 minute time loss with a fairly classic description of a postictal period as well. He has not had any of these episodes in the last 13 months. In the last week he has had a couple of discrete episodes where he finds himself acutely confused about events and places and in trying to remember events specifically having difficulty remembering the people associated with those events. For example, he knows that he has gone to the grocery store but he does not remember which friend was with him at that time. He also notes that he will have a completely ?random? suicidal ideation followed by immediate planning that would be required if he were to . For example who would take care of his dog who would make his pain meds for various things who would care for his house etcetera. He is quite concerned about these episodes. He does not believe he would ever act on the monk icidal ideation, is not having audible or visual hallucinations. He is also not having any associated depression or significant anxiety to explain the brief episodes of suicidal ideation. Related Data Previous Rx's Medication Instructions Recorded tamsulosin [Flomax] 0.4 mg PO DAILY #30 cap 12/10/18 oxycodone-acetaminophen [Percocet] 1 tab PO Q4-6H PRN #14 tab 12/12/18 hydrocodone-acetaminophen [Galena] 1 tab PO Q4-6H PRN #10 tab 02/04/19 meclizine 25 mg PO TID PRN #14 tab 02/21/19 hydrocodone-acetaminophen 1 tab PO Q4-6H PRN #7 tab 04/29/19 ketorolac 10 mg PO Q6H PRN #14 tab 04/29/19 ondansetron 4 mg PO Q6H PRN #20 tab 04/29/19 tamsulosin 0.4 mg PO DAILY #7 cap 04/29/19 oxycodone-acetaminophen [Percocet] 2 tab PO Q4-6H PRN #10 tab 07/18/19 Allergies Allergy/AdvReac Type Severity Reaction Status Date / Time No Known Drug Allergies Allergy Verified 11/03/19 18:24 Review of Systems Review of Systems Narrative: Pertinent positive and negative findings as per HPI Remainder of review of systems is otherwise unremarkable for Constitutional: Fevers, chills, weakness ENT: No sore throat, neck pain, ear pain CV: Chest pain, palpitations, dyspnea on exertion Respiratory: Cough, wheeze, dyspnea GI: Nausea, vomiting : Dysuria, hematuria, flank pain MS: Muscle weakness, numbness, joint swelling or warmth Skin: Rashes, nonhealing lesions Neuro: Syncope, dizziness, tingling Psych: Depression, anxiety, Endocrine: Fatigue, heat or cold intolerance, very dry skin Allergy: Seasonal rhinorrhea, itchy eyes Patient History Medical History (Updated 11/04/19 @ 01:49 by Tracie Carey MD) Crohn's colitis (Acute) CVA (cerebral vascular accident) (Acute) Kidney stones (Acute) Ureterolithiasis (Acute) Surgical History History of bowel resection (Acute) History of lithotripsy (Acute) Patent foramen ovale (Acute) Social History Smoking Status: Current every day smoker Smoking Status: Current every day smoker alcohol intake frequency: a few times a month Substance Use Type: does not use Exam Narrative Exam Narrative: General: Healthy appearing, in no acute distress. Able to give a complete and coherent history. Well-nourished well-developed HEENT: Moist mucous membranes, normal sclera with reactive pupils, Neck: No JVD, supple Respiratory: Lungs are clear to auscultation, no wheezing no rales no rhonchi. Full and symmetrical air movement Cardiac: Regular rate and rhythm no murmurs no bruits Abdomen: Soft , mild right lower quadrant and right flank pain without rebound or guarding. Good bowel tones Skin: Warm and dry, no rashes Neurologic: Grossly neurologically intact with no obvious asymmetries or abnormalities Extremities: No trauma, well perfused Psych: Cooperative, appropriate insight and affect Initial Vital Signs Initial Vital Signs: Vital Signs Temperature 98.0 F 11/03/19 18:21 Pulse Rate 85 11/03/19 18:21 Respiratory Rate 16 11/03/19 18:21 Blood Pressure 138/98 H 11/03/19 18:21 Pulse Oximetry 97 11/03/19 18:21 Course Orders Ordered: ED Orders 11/03/19 18:20 CT kidney ureter bladder (KUB) Stat 11/03/19 18:45 Complete Blood Count AUTO DIFF Stat Comprehensive Metabolic Panel Stat Thyroid Stimulating Hormone Stat Discontinued Medications Sodium Chloride (Normal Saline 0.9%) 1,000 mls @ 1,000 mls/hr IV BOLUS ONE Stop: 11/03/19 19:19 Last Infusion: 11/03/19 20:08 Dose: 0 mls/hr Documented by: Admin: 11/03/19 18:50 Dose: 1,000 mls/hr Documented by: EDGAR Sodium Chloride (Normal Saline 0.9%) 1,000 mls @ 1,000 mls/hr IV BOLUS ONE Stop: 11/04/19 01:13 Ketorolac Tromethamine (Toradol) 15 mg IV NOW ONE Stop: 11/03/19 18:21 Last Admin: 11/03/19 18:50 Dose: 15 mg Documented by: EDGAR Magnesium Citrate (Magnesium Citrate) 300 ml PO NOW ONE Stop: 11/03/19 19:49 Last Admin: 11/03/19 19:59 Dose: 300 ml Documented by: MMCFARL Metoclopramide HCl (Reglan) 10 mg IV NOW ONE Stop: 11/04/19 00:15 Ondansetron HCl (Zofran) 4 mg IV NOW ONE Stop: 11/03/19 18:21 Last Admin: 11/03/19 18:50 Dose: 4 mg Documented by: EDGAR Oxycodone/Acetaminophen (Percocet 5/325) 2 tab PO NOW ONE Stop: 11/03/19 19:49 Last Admin: 11/03/19 19:59 Dose: 2 tab Documented by: ODETTE Vital Signs Vital signs: Vital Signs - 8 hr 11/03/19 18:21 Temperature 98.0 F Pulse Rate 85 Respiratory Rate 16 Blood Pressure 138/98 H Pulse Oximetry 97 Medical Decision Making Medical Records Medical records reviewed: Yes I reviewed the patient's medical records. Lab Data Lab results reviewed: Yes I reviewed the patient's lab results. Result diagrams: 11/03/19 18:45 11/03/19 18:45 Labs: Lab Results 11/03/19 11/03/19 11/03/19 Range/Units 18:45 18:45 18:45 WBC 6.1 (4.5-11.0) X10^3/uL RBC 4.96 (4.5-5.9) X10^6/uL Hgb 15.7 (13.5-17.5) g/dL Hct 45.2 (41-53) % MCV 91.0 (80-100) fL MCH 31.6 (26-34) PG MCHC 34.7 (30-36) % RDW 14.9 H (11.6-14.8) % Plt Count 274 (150-400) X10^3/uL Neut % (Auto) 67.9 (50-75) % Lymph % (Auto) 21.9 L (25-40) % Glades % (Auto) 7.8 (3-14) % Eos % (Auto) 1.5 L (2-4) % Baso % (Auto) 0.9 (0-2) % Neut # (Auto) 4200 (2207-8878) /uL Lymph # (Auto) 1300 (0186-0988) /uL Glades # (Auto) 500 (0-900) /uL Eos # (Auto) 100 (0-450) /uL Baso # (Auto) 100 (0-100) /uL Sodium 141 (137-145) mmol/L Potassium 4.1 (3.4-5.1) mmol/L Chloride 106 (98-107) mmol/L Carbon Dioxide 27 (22-32) mmol/L BUN 14 (9-20) mg/dL Creatinine 1.07 (0.66-1.25) mg/dL Estimated GFR > 60.0 (>60) mL/min BUN/Creatinine Ratio 13.1 (6-22) Glucose 99 (70-100) mg/dL Calcium 10.0 (8.4-10.2) mg/dL Total Bilirubin 0.4 (0.2-1.3) mg/dL AST 32 (17-59) IU/L ALT 42 (<50) IU/L Alkaline Phosphatase 84 (38-126) U/L Total Protein 8.0 (6.3-8.2) g/dL Albumin 4.8 (3.5-5.0) g/dL Globulin 3.2 (1.7-4.1) g/dL Albumin/Globulin Ratio 1.5 (1.0-2.8) TSH 0.58 (0.47-4.68) uIU/mL Imaging Data CT scan - abdomen/pelvis: Attestation: I personally reviewed and interpreted this imaging study as reinaldo lim: Radiologist's Impression: IMPRESSION: Nonobstructing bilateral renal stones are seen, right larger than left. No ureteral stones or other findings of obstructive uropathy can be seen. Right lower quadrant anastomotic staple lines are seen. Incidental note is made of: Cardiac closure device Cholecystectomy Fatty liver infiltration Dictated by: Terry Sanabria M.D. on 11/03/2019 at 17:37 MDM Narrative Medical decision making narrative: 49-year-old gentleman presents with right flank pain concerned that it is recurrent kidney stone. CT scan does not suggest kidney stone or recent passage of a kidney stone. He does have quite a bit of stool loading on the right in the setting of chronic diarrhea from Crohn's disease. We talked about using a single bottle of magnesium citrate to get some of the stool to move over to the left side of his colon and see if that alleviates his pain. There is no evidence of appendicitis or other acute intra- abdominal process. Regarding the brief memory lapses and unexplained seemingly ?random? thoughts of suicidal ideation, I suspect that these are in some way related to scarring after his stroke. He is reassured. Suggested that he follow-up with his primary care physician in a symptoms continue or worsen may need to see a neurologist. He is very clear that he has no intention of acting on any of the suicidal ideations and is not evidencing significant depression or anxiety. Patient is safe for home discharge Discharge Plan Departure Patient Disposition: Home Clinical Impression: Memory changes Abdominal pain Qualifiers: Abdominal location: right lower quadrant Qualified Code(s): R10.31 - Right lower quadrant pain Constipation Qualifiers: Constipation type: unspecified constipation type Qualified Code(s): K59.00 - Constipation, unspecified Discharge Date/Time: 11/03/19 20:13 Instructions: DI for Constipation Activity Restrictions/Additional Instructions: Thank you for coming in today I am happy to let you know that your CT scan does not show an acute kidney stone causing her right-sided abdominal pain. You have a significant amount of stool in the right and transverse colon. I suspect this is part of what is causing this discomfort your currently experiencing. I know that you have chronic in regular diarrhea with your Crohn's disease and it seems odd to use magnesium citrate to make herself go even more however I do think that that will get some of this right-sided compact stool to move and help significantly with the pain. The memory blips that you are experiencing, I suspect are related to scarring from your stroke a year and a half ago. As long as they are small and not associated with actually needing to hurt yourself or auditory or visual hallucinations, it is okay to ignore them. Please see if you can correlate the episodes to lack of sleep the night before, increased stress or anxiety, light changes. These are triggers that can sometimes cause seizures. If he continued to have these issues, please follow-up with your primary care physician If your belly pain gets worse tonight please feel free to return and I am happy to re-evaluate. Prescriptions: No Action oxycodone-acetaminophen [Percocet] 5-325 mg tablet 1 tab PO Q4-6H PRN (Reason: pain) Qty: 14 RF: 0 hydrocodone-acetaminophen [Galena] 5-325 mg tablet 1 tab PO Q4-6H PRN (Reason: pain) Qty: 10 RF: 0 meclizine 25 mg tablet,chewable 25 mg PO TID PRN (Reason: dizziness) Qty: 14 RF: 0 oxycodone-acetaminophen [Percocet] 5-325 mg tablet 2 tab PO Q4-6H PRN (Reason: pain) Qty: 10 RF: 0 tamsulosin [Flomax] 0.4 mg capsule,extended release 24hr 0.4 mg PO DAILY Qty: 30 RF: 0 hydrocodone-acetaminophen 5-325 mg tablet 1 tab PO Q4-6H PRN (Reason: pain) Qty: 7 RF: 0 tamsulosin 0.4 mg capsule 0.4 mg PO DAILY Qty: 7 RF: 0 ketorolac 10 mg tablet 10 mg PO Q6H PRN (Reason: pain) Qty: 14 RF: 0 ondansetron 4 mg tablet,disintegrating 4 mg PO Q6H PRN (Reason: nausea and vomiting) Qty: 20 RF: 0 Referrals: Patricia Bourne MD [Primary Care Provider] -
== END 2019-11-03 20:13 | disposition home or self-care (01) ==
PROVIDERS: Emergency Provider Emergency Medicine; PCP Student in an Organized Health Care Education/Training Program
DX: K59.00 Constipation, unspecified (principal); R10.31 Right lower quadrant pain; R41.3 Other amnesia; R41.0 Disorientation, unspecified; K50.90 Crohn's disease, unspecified, without complications
CPT/HCPCS: 36415; 74176; 80053; 84443; 85025; 96361; 96374; 96375; 99284; J1885; J2405

== ENCOUNTER 2019-12-08 15:24 | Emergency (ER) | payer OTHER, MEDICAID, SELFPAY ==
[2019-12-08 15:38] VITALS: BP 144/82; PULSE 73; RESP 19; TEMP 36.8; O2SAT 99; BMI 25.8
--- NOTE | 2019-12-08 15:43 | DI.RAD.S_ITS ---
PROCEDURE: XR KNEE LT 3V INDICATIONS: severe pain in left knee. no trauma, difficulty walking TECHNIQUE: 3 views of the knee were acquired. COMPARISON: [facility], MR, KNEE WITHOUT CONTRAST, 03/27/2016, 7:57. [facility], CR, KNEE 3V RIGHT, 02/28/2016, 11:23. FINDINGS: Bones: No fractures or dislocations. No suspicious bony lesions. There is mild medial femorotibial joint space narrowing seen, with associated remodeling changes including subchondral sclerosis and osteophyte formation along the jointline. Soft tissues: There is a mild joint effusion. No suspicious soft tissue calcifications. IMPRESSION: Degenerative changes, without acute abnormality identified by plain film. Mild joint effusion. If there is strong clinical suspicion for internal derangement of the knee, please consider a dedicated MRI for further evaluation (assuming that there is no contraindication to MRI). Dictated by: Terry Sanabria M.D. on 12/08/2019 at 15:13 Approved by: Terry Sanabria M.D. on 12/08/2019 at 15:14
--- NOTE | 2019-12-08 17:30 | ED_ITS ---
HPI - Extremity Problem <Eliza SmithJAMES - Last Filed: 12/08/19 21:24> General Chief complaint: Extremity Problem,Nontraumatic Stated complaint: states blew out his left knee Time Seen by Provider: 12/08/19 16:42 Source: patient Mode of arrival: Family Vehicle Limitations: no limitations History of Present Illness HPI Narrative: 49-year-old male presenting to the emergency department complaining of left knee pain past few days. He states he has been doing a lot of repairs on remodeling the bathroom lately. Over the past few days he noticed increasing pain and swelling to the medial aspect of his knee. He reports the pain is aggravated with flexion, pressure on the area, and extensive movement. Patient reports that he has had multiple meniscus surgery on his other knee and believes he may have injured his left knees meniscus as he states the pain feels similar. Patient denies any trauma to the area. Patient denies fevers, chills, chest pain, shortness of breath, dizziness, or other injuries. Patient has been trying to wear a brace but states it is more painful as it rubs against the area. Related Data Previous Rx's Medication Instructions Recorded tamsulosin [Flomax] 0.4 mg PO DAILY #30 cap 12/10/18 oxycodone-acetaminophen [Percocet] 1 tab PO Q4-6H PRN #14 tab 12/12/18 hydrocodone-acetaminophen [Brownfield] 1 tab PO Q4-6H PRN #10 tab 02/04/19 meclizine 25 mg PO TID PRN #14 tab 02/21/19 hydrocodone-acetaminophen 1 tab PO Q4-6H PRN #7 tab 04/29/19 ketorolac 10 mg PO Q6H PRN #14 tab 04/29/19 ondansetron 4 mg PO Q6H PRN #20 tab 04/29/19 tamsulosin 0.4 mg PO DAILY #7 cap 04/29/19 oxycodone-acetaminophen [Percocet] 2 tab PO Q4-6H PRN #10 tab 07/18/19 oxycodone-acetaminophen [Percocet] 1 tab PO TID PRN #10 tab 12/08/19 Allergies Allergy/AdvReac Type Severity Reaction Status Date / Time No Known Drug Allergies Allergy Verified 12/08/19 15:42 Review of Systems <JAMES Ortega - Last Filed: 12/08/19 21:24> Review of Systems Narrative: REVIEW OF SYSTEMS: GENERAL: Denies fever or chills. HENT: No head trauma. CARDIOVASCULAR: No chest pain. RESPIRATORY: No cough. GASTROINTESTINAL: No nausea, vomiting, diarrhea, or constipation. MUSCULOSKELETAL: Complains of left knee pain, see HPI. INTEGUMENTARY: No rash, lesions, or pruritus. NEURO: No numbness, tingling. PSYCH: No behavior or mood changes. Patient History <JAMES Ortega - Last Filed: 12/08/19 21:24> Medical History Crohn's colitis (Acute) CVA (cerebral vascular accident) (Acute) Kidney stones (Acute) Ureterolithiasis (Acute) Surgical History History of bowel resection (Acute) History of lithotripsy (Acute) Patent foramen ovale (Acute) Social History Smoking Status: Current every day smoker Smoking Status: Current every day smoker tobacco type: cigarettes alcohol intake frequency: a few times a month Substance Use Type: does not use Exam <JAMES Ortega - Last Filed: 12/08/19 21:24> Initial Vital Signs Initial Vital Signs: Vital Signs Temperature 98.2 F 12/08/19 15:38 Pulse Rate 73 12/08/19 15:38 Respiratory Rate 19 12/08/19 15:38 Blood Pressure 144/82 H 12/08/19 15:38 Pulse Oximetry 99 12/08/19 15:38 PHYSICAL EXAMINATION: GENERAL: Well groomed, alert, and cooperative. Answers questions promptly and appropriately. Vital signs noted. HENT: Normocephalic, atraumatic. EYES: Symmetrical, sclera white, no periorbital swelling. CARDIOVASCULAR: Regular rate. RESPIRATORY: Normal respiratory rate, trachea midline, airway patent. No stridor, nasal flaring or accessory muscle use. MUSCULOSKELETAL: Tenderness to medial aspect of joint line, positive medial Alysia sign, stable knee, negative drawer sign. Minor effusion noted. No pain with palpation of the patella or lateral aspect of the knee. Decreased flexion to approximately 90? due to pain. Full extension. Patient walks with limp. Equal tone and mass bilaterally. No spinal tenderness or deformities. EXTREMITIES: CMS intact. No pedal edema. SKIN: Warm, dry, soft, appropriate color for ethnicity. No lesions, rashes, or wounds. NEURO: Alert and Oriented X 3. No sensory deficits. PSYCH: Appropriate affect and mood. <Tracie Carey MD - Last Filed: 12/09/19 12:39> Initial Vital Signs Initial Vital Signs: Vital Signs Temperature 98.2 F 12/08/19 15:38 Pulse Rate 73 12/08/19 15:38 Respiratory Rate 19 12/08/19 15:38 Blood Pressure 144/82 H 12/08/19 15:38 Pulse Oximetry 99 12/08/19 15:38 Course <JAMES Ortega - Last Filed: 12/08/19 21:24> Course Course Narrative: Patient states Toradol does not help with pain. Orders Ordered: Discontinued Medications Oxycodone/Acetaminophen (Percocet 5/325) 2 tab PO NOW ONE Stop: 12/08/19 17:36 Last Admin: 12/08/19 17:48 Dose: 2 tab Documented by: PJ Vital Signs Vital signs: Vital Signs - 8 hr 12/08/19 15:38 12/08/19 18:18 Temperature 98.2 F 98.1 F Pulse Rate 73 69 Respiratory Rate 19 14 Blood Pressure 144/82 H 136/93 H Pulse Oximetry 99 100 <Tracie Carey MD - Last Filed: 12/09/19 12:39> Orders Ordered: Discontinued Medications Oxycodone/Acetaminophen (Percocet 5/325) 2 tab PO NOW ONE Stop: 12/08/19 17:36 Last Admin: 12/08/19 17:48 Dose: 2 tab Documented by: PJ Vital Signs Vital signs: Vital Signs - 8 hr 12/08/19 15:38 12/08/19 18:18 Temperature 98.2 F 98.1 F Pulse Rate 73 69 Respiratory Rate 19 14 Blood Pressure 144/82 H 136/93 H Pulse Oximetry 99 100 MDM - Extremity (Nontraumatic) <JAMES Ortega - Last Filed: 12/08/19 21:24> Medical Records Attestation: I reviewed the patient's medical records. Lab Data Attestation: I reviewed the patient's lab results. Imaging Data Extremity x-ray #1: Radiologist's Impression: [address] [address] XRay Report Signed Patient: Maciel Urban RMR#: [id number] : 1970Acct:[id number] Age/Sex: 49 / MDate of Service: 12/08/19 Loc: ED Accession Number: [id number] Procedure: XR knee LT 3V Ordering Provider: Tracie Carey MD PROCEDURE: XR KNEE LT 3V INDICATIONS: severe pain in left knee. no trauma, difficulty walking TECHNIQUE: 3 views of the knee were acquired. COMPARISON: [facility], MR, KNEE WITHOUT CONTRAST, 03/27/2016, 7:57. [facility], CR, KNEE 3V RIGHT, 02/28/2016, 11:23. FINDINGS: Bones: No fractures or dislocations. No suspicious bony lesions. There is mild medial femorotibial joint space narrowing seen, with associated remodeling changes including subchondral sclerosis and osteophyte formation along the jointline. Soft tissues: There is a mild joint effusion. No suspicious soft tissue calcifications. IMPRESSION: Degenerative changes, without acute abnormality identified by plain film. Mild joint effusion. If there is strong clinical suspicion for internal derangement of the knee, p lease consider a dedicated MRI for further evaluation (assuming that there is no contraindication to MRI). Dictated by: Terry Sanabria M.D. on 12/08/2019 at 15:13 Approved by: Terry Sanabria M.D. on 12/08/2019 at 15:14 [facility] Narrative Medical decision making narrative: 49-year-old male presenting to the emergency department for left knee pain, no trauma. Differential includes meniscus tear, arthritis, or ligamentous injury. Less likely fracture due to negative x-ray. Less likely infection due to lack of redness, erythema, or other systemic symptoms such as fever or tachycardia. Patient was given pain medication for the next few days due to increased pain. Encouraged to follow up with his primary care provider and or the referred orthopedic for further evaluation and testing if indicated. Patient agreed to plan of care verbalized understanding. Discharge Plan Departure Patient Disposition: Home Clinical Impression: Acute knee pain Qualifiers: Laterality: left Qualified Code(s): M25.562 - Pain in left knee Internal derangement of knee Qualifiers: Laterality: left Qualified Code(s): M23.92 - Unspecified internal derangement of left knee Discharge Date/Time: 12/08/19 18:20 Instructions: DI for Meniscal Tear Activity Restrictions/Additional Instructions: Thank you for entrusting me with your care today. As discussed, your x-rays negative for any fractures, swelling and arthritis. Ear exam today's concerning for and meniscus injury. I recommend following up with your primary care provider and/or the orthopedic listed below for further evaluation. Wear your brace over the next few days to help with stabilization, decreased act ivities that cause pain. You have been prescribed a narcotic medication, this medication can make you drowsy. Do not drive while using this medication or perform activities that require mental alertness. These medications can also make you constipated, please use [id number] docusate sodium as needed for constipation. Return emergency department for any new or worsening symptoms such as chest pain, shortness of breath, dizziness, syncope, or any other concerns. Prescriptions: New oxycodone-acetaminophen [Percocet] 5-325 mg tablet 1 tab PO TID PRN (Reason: pain) Qty: 10 RF: 0 No Action oxycodone-acetaminophen [Percocet] 5-325 mg tablet 1 tab PO Q4-6H PRN (Reason: pain) Qty: 14 RF: 0 hydrocodone-acetaminophen [Brownfield] 5-325 mg tablet 1 tab PO Q4-6H PRN (Reason: pain) Qty: 10 RF: 0 meclizine 25 mg tablet,chewable 25 mg PO TID PRN (Reason: dizziness) Qty: 14 RF: 0 oxycodone-acetaminophen [Percocet] 5-325 mg tablet 2 tab PO Q4-6H PRN (Reason: pain) Qty: 10 RF: 0 tamsulosin [Flomax] 0.4 mg capsule,extended release 24hr 0.4 mg PO DAILY Qty: 30 RF: 0 hydrocodone-acetaminophen 5-325 mg tablet 1 tab PO Q4-6H PRN (Reason: pain) Qty: 7 RF: 0 tamsulosin 0.4 mg capsule 0.4 mg PO DAILY Qty: 7 RF: 0 ketorolac 10 mg tablet 10 mg PO Q6H PRN (Reason: pain) Qty: 14 RF: 0 ondansetron 4 mg tablet,disintegrating 4 mg PO Q6H PRN (Reason: nausea and vomiting) Qty: 20 RF: 0 Referrals: Patricia Bourne MD [Primary Care Provider] - <Tracie Carey MD - Last Filed: 12/09/19 12:39> Cosign ED Attending Cosignature Attestation: I was immediately available in the department for consultation throughout this patient's visit. I agree with documentation as above. Tracie Carey MD
[2019-12-08] MEDS: OXYCODONE/ACETAMINOPHEN 5/325 TABLET 2 TAB PO (17:48)
[2019-12-08 18:18] VITALS: BP 136/93; PULSE 69; RESP 14; TEMP 36.7; O2SAT 100
== END 2019-12-08 18:20 | disposition home or self-care (01) ==
PROVIDERS: Emergency Provider Nurse Practitioner; PCP Student in an Organized Health Care Education/Training Program
DX: M25.562 Pain in left knee (principal); M23.92 Unspecified internal derangement of left knee
CPT/HCPCS: 73562; 99283

== ENCOUNTER → 2019-12-27 09:17 | Outpatient (CLI) | payer OTHER, MEDICAID, SELFPAY ==
--- NOTE | 2019-12-27 | DI.MRI.S_ITS ---
PROCEDURE: MR KNEE LT WO CON INDICATIONS: LEFT KNEE PAIN TECHNIQUE: Noncontrast sagittal PD fast spin echo and T2 fast spin echo with fat saturation, sagittal 3-D FLASH with fat saturation; coronal T1 spin echo and PD fast spin echo with fat saturation, and axial PD fast spin echo with fat saturation through the knee. COMPARISON: [facility], MR, KNEE WITHOUT CONTRAST, 03/27/2016, 7:57. FINDINGS: Image quality: Excellent. Menisci: Complex oblique tear involving posterior horn of medial meniscus is seen extending to both superior and inferior articulating surfaces. Peripheral displacement of medial meniscus is seen bowing medial collateral ligament. There is no evidence of focal lateral meniscal tear. The meniscal root ligaments appear intact. Cruciate ligaments: The anterior and posterior cruciate ligaments appear intact. Medial structures: There is [id number] grade MCL sprain/partial-thickness tear. The posterior oblique ligament, semimembranosus tendon insertions, oblique popliteal ligament, and meniscocapsular junction appear intact. Visualized portions of the pes anserinus tendons appear normal. No abnormal bursal fluid. Lateral structures: The lateral collateral ligament, long and short heads of the biceps femoris tendon appear intact. The popliteus tendon appears normal; the popliteofibular ligament appears intact. The posterosuperior and anteroinferior popliteomeniscal fascicles appear intact. The arcuate and fabellofibular ligaments appear intact, on either side of the lateral inferior geniculate artery. Iliotibial band appears normal. Anterior structures: The quadriceps and patellar tendons appear intact. Patellar alignment is normal. No femoral trochlear dysplasia or ventral trochlear prominence. No edema in the infrapatellar fat pad. Bones and cartilage: No bone marrow contusions or fractures. The cartilage of the medial and lateral femorotibial compartments, as well as the patellofemoral compartment, appears normal in thickness. Joint space: There is physiologic knee joint fluid. No Chan's cyst. Normal appearing synovial plicae are incidentally noted. IMPRESSION: 1. complex tear involving posterior horn of medial meniscus extending to both superior and inferior articulating surfaces. No evidence of focal lateral meniscal tear. 2. [id number] grade MCL sprain / partial-thickness tear. Anterior and posterior cruciate ligaments are intact. 3. No marrow edema. No fracture or dislocation. Articulating cartilages are intact. Trace amount of joint fluid. Dictated by: Al Gtz, M.D. on 12/27/2019 at 10:25 Approved by: Al Gtz M.D. on 12/27/2019 at 10:27
== END ==
PROVIDERS: PCP Student in an Organized Health Care Education/Training Program; Referring Provider Student in an Organized Health Care Education/Training Program; Visit Provider Student in an Organized Health Care Education/Training Program
DX: M25.562 Pain in left knee (principal); S83.232A Complex tear of medial meniscus, current injury, left knee, initial encounter; S83.412A Sprain of medial collateral ligament of left knee, initial encounter
CPT/HCPCS: 73721

== ENCOUNTER 2019-12-31 07:05 | Emergency (ER) | payer OTHER, MEDICAID, SELFPAY ==
[2019-12-31 07:20] VITALS: BP 139/87; PULSE 69; RESP 16; TEMP 36.5; O2SAT 99; BMI 26.5
--- NOTE | 2019-12-31 07:21 | ED.LOWEXIN ---
HPI - Extremity Injury (Lower) General Chief Complaint: Extremity Injury, Lower Stated Complaint: torn meniscus in left leg Time Seen by Provider: 12/31/19 07:12 Source: patient Mode of arrival: Ambulatory Limitations: no limitations History of Present Illness HPI Narrative: The patient was seen here several weeks ago with left knee pain. 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 He can remember no specific injuries. The pain continue, then she leading to orthopedics consultation. He underwent a left knee MRI 3 days ago, revealing a complex meniscus tear. He is currently wearing a soft splint. He has been using NSAIDs for pain control. He presents now with ongoing, severe pain. He has no numbness or tingling in the left lower extremity. He is walking with a significant limp. He has no history of prior issues with the left knee. He has previous required a procedure on the right knee. Related Data Previous Rx's Medication Instructions Recorded tamsulosin [Flomax] 0.4 mg PO DAILY #30 cap 12/10/18 oxycodone-acetaminophen [Percocet] 1 tab PO Q4-6H PRN #14 tab 12/12/18 hydrocodone-acetaminophen [[place]] 1 tab PO Q4-6H PRN #10 tab 02/04/19 meclizine 25 mg PO TID PRN #14 tab 02/21/19 hydrocodone-acetaminophen 1 tab PO Q4-6H PRN #7 tab 04/29/19 ketorolac 10 mg PO Q6H PRN #14 tab 04/29/19 ondansetron 4 mg PO Q6H PRN #20 tab 04/29/19 tamsulosin 0.4 mg PO DAILY #7 cap 04/29/19 oxycodone-acetaminophen [Percocet] 2 tab PO Q4-6H PRN #10 tab 07/18/19 oxycodone-acetaminophen [Percocet] 1 tab PO TID PRN #10 tab 12/08/19 hydrocodone-acetaminophen [[place]] 1 tab PO Q4-6H PRN #14 tab 12/31/19 ibuprofen 600 mg PO Q6-8H PRN #90 tab 12/31/19 Allergies Allergy/AdvReac Type Severity Reaction Status Date / Time No Known Drug Allergies Allergy Verified 12/31/19 07:22 Review of Systems Constitutional Constitutional: Denies chills, Denies fever(s) and Denies weakness Musculoskeletal Comments: Left knee pain as noted HPI. Integumentary/Breasts Skin/Breast: Denies new lesions and Denies rash Neurologic Neurologic: Denies sensory deficit and Denies weakness Patient History Medical History Crohn's colitis (Acute) CVA (cerebral vascular accident) (Acute) Kidney stones (Acute) Ureterolithiasis (Acute) Surgical History History of bowel resection (Acute) History of lithotripsy (Acute) Patent foramen ovale (Acute) Social History Smoking Status: Current every day smoker Smoking Status: Current every day smoker tobacco type: cigarettes alcohol intake frequency: a few times a month Substance Use Type: does not use Exam Initial Vital Signs Initial Vital Signs: Vital Signs Temperature 97.7 F 12/31/19 07:20 Pulse Rate 69 12/31/19 07:20 Respiratory Rate 16 12/31/19 07:20 Blood Pressure 139/87 12/31/19 07:20 Pulse Oximetry 99 12/31/19 07:20 Const General: cooperative and well developed Nutritional Appearance: well nourished Skin General: no rashes or lesions noted and No petechiae Neuro General: patient alert, patient oriented x3, gait normal and no focal motor deficits Extrem General: full ROM, no clubbing, cyanosis or edema, no pedal edema and no calf tenderness Other: The patient's left knee has mild subpatellar edema, no warmth or erythema. He has significant subpatellar tenderness with palpation. There is no laxity with drawer sign. He does have significant pain with flexion and extension of left knee. The left foot is neurovascular intact. There is no motor sensory deficit in the left lower extremity. Procedures Orthopedic Splinting/Casting Injury #1: Side: left Lower Extremity Injury Location: knee Lower Extremity Immobilizer: knee immobilizer Post splinting neuro exam: intact Post splinting vascular exam: intact Placed by: Nursing Course Orders Ordered: Discontinued Medications Ketorolac Tromethamine (Toradol) 60 mg IM NOW ONE Stop: 12/31/19 07:32 Vital Signs Vital signs: Vital Signs - 8 hr 07/19/20 07:20 Temperature 97.7 F Pulse Rate 69 Respiratory Rate 16 Blood Pressure 139/87 Pulse Oximetry 99 Discharge Plan Departure Patient Disposition: Home Clinical Impression: Acute meniscal tear of left knee Qualifiers: Encounter type: initial encounter Qualified Code(s): S83.207A - Unspecified tear of unspecified meniscus, current injury, left knee, initial encounter Instructions: DI for Meniscal Tear Activity Restrictions/Additional Instructions: Use the knee immobilizer when you are having more severe pain, you may go back to the sure splint when your knee is not bothering you so much. Motrin every 6 hours as needed for pain. [place] every 4 hours as needed for added pain control. Follow-up with orthopedics as planned. Return the ER as necessary. Prescriptions: New ibuprofen 600 mg tablet 600 mg PO Q6-8H PRN (Reason: pain) Qty: 90 RF: 0 hydrocodone-acetaminophen [[place]] 5-325 mg tablet 1 tab PO Q4-6H PRN (Reason: pain) Qty: 14 RF: 0 No Action oxycodone-acetaminophen [Percocet] 5-325 mg tablet 1 tab PO Q4-6H PRN (Reason: pain) Qty: 14 RF: 0 hydrocodone-acetaminophen [[place]] 5-325 mg tablet 1 tab PO Q4-6H PRN (Reason: pain) Qty: 10 RF: 0 meclizine 25 mg tablet,chewable 25 mg PO TID PRN (Reason: dizziness) Qty: 14 RF: 0 oxycodone-acetaminophen [Percocet] 5-325 mg tablet 2 tab PO Q4-6H PRN (Reason: pain) Qty: 10 RF: 0 tamsulosin [Flomax] 0.4 mg capsule,extended release 24hr 0.4 mg PO DAILY Qty: 30 RF: 0 hydrocodone-acetaminophen 5-325 mg tablet 1 tab PO Q4-6H PRN (Reason: pain) Qty: 7 RF: 0 tamsulosin 0.4 mg capsule 0.4 mg PO DAILY Qty: 7 RF: 0 ketorolac 10 mg tablet 10 mg PO Q6H PRN (Reason: pain) Qty: 14 RF: 0 ondansetron 4 mg tablet,disintegrating 4 mg PO Q6H PRN (Reason: nausea and vomiting) Qty: 20 RF: 0 oxycodone-acetaminophen [Percocet] 5-325 mg tablet 1 tab PO TID PRN (Reason: pain) Qty: 10 RF: 0 Referrals: Patricia Bourne MD [Primary Care Provider] -
--- NOTE | 2019-12-31 07:24 | PC.NURSE ---
Patient arrives in knee brace reports and took ibuprofen couple hours ago. Increase in pain over last three days. Had MRI done on Wednesday confirmed torn meniscus.
[2019-12-31] MEDS: KETOROLAC 60 MG/2 ML VIAL IM (07:45)
== END 2019-12-31 07:58 | disposition home or self-care (01) ==
PROVIDERS: Emergency Provider Emergency Medicine; PCP Student in an Organized Health Care Education/Training Program
DX: S83.207A Unspecified tear of unspecified meniscus, current injury, left knee, initial encounter (principal)
CPT/HCPCS: 96372; 99283; J1885

== ENCOUNTER → 2020-03-25 14:51 | Outpatient (CLI) | payer OTHER, MEDICAID, SELFPAY ==
--- NOTE | 2020-03-25 14:51 | DI.ECHO.S_ITS ---
[facility]---------[facility] +---------+ : : [address] [place] : : : : [id number] : : : : Phone: [phone] Echocardiogram Report + + :Name: NIR PRESCOTT Study Date: 03/25/2020 Height: 70 in : :[facility] Weight: 185 lb : : Gender: Male BSA: 2.0 m2 : :: 1970 Age: 50 yrs BP: 115/77 mmHg: :Reason For Study: PFO REPAIR : : Performed By: Lorenzo Wilder : :Referring: LIZ CLARKE R : + + Interpretation Summary Normal sinus rhythm. Normal LV size, wall thickness, wall motion and LV systolic function. EF is 60-65%. Mild LA enlargement. Mild RV enlargement. No significant valvular abnormalities. Compared to prior study in 2017, PFO is no longer present. LA volume index fell from 44 ml/m2 to 39 ml/m2. RA volume index fell from 41 ml/m2 to 26 ml/m2. Procedure: A two-dimensional transthoracic echocardiogram with color flow and Doppler was performed. The study quality was technically good. Comparison is made with the echocardiogram of 05/24/17. The patient was in normal sinus rhythm during the exam. Left Ventricle: There is normal left ventricular wall thickness. Left ventricular size is at the upper limits of normal. The ejection fraction is estimated to be 60-65%. There are no focal wall motion abnormalities. Right Ventricle: The right ventricle is mildly dilated. The right ventricular systolic function is normal. Atria: The left atrium is mildly dilated. Right atrial size is normal. The patient is S/P PFO repair. There is no Doppler evidence for an interatrial shunt. Mitral Valve: The mitral valve is normal in structure and function. There is trace mitral regurgitation. Aortic Valve: The aortic valve is trileaflet. The aortic valve opens well. No aortic regurgitation is present. Tricuspid Valve: The tricuspid valve is normal in structure and function. No tricuspid regurgitation. Pulmonary artery pressures cannot be estimated because of the lack of a measurable TR jet velocity. Pulmonic Valve: The pulmonic valve is normal in structure and function. There is trace pulmonic regurgitation. Great Vessels: The aortic root is normal size. The ascending aorta is mildly enlarged. The pulmonary artery is normal size. The IVC is of normal diameter and collapses greater than 50% with a sniff. This suggests a low right atrial pressure of 3 mm Hg. Pericardium/ Pleura There is no pericardial effusion. There is no pleural effusion. MMode/2D Measurements & Calculations LVIDd: 5.7 cm LVOT diam: 2.4 cm LVIDs: 3.3 cm Ao root diam: 3.6 cm FS: 42.4 % asc Aorta Diam: 4.0 cm EPSS: 0.65 cm Ao Arch Diam (Prox Trans): 2.7 cm IVSd: 0.98 cm LVPWd: 0.77 cm LV quezada. diameter/BSA (cm/m^2): 2.8 LV sys. diameter/BSA (cm/m^2): 1.6 LA dimension: 3.6 cm RA long axis: 4.7 cm LA A2 area: 21.7 cm2 RA area: 17.1 cm2 LA A4 area: 22.9 cm2 RA vol: 53.4 ml LA length (vol): 5.4 cm RA : 26.4 ml/m2 LA vol: 78.4 ml IVC diam: 1.9 cm LA vol index: 38.8 ml/m2 RVD1 (basal): 4.7 cm RVD2 (mid): 4.6 cm TAPSE: 2.2 cm Doppler Measurements & Calculations Ao V2 max: 131.3 cm/sec LVOT Max Rachid: 97.2 cm/sec Ao V2 mean: 109.9 cm/sec LV V1 max P.8 mmHg Ao max P.9 mmHg LV V1 VTI: 18.7 cm Ao mean P.0 mmHg YESENIA(I,D): 3.2 cm2 Ao V2 VTI: 25.1 cm YESENIA(V,D): 3.2 cm2 sev ratio: 0.74 YESENIA indexed to BSA (cm^2/m^2): 1.6 MV E max rachid: 51.3 cm/sec PA V2 max: 70.7 cm/sec MV A max rachid: 64.1 cm/sec PA V2 mean: 52.9 cm/sec MV E/A: 0.80 PA mean P.2 mmHg Med Peak E' Rachid: 4.9 cm/sec PA pr(Accel): 27.6 mmHg E/E' med: 10.4 Lat Peak E' Rachid: 6.9 cm/sec E/E' lat: 7.4 E/e' average: 8.9 MV dec time: 0.23 sec SVLVOT): 81.1 ml Electronically signed by: Liyah Radford M.D. on Reading Physician:03/26/2020 12:16 AM
== END ==
PROVIDERS: PCP Internal Medicine; Referring Provider Internal Medicine; Visit Provider Internal Medicine
DX: Q21.1 Atrial septal defect (principal); I77.89 Other specified disorders of arteries and arterioles
CPT/HCPCS: 93306

== ENCOUNTER 2020-04-08 08:44 | Emergency (ER) | payer OTHER, MEDICAID, SELFPAY ==
--- NOTE | 2020-04-08 08:44 | ED.MALEGU ---
HPI - Male Genitourinary General Chief complaint: Urogenital-Male Stated complaint: kidney stone,back pain,blood in urine Time Seen by Provider: 04/08/20 08:44 Source: patient Mode of arrival: Ambulatory Limitations: no limitations History of Present Illness HPI Narrative: 42-year-old male smoker with extensive history of kidney stones presents with a chief complaint of severe right flank pain and hematuria upon awaking this morning. He states the pain radiates around his flank and comes and goes with a mind of its own. He denies any provocation or palliation. He has had no nausea, vomiting or diarrhea. He denies any fever or chills. He is not dizzy nor weak or lightheaded. He denies chest pain or shortness of breath. MD Complaint: dysuria and other Onset (ago): hour(s) Duration: intermittent Location: right flank Severity: severe Quality: aching, burning and sharp Relieving factors: none Exacerbating factors: none Associated symptoms: Reports blood in urine and dysuria Related Data Sexually active: Yes Home Medications Medication Instructions Recorded Confirmed ibuprofen 600 mg tablet 600 mg PO Q4-6H PRN tab 03/11/20 03/11/20 tamsulosin 0.4 mg capsule 0.4 mg PO .PRN cap 03/11/20 03/11/20 Previous Rx's Medication Instructions Recorded tamsulosin [Flomax] 0.4 mg PO DAILY #30 cap 12/10/18 oxycodone-acetaminophen [Percocet] 1 tab PO Q4-6H PRN #14 tab 12/12/18 hydrocodone-acetaminophen [Henderson] 1 tab PO Q4-6H PRN #10 tab 02/04/19 meclizine 25 mg PO TID PRN #14 tab 02/21/19 hydrocodone-acetaminophen 1 tab PO Q4-6H PRN #7 tab 04/29/19 ketorolac 10 mg PO Q6H PRN #14 tab 04/29/19 ondansetron 4 mg PO Q6H PRN #20 tab 04/29/19 tamsulosin 0.4 mg PO DAILY #7 cap 04/29/19 oxycodone-acetaminophen [Percocet] 2 tab PO Q4-6H PRN #10 tab 07/18/19 oxycodone-acetaminophen [Percocet] 1 tab PO TID PRN #10 tab 12/08/19 hydrocodone-acetaminophen [Henderson] 1 tab PO Q4-6H PRN #14 tab 12/31/19 ibuprofen 600 mg PO Q6-8H PRN #90 tab 12/31/19 cephalexin [Keflex] 500 mg PO QID 7 Days #28 cap 04/08/20 hydrocodone-acetaminophen 1 tab PO Q4-6H PRN #10 tab 04/08/20 ketorolac 10 mg PO Q6H PRN #14 tab 04/08/20 ondansetron 4 mg PO TID-QID PRN #10 tab 04/08/20 tamsulosin [Flomax] 0.4 mg PO DAILY #10 cap 04/08/20 Allergies Allergy/AdvReac Type Severity Reaction Status Date / Time No Known Drug Allergies Allergy Verified 04/08/20 09:05 Review of Systems Constitutional Constitutional: Denies chills, Denies fatigue, Denies fever(s), Denies frequent falls, Denies lethargy and Denies weakness Eyes Eyes: Denies change in vision, Denies eye discharge, Denies irritation and Denies loss of vision ENT Ears, Nose, Mouth, and Throat: Denies change in voice, Denies dizziness, Denies neck pain, Denies sore throat and Denies throat swelling Cardiovascular Cardiovascular: Denies chest pain, Denies irregular heart rhythm, Denies lightheadedness, Denies palpitations, Denies dyspnea, Denies dyspnea on exertion and Denies orthopnea Respiratory Respiratory: Denies cough, Denies dyspnea, Denies dyspnea on exertion and Denies wheezing Gastrointestinal Gastrointestinal: Denies abdominal pain, Denies change in bowel habits, Denies diarrhea, Denies nausea and Denies vomiting Genitourinary Genitourinary: Reports hematuria Genitourinary: Reports hematuria Musculoskeletal Musculoskeletal: Denies neck pain and Denies numbness Integumentary/Breasts Skin/Breast: Denies pruritus, Denies erythema, Denies rash and Denies wounds Neurologic Neurologic: Denies behavioral changes, Denies confusion, Denies dizziness, Denies frequent falls, Denies loss of vision, Denies numbness and Denies weakness Psychiatric Psychiatric: Denies anxiety, Denies behavioral changes, Denies confusion, Denies depression, Denies homicidal ideation and Denies suicidal ideation Endocrine Endocrine: Denies fatigue, Denies flushing and Denies palpitations Hematologic/Lymphatic Hematologic/Lymphatic: Denies easy bruising Allergic/Immunologic Allergic/Immunologic: Denies urticaria, Denies throat swelling and Denies wheezing Patient History Medical History Chronic back pain (Chronic) Crohn disease (Chronic ~1999) Iritis (Acute) Kidney stones (Chronic ~2007) Personal history of stroke with current residual effects (Chronic) PFO (patent foramen ovale) (Acute) Surgical History Anesthesia (Resolved) History of bowel resection (Acute) History of lithotripsy (Acute) S/P cholecystectomy (Acute) S/P exploratory laparotomy (Acute ~1999) S/P knee surgery (Acute) S/P patent foramen ovale closure (Acute ~2017) Family History Father History of heart disease Hyperlipidemia Grandmother Diabetes mellitus Grandmother Diabetes mellitus Social History Smoking Status: Current every day smoker Smoking Status: Current every day smoker tobacco type: cigarettes alcohol intake frequency: a few times a month Substance Use Type: does not use Exam Narrative Exam Narrative: GENERAL: [50] year old patient appears stated age. Well-nourished, well-developed patient, in mild distress. Obviously uncomfortable HEAD: Atraumatic. Normocephalic. EYES: Pupils equal round and reactive. Extraocular motions intact. No scleral icterus. No injection or drainage. ENT: Nose without bleeding, purulent drainage. Throat without erythema, tonsillar hypertrophy or exudate. Airway patent. NECK: Trachea midline. Non tender CARDIOVASCULAR: Regular rate and rhythm without murmurs, gallops, or rubs. RESPIRATORY: Clear to auscultation. Breath sounds equal bilaterally. No wheezes, rales, or rhonchi. GASTROINTESTINAL: Abdomen soft, non-tender, nondistended. EXTREMITIES: No edema or joint tenderness. BACK: Nontender without deformity or crepitance. No flank tenderness. NEURO: AOx3. SKIN: No rash or erythema of visible areas Initial Vital Signs Initial Vital Signs: Vital Signs Temperature 98.1 F 04/08/20 09:00 Pulse Rate 77 04/08/20 09:00 Respiratory Rate 14 04/08/20 09:00 Blood Pressure 143/98 H 04/08/20 09:00 Pulse Oximetry 98 04/08/20 09:00 Course Orders Ordered: ED Orders 04/08/20 09:08 UA Complete [Urinalysis and Microscopic] Stat Urine Culture Stat 04/08/20 09:09 Urinalysis and Microscopic Stat 04/08/20 09:30 Basic Metabolic Panel Stat Complete Blood Count AUTO DIFF Stat 04/08/20 09:36 XR KUB Stat Discontinued Medications Hydromorphone HCl (Dilaudid) 1 mg IV NOW ONE Stop: 04/08/20 10:04 Last Admin: 04/08/20 10:10 Dose: 1 mg Documented by: EDGAR Hydromorphone HCl (Dilaudid) 0.5 mg IV NOW ONE Stop: 04/08/20 11:28 Last Admin: 04/08/20 11:34 Dose: 0.5 mg Documented by: BIJAL Sodium Chloride (Normal Saline 0.9%) 1,000 mls @ 1,000 mls/hr IV BOLUS ONE Stop: 04/08/20 10:08 Last Infusion: 04/08/20 11:35 Dose: 0 mls/hr Documented by: Admin: 04/08/20 09:39 Dose: 1,000 mls/hr Documented by: LAITH Ketorolac Tromethamine (Toradol) 15 mg IV NOW ONE Stop: 04/08/20 09:10 Last Admin: 04/08/20 09:40 Dose: 15 mg Documented by: LAITH Ondansetron HCl (Zofran) 4 mg IV NOW ONE Stop: 04/08/20 09:10 Last Admin: 04/08/20 09:41 Dose: 4 mg Documented by: LAITH Vital Signs Vital signs: Vital Signs - 8 hr 04/08/20 09:00 04/08/20 10:33 Temperature 98.1 F Pulse Rate 77 64 Respiratory Rate 14 16 Blood Pressure 143/98 H 135/95 H Pulse Oximetry 98 99 MDM - Male Genitourinary Lab Data Result diagrams: 04/08/20 09:30 04/08/20 09:30 Labs: Lab Results 04/08/20 04/08/20 04/08/20 Range/Units 09:08 09:30 09:30 WBC 8.0 (4.5-11.0) X10^3/uL RBC 5.15 (4.5-5.9) X10^6/uL Hgb 15.9 (13.5-17.5) g/dL Hct 47.2 (41-53) % MCV 91.6 (80-100) fL MCH 30.8 (26-34) PG MCHC 33.6 (30-36) % RDW 14.2 (11.6-14.8) % Plt Count 306 (150-400) X10^3/uL Neut % (Auto) 64.3 (50-75) % Lymph % (Auto) 24.0 L (25-40) % [place] % (Auto) 8.3 (3-14) % Eos % (Auto) 2.5 (2-4) % Baso % (Auto) 0.9 (0-2) % Neut # (Auto) 5100 (6537-8790) /uL Lymph # (Auto) 1900 (6669-8006) /uL [place] # (Auto) 700 (0-900) /uL Eos # (Auto) 200 (0-450) /uL Baso # (Auto) 100 (0-100) /uL Sodium 138 (137-145) mmol/L Potassium 4.4 (3.4-5.1) mmol/L Chloride 103 (98-107) mmol/L Carbon Dioxide 28 (22-32) mmol/L BUN 17 (9-20) mg/dL Creatinine 0.87 (0.66-1.25) mg/dL Estimated GFR > 60.0 (>60) mL/min BUN/Creatinine Ratio 19.5 (6-22) Glucose 100 (70-100) mg/dL Calcium 10.2 (8.4-10.2) mg/dL Urine Color Red Urine Appearance Sl cloudy Urine pH 6.5 (4.5-8.0) Ur Specific [place] 1.020 (1.000-1.035) Urine Protein 1+ H (Negative) Urine Glucose (UA) Negative (Negative) g/dL Urine Ketones Negative (NEGATIVE) Urine Occult Blood 3+ H (Negative) Urine Nitrate Negative (Negative) Urine Bilirubin Negative (NEGATIVE) Urine Urobilinogen 0.2 (0.2) E.U./dL Ur Leukocyte Esterase Trace H (NEGATIVE) Urine RBC >100/hpf H (0-5/HPF) Urine WBC 1-5/hpf (0-5/HPF) Urine Bacteria Few (2-10) H (None) Ur Culture Indicated? Specimen cultured Imaging Data Abdominal x-ray: Radiologist's Impression: [address] [address] XRay Report Signed Patient: Maciel Urban RMR#: [id number] : 1970Acct:[id number] Age/Sex: 50 / MDate of Service: 04/08/20 Loc: ED Accession Number: [id number] Procedure: XR KUB Ordering Provider: Arcenio Marte D.O. PROCEDURE: XR KUB INDICATIONS: long history of kidney stones TECHNIQUE: One view of the abdomen acquired. COMPARISON: [facility], CT, CT KIDNEY URETER BLADDER (KUB), 11/03/2019, 18:21. [facility], CT, CT KIDNEY URETER BLADDER (KUB), 05/23/2018, 4:43. [facility], CT, CT KIDNEY URETER BLADDER (KUB), 12/03/2017, 5:37. [facility], CR, XR KUB, 11/18/2017, 23:07. FINDINGS: Surgical changes and devices: Cholecystectomy clips are seen. Bilateral pelvic clips are seen. Bowel: Bowel gas pattern is normal. Soft tissues: No at the inferior pole of the right kidney, there is a collection irregular stones that measures up to 7 mm, which measured together. A left-sided pelvic phlebolith is seen. Visualized solid organ contours appear normal in size. Bones: No suspicious bony lesions. IMPRESSION: 7 mm collection of stones seen at the inferior pole of the right kidney. Stable left-sided phlebolith. Postoperative clips are seen, including cholecystectomy clips. Dictated by: Terry Sanabria M.D. on 04/08/2020 at 9:15 Approved by: Terry Sanabria M.D. on 04/08/2020 at 9:17 Discharge Plan Departure Patient Disposition: Home Clinical Impression: Kidney stones Instructions: DI for Kidney Stones Activity Restrictions/Additional Instructions: *You have been diagnosed with [right-sided kidney stone] *What to do: *Take medications as directed: Prescription sent to [facility] *Follow up with your primary care provider in 2-3 days, call for an appointment. Let them know you were seen in the Emergency Department and that we ask that you be seen in follow up *Return to ER if you should have any new, worsening or concerning symptoms, such as [worsening pain, persistent vomiting, fever greater than 101 F, shaking chills or other] Prescriptions: New hydrocodone-acetaminophen 5-325 mg tablet 1 tab PO Q4-6H PRN (Reason: pain) Qty: 10 RF: 0 ketorolac 10 mg tablet 10 mg PO Q6H PRN (Reason: pain) Qty: 14 RF: 0 tamsulosin [Flomax] 0.4 mg capsule 0.4 mg PO DAILY Qty: 10 RF: 0 ondansetron 4 mg tablet,disintegrating 4 mg PO TID-QID PRN (Reason: nausea and vomiting) Qty: 10 RF: 0 cephalexin [Keflex] 500 mg capsule 500 mg PO QID 7 Days Qty: 28 RF: 0 No Action tamsulosin [Flomax] 0.4 mg capsule 0.4 mg PO .PRN RF: 0 ibuprofen 600 mg tablet 600 mg PO Q4-6H PRNRF: 0 oxycodone-acetaminophen [Percocet] 5-325 mg tablet 1 tab PO Q4-6H PRN (Reason: pain) Qty: 14 RF: 0 hydrocodone-acetaminophen [Henderson] 5-325 mg tablet 1 tab PO Q4-6H PRN (Reason: pain) Qty: 10 RF: 0 meclizine 25 mg tablet,chewable 25 mg PO TID PRN (Reason: dizziness) Qty: 14 RF: 0 oxycodone-acetaminophen [Percocet] 5-325 mg tablet 2 tab PO Q4-6H PRN (Reason: pain) Qty: 10 RF: 0 ibuprofen 600 mg tablet 600 mg PO Q6-8H PRN (Reason: pain) Qty: 90 RF: 0 hydrocodone-acetaminophen [Henderson] 5-325 mg tablet 1 tab PO Q4-6H PRN (Reason: pain) Qty: 14 RF: 0 tamsulosin [Flomax] 0.4 mg capsule,extended release 24hr 0.4 mg PO DAILY Qty: 30 RF: 0 hydrocodone-acetaminophen 5-325 mg tablet 1 tab PO Q4-6H PRN (Reason: pain) Qty: 7 RF: 0 tamsulosin 0.4 mg capsule 0.4 mg PO DAILY Qty: 7 RF: 0 ketorolac 10 mg tablet 10 mg PO Q6H PRN (Reason: pain) Qty: 14 RF: 0 ondansetron 4 mg tablet,disintegrating 4 mg PO Q6H PRN (Reason: nausea and vomiting) Qty: 20 RF: 0 oxycodone-acetaminophen [Percocet] 5-325 mg tablet 1 tab PO TID PRN (Reason: pain) Qty: 10 RF: 0 Referrals: Isac Haines MD [Primary Care Provider] -
[2020-04-08 09:00] VITALS: BP 143/98; PULSE 77; RESP 14; TEMP 36.7; O2SAT 98; BMI 26.5
[2020-04-08 09:12] LABS: Appearance Urine UA SL CLOUDY; Bilirubin Urine UA NEGATIVE (NEGATIVE); Color Urine UA RED; Glucose Urine UA NEGATIVE (Negative); Ketones Urine UA NEGATIVE (NEGATIVE); Leukocyte Esterase Urine UA TRACE (NEGATIVE); Nitrite Urine UA NEGATIVE (Negative); Occult Blood Urine UA 3+ (Negative); Protein Urine UA 1+ (Negative); Urobilinogen Urine UA 0.2 E.U./dL (0.2); pH Urine UA 6.5 (4.5-8.0)
[2020-04-08 09:25] LABS: RBC Urine >100/HPF (0-5/HPF); WBC Urine 1-5/HPF (0-5/HPF)
[2020-04-08 09:26] LABS: Bacteria Urine Few (2-10); Culture Indicated Urine Specimen Cultured
--- NOTE | 2020-04-08 09:36 | DI.RAD.S_ITS ---
PROCEDURE: XR KUB INDICATIONS: long history of kidney stones TECHNIQUE: One view of the abdomen acquired. COMPARISON: Merged With [facility], CT, CT KIDNEY URETER BLADDER (KUB), 11/03/2019, 18:21. Merged With [facility], CT, CT KIDNEY URETER BLADDER (KUB), 05/23/2018, 4:43. Merged With [facility], CT, CT KIDNEY URETER BLADDER (KUB), 12/03/2017, 5:37. Merged With [facility], CR, XR KUB, 11/18/2017, 23:07. FINDINGS: Surgical changes and devices: Cholecystectomy clips are seen. Bilateral pelvic clips are seen. Bowel: Bowel gas pattern is normal. Soft tissues: No at the inferior pole of the right kidney, there is a collection irregular stones that measures up to 7 mm, which measured together. A left-sided pelvic phlebolith is seen. Visualized solid organ contours appear normal in size. Bones: No suspicious bony lesions. IMPRESSION: 7 mm collection of stones seen at the inferior pole of the right kidney. Stable left-sided phlebolith. Postoperative clips are seen, including cholecystectomy clips. Dictated by: Terry Sanabria M.D. on 04/08/2020 at 9:15 Approved by: Terry Sanabria M.D. on 04/08/2020 at 9:17
[2020-04-08] MEDS: SODIUM CHLORIDE 0.9% 1,000 ML 1000 ML IV (09:39)
[2020-04-08] MEDS: KETOROLAC 60 MG/2 ML VIAL 15 MG IV (09:40)
[2020-04-08] MEDS: ONDANSETRON 4 MG/2 ML INJ IV (09:41)
[2020-04-08 10:01] LABS: Add Manual Diff / Slide Review NO; Basophils Absolute Auto 100 /uL (0-100); Basophils Percent Auto 0.9 % (0-2); Eosinophils Absolute Auto 200 /uL (0-450); Eosinophils Percent Auto 2.5 % (2-4); Hematocrit 47.2 % (41-53); Hemoglobin 15.9 g/dL (13.5-17.5); Lymphocytes Absolute Auto 1900 /uL (1100-4500); Mean Corpuscular HGB Conc 33.6 % (30-36); Mean Corpuscular Hemoglobin 30.8 PG (26-34); Mean Corpuscular Volume 91.6 fL (80-100); Monocytes Absolute Auto 700 /uL (0-900); Monocytes Percent Auto 8.3 % (3-14); Neutrophils Absolute Auto 5100 /uL (1500-7000); Neutrophils Percent Auto 64.3 % (50-75); Platelet Count 306 X10^3/uL (150-400); Red Blood Cell Count 5.15 X10^6/uL (4.5-5.9); Red Cell Distribution Width 14.2 % (11.6-14.8)
[2020-04-08 10:04] LABS: BUN Creatinine Ratio 19.5 (6-22); Blood Urea Nitrogen 17 mg/dL (9-20); Calcium 10.2 mg/dL (8.4-10.2); Carbon Dioxide 28 mmol/L (22-32); Chloride 103 mmol/L (98-107); Estimated Glomerular Filt Rate > 60.0 mL/min (>60); Glucose 100 mg/dL (70-100); HEMOLYSIS < 15 (0-50); Potassium 4.4 mmol/L (3.4-5.1); Sodium 138 mmol/L (137-145)
[2020-04-08] MEDS: HYDROMORPHONE 1 MG INJ IV (10:10)
[2020-04-08 10:33] VITALS: BP 135/95; PULSE 64; RESP 16; O2SAT 99
[2020-04-08] MEDS: HYDROMORPHONE 0.5 MG INJ IV (11:34)
[2020-04-08 11:45] VITALS: BP 132/88; PULSE 84; RESP 15; O2SAT 99
== END 2020-04-08 11:46 | disposition home or self-care (01) ==
PROVIDERS: Emergency Provider Emergency Medicine; PCP Internal Medicine
DX: N20.0 Calculus of kidney (principal); Z87.442 Personal history of urinary calculi; R10.9 Unspecified abdominal pain; R30.0 Dysuria
CPT/HCPCS: 36415; 74018; 80048; 81001; 85025; 87086; 96361; 96374; 96375; 96376; 99284; J1170; J1885; J2405

== ENCOUNTER 2020-04-17 21:58 | Emergency (ER) | payer OTHER, MEDICAID, SELFPAY ==
[2020-04-17] VITALS (7 sets, daily range): BP systolic 132–160; BP diastolic 73–100; PULSE 57–79; RESP 16–20; TEMP 36.4; O2SAT 95–100; BMI 26.5
[2020-04-17] MEDS: KETOROLAC 60 MG/2 ML VIAL 15 MG IV (22:23)
[2020-04-17] MEDS: ONDANSETRON 4 MG/2 ML INJ IV (22:24)
[2020-04-17] MEDS: SODIUM CHLORIDE 0.9% 1,000 ML 1000 ML IV (22:24)
[2020-04-17 22:34] LABS: Add Manual Diff / Slide Review NO; Basophils Absolute Auto 100 /uL (0-100); Basophils Percent Auto 0.9 % (0-2); Eosinophils Absolute Auto 100 /uL (0-450); Eosinophils Percent Auto 1.4 % (2-4); Hematocrit 48.8 % (41-53); Hemoglobin 16.3 g/dL (13.5-17.5); Lymphocytes Absolute Auto 2600 /uL (1100-4500); Lymphocytes Percent Auto 30.4 % (25-40); Mean Corpuscular HGB Conc 33.3 % (30-36); Mean Corpuscular Hemoglobin 30.7 PG (26-34); Mean Corpuscular Volume 92.1 fL (80-100); Monocytes Absolute Auto 800 /uL (0-900); Monocytes Percent Auto 9.4 % (3-14); Neutrophils Absolute Auto 4900 /uL (1500-7000); Neutrophils Percent Auto 57.9 % (50-75); Platelet Count 347 X10^3/uL (150-400); Red Cell Distribution Width 14.3 % (11.6-14.8); White Blood Cell Count 8.4 X10^3/uL (4.5-11.0)
[2020-04-17 22:38] LABS: Blood Urea Nitrogen 19 mg/dL (9-20); Calcium 10.4 mg/dL (8.4-10.2); Carbon Dioxide 28 mmol/L (22-32); Chloride 104 mmol/L (98-107); Estimated Glomerular Filt Rate > 60.0 mL/min (>60); Glucose 106 mg/dL (70-100); HEMOLYSIS 49 (0-50); Potassium 4.3 mmol/L (3.4-5.1); Sodium 140 mmol/L (137-145)
--- NOTE | 2020-04-17 22:39 | ED.MALEGU ---
HPI - Male Genitourinary General Chief complaint: Urogenital-Male Stated complaint: states kidney stone, pain, vomiting Time Seen by Provider: 04/17/20 22:27 Source: patient Mode of arrival: Ambulatory History of Present Illness HPI Narrative: The patient has severe left flank pain, pain started suddenly about 1 hour prior to arrival. The pain rates the left lower quadrant his abdomen. He has developed nausea and vomiting. He has no dysuria or hematuria. He has no testicular pain. He has a history of kidney stones. Pain is consistent with prior episodes of kidney stones. He has required multiple procedures to manage kidney stones. He has no associated URI symptoms, sore throat, fever or cough. Related Data Home Medications Medication Instructions Recorded Confirmed ibuprofen 600 mg tablet 600 mg PO Q4-6H PRN tab 03/11/20 04/11/20 tamsulosin 0.4 mg capsule 0.4 mg PO .PRN cap 03/11/20 04/11/20 Previous Rx's Medication Instructions Recorded meclizine 25 mg PO TID PRN #14 tab 02/21/19 ibuprofen 600 mg PO Q6-8H PRN #90 tab 12/31/19 ketorolac 10 mg PO Q6H PRN #14 tab 04/08/20 ondansetron 4 mg PO TID-QID PRN #10 tab 04/08/20 tamsulosin [Flomax] 0.4 mg PO DAILY #10 cap 04/08/20 oxycodone-acetaminophen 10 mg-325 1 tab PO Q6H PRN #10 tab 04/15/20 mg tablet ondansetron 4 mg PO Q6-8H PRN #12 tab 04/18/20 oxycodone-acetaminophen [Percocet] 1 tab PO Q4-6H PRN #12 tab 04/18/20 Allergies Allergy/AdvReac Type Severity Reaction Status Date / Time No Known Drug Allergies Allergy Verified 04/11/20 10:56 Review of Systems Review of Systems ROS Unobtainable: All systems reviewed & are unremarkable except as noted in HPI and below Constitutional Constitutional: Denies chills and Denies fever(s) Cardiovascular Cardiovascular: Denies chest pain Respiratory Respiratory: Denies chest congestion and Denies cough Gastrointestinal Comments: Abdominal pain, see HPI. Genitourinary Comments: No dysuria or hematuria. No testicular pain. Musculoskeletal Musculoskeletal: Denies back pain Patient History Medical History Chronic back pain (Chronic) Crohn disease (Chronic ~1999) Iritis (Acute) Kidney stones (Chronic ~2007) Personal history of stroke with current residual effects (Chronic) PFO (patent foramen ovale) (Acute) Surgical History Anesthesia (Resolved) History of bowel resection (Acute) History of lithotripsy (Acute) S/P cholecystectomy (Acute) S/P exploratory laparotomy (Acute ~1999) S/P knee surgery (Acute) S/P patent foramen ovale closure (Acute ~2017) Family History Father History of heart disease Hyperlipidemia Grandmother Diabetes mellitus Grandmother Diabetes mellitus Social History Smoking Status: Current every day smoker Smoking Status: Current every day smoker tobacco type: cigarettes alcohol intake frequency: a few times a month Substance Use Type: does not use Exam Initial Vital Signs Initial Vital Signs: Vital Signs Temperature 97.6 F 04/17/20 22:05 Pulse Rate 79 04/17/20 22:05 Respiratory Rate 20 04/17/20 22:05 Blood Pressure 159/96 H 04/17/20 22:05 Pulse Oximetry 95 04/17/20 22:05 Const General: cooperative and well developed Nutritional Appearance: well nourished [facility] Head: normocephalic and atraumatic Resp Effort & Inspection: normal respiratory effort and able to speak in complete sentences Auscultation: clear to auscultation bilaterally, no rales, no rhonchi and no wheezes Cardio Rate: regular rate Rhythm: regular rhythm Heart Sounds: S1 normal and S2 normal GI Other: Left flank tenderness with palpation, no distention, guarding or rebound. No masses. Normal bowel sounds. Back/Spine/Pelvis Back: No CVA tenderness Skin General: no rashes or lesions noted, No jaundice and No petechiae Neuro General: patient alert, patient oriented x3, gait normal and no focal motor deficits Speech: speech normal Course Course Course Narrative: The patient was initially given IV Toradol with IV fluids, as well as Zofran. He required 2 doses of Dilaudid to decrease the pain. He urinated, passing significant blood with urine. His pain improved about this time. CT revealed a 6 x 9 mm left distal ureter stone. He did not pass the stone when he urinated. I start him Flomax. He will be referred to Urology. Orders Ordered: ED Orders 04/17/20 22:18 Basic Metabolic Panel Stat Complete Blood Count AUTO DIFF Stat 04/17/20 22:40 CT kidney ureter bladder (KUB) Stat 04/17/20 23:17 Urinalysis and Microscopic Stat Urine Culture Stat Discontinued Medications Hydromorphone HCl (Dilaudid) 1 mg IV NOW ONE Stop: 04/17/20 22:41 Last Admin: 04/17/20 22:45 Dose: 1 mg Documented by: EASTON Hydromorphone HCl (Dilaudid) 1 mg IV NOW ONE Stop: 04/17/20 23:23 Last Admin: 04/17/20 23:29 Dose: 1 mg Documented by: EASTON Sodium Chloride (Normal Saline 0.9%) 1,000 mls @ 1,000 mls/hr IV BOLUS ONE Stop: 04/17/20 23:16 Last Infusion: 04/18/20 00:26 Dose: 0 mls/hr Documented by: Admin: 04/17/20 22:24 Dose: 1,000 mls/hr Documented by: EASTON Ketorolac Tromethamine (Toradol) 15 mg IV NOW ONE Stop: 04/17/20 22:18 Last Admin: 04/17/20 22:23 Dose: 15 mg Documented by: EASTON Ondansetron HCl (Zofran) 4 mg IV NOW ONE Stop: 04/17/20 22:18 Last Admin: 04/17/20 22:24 Dose: 4 mg Documented by: EASTON Tamsulosin HCl (Flomax) 0.4 mg PO NOW ONE Stop: 04/18/20 00:56 Last Admin: 04/18/20 00:59 Dose: 0.4 mg Documented by: EASTON Vital Signs Vital signs: Vital Signs - 8 hr 04/17/20 22:05 04/17/20 22:50 04/17/20 23:34 Temperature 97.6 F Pulse Rate 79 58 L 63 Respiratory Rate 20 16 16 Blood Pressure 159/96 H 160/100 H 132/73 Pulse Oximetry 95 100 99 04/18/20 00:59 Temperature Pulse Rate 64 Respiratory Rate 14 Blood Pressure 124/66 Pulse Oximetry 98 MDM - Male Genitourinary Lab Data Result diagrams: 04/17/20 22:18 04/17/20 22:18 Labs: Lab Results 04/17/20 04/17/20 04/17/20 Range/Units 22:18 22:18 23:17 WBC 8.4 (4.5-11.0) X10^3/uL RBC 5.30 (4.5-5.9) X10^6/uL Hgb 16.3 (13.5-17.5) g/dL Hct 48.8 (41-53) % MCV 92.1 (80-100) fL MCH 30.7 (26-34) PG MCHC 33.3 (30-36) % RDW 14.3 (11.6-14.8) % Plt Count 347 (150-400) X10^3/uL Neut % (Auto) 57.9 (50-75) % Lymph % (Auto) 30.4 (25-40) % [place] % (Auto) 9.4 (3-14) % Eos % (Auto) 1.4 L (2-4) % Baso % (Auto) 0.9 (0-2) % Neut # (Auto) 4900 (1155-9586) /uL Lymph # (Auto) 2600 (5441-6485) /uL [place] # (Auto) 800 (0-900) /uL Eos # (Auto) 100 (0-450) /uL Baso # (Auto) 100 (0-100) /uL Sodium 140 (137-145) mmol/L Potassium 4.3 (3.4-5.1) mmol/L Chloride 104 (98-107) mmol/L Carbon Dioxide 28 (22-32) mmol/L BUN 19 (9-20) mg/dL Creatinine 1.19 (0.66-1.25) mg/dL Estimated GFR > 60.0 (>60) mL/min BUN/Creatinine Ratio 16.0 (6-22) Glucose 106 H (70-100) mg/dL Calcium 10.4 H (8.4-10.2) mg/dL Urine Color Brown Urine Appearance Slightly cloudy Urine pH 5.0 (4.5-8.0) Ur Specific [place] >=1.030 H (1.000-1.035) Urine Protein 2+ H (Negative) Urine Glucose (UA) Negative (Negative) g/dL Urine Ketones Trace H (NEGATIVE) Urine Occult Blood 3+ H (Negative) Urine Nitrate Negative (Negative) Urine Bilirubin Negative (NEGATIVE) Urine Urobilinogen 0.2 (0.2) E.U./dL Ur Leukocyte Esterase Trace H (NEGATIVE) Urine RBC 30-100/hpf H (0-5/HPF) Urine WBC 5-10/hpf H (0-5/HPF) Ur Squamous Epith Cells 0-1 /hpf (0-5/HPF) Calcium Oxalate Crystal Few H Urine Bacteria Few (2-10) H (None) Ur Culture Indicated? Culture not indicate Urine Dip Bedside Urine Glucose Negative Bedside Urine Bilirubin - Negative Bedside Urine Ketone - Negative Urine Specific [place] 1.03 Bedside Urine Occult Blood +++ Bedside Urine pH 6.0 Bedside Urine Protein + 30 Bedside Urine Urobilinogen - Negative Bedside Urine Nitrite - Negative Bedside Urine Leukocytes - Negative Esterase Imaging Data KUB CT: Radiologist's Impression: 6 x 9 mm partially obstructing calculus in the left distal ureter. Discharge Plan Departure Patient Disposition: Home Clinical Impression: Kidney stones Instructions: DI for Kidney Stones Activity Restrictions/Additional Instructions: Drink plenty of water, be sure you remain well hydrated. Advil 3 tablets every 6 hours as needed for pain. Percocet every 4 hours as necessary for added pain control. Zofran every 4 hours as needed for nausea. Flomax 1 tablet daily as prescribed. Screen your urine to take the stone. If you have not improved within 5 days, follow-up with urology. I will give you contact information for a local urologist. Dr Keith. Prescriptions: New oxycodone-acetaminophen [Percocet] 5-325 mg tablet 1 tab PO Q4-6H PRN (Reason: pain) Qty: 12 RF: 0 ondansetron 4 mg tablet,disintegrating 4 mg PO Q6-8H PRN (Reason: nausea and vomiting) Qty: 12 RF: 0 No Action oxycodone-acetaminophen 10-325 mg tablet 1 tab PO Q6H PRN (Reason: pain) Qty: 10 RF: 0 tamsulosin [Flomax] 0.4 mg capsule 0.4 mg PO .PRN RF: 0 ibuprofen 600 mg tablet 600 mg PO Q4-6H PRNRF: 0 meclizine 25 mg tablet,chewable 25 mg PO TID PRN (Reason: dizziness) Qty: 14 RF: 0 ibuprofen 600 mg tablet 600 mg PO Q6-8H PRN (Reason: pain) Qty: 90 RF: 0 ketorolac 10 mg tablet 10 mg PO Q6H PRN (Reason: pain) Qty: 14 RF: 0 tamsulosin [Flomax] 0.4 mg capsule 0.4 mg PO DAILY Qty: 10 RF: 0 ondansetron 4 mg tablet,disintegrating 4 mg PO TID-QID PRN (Reason: nausea and vomiting) Qty: 10 RF: 0 Referrals: Jacquelin Keith MD [Physician] - Isac Haines MD [Primary Care Provider] -
--- NOTE | 2020-04-17 22:40 | DI.CT.S_ITS ---
PROCEDURE: CT KIDNEY URETER BLADDER (KUB) INDICATIONS: Left flank pain TECHNIQUE: Noncontrast 5 mm thick sections acquired from the diaphragms to the symphysis. 5 mm thick coronal and sagittal reformats were then performed. For radiation dose reduction, the following was used: automated exposure control, adjustment of mA and/or kV according to patient size. COMPARISON: [facility], CT, CT KIDNEY URETER BLADDER (KUB), 03/29/2019, 6:31. [facility], CR, XR KUB, 04/08/2020, 10:01. [facility], CT, CT KIDNEY URETER BLADDER (KUB), 11/03/2019, 18:21. FINDINGS: Image quality: Excellent. Lung bases: Mild dependent atelectasis in the right lung base. Heart size is normal. Urinary system: There is a 6 mm stone in the distal left ureter near the ureterovesical junction. There is mild left hydronephrosis and hydroureter with perinephric stranding. Both kidneys are normal in size. A 1 mm nonobstructing stone stone in left kidney and a 5 mm nonobstructing stone in right kidney. No right ureteral stone or hydronephrosis. Bladder wall thickness is normal; no calcified bladder stones. Prostate is prominent. Other solid organs: Liver is mildly enlarged. There is hepatic steatosis. Gallbladder is surgically absent . Pancreas is normal in contours. Spleen is normal in size. No adrenal nodules. Peritoneum and bowel: Unenhanced bowel loops demonstrate normal wall thickness and caliber. Appendix is resected. No free fluid or air. Nodes and vessels: No retroperitoneal or mesenteric adenopathy by size criteria. Aorta and inferior vena cava are normal in caliber. Abdominal wall: No ventral hernias. Pelvis: No free pelvic fluid. No inguinal hernias or adenopathy. Bones: No suspicious bony lesions. No vertebral body compression fractures. IMPRESSION: 1. A 6 mm obstructive stone is identified in the distal left ureter near the left UVJ causing mild hydronephrosis. 2. Bilateral nonobstructive renal calculi. No significant discrepancy with the night time babysitter radiology preliminary report. Dictated by: Lionel Dick M.D. on 04/18/2020 at 7:31 Approved by: Lionel Dick M.D. on 04/18/2020 at 7:39
[2020-04-17] MEDS: HYDROMORPHONE 1 MG INJ IV ×2 (22:45→23:29)
[2020-04-17 23:39] LABS: Bilirubin Urine UA NEGATIVE (NEGATIVE); Glucose Urine UA NEGATIVE (Negative); Ketones Urine UA TRACE (NEGATIVE); Leukocyte Esterase Urine UA TRACE (NEGATIVE); Nitrite Urine UA NEGATIVE (Negative); Occult Blood Urine UA 3+ (Negative); Protein Urine UA 2+ (Negative); Specific Gravity Urine UA >=1.030 (1.000-1.035); Urobilinogen Urine UA 0.2 E.U./dL (0.2)
[2020-04-17 23:41] LABS: Appearance Urine UA Slightly Cloudy; Color Urine UA BROWN
[2020-04-17 23:46] LABS: Bacteria Urine Few (2-10); Calcium Oxalate Crystals Urine Few; RBC Urine 30-100/HPF (0-5/HPF); Squamous Epithelial Cell Urine 0-1 /HPF (0-5/HPF); WBC Urine 5-10/HPF (0-5/HPF)
[2020-04-18] VITALS: BP 146/94; PULSE 60; O2SAT 95
[2020-04-18 00:30] VITALS: PULSE 75; O2SAT 99
[2020-04-18 00:31] VITALS: BP 148/91; PULSE 68; O2SAT 99
[2020-04-18 00:59] VITALS: BP 124/66; PULSE 64; RESP 14; O2SAT 98
[2020-04-18] MEDS: TAMSULOSIN 0.4 MG CAPSULE PO (00:59)
[2020-04-18 01:00] VITALS: PULSE 64; O2SAT 98
[2020-04-18 01:01] VITALS: BP 124/66; PULSE 66; O2SAT 99
[2020-04-18] MEDS: ONDANSETRON 4 MG ODT PREPACK 1 BOTTLE MISC (02:21)
== END 2020-04-18 02:25 | disposition home or self-care (01) ==
PROVIDERS: Emergency Provider Emergency Medicine; PCP Internal Medicine
DX: N20.0 Calculus of kidney (principal); R11.2 Nausea with vomiting, unspecified
CPT/HCPCS: 36415; 74176; 80048; 81001; 81003; 85025; 87086; 96361; 96374; 96375; 96376; 99284; J1170; J1885; J2405

== ENCOUNTER 2020-04-23 14:16 | Emergency (ER) | payer OTHER, MEDICAID, SELFPAY ==
[2020-04-23 14:30] VITALS: BP 141/87; PULSE 75; RESP 16; TEMP 36.5; O2SAT 97; BMI 26.5
--- NOTE | 2020-04-23 15:16 | ED.MALEGU ---
HPI - Male Genitourinary <JAMES Mullen - Last Filed: 04/23/20 23:11> General Chief complaint: Urogenital-Male Stated complaint: KIDNEY STONES Time Seen by Provider: 04/23/20 14:38 Source: patient Mode of arrival: Ambulatory Limitations: no limitations History of Present Illness HPI Narrative: This is a 50-year-old male, who has past medical history significant for multiple kidney stones last 16 years, Crohn's disease and bowel resection presents to ED with chief complain of left flank pain and nausea. Patient was here and evaluated and diagnosed with left side kidney stone and KUB test shows a 6 mm obstructive stone in distal left ureter near the left UVJ causing mild hydronephrosis. There is also bilateral nonobstructive renal calculi seen. Patient denies fever, chills. Patient reports hematuria. Patient reports has been trying to hydrate adequately with steady fluid intake but with the history of bowel resections the fluid goes through him when drink too much too fast. He tried manage kidney stone pain with Percocet and Flomax but today he is having recurring severe pain and rates as 8 to 9/10. He has been taking Percocet mostly once a day for pain management. During last visit he had a normal kidney function test and normal white count. Urine culture does not show growth. Patient is currently trying to see a urologist that is being arranged by PCP. Related Data Home Medications Medication Instructions Recorded Confirmed ibuprofen 600 mg tablet 600 mg PO Q4-6H PRN tab 03/11/20 04/11/20 tamsulosin 0.4 mg capsule 0.4 mg PO .PRN cap 03/11/20 04/11/20 Previous Rx's Medication Instructions Recorded meclizine 25 mg PO TID PRN #14 tab 02/21/19 ibuprofen 600 mg PO Q6-8H PRN #90 tab 12/31/19 ketorolac 10 mg PO Q6H PRN #14 tab 04/08/20 ondansetron 4 mg PO TID-QID PRN #10 tab 04/08/20 tamsulosin [Flomax] 0.4 mg PO DAILY #10 cap 04/08/20 oxycodone-acetaminophen 10 mg-325 1 tab PO Q6H PRN #10 tab 04/15/20 mg tablet ondansetron 4 mg PO Q6-8H PRN #12 tab 11/05/20 oxycodone-acetaminophen [Percocet] 1 tab PO Q4-6H PRN #12 tab 04/18/20 cephalexin [Keflex] 500 mg PO Q6H 7 Days #28 cap 04/23/20 oxycodone-acetaminophen [Percocet] 1 tab PO Q8H PRN #10 tab 04/23/20 Allergies Allergy/AdvReac Type Severity Reaction Status Date / Time No Known Drug Allergies Allergy Verified 04/11/20 10:56 Review of Systems <JAMES Mullen - Last Filed: 04/23/20 23:11> Review of Systems Narrative: General: Denies fever, chills, fatigue, malaise, sweats. HEENT: Denies sinus pain, ear pain, sore throat, difficulty swallowing, dizziness. Respiratory: Denies dyspnea, cough, wheezing, hemoptysis, sputum. Cardiovascular: Denies chest pain, palpitations, orthopnea, edema. Gastrointestinal: Denies (+) nausea, vomiting, abdominal pain, diarrhea, constipation, melena. : See HPI Musculoskeletal: Denies weakness, joint pain or bony pain. Left flank deep pain. Skin: Denies rash, skin lesions, or other. Neurologic: Denies weakness, headache, numbness, change in speech, confusion, seizures, incoordination. Psychiatric: No concerning psychosocial issues. 12-point review of systems is negative except for those stated above. Patient History <JAMES Mullen - Last Filed: 04/23/20 23:11> Medical History Chronic back pain (Chronic) Crohn disease (Chronic ~1999) Iritis (Acute) Kidney stones (Chronic ~2007) Personal history of stroke with current residual effects (Chronic) PFO (patent foramen ovale) (Acute) Surgical History Anesthesia (Resolved) History of bowel resection (Acute) History of lithotripsy (Acute) S/P cholecystectomy (Acute) S/P exploratory laparotomy (Acute ~1999) S/P knee surgery (Acute) S/P patent foramen ovale closure (Acute ~2017) Family History Father History of heart disease Hyperlipidemia Grandmother Diabetes mellitus Grandmother Diabetes mellitus Social History Smoking Status: Current every day smoker Smoking Status: Current every day smoker tobacco type: cigarettes alcohol intake frequency: a few times a month Substance Use Type: does not use Exam <JAMES Mullen - Last Filed: 04/23/20 23:11> Narrative Exam Narrative: GEN: Alert, oriented x 3, well nourished, and in moderate distress from pain and nausea. Head: Normal cephalic, atraumatic. No scalp or temporal tenderness, palpable mass or rash. EYES: Pupils are equal, round, and reactive to light and accommodation. Extraocular muscles are intact bilaterally. There is no subconjunctival hemorrhage, exudate and sclera non-icteric. ENT: Hearing grossly intact. Mucous membrane moist, no mucosal lesion. Throat without erythema, tonsillar hypertrophy or exudate. Uvula in midline, airway patent. Neck: Trachea in midline. No JVD, non-tender without lymphadenopathy. No masses or thyroid megaly. Supple, non-tender and no meningeal signs. CARDIAC: Normal regular rate and rhythm without murmurs, gallops, or rubs. No chest wall tenderness. No peripheral edema, cyanosis or pallor. Capillary refill is less than 2 seconds. RESPIRATORY: Lungs are clear to auscultate bilaterally. No cough, wheezes, rales, or rhonchi. No stridor, respiratory distress, increase work of breathing, or accessary muscle used. ABD: Abdomen soft, nontender and non-distended. No guarding or rebound tenderness to palpate. Bowel sounds are normal in all 4 quadrants. There is no palpable masses or organomegaly. EXT: Full painless ROM of all extremities with no loss of sensation, strength, effusion or edema. SKIN: Warm, dry, normal color for patient. No erythema, lesions or rash over visible areas. BACK: Nontender without deformity or crepitance. No flank tenderness to percussion. NEUROLOGICAL: Alert and oriented to place, time and person. Sensation and motor function intact bilaterally. No facial droops, dysphasia. PSYCHIATRIC: Good judgement and reason, without hallucinations, abnormal affect or abnormal behaviors during the examination. Patient is not suicidal. Initial Vital Signs Initial Vital Signs: Vital Signs Temperature 97.7 F 04/23/20 14:30 Pulse Rate 75 04/23/20 14:30 Respiratory Rate 16 04/23/20 14:30 Blood Pressure 141/87 H 04/23/20 14:30 Pulse Oximetry 97 04/23/20 14:30 <Ki Mahoney DO - Last Filed: 04/27/20 18:22> Initial Vital Signs Initial Vital Signs: Vital Signs Temperature 97.7 F 04/23/20 14:30 Pulse Rate 75 04/23/20 14:30 Respiratory Rate 16 04/23/20 14:30 Blood Pressure 141/87 H 04/23/20 14:30 Pulse Oximetry 97 04/23/20 14:30 Scores <JAMES Mullen - Last Filed: 04/23/20 23:11> GCS Jessica coma scale eye opening: Spontaneous [place] coma scale verbal response: Orientated Jessica coma scale motor response: Obey commands [place] coma scale total score: 15 qSOFA Altered Mental Status (GCS <15): No Respiratory rate greater than/equal to 22: No Systolic blood pressure less than or equal to 100: No qSOFA Total: 0 0-1 Not High Risk 1-3 High risk Course <JAMES Mullen - Last Filed: 04/23/20 23:11> Orders Ordered: Discontinued Medications Cephalexin HCl (Keflex) 500 mg PO NOW ONE Stop: 04/23/20 16:23 Last Admin: 04/23/20 16:50 Dose: 500 mg Documented by: ASHLEY Hydromorphone HCl (Dilaudid) 1 mg IV NOW ONE Stop: 04/23/20 15:16 Last Admin: 04/23/20 15:24 Dose: 1 mg Documented by: SAMMY Sodium Chloride (Normal Saline 0.9%) 1,000 mls @ 150 mls/hr IV CONT ELISABETH Last Infusion: 04/23/20 17:13 Dose: 0 mls/hr Documented by: Admin: 04/23/20 15:18 Dose: 150 mls/hr Documented by: SAMMY Ketorolac Tromethamine (Toradol) 15 mg IV NOW ONE Stop: 04/23/20 15:14 Last Admin: 04/23/20 15:19 Dose: 15 mg Documented by: SAMMY Ondansetron HCl (Zofran) 4 mg IV NOW ONE Stop: 04/23/20 15:14 Last Admin: 04/23/20 15:19 Dose: 4 mg Documented by: SAMMY Reevaluation(s) Reevaluation #1: Patient reports pain is well managed at this time after toward our and 1 dose of Dilaudid and no nausea at this time. Time: 16:00 Vital Signs Vital signs: Vital Signs - 8 hr 04/23/20 16:04 04/23/20 16:37 04/23/20 17:00 Pulse Rate 63 61 67 Respiratory Rate 16 Blood Pressure 125/85 132/90 Pulse Oximetry 100 96 97 <Ki Mahoney DO - Last Filed: 04/27/20 18:22> Orders Ordered: Discontinued Medications Cephalexin HCl (Keflex) 500 mg PO NOW ONE Stop: 04/23/20 16:23 Last Admin: 04/23/20 16:50 Dose: 500 mg Documented by: ASHLEY Hydromorphone HCl (Dilaudid) 1 mg IV NOW ONE Stop: 04/23/20 15:16 Last Admin: 04/23/20 15:24 Dose: 1 mg Documented by: SAMMY Sodium Chloride (Normal Saline 0.9%) 1,000 mls @ 150 mls/hr IV CONT ELISABETH Last Infusion: 04/23/20 17:13 Dose: 0 mls/hr Documented by: Admin: 04/23/20 15:18 Dose: 150 mls/hr Documented by: SAMMY Ketorolac Tromethamine (Toradol) 15 mg IV NOW ONE Stop: 04/23/20 15:14 Last Admin: 04/23/20 15:19 Dose: 15 mg Documented by: SAMMY Ondansetron HCl (Zofran) 4 mg IV NOW ONE Stop: 04/23/20 15:14 Last Admin: 04/23/20 15:19 Dose: 4 mg Documented by: SAMMY Vital Signs Vital signs: Vital Signs - 8 hr 04/23/20 16:04 04/23/20 16:37 04/23/20 17:00 Pulse Rate 63 61 67 Respiratory Rate 16 Blood Pressure 125/85 132/90 Pulse Oximetry 100 96 97 MDM - Male Genitourinary <EMMANUEL MullenP - Last Filed: 04/23/20 23:11> Differential Diagnosis Differential diagnosis: Likely urinary tract infection and other (Kidney stone, kidney infection, hydronephrosis) Medical Records Attestation: I reviewed the patient's medical records. Lab Data Attestation: I reviewed the patient's lab results. Result diagrams: 04/23/20 14:39 04/23/20 14:39 Labs: Lab Results 04/23/20 04/23/20 04/23/20 Range/Units 14:39 14:39 14:39 WBC 10.8 (4.5-11.0) X10^3/uL RBC 4.90 (4.5-5.9) X10^6/uL Hgb 15.0 (13.5-17.5) g/dL Hct 45.0 (41-53) % MCV 91.9 (80-100) fL MCH 30.7 (26-34) PG MCHC 33.4 (30-36) % RDW 14.4 (11.6-14.8) % Plt Count 313 (150-400) X10^3/uL Neut % (Auto) 75.2 H (50-75) % Lymph % (Auto) 15.5 L (25-40) % Ritchie % (Auto) 7.5 (3-14) % Eos % (Auto) 1.0 L (2-4) % Baso % (Auto) 0.8 (0-2) % Neut # (Auto) 8100 H (8448-7736) /uL Lymph # (Auto) 1700 (4689-8006) /uL Ritchie # (Auto) 800 (0-900) /uL Eos # (Auto) 100 (0-450) /uL Baso # (Auto) 100 (0-100) /uL Sodium 139 (137-145) mmol/L Potassium 4.8 (3.4-5.1) mmol/L Chloride 107 (98-107) mmol/L Carbon Dioxide 25 (22-32) mmol/L BUN 16 (9-20) mg/dL Creatinine 1.32 H (0.66-1.25) mg/dL Estimated GFR 57.9 L (>60) mL/min BUN/Creatinine Ratio 12.1 (6-22) Glucose 91 (70-100) mg/dL Lactate 1.4 (0.7-2.1) mmol/L Calcium 10.2 (8.4-10.2) mg/dL Urine RBC (0-5/HPF) Urine WBC (0-5/HPF) Ur Squamous Epith Cells (0-5/HPF) Urine Bacteria (None) Ur Culture Indicated? 04/23/20 Range/Units 15:42 WBC (4.5-11.0) X10^3/uL RBC (4.5-5.9) X10^6/uL Hgb (13.5-17.5) g/dL Hct (41-53) % MCV (80-100) fL MCH (26-34) PG MCHC (30-36) % RDW (11.6-14.8) % Plt Count (150-400) X10^3/uL Neut % (Auto) (50-75) % Lymph % (Auto) (25-40) % Ritchie % (Auto) (3-14) % Eos % (Auto) (2-4) % Baso % (Auto) (0-2) % Neut # (Auto) (7488-9879) /uL Lymph # (Auto) (9855-8103) /uL Ritchie # (Auto) (0-900) /uL Eos # (Auto) (0-450) /uL Baso # (Auto) (0-100) /uL Sodium (137-145) mmol/L Potassium (3.4-5.1) mmol/L Chloride (98-107) mmol/L Carbon Dioxide (22-32) mmol/L BUN (9-20) mg/dL Creatinine (0.66-1.25) mg/dL Estimated GFR (>60) mL/min BUN/Creatinine Ratio (6-22) Glucose (70-100) mg/dL Lactate (0.7-2.1) mmol/L Calcium (8.4-10.2) mg/dL Urine RBC >100/hpf H (0-5/HPF) Urine WBC 10-30/hpf H (0-5/HPF) Ur Squamous Epith Cells 0-1 /hpf (0-5/HPF) Urine Bacteria Occasional (0-1) (None) Ur Culture Indicated? Specimen cultured Urine Dip Bedside Urine Glucose Negative Bedside Urine Bilirubin - Negative Bedside Urine Ketone - Negative Urine Specific [place] 1.030 Bedside Urine Occult Blood +++ Bedside Urine pH 6.0 Bedside Urine Protein +/- 15 Bedside Urine Urobilinogen - Negative Bedside Urine Nitrite - Negative Bedside Urine Leukocytes - Negative Esterase MDM Narrative Medical decision making narrative: This is a 50-year-old male who return to ED after he was diagnosed with left ureter stone 6 days ago with chief complain of left flank pain and nausea. KUB was done at that time showing a 6 mm stone on the distal ureter near the UVJ with mild left hydronephrosis and hydroureter with perinephric stranding. Also, there are two additional stones in bilateral kidney in size 1 and 5 mm. Urine test was negative at that time. No growth in urine culture. No leukocytosis and normal kidney function test result at that time. Patient reports has been taking Percocet mostly once a day in the morning manage pain but today the pain was not well managed with this regimen. No leukocytosis today. Normal lactate. Kidney function is very mildly decreased with CR of 1.32 and eGFR of 57.9. POC Urine test show +++ occult blood with micro urine test showing 10-30/hpf of WBC and >100/hpf of RBC and occasional urine bacteria. Urine culture is pending. Patient was treated with 1st dose Keflex 500 mg given abnormal urine micro test. Pain was well managed after Toradol 15mg and Dilaudid 1mg IV with 4mg Zofran for nausea. The patient received gentle hydration while in ED. Additional CT or other imaging tests were deferred. Patient advised to continue with current pain medication regimen more frequently as needed and Flomax. Patient advised to hydrate adequately and to follow-up with Dr. Keith. Strict return precautions discussed with patient and he verbalized understanding and in agreement with treatment plan. Dr. Mahoney consulted with physical, urine, lab results and previous visit findings for treatment plan and disposition options. <Ki Mahoney, DO - Last Filed: 04/27/20 18:22> Lab Data Labs: Lab Results 04/23/20 04/23/20 04/23/20 Range/Units 14:39 14:39 14:39 WBC 10.8 (4.5-11.0) X10^3/uL RBC 4.90 (4.5-5.9) X10^6/uL Hgb 15.0 (13.5-17.5) g/dL Hct 45.0 (41-53) % MCV 91.9 (80-100) fL MCH 30.7 (26-34) PG MCHC 33.4 (30-36) % RDW 14.4 (11.6-14.8) % Plt Count 313 (150-400) X10^3/uL Neut % (Auto) 75.2 H (50-75) % Lymph % (Auto) 15.5 L (25-40) % Ritchie % (Auto) 7.5 (3-14) % Eos % (Auto) 1.0 L (2-4) % Baso % (Auto) 0.8 (0-2) % Neut # (Auto) 8100 H (5330-1705) /uL Lymph # (Auto) 1700 (8768-8295) /uL Ritchie # (Auto) 800 (0-900) /uL Eos # (Auto) 100 (0-450) /uL Baso # (Auto) 100 (0-100) /uL Sodium 139 (137-145) mmol/L Potassium 4.8 (3.4-5.1) mmol/L Chloride 107 (98-107) mmol/L Carbon Dioxide 25 (22-32) mmol/L BUN 16 (9-20) mg/dL Creatinine 1.32 H (0.66-1.25) mg/dL Estimated GFR 57.9 L (>60) mL/min BUN/Creatinine Ratio 12.1 (6-22) Glucose 91 (70-100) mg/dL Lactate 1.4 (0.7-2.1) mmol/L Calcium 10.2 (8.4-10.2) mg/dL Urine RBC (0-5/HPF) Urine WBC (0-5/HPF) Ur Squamous Epith Cells (0-5/HPF) Urine Bacteria (None) Ur Culture Indicated? 04/23/20 Range/Units 15:42 WBC (4.5-11.0) X10^3/uL RBC (4.5-5.9) X10^6/uL Hgb (13.5-17.5) g/dL Hct (41-53) % MCV (80-100) fL MCH (26-34) PG MCHC (30-36) % RDW (11.6-14.8) % Plt Count (150-400) X10^3/uL Neut % (Auto) (50-75) % Lymph % (Auto) (25-40) % Ritchie % (Auto) (3-14) % Eos % (Auto) (2-4) % Baso % (Auto) (0-2) % Neut # (Auto) (0006-7649) /uL Lymph # (Auto) (1061-4912) /uL Ritchie # (Auto) (0-900) /uL Eos # (Auto) (0-450) /uL Baso # (Auto) (0-100) /uL Sodium (137-145) mmol/L Potassium (3.4-5.1) mmol/L Chloride (98-107) mmol/L Carbon Dioxide (22-32) mmol/L BUN (9-20) mg/dL Creatinine (0.66-1.25) mg/dL Estimated GFR (>60) mL/min BUN/Creatinine Ratio (6-22) Glucose (70-100) mg/dL Lactate (0.7-2.1) mmol/L Calcium (8.4-10.2) mg/dL Urine RBC >100/hpf H (0-5/HPF) Urine WBC 10-30/hpf H (0-5/HPF) Ur Squamous Epith Cells 0-1 /hpf (0-5/HPF) Urine Bacteria Occasional (0-1) (None) Ur Culture Indicated? Specimen cultured Urine Dip Bedside Urine Glucose Negative Bedside Urine Bilirubin - Negative Bedside Urine Ketone - Negative Urine Specific [place] 1.030 Bedside Urine Occult Blood +++ Bedside Urine pH 6.0 Bedside Urine Protein +/- 15 Bedside Urine Urobilinogen - Negative Bedside Urine Nitrite - Negative Bedside Urine Leukocytes - Negative Esterase Discharge Plan Departure Patient Disposition: Home Clinical Impression: Kidney stones Discharge Date/Time: 04/23/20 17:12 Instructions: DI for Kidney Stones Activity Restrictions/Additional Instructions: You have been diagnosed with [6 mm kidney stone in left distal ureter near UVJ with left hydronephrosis and Jackie phrenic stranding. Please hydrate adequately with steady oral intake. There has increased white count in her urine microscopic test and will treat as for an infection. You were medicated with 1st dose of antibiotic medication Keflex in ED. please continue with Keflex 4 times a day for next 7 days.]. What to do: *Take your medications as directed. Please use Percocet 1 tab as needed for pain. Continue with Flomax once a day. You can use anti nausea medications Zofran as needed that you have at home. This to medication have been transmitted to [facility]. *Follow up with your primary care provider/ Dr. Keith in 2-3 days, call for an appointment. Let them know you were seen in the ED and that we asked you to be seen in follow up. *Return to ED if you have any new, worsening, or concerning symptoms, such as [worsening pain, unable to tolerate fluids, difficulty with voiding, fever, increasing flank pain, chest pain, breathing difficulty or any acute concerns]. Prescriptions: New oxycodone-acetaminophen [Percocet] 5-325 mg tablet 1 tab PO Q8H PRN (Reason: pain) Qty: 10 RF: 0 cephalexin [Keflex] 500 mg capsule 500 mg PO Q6H 7 Days Qty: 28 RF: 0 No Action oxycodone-acetaminophen 10-325 mg tablet 1 tab PO Q6H PRN (Reason: pain) Qty: 10 RF: 0 tamsulosin [Flomax] 0.4 mg capsule 0.4 mg PO .PRN RF: 0 ibuprofen 600 mg tablet 600 mg PO Q4-6H PRNRF: 0 meclizine 25 mg tablet,chewable 25 mg PO TID PRN (Reason: dizziness) Qty: 14 RF: 0 ibuprofen 600 mg tablet 600 mg PO Q6-8H PRN (Reason: pain) Qty: 90 RF: 0 ketorolac 10 mg tablet 10 mg PO Q6H PRN (Reason: pain) Qty: 14 RF: 0 tamsulosin [Flomax] 0.4 mg capsule 0.4 mg PO DAILY Qty: 10 RF: 0 ondansetron 4 mg tablet,disintegrating 4 mg PO TID-QID PRN (Reason: nausea and vomiting) Qty: 10 RF: 0 oxycodone-acetaminophen [Percocet] 5-325 mg tablet 1 tab PO Q4-6H PRN (Reason: pain) Qty: 12 RF: 0 ondansetron 4 mg tablet,disintegrating 4 mg PO Q6-8H PRN (Reason: nausea and vomiting) Qty: 12 RF: 0 Referrals: Jacquelin Keith MD [Physician] - Isac Haines MD [Primary Care Provider] - <Ki Mahoney DO - Last Filed: 04/27/20 18:22> Cosign ED Attending Cosignature Attestation: Dr Mahoney Co-Sign Statement: I was available for consultation during this patient's emergency department visit. This chart is signed by myself for administrative purposes only. I did not have direct contact with this patient during this visit. They were seen independently by the APC.
[2020-04-23] MEDS: SODIUM CHLORIDE 0.9% 1,000 ML 150 ML IV (15:18)
[2020-04-23] MEDS: KETOROLAC 60 MG/2 ML VIAL 15 MG IV (15:19)
[2020-04-23] MEDS: ONDANSETRON 4 MG/2 ML INJ IV (15:19)
[2020-04-23] MEDS: HYDROMORPHONE 1 MG INJ IV (15:24)
[2020-04-23 15:26] LABS: Add Manual Diff / Slide Review NO; Basophils Absolute Auto 100 /uL (0-100); Basophils Percent Auto 0.8 % (0-2); Eosinophils Absolute Auto 100 /uL (0-450); Lymphocytes Absolute Auto 1700 /uL (1100-4500); Lymphocytes Percent Auto 15.5 % (25-40); Mean Corpuscular HGB Conc 33.4 % (30-36); Mean Corpuscular Hemoglobin 30.7 PG (26-34); Mean Corpuscular Volume 91.9 fL (80-100); Monocytes Absolute Auto 800 /uL (0-900); Monocytes Percent Auto 7.5 % (3-14); Neutrophils Absolute Auto 8100 /uL (1500-7000); Neutrophils Percent Auto 75.2 % (50-75); Platelet Count 313 X10^3/uL (150-400); Red Cell Distribution Width 14.4 % (11.6-14.8); White Blood Cell Count 10.8 X10^3/uL (4.5-11.0)
[2020-04-23 15:31] LABS: Lactate (Lactic Acid) 1.4 mmol/L (0.7-2.1)
[2020-04-23 15:32] LABS: BUN Creatinine Ratio 12.1 (6-22); Blood Urea Nitrogen 16 mg/dL (9-20); Calcium 10.2 mg/dL (8.4-10.2); Carbon Dioxide 25 mmol/L (22-32); Chloride 107 mmol/L (98-107); Estimated Glomerular Filt Rate 57.9 mL/min (>60); Glucose 91 mg/dL (70-100); HEMOLYSIS < 15 (0-50); Potassium 4.8 mmol/L (3.4-5.1); Sodium 139 mmol/L (137-145)
[2020-04-23 16:04] VITALS: BP 125/85; PULSE 63; RESP 16; O2SAT 100
[2020-04-23 16:12] LABS: RBC Urine >100/HPF (0-5/HPF); Squamous Epithelial Cell Urine 0-1 /HPF (0-5/HPF)
[2020-04-23 16:13] LABS: Bacteria Urine Occasional (0-1); Culture Indicated Urine Specimen Cultured; WBC Urine 10-30/HPF (0-5/HPF)
[2020-04-23 16:37] VITALS: PULSE 61; O2SAT 96
[2020-04-23] MEDS: cephALEXin 250 MG CAPSULE 500 MG PO (16:50)
[2020-04-23 17:00] VITALS: BP 132/90; PULSE 67; O2SAT 97
== END 2020-04-23 17:12 | disposition home or self-care (01) ==
PROVIDERS: Emergency Provider Nurse Practitioner Family; PCP Internal Medicine
DX: N20.0 Calculus of kidney (principal); R11.0 Nausea; R31.9 Hematuria, unspecified
CPT/HCPCS: 36415; 80048; 81003; 81015; 83605; 85025; 87086; 96361; 96374; 96375; 99284; J1170; J1885; J2405

== ENCOUNTER → 2020-04-26 12:16 | Outpatient (CLI) | payer OTHER, MEDICAID, SELFPAY ==
--- NOTE | 2020-04-26 12:17 | DI.RAD.S_ITS ---
PROCEDURE: XR KUB INDICATIONS: kidney stones TECHNIQUE: One view of the abdomen acquired. COMPARISON: [facility], CR, XR KUB, 04/08/2020, 10:01. FINDINGS: Surgical changes and devices: Right upper quadrant surgical clips. There are also lower abdominal surgical clips. Bowel: Bowel gas pattern is normal. Mild stool. Soft tissues: Right nephrolithiasis measuring 5 mm is unchanged Bones: No suspicious bony lesions. IMPRESSION: Unchanged right nephrolithiasis. Dictated by: Lacho Schwarz M.D. on 04/26/2020 at 14:10 Approved by: Lacho Schwarz M.D. on 04/26/2020 at 14:18
== END ==
PROVIDERS: PCP Internal Medicine; Referring Provider Internal Medicine; Visit Provider Specialist
DX: N20.0 Calculus of kidney (principal)
CPT/HCPCS: 74018

== ENCOUNTER → 2020-04-29 14:09 | Outpatient (CLI) | payer OTHER, MEDICAID, SELFPAY | PROVIDERS: PCP Internal Medicine; Visit Provider Specialist | DX: N20.0 Calculus of kidney (principal); N39.0 Urinary tract infection, site not specified | CPT/HCPCS: 81002; 87086; 99214 ==

== ENCOUNTER → 2020-05-01 15:04 | Outpatient (CLI) | payer OTHER, MEDICAID, SELFPAY ==
[2020-05-01 16:12] LABS: COVID19 -Nasal RAPID Negative (Negative)
== END ==
PROVIDERS: PCP Internal Medicine; Visit Provider Specialist
DX: Z11.59 Encounter for screening for other viral diseases (principal)
CPT/HCPCS: 87635; C9803

== ENCOUNTER 2020-05-03 11:36 | Day surgery (SDC) | payer OTHER, MEDICAID, SELFPAY ==
[2020-04-30 07:57] VITALS: BMI 26.5
[2020-05-03] VITALS (7 sets, daily range): BP systolic 90–113; BP diastolic 65–81; PULSE 54–70; RESP 9–16; TEMP 36.4–36.7; O2SAT 94–96; BMI 26.5
--- NOTE | 2020-05-03 | DI.RAD.S_ITS ---
PROCEDURE: XR ABDOMEN 1V INDICATIONS: BLADDER STONE TECHNIQUE: One view of the abdomen acquired. COMPARISON: [facility], , ABDOMEN 1 VIEW, 04/08/2014, 17:00. FINDINGS: Spot fluoroscopic intraoperative image demonstrating contrast in the distal left ureter. Dictated by: Lacho Schwarz M.D. on 05/03/2020 at 16:15 Approved by: Lacho Schwarz M.D. on 05/03/2020 at 16:16
--- NOTE | 2020-05-03 | DI.RAD.S_ITS ---
PROCEDURE: XR KUB INDICATIONS: Ureteral calculus TECHNIQUE: One view of the abdomen acquired. COMPARISON.: [facility], CT, CT KIDNEY URETER BLADDER (KUB), 04/17/2020, 22:44. [facility], CR, XR ABDOMEN 1V, 05/03/2020, 13:2Renal pole 8. [facility], CR, XR KUB, 04/26/2020, 12:18. FINDINGS: Surgical changes and devices: None. Bowel: Bowel gas pattern is normal. Soft tissues: Calcification is present overlying the inferior right renal pole, unchanged. No calcification is identified overlying the expected course of the left ureter, as noted prior calcification on 04/17/2020. Liver shadow appears enlarged. Bones: No suspicious bony lesions. IMPRESSION: Unchanged calcification overlying the right renal shadow. No calcifications identified overlying the ureteral course. Dictated by: Joanna Peralta M.D. on 05/03/2020 at 15:43 Approved by: Joanna Peralta M.D. on 05/03/2020 at 15:45
--- NOTE | 2020-05-03 12:16 | PM.PREOP ---
Pre-operative Note Interval Note History & Physical reviewed/Exam performed by Physician: Yes Changes to H&P: No
[2020-05-03] MEDS: LACTATED RINGERS 1,000 ML 25 ML IV (12:18)
[2020-05-03] MEDS: CEFAZOLIN 2 GM/100 ML FROZ.PIGGY IV (13:04)
--- NOTE | 2020-05-03 13:26 | SUR.OPER ---
Lithotomy on padded OR bed, head on pillow, arms secured on padded arm boards at <90 degrees abduction. Legs secured in padded yellow fins stirrups.
[2020-05-03] MEDS: IOPAMIDOL 15 ML VIAL INJ (13:31)
[2020-05-03] MEDS: BELLADONNA/OPIUM SUPPOSITORIES 1 EACH PR (13:36)
--- NOTE | 2020-05-03 13:44 | PM.OP.1 ---
Operative Date/Time/Diagnoses Date of procedure: 05/03/20 Time of procedure: 13:44 Pre-op diagnosis: 1. Obstructing 6 x 8 mm left distal ureteral calculus. 2. Left renal colic. Post-op diagnosis: other (1. Same 2. Interval passage of stone into bladder.) Procedure & Clinicians Procedure: 1. Cystoscopy and litholapaxy (stone passed from left ureter). 2. Cystoscopy and left ureteroscopy. Same procedure as scheduled: No (Interval passage of stone in the bladder.) Indications: 1. Obstructing left distal ureteral calculus. 2. Left renal colic. Click Yes if Unassisted: Yes Anesthesia Type: General Operative Notes Findings: 1. Urethra-normal caliber without lesion or stricture. 2. External sphincter-coapted. 3. Prostate-3.5 cm length with mild lateral lobe hyperplasia and moderate elevation of median lobe. 4. Bladder-trace to 1+ trabeculation. Normal right ureteral orifice. Left ureteral orifice is edematous and erythematous. A spiculated calculus was identified within the base of the bladder. 5. Left ureter-no evidence of stone or residual stone fragments. Closure Type: not applicable Specimen(s): other (Stone fragments from left ureter via passage into bladder.) Estimated Blood Loss (mL): 0 Blood products transfused: none Procedure in detail: The patient was positioned in supine and was administered general anesthesia. He was then repositioned in semi lithotomy the lower abdomen, genitalia, and groin were prepped and draped in sterile fashion. Next, the 22 [place] panendoscope was passed lower urinary tract with the findings as described above. A foreign body grasper was then utilized to engage the stone. It crumbled quite readily. All but a few tiny fragments were removed physically or via irrigation from the bladder proper. The stone material was gathered submitted to laboratory for routine crystallographic analysis. Next, the panendoscope was removed and the semi rigid ureteral scope was introduced lower urinary tract period was then carefully insinuated into the left ureteral orifice and passed proximally with the findings as described above. The semi rigid ureteral scope was then removed. The panendoscope was reintroduced into the bladder and the contents drained a final time. The panendoscope was then removed. The patient was then repositioned supine, awakened, and transferred to recovery in stable condition. Complications: none Post-operative Condition: stable Disposition: PACU Plan for aftercare: Discharge home
--- NOTE | 2020-05-03 14:07 | SUR.PHASEI ---
Aroused spontaneously, denies pain/nausea. HOB elevated
--- NOTE | 2020-05-03 14:08 | SUR.PHASEI ---
Dr. Keith here, speaking with patient.
--- NOTE | 2020-05-03 14:16 | SUR.PHASEI ---
1412 Pt alert, oriented, talking appropriately, tolerating PO intake well. Reported off to Honey Rashid RN
[2020-05-15 11:27] LABS: Ca oxalate dihydrate 95; Size 4X5; Stone Analysis Source NOT GIVEN
[2020-05-15 11:28] LABS: Hydroxyapatite 5
== END 2020-05-03 14:31 | disposition home or self-care (01) ==
PROVIDERS: PCP Internal Medicine; Referring Provider Specialist; Visit Provider Specialist
PROC: (CPT 52318; principal; 2020-05-03 12:45)
DX: N20.1 Calculus of ureter (principal)
CPT/HCPCS: 52318; 52351; 74018; 76000; 82365; 82962; J0690; J1100; J2405; J2704; J3010

== ENCOUNTER 2020-05-16 07:26 | Emergency (ER) | payer OTHER, MEDICAID, SELFPAY ==
[2020-05-16 07:35] VITALS: BP 129/89; PULSE 73; RESP 18; TEMP 36.6; O2SAT 98; BMI 26.5
--- NOTE | 2020-05-16 07:40 | ED_ITS ---
HPI - Back Pain/Injury General Chief Complaint: Back Pain/Injury Stated Complaint: low back pain since yest. Time Seen by Provider: 05/16/20 07:39 Source: patient Mode of arrival: Ambulatory Limitations: no limitations History of Present Illness HPI Narrative: The patient presents with complaints of low back pain. Onset of pain was yesterday evening. He was lifting a miter saw, he developed acute onset of central low back pain. He is seen here frequently for kidney stones. He has no mid back pain, no pain radiating to the genitalia. He recently had a kidney stone extracted. He has no dysuria or hematuria. He has recurrent low back pain, he describes his current pain as new in something he has done experienced. He has no bowel bladder incontinence with current symptoms. He denies lower extremity numbness or weakness. He is ambulatory. Pain increases in the central low back when moving. Related Data Home Medications Medication Instructions Recorded Confirmed ibuprofen 600 mg tablet 600 mg PO Q4-6H PRN tab 03/11/20 04/30/20 tamsulosin 0.4 mg capsule 0.4 mg PO .PRN cap 03/11/20 05/03/20 Previous Rx's Medication Instructions Recorded oxycodone-acetaminophen [Percocet] 1 tab PO Q8H PRN #10 tab 04/23/20 oxycodone 5 mg PO Q4H PRN #14 tab 05/03/20 oxycodone-acetaminophen [Percocet] 1 tab PO Q6H PRN #6 tab 05/16/20 Allergies Allergy/AdvReac Type Severity Reaction Status Date / Time No Known Drug Allergies Allergy Verified 05/03/20 12:00 Review of Systems Constitutional Constitutional: Denies body ache(s), Denies chills, Denies fever(s) and Denies weakness Cardiovascular Cardiovascular: Denies dyspnea Respiratory Respiratory: Denies cough and Denies dyspnea Gastrointestinal Gastrointestinal: Denies abdominal pain, Denies nausea and Denies vomiting Comments: No bowel incontinence Genitourinary Genitourinary: Denies hematuria, Denies dysuria and Denies urinary incontinence Genitourinary: Denies hematuria, Denies dysuria and Denies urinary incontinence Musculoskeletal Musculoskeletal: Denies numbness Comments: Her central lumbar pain as noted in HPI Integumentary/Breasts Skin/Breast: Denies rash Neurologic Neurologic: Denies numbness and Denies weakness Patient History Medical History Calcium nephrolithiasis Chronic back pain Crohn disease (~1999) CVA (cerebral vascular accident) (~2016) History of nephrolithiasis Iritis Kidney stones (~2007) Personal history of stroke with current residual effects (~2017) PFO (patent foramen ovale) Surgical History Anesthesia History of bowel resection History of lithotripsy S/P cholecystectomy S/P exploratory laparotomy (~1999) S/P knee surgery S/P patent foramen ovale closure (~2017) Family History Father History of heart disease Hyperlipidemia Grandmother Diabetes mellitus Grandmother Diabetes mellitus Social History marital status: household members: spouse Smoking Status: Current every day smoker alcohol intake: current Smoking Status: Current every day smoker tobacco type: cigarettes alcohol intake frequency: a few times a month Substance Use Type: does not use Exam Initial Vital Signs Initial Vital Signs: Vital Signs Temperature 98 F 05/16/20 07:35 Pulse Rate 73 05/16/20 07:35 Respiratory Rate 18 05/16/20 07:35 Blood Pressure 129/89 05/16/20 07:35 Pulse Oximetry 98 05/16/20 07:35 HENMT Head: normocephalic and atraumatic Resp Auscultation: clear to auscultation bilaterally Cardio Rate: regular rate Rhythm: regular rhythm Heart Sounds: S1 normal, S2 normal, no click, no gallops, no murmurs and no rubs Pulses: normal peripheral pulses GI Palpation: soft and No tender Percussion: normal to percussion Auscultation: normal bowel sounds Back/Spine/Pelvis Other: Palpable tenderness without deformity over the central, lower lumbar spine. No SI tenderness. No paraspinal muscle tenderness or spasm. No evidence of trauma, no palpable deformity. Skin General: no rashes or lesions noted Neuro Other: The patient is alert and oriented. The motor and sensory exam the lower extremities is intact. Knee jerk reflexes are normal. Course Course Course Narrative: The patient has obtained relief with the Toradol injection. He has a history of chronic back pain, he has an exacerbation as noted in the HPI. I did prescribe 6 Percocet, as well as ibuprofen. He should follow-up with his PCM for further management if necessary. Orders Ordered: Discontinued Medications Ketorolac Tromethamine (Ketorolac 60 Mg/2 Ml Vial) 60 mg IM NOW ONE Stop: 05/16/20 07:50 Last Admin: 05/16/20 08:00 Dose: 60 mg Documented by: MMINOR Vital Signs Vital signs: Vital Signs - 8 hr 05/16/20 07:35 05/16/20 09:06 Temperature 98 F Pulse Rate 73 68 Respiratory Rate 18 Blood Pressure 129/89 130/81 Pulse Oximetry 98 98 MDM - Back Pain/Injury Lab Data Labs: Urine Dip Bedside Urine Glucose Negative Bedside Urine Bilirubin - Negative Bedside Urine Ketone +/- 5 Urine Specific [place] 1.030 Bedside Urine Occult Blood - Negative Bedside Urine pH 6 Bedside Urine Protein - Negative Bedside Urine Urobilinogen - Negative Bedside Urine Nitrite - Negative Bedside Urine Leukocytes - Negative Esterase Discharge Plan Departure Patient Disposition: Home Clinical Impression: Acute lumbar myofascial strain Qualifiers: Encounter type: initial encounter Qualified Code(s): S39.012A - Strain of muscle, fascia and tendon of lower back, initial encounter Instructions: DI for Back Strain or Sprain Activity Restrictions/Additional Instructions: Ibuprofen 600 mg every 6 hours as needed for pain. Percocet every 4-6 hours as needed for added pain control. Six will be dispensed. Apply ice to the low back frequently for the next 2 days. Converted he packs on day 3 as needed. Follow-up with your doctor if you have ongoing needs for low back pain. Return the ER as needed. Prescriptions: New oxycodone-acetaminophen [Percocet] 5-325 mg tablet 1 tab PO Q6H PRN (Reason: pain) Qty: 6 RF: 0 No Action tamsulosin [Flomax] 0.4 mg capsule 0.4 mg PO .PRN RF: 0 ibuprofen 600 mg tablet 600 mg PO Q4-6H PRN (Reason: Pain) RF: 0 oxycodone 5 mg tablet 5 mg PO Q4H PRN (Reason: pain) Qty: 14 RF: 0 oxycodone-acetaminophen [Percocet] 5-325 mg tablet 1 tab PO Q8H PRN (Reason: pain) Qty: 10 RF: 0 Referrals: Isac Haines MD [Primary Care Provider] -
[2020-05-16] MEDS: KETOROLAC 60 MG/2 ML VIAL IM (08:00)
[2020-05-16 09:06] VITALS: BP 130/81; PULSE 68; O2SAT 98
== END 2020-05-16 09:06 | disposition home or self-care (01) ==
PROVIDERS: Emergency Provider Emergency Medicine; PCP Internal Medicine
DX: S39.012A Strain of muscle, fascia and tendon of lower back, initial encounter (principal); Z87.442 Personal history of urinary calculi
CPT/HCPCS: 81003; 96372; 99281; 99283; J1885

== ENCOUNTER 2020-07-08 05:29 | Emergency (ER) | payer OTHER, MEDICAID, SELFPAY ==
[2020-07-08 05:36] VITALS: BP 126/86; PULSE 70; RESP 18; TEMP 36.6; O2SAT 98; BMI 26.5
--- NOTE | 2020-07-08 05:46 | ED_ITS ---
HPI - General Adult General Chief complaint: Urogenital-Male Stated complaint: kidney stone, pain since last night Time Seen by Provider: 07/08/20 05:46 Source: patient Mode of arrival: Ambulatory History of Present Illness HPI narrative: With a history of Crohn's disease who has had his terminal ileum resected and has a long history of nephrolithiasis. Most recent stone was 6 x 8 mm passed at the end of April eventually with surgical intervention. He had been doing well until last night approximately 10:00 p.m. when he began having right-sided increasing flank pain. It progressed to severe pain by 4 in the morning and he was unable to tolerate the pain any longer. He did take a Flomax last night but has not taken any additional pain medications. He denies fever, cough, chills, palpitations, chest pain, abdominal pain, vomiting. He does note that he has chronic diarrhea due to his Crohn's disease and small-bowel resect ion. He complains of severe right flank pain that is nonradiating. He has not noticed gross hematuria. He states that it feels like all those other kidney stones. He has had significant imaging over the course of his lifetime with multiple CT KUB is a and x-rays. He states that he typically is able to pass majority of his stones and simply needs help with acute pain management. Related Data Home Medications Medication Instructions Recorded Confirmed ibuprofen 600 mg tablet 600 mg PO Q4-6H PRN tab 03/11/20 04/30/20 tamsulosin 0.4 mg capsule 0.4 mg PO .PRN cap 03/11/20 05/03/20 Previous Rx's Medication Instructions Recorded oxycodone-acetaminophen [Percocet] 1 tab PO Q8H PRN #10 tab 04/23/20 oxycodone 5 mg PO Q4H PRN #14 tab 05/03/20 oxycodone-acetaminophen [Percocet] 1 tab PO Q6H PRN #6 tab 05/16/20 oxycodone-acetaminophen 1 tab PO Q6H PRN 7 Days #20 tab 07/08/20 Allergies Allergy/AdvReac Type Severity Reaction Status Date / Time No Known Drug Allergies Allergy Verified 05/03/20 12:00 Review of Systems Review of Systems Narrative: Remainder of review of systems including constitutional, ENT, cardiovascular, respiratory, GI, , musculoskeletal, skin, neurologic and psychiatric systems reviewed and are unremarkable except as noted in HPI. Patient History Medical History Chronic back pain Crohn disease (~1999) Iritis Kidney stones (~2007) Personal history of stroke with current residual effects (~2016) Surgical History Anesthesia History of bowel resection History of lithotripsy S/P cholecystectomy S/P exploratory laparotomy (~1999) S/P knee surgery S/P patent foramen ovale closure (~2017) Family History Father History of heart disease Hyperlipidemia Grandmother Diabetes mellitus Grandmother Diabetes mellitus Social History marital status: household members: spouse Smoking Status: Current every day smoker alcohol intake: current Smoking Status: Current every day smoker tobacco type: cigarettes alcohol intake frequency: a few times a month Substance Use Type: does not use Exam Narrative Exam Narrative: General: Healthy appearing, in moderate distress. Able to give a complete and coherent history. Well-nourished well-developed HEENT: Moist mucous membranes, normal sclera with reactive pupils, Respiratory: Lungs are clear to auscultation, no wheezing no rales no rhonchi. Full and symmetrical air movement Cardiac: Regular rate and rhythm no murmurs no bruits Abdomen: Soft, nontender, good bowel tones, moderate right flank pain flank pain Skin: Warm and dry, no rashes Neurologic: Grossly neurologically intact with no obvious asymmetries or abnormalities Extremities: No trauma, well perfused Psych: Cooperative, appropriate insight and affect Initial Vital Signs Initial Vital Signs: Vital Signs Temperature 97.8 F 07/08/20 05:36 Pulse Rate 70 07/08/20 05:36 Respiratory Rate 18 07/08/20 05:36 Blood Pressure 126/86 07/08/20 05:36 Pulse Oximetry 98 07/08/20 05:36 Course Orders Ordered: ED Orders 07/08/20 05:46 Complete Blood Count AUTO DIFF Stat Comprehensive Metabolic Panel Stat 07/08/20 06:25 Urine Microscopic Stat Sodium Chloride (Normal Saline 0.9%) 1,000 mls @ 1,000 mls/hr IV BOLUS ONE Stop: 07/08/20 06:53 Last Admin: 07/08/20 06:00 Dose: 1,000 mls/hr Documented by: Discontinued Medications Hydromorphone HCl (Hydromorphone 1 Mg Inj) 1 mg IV NOW ONE Stop: 07/08/20 05:55 Last Admin: 07/08/20 06:00 Dose: 1 mg Documented by: Ketorolac Tromethamine (Ketorolac 60 Mg/2 Ml Vial) 15 mg IV NOW ONE Stop: 07/08/20 05:55 Last Admin: 07/08/20 06:00 Dose: 15 mg Documented by: Vital Signs Vital signs: Vital Signs - 8 hr 07/08/20 05:36 Temperature 97.8 F Pulse Rate 70 Respiratory Rate 18 Blood Pressure 126/86 Pulse Oximetry 98 Medical Decision Making Medical Records Medical records reviewed: Yes I reviewed the patient's medical records. Lab Data Lab results reviewed: Yes I reviewed the patient's lab results. Result diagrams: 07/08/20 05:46 07/08/20 05:46 Labs: Lab Results 07/08/20 07/08/20 Range/Units 05:46 05:46 WBC 8.2 (4.5-11.0) X10^3/uL RBC 5.30 (4.5-5.9) X10^6/uL Hgb 16.0 (13.5-17.5) g/dL Hct 47.7 (41-53) % MCV 90.1 (80-100) fL MCH 30.3 (26-34) PG MCHC 33.6 (30-36) % RDW 14.3 (11.6-14.8) % Plt Count 347 (150-400) X10^3/uL Neut % (Auto) 55.8 (50-75) % Lymph % (Auto) 31.2 (25-40) % [place] % (Auto) 9.2 (3-14) % Eos % (Auto) 2.5 (2-4) % Baso % (Auto) 1.3 (0-2) % Neut # (Auto) 4600 (2782-9601) /uL Lymph # (Auto) 2600 (1335-6287) /uL [place] # (Auto) 800 (0-900) /uL Eos # (Auto) 200 (0-450) /uL Baso # (Auto) 100 (0-100) /uL Sodium 138 (137-145) mmol/L Potassium 4.3 (3.4-5.1) mmol/L Chloride 104 (98-107) mmol/L Carbon Dioxide 25 (22-32) mmol/L BUN 15 (9-20) mg/dL Creatinine 0.89 (0.66-1.25) mg/dL Estimated GFR > 60.0 (>60) mL/min BUN/Creatinine Ratio 16.9 (6-22) Glucose 132 H (70-100) mg/dL Calcium 10.0 (8.4-10.2) mg/dL Total Bilirubin 0.3 (0.2-1.3) mg/dL AST 32 (17-59) IU/L ALT 54 H (<50) IU/L Alkaline Phosphatase 105 (38-126) U/L Total Protein 8.0 (6.3-8.2) g/dL Albumin 4.7 (3.5-5.0) g/dL Globulin 3.3 (1.7-4.1) g/dL Albumin/Globulin Ratio 1.4 (1.0-2.8) Urine Dip Bedside Urine Glucose Negative Bedside Urine Bilirubin + 1 Bedside Urine Ketone - Negative Urine Specific [place] 1.030 Bedside Urine Occult Blood - Negative Bedside Urine pH 6 Bedside Urine Protein +/- 15 Bedside Urine Urobilinogen - Negative Bedside Urine Nitrite - Negative Bedside Urine Leukocytes + 70 Esterase Point of care testing: Urine Dip Bedside Urine Glucose Negative Bedside Urine Bilirubin + 1 Bedside Urine Ketone - Negative Urine Specific [place] 1.030 Bedside Urine Occult Blood - Negative Bedside Urine pH 6 Bedside Urine Protein +/- 15 Bedside Urine Urobilinogen - Negative Bedside Urine Nitrite - Negative Bedside Urine Leukocytes + 70 Esterase MDM Narrative Medical decision making narrative: 50-year-old gentleman with history of recurrent kidney stones with increasing renal colic pain since 10:00 a.m. last night. After a L of fluid, Toradol mg of Dilaudid he is feeling significantly better. Labs are reassuring without evidence of acute renal failure or significant infection. Urinalysis shows small leukocytes no red cells and will be cultured. If culture returns positive patient will be contacted with antibiotic recommendations. At this time he is safe for home discharge. Discharge Plan Departure Patient Disposition: Home Clinical Impression: Kidney stones Instructions: DI for Kidney Stones Activity Restrictions/Additional Instructions: Thank you for coming in today Your symptoms are absolutely consistent with a recurrent renal stone. With your previous history and typical ability to pass them without medical intervention, no additional imaging was done today. Labs do not suggest any infection. Your pain was adequately controlled with fluids, Toradol and IV Dilaudid. I have given you a prescription of Percocet to use for pain at home and you have Flomax available to continue until the stone passes. If your having increasing pain or feel that the stone is not moving, please feel free to return to the emergency room or follow up directly with Dr. Keith I wish you the best Prescriptions: New oxycodone-acetaminophen 5-325 mg tablet 1 tab PO Q6H PRN (Reason: pain) 7 Days Qty: 20 RF: 0 No Action tamsulosin [Flomax] 0.4 mg capsule 0.4 mg PO .PRN RF: 0 ibuprofen 600 mg tablet 600 mg PO Q4-6H PRN (Reason: Pain) RF: 0 oxycodone 5 mg tablet 5 mg PO Q4H PRN (Reason: pain) Qty: 14 RF: 0 oxycodone-acetaminophen [Percocet] 5-325 mg tablet 1 tab PO Q8H PRN (Reason: pain) Qty: 10 RF: 0 oxycodone-acetaminophen [Percocet] 5-325 mg tablet 1 tab PO Q6H PRN (Reason: pain) Qty: 6 RF: 0 Referrals: Isac Haines MD [Primary Care Provider] -
[2020-07-08] MEDS: SODIUM CHLORIDE 0.9% 1,000 ML 1000 ML IV (06:00)
[2020-07-08] MEDS: HYDROMORPHONE 1 MG INJ IV (06:00)
[2020-07-08] MEDS: KETOROLAC 60 MG/2 ML VIAL 15 MG IV (06:00)
[2020-07-08 06:04] LABS: Add Manual Diff / Slide Review NO; Basophils Absolute Auto 100 /uL (0-100); Basophils Percent Auto 1.3 % (0-2); Eosinophils Absolute Auto 200 /uL (0-450); Eosinophils Percent Auto 2.5 % (2-4); Hematocrit 47.7 % (41-53); Lymphocytes Absolute Auto 2600 /uL (1100-4500); Lymphocytes Percent Auto 31.2 % (25-40); Mean Corpuscular HGB Conc 33.6 % (30-36); Mean Corpuscular Hemoglobin 30.3 PG (26-34); Mean Corpuscular Volume 90.1 fL (80-100); Monocytes Absolute Auto 800 /uL (0-900); Monocytes Percent Auto 9.2 % (3-14); Neutrophils Absolute Auto 4600 /uL (1500-7000); Neutrophils Percent Auto 55.8 % (50-75); Platelet Count 347 X10^3/uL (150-400); Red Cell Distribution Width 14.3 % (11.6-14.8); White Blood Cell Count 8.2 X10^3/uL (4.5-11.0)
[2020-07-08 06:08] LABS: Alanine Aminotransferase 54 IU/L (<50); Albumin 4.7 g/dL (3.5-5.0); Albumin Globulin Ratio 1.4 (1.0-2.8); Alkaline Phosphatase 105 U/L (38-126); Aspartate Aminotransferase 32 IU/L (17-59); BUN Creatinine Ratio 16.9 (6-22); Bilirubin Total 0.3 mg/dL (0.2-1.3); Blood Urea Nitrogen 15 mg/dL (9-20); Carbon Dioxide 25 mmol/L (22-32); Chloride 104 mmol/L (98-107); Estimated Glomerular Filt Rate > 60.0 mL/min (>60); Globulin 3.3 g/dL (1.7-4.1); Glucose 132 mg/dL (70-100); HEMOLYSIS < 15 (0-50); Potassium 4.3 mmol/L (3.4-5.1); Sodium 138 mmol/L (137-145)
[2020-07-08 06:39] LABS: Bacteria Urine Few (2-10); RBC Urine 1-5/HPF (0-5/HPF)
[2020-07-08 06:41] LABS: Calcium Oxalate Crystals Urine Few; Culture Indicated Urine Specimen Cultured; Hyaline Casts Urine 0-1/LPF; Mucus Urine 2+ (Negative); Squamous Epithelial Cell Urine 0-1 /HPF (0-5/HPF); WBC Urine 30-100/HPF (0-5/HPF)
[2020-07-08] MEDS: OXYCODONE/ACETAMINOPHEN 5/325 TABLET 1 TAB PO (06:47)
[2020-07-08 06:53] VITALS: BP 138/91; PULSE 66; RESP 16; O2SAT 97
== END 2020-07-08 06:54 | disposition home or self-care (01) ==
PROVIDERS: Emergency Provider Emergency Medicine; PCP Internal Medicine
DX: N20.0 Calculus of kidney (principal); Z87.898 Personal history of other specified conditions; K50.90 Crohn's disease, unspecified, without complications
CPT/HCPCS: 36415; 80053; 81003; 81015; 85025; 87086; 96361; 96374; 96375; 99283; 99284; J1170; J1885

== ENCOUNTER 2020-09-17 14:41 | Emergency (ER) | payer OTHER, MEDICAID, SELFPAY ==
[2020-09-17 14:45] VITALS: BP 135/86; PULSE 83; RESP 14; TEMP 36.4; O2SAT 97; BMI 25.8
[2020-09-17 17:21] VITALS: BP 128/86; PULSE 78; TEMP 36.7; O2SAT 98
--- NOTE | 2020-09-17 17:44 | ED_ITS ---
HPI - Dental/Oral General Chief complaint: Dental/Oral Stated complaint: INFECTED TOOTH Time Seen by Provider: 09/17/20 17:04 Source: patient Mode of arrival: Ambulatory Limitations: no limitations History of Present Illness HPI Narrative: 50-year-old gentleman with history of Crohn's disease presents complaining of left upper quadrant dental pain. Tooth 13. Had a large filling fall out about 2 weeks ago. He has an appointment with his dentist on Wednesday however it has been getting increasingly sore over the past 3 days now with inflammation tenderness and swelling over the maxilla. He is concerned that it is infected and comes in for antibiotics in anticipation of needing that prior to treatment on Wednesday with his dentist. Complaint: tooth pain Location: Tooth # (13) Related Data Home Medications Medication Instructions Recorded Confirmed ibuprofen 600 mg tablet 600 mg PO Q4-6H PRN tab 03/11/20 04/30/20 tamsulosin 0.4 mg capsule 0.4 mg PO .PRN cap 03/11/20 05/03/20 Previous Rx's Medication Instructions Recorded oxycodone-acetaminophen [Percocet] 1 tab PO Q8H PRN #10 tab 04/23/20 oxycodone 5 mg PO Q4H PRN #14 tab 05/03/20 oxycodone-acetaminophen [Percocet] 1 tab PO Q6H PRN #6 tab 05/16/20 amoxicillin 500 mg PO TID #21 cap 09/17/20 oxycodone-acetaminophen 1 tab PO Q6H PRN #14 tab 09/17/20 Allergies Allergy/AdvReac Type Severity Reaction Status Date / Time No Known Drug Allergies Allergy Verified 09/17/20 14:47 Review of Systems Review of Systems Narrative: Pertinent positive and negative findings as per HPI Remainder of review of systems is otherwise unremarkable for Constitutional: Fevers, chills, weakness ENT: No sore throat, neck pain, ear pain CV: Chest pain, palpitations, Respiratory: Cough, wheeze, dyspnea GI: Nausea, vomiting, diarrhea, : Dysuria, hematuria, Patient History Medical History Chronic back pain Crohn disease (~1999) Iritis Kidney stones (~2007) Personal history of stroke with current residual effects (~2016) Surgical History Anesthesia History of bowel resection History of lithotripsy S/P cholecystectomy S/P exploratory laparotomy (~1999) S/P knee surgery S/P patent foramen ovale closure (~2017) Family History Father History of heart disease Hyperlipidemia Grandmother Diabetes mellitus Grandmother Diabetes mellitus Social History marital status: household members: spouse Smoking Status: Current every day smoker alcohol intake: current Smoking Status: Current every day smoker tobacco type: cigarettes alcohol intake frequency: a few times a month Substance Use Type: does not use Exam Narrative Exam Narrative: General: Alert appropriate in no acute distress HEENT: Swelling over the left maxilla. Erythema around 213 without pointing abscess and large defect in tooth13 Respiratory: Able to speak in full sentences, no obvious respiratory distress Skin: No obvious rashes, warm and dry Neurologic: Grossly intact no obvious asymmetries or abnormalities Psych, appropriate insight and affect, cooperative Initial Vital Signs Initial Vital Signs: Vital Signs Temperature 97.6 F 09/17/20 14:45 Pulse Rate 83 09/17/20 14:45 Respiratory Rate 14 09/17/20 14:45 Blood Pressure 135/86 09/17/20 14:45 Pulse Oximetry 97 09/17/20 14:45 Course Orders Ordered: Discontinued Medications Acetaminophen (Acetaminophen 325 Mg Tablet) 325 mg PO NOW ONE Stop: 09/17/20 17:39 Last Admin: 09/17/20 17:45 Dose: 325 mg Documented by: Amoxicillin (Amoxicillin 250 Mg Capsule) 500 mg PO NOW ONE Stop: 09/17/20 17:39 Last Admin: 09/17/20 17:45 Dose: 500 mg Documented by: Ibuprofen (Ibuprofen 400 Mg Tablet) 400 mg PO NOW ONE Stop: 09/17/20 17:39 Last Admin: 09/17/20 17:45 Dose: 400 mg Documented by: Vital Signs Vital signs: Vital Signs - 8 hr 09/17/20 14:45 09/17/20 17:21 Temperature 97.6 F 98.0 F Pulse Rate 83 78 Respiratory Rate 14 Blood Pressure 135/86 128/86 Pulse Oximetry 97 98 MDM - Dental/Oral MDM Narrative Medical decision making narrative: 50-year-old gentleman with dental infection after filling fell out of 213. He is scheduled to have it fixed in the meantime will put him on amoxicillin and give him a brief course of oxycodone to use in the evening for the severe pain that is developing. He is safe for home discharge Discharge Plan Departure Patient Disposition: Home Clinical Impression: Dental abscess Instructions: DI for Dental Pain Activity Restrictions/Additional Instructions: Using 400 mg of ibuprofen (2 [id number] pills) and 1 Tylenol every 6 hours can be very helpful in controlling pain. For severe pain you can use 400 mg of ibuprofen and 1 Percocet. 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 Please continue to use the warm water washes in the clove oil as this has been effective for you Make sure you keep your appointment on Wednesday with your dentist I hope you heal quickly Prescriptions: New oxycodone-acetaminophen 5-325 mg tablet 1 tab PO Q6H PRN (Reason: pain) Qty: 14 RF: 0 amoxicillin 500 mg capsule 500 mg PO TID Qty: 21 RF: 0 No Action tamsulosin [Flomax] 0.4 mg capsule 0.4 mg PO .PRN RF: 0 ibuprofen 600 mg tablet 600 mg PO Q4-6H PRN (Reason: Pain) RF: 0 oxycodone 5 mg tablet 5 mg PO Q4H PRN (Reason: pain) Qty: 14 RF: 0 oxycodone-acetaminophen [Percocet] 5-325 mg tablet 1 tab PO Q8H PRN (Reason: pain) Qty: 10 RF: 0 oxycodone-acetaminophen [Percocet] 5-325 mg tablet 1 tab PO Q6H PRN (Reason: pain) Qty: 6 RF: 0 Referrals: Isac Haines MD [Primary Care Provider] -
[2020-09-17] MEDS: IBUPROFEN 400 MG TABLET PO (17:45)
[2020-09-17] MEDS: ACETAMINOPHEN 325 MG TABLET PO (17:45)
[2020-09-17] MEDS: AMOXICILLIN 250 MG CAPSULE 500 MG PO (17:45)
[2020-09-17 17:57] VITALS: BP 135/74; PULSE 72; RESP 16; O2SAT 98
== END 2020-09-17 17:57 | disposition home or self-care (01) ==
PROVIDERS: Emergency Provider Emergency Medicine; PCP Internal Medicine
DX: K04.7 Periapical abscess without sinus (principal)
CPT/HCPCS: 99283

== ENCOUNTER 2020-10-21 11:11 | Emergency (ER) | payer OTHER, MEDICAID, SELFPAY ==
[2020-10-21] VITALS (7 sets, daily range): BP systolic 140–157; BP diastolic 91–99; PULSE 56–78; RESP 14; TEMP 36.4; O2SAT 87–100
[2020-10-21] MEDS: SODIUM CHLORIDE 0.9% 1,000 ML 1000 ML IV (11:34)
[2020-10-21] MEDS: KETOROLAC 30 MG/ML VIAL 15 MG IV (11:34)
[2020-10-21 11:40] LABS: Add Manual Diff / Slide Review NO; Basophils Absolute Auto 0 /uL (0-100); Basophils Percent Auto 0.2 % (0-2); Eosinophils Absolute Auto 100 /uL (0-450); Eosinophils Percent Auto 1.8 % (2-4); Hematocrit 48.1 % (41-53); Hemoglobin 16.3 g/dL (13.5-17.5); Lymphocytes Absolute Auto 1900 /uL (1100-4500); Lymphocytes Percent Auto 22.1 % (25-40); Mean Corpuscular HGB Conc 33.8 % (30-36); Mean Corpuscular Hemoglobin 30.3 PG (26-34); Mean Corpuscular Volume 89.5 fL (80-100); Monocytes Absolute Auto 600 /uL (0-900); Monocytes Percent Auto 7.5 % (3-14); Neutrophils Absolute Auto 5700 /uL (1500-7000); Neutrophils Percent Auto 68.4 % (50-75); Platelet Count 315 X10^3/uL (150-400); Red Blood Cell Count 5.38 X10^6/uL (4.5-5.9); Red Cell Distribution Width 14.7 % (11.6-14.8); White Blood Cell Count 8.4 X10^3/uL (4.5-11.0)
[2020-10-21 11:55] LABS: Blood Urea Nitrogen 10 mg/dL (9-20); Calcium 10.5 mg/dL (8.4-10.2); Carbon Dioxide 26 mmol/L (22-32); Chloride 103 mmol/L (98-107); Estimated Glomerular Filt Rate > 60.0 mL/min (>60); Glucose 104 mg/dL (70-100); HEMOLYSIS < 15 (0-50); Potassium 4.5 mmol/L (3.4-5.1); Sodium 139 mmol/L (137-145)
--- NOTE | 2020-10-21 12:10 | DI.CT.S_ITS ---
PROCEDURE: CT KIDNEY URETER BLADDER (KUB) INDICATIONS: hx of kidney stone, right side pain TECHNIQUE: Noncontrast 5 mm thick sections acquired from the diaphragms to the symphysis. 5 mm thick coronal and sagittal reformats were then performed. For radiation dose reduction, the following was used: automated exposure control, adjustment of mA and/or kV according to patient size. COMPARISON: [facility], CT, CT KIDNEY URETER BLADDER (KUB), 11/03/2019, 18:21. [facility], CR, XR KUB, 05/03/2020, 11:40. [facility], CR, XR ABDOMEN 1V, 05/03/2020, 13:28. [facility], CT, CT KIDNEY URETER BLADDER (KUB), 04/17/2020, 22:44. FINDINGS: Image quality: Excellent. Lung bases: Left basilar atelectasis. Heart size is normal. Postsurgical changes in the interatrial septum. Tiny hiatal hernia. Urinary system: There is a 4 mm stone in the distal right ureter. There is moderate right hydronephrosis and hydroureter with periureteral stranding and perinephric stranding. There are 2 nonobstructive stones in the inferior pole of the right kidney measuring 4 mm and 6 mm. A couple of small 1-2 mm nonobstructive stones are seen in left kidney. No left hydronephrosis. Kidneys are normal in size. Bladder wall may be mildly thickened but bladder is not fully distended. No bladder stones. Other solid organs: Hepatic steatosis. Liver is prominent in size. Gallbladder is surgically absent. Pancreas is normal in contours. Spleen is normal in size. No adrenal nodules. Peritoneum and bowel: Post surgical changes in cecum. Unenhanced bowel loops demonstrate normal wall thickness and caliber. No free fluid or air. Nodes and vessels: No retroperitoneal or mesenteric adenopathy by size criteria. Aorta and inferior vena cava are normal in caliber. Abdominal wall: No ventral hernias. Pelvis: No free pelvic fluid. No inguinal hernias or adenopathy. Bones: No suspicious bony lesions. No vertebral body compression fractures. IMPRESSION: 1. There is a 4 mm obstructive stone in the distal right ureter causing moderate right hydronephrosis. 2. Nephrolithiasis with nonobstructive stones bilaterally. Dictated by: Lionel Dick M.D. on 10/21/2020 at 13:40 Approved by: Lionel Dick M.D. on 10/21/2020 at 13:51
[2020-10-21] MEDS: HYDROMORPHONE 1 MG INJ IV (12:16)
[2020-10-21] MEDS: ONDANSETRON 4 MG/2 ML INJ IV (12:17)
--- NOTE | 2020-10-21 12:18 | ED_ITS ---
HPI - Male Genitourinary <Stepan CombsJAMES Poe - Last Filed: 10/21/20 14:12> General Chief complaint: Urogenital-Male Stated complaint: kidney stone 2-3 day Time Seen by Provider: 10/21/20 11:15 Source: patient Mode of arrival: Ambulatory Limitations: no limitations History of Present Illness HPI Narrative: This is a 50-year-old male, smoker, has past medical history significant for a kidney stone and Crohn's disease with bowel resection presents to ED with his friend with chief complain of right-sided pain that started 2 days ago now it has been moved to side pain in right area with nausea. Denies urinary symptoms. Patient denies fever, chills. Patient reports he is not currently taking any medications. He has established care with Dr. Keith as his urologist. Patient reports his symptoms are very typical for kidney stone pain. PCP Dr. Haines. Related Data Home Medications Medication Instructions Recorded Confirmed tamsulosin 0.4 mg capsule 0.4 mg PO PRN PRN cap 03/11/20 10/21/20 Previous Rx's Medication Instructions Recorded ondansetron 4 mg PO Q6-8H PRN #7 tab 10/21/20 oxycodone-acetaminophen [Percocet] 1 tab PO Q8H PRN #14 tab 10/21/20 tamsulosin 0.4 mg PO BEDTIME #7 cap 10/21/20 Allergies Allergy/AdvReac Type Severity Reaction Status Date / Time No Known Drug Allergies Allergy Verified 10/21/20 11:21 Review of Systems <JAMES Mullen - Last Filed: 10/21/20 14:12> Review of Systems Narrative: General: Denies fever, chills, fatigue, malaise, sweats. HEENT: Denies sinus pain, ear pain, sore throat, difficulty swallowing, dizziness. Respiratory: Denies dyspnea, cough, wheezing, hemoptysis, sputum. Cardiovascular: Denies chest pain, palpitations, orthopnea, edema. Gastrointestinal: Denies (+) nausea, vomiting, abdominal pain, diarrhea, constipation, melena. : See HPI Musculoskeletal: Denies weakness, joint pain or bony pain. Skin: Denies rash, skin lesions, or other. Neurologic: Denies weakness, headache, numbness, change in speech, confusion, seizures, incoordination. Psychiatric: No concerning psychosocial issues. 12-point review of systems is negative except for those stated above. Patient History <JAMES Mullen - Last Filed: 10/21/20 14:12> Medical History Chronic back pain Crohn disease (~1999) Iritis Kidney stones (~2007) Personal history of stroke with current residual effects (~2017) Surgical History Anesthesia History of bowel resection History of lithotripsy S/P cholecystectomy S/P exploratory laparotomy (~1999) S/P knee surgery S/P patent foramen ovale closure (~2017) Family History Father History of heart disease Hyperlipidemia Grandmother Diabetes mellitus Grandmother Diabetes mellitus Social History marital status: household members: spouse Smoking Status: Current every day smoker alcohol intake: current Smoking Status: Current every day smoker tobacco type: cigarettes alcohol intake frequency: a few times a month Substance Use Type: does not use Exam <JAMES Mullen - Last Filed: 10/21/20 14:12> Narrative Exam Narrative: GEN: Alert, oriented x 3 and in acute distress from pain while holding right side. Declines to talk to this staff much due to pain, if you read my chart, it's all there. Head: Normal cephalic, atraumatic. No scalp or temporal tenderness, palpable mass or rash. EYES: No subconjunctival hemorrhage, exudate and sclera non-icteric. ENT: Hearing grossly intact. Nose without bleeding, purulent discharge or devia tion. Uvula in midline, airway patent. Neck: Trachea in midline. No JVD, non-tender without lymphadenopathy. No masses or thyroid megaly. Supple, non-tender and no meningeal signs. CARDIAC: Normal regular rate and rhythm without murmurs, gallops, or rubs. No chest wall tenderness. No peripheral edema, cyanosis or pallor. Capillary refill is less than 2 seconds. RESPIRATORY: Lungs are clear to auscultate bilaterally. No cough, wheezes, rales, or rhonchi. No stridor, respiratory distress, increase work of breathing, or accessary muscle used. ABD: Abdomen soft, nontender and non-distended. No guarding or rebound tenderness to palpate. Bowel sounds are normal in all 4 quadrants. There is no palpable masses or organomegaly. Tender to palpate in right groin. EXT: Full painless ROM of all extremities with no loss of sensation, strength, effusion or edema. SKIN: Warm, dry, normal color for patient. No erythema, lesions or rash over visible areas. BACK: Nontender without deformity or crepitance. No flank tenderness to percussion. NEUROLOGICAL: Alert and oriented to place, time and person. Sensation and motor function intact bilaterally. No facial droops, dysphasia. PSYCHIATRIC: No hallucinations, abnormal affect or abnormal behaviors during the examination. Patient is not suicidal. Initial Vital Signs Initial Vital Signs: Vital Signs Temperature 97.6 F 10/21/20 11:18 Pulse Rate 78 10/21/20 11:18 Respiratory Rate 14 10/21/20 11:18 Blood Pressure 143/97 H 10/21/20 11:18 Pulse Oximetry 99 10/21/20 11:18 <Arcenio Marte DO - Last Filed: 10/21/20 16:49> Initial Vital Signs Initial Vital Signs: Vital Signs Temperature 97.6 F 10/21/20 11:18 Pulse Rate 78 10/21/20 11:18 Respiratory Rate 14 10/21/20 11:18 Blood Pressure 143/97 H 10/21/20 11:18 Pulse Oximetry 99 10/21/20 11:18 Scores <JAMES Mullen - Last Filed: 10/21/20 14:12> GCS Jessica coma scale eye opening: Spontaneous Loda coma scale verbal response: Orientated Jessica coma scale motor response: Obey commands Jessica coma scale total score: 15 Course <JAMES Mullen - Last Filed: 10/21/20 14:12> Orders Ordered: ED Orders 10/21/20 11:30 Basic Metabolic Panel Stat Complete Blood Count AUTO DIFF Stat 10/21/20 12:10 CT kidney ureter bladder (KUB) Stat 10/21/20 13:04 Urine Microscopic Stat Discontinued Medications Hydromorphone HCl (Hydromorphone 1 Mg Inj) 1 mg IV NOW ONE Stop: 10/21/20 12:11 Last Admin: 10/21/20 12:16 Dose: 1 mg Documented by: BIJAL Hydromorphone HCl (Hydromorphone 1 Mg Inj) 1 mg IV NOW ONE Stop: 10/21/20 12:58 Sodium Chloride (Normal Saline 0.9%) 1,000 mls @ 1,000 mls/hr IV BOLUS ONE Stop: 10/21/20 12:22 Last Infusion: 10/21/20 12:40 Dose: 0 mls/hr Documented by: Admin: 10/21/20 11:34 Dose: 1,000 mls/hr Documented by: INGRID Ketorolac Tromethamine (Ketorolac 30 Mg/Ml Vial) 15 mg IV NOW ONE Stop: 10/21/20 11:24 Last Admin: 10/21/20 11:34 Dose: 15 mg Documented by: INGRID Ondansetron HCl (Ondansetron 4 Mg/2 Ml Inj) 4 mg IV NOW ONE Stop: 10/21/20 12:11 Last Admin: 10/21/20 12:17 Dose: 4 mg Documented by: BIJAL Reevaluation(s) Reevaluation #1: Reports pain recurring and rates as 8/10 and requesting additional dose of Dilaudid. Reports Flomax ran out 2 days ago which he takes during kidney stone symptoms. 2nd dose of Dilaudid ordered and asessment completed. Time: 13:15 Reevaluation #2: Patient reports patient is in comfortable state at this time. Reports patient is in comfortable state at this time. Waiting for CT results and explained patient and his friend that this has been delayed due to multiple acutely ill patients in ED. Time: 13:41 Reevaluation #3: Contacted CT for update on KUB results. Time: 13:54 Vital Signs Vital signs: Vital Signs - 8 hr 10/21/20 11:18 10/21/20 12:27 10/21/20 12:30 Temperature 97.6 F Pulse Rate 78 60 59 L Respiratory Rate 14 Blood Pressure 143/97 H 157/99 H Pulse Oximetry 99 100 100 10/21/20 12:45 10/21/20 13:00 10/21/20 14:17 Temperature Pulse Rate 72 56 L 68 Respiratory Rate Blood Pressure 149/95 H 143/91 H Pulse Oximetry 96 87 L 97 10/21/20 14:18 Temperature Pulse Rate 69 Respiratory Rate Blood Pressure 140/97 H Pulse Oximetry 98 <Arcenio Marte, - Last Filed: 10/21/20 16:49> Orders Ordered: ED Orders 10/21/20 11:30 Basic Metabolic Panel Stat Complete Blood Count AUTO DIFF Stat 10/21/20 12:10 CT kidney ureter bladder (KUB) Stat 10/21/20 13:04 Urine Microscopic Stat Discontinued Medications Hydromorphone HCl (Hydromorphone 1 Mg Inj) 1 mg IV NOW ONE Stop: 10/21/20 12:11 Last Admin: 10/21/20 12:16 Dose: 1 mg Documented by: BIJAL Hydromorphone HCl (Hydromorphone 1 Mg Inj) 1 mg IV NOW ONE Stop: 10/21/20 12:58 Sodium Chloride (Normal Saline 0.9%) 1,000 mls @ 1,000 mls/hr IV BOLUS ONE Stop: 10/21/20 12:22 Last Infusion: 10/21/20 12:40 Dose: 0 mls/hr Documented by: Admin: 10/21/20 11:34 Dose: 1,000 mls/hr Documented by: INGRID Ketorolac Tromethamine (Ketorolac 30 Mg/Ml Vial) 15 mg IV NOW ONE Stop: 10/21/20 11:24 Last Admin: 10/21/20 11:34 Dose: 15 mg Documented by: INGRID Ondansetron HCl (Ondansetron 4 Mg/2 Ml Inj) 4 mg IV NOW ONE Stop: 10/21/20 12:11 Last Admin: 10/21/20 12:17 Dose: 4 mg Documented by: BIJAL Vital Signs Vital signs: Vital Signs - 8 hr 10/21/20 11:18 10/21/20 12:27 10/21/20 12:30 Temperature 97.6 F Pulse Rate 78 60 59 L Respiratory Rate 14 Blood Pressure 143/97 H 157/99 H Pulse Oximetry 99 100 100 10/21/20 12:45 10/21/20 13:00 10/21/20 14:17 Temperature Pulse Rate 72 56 L 68 Respiratory Rate Blood Pressure 149/95 H 143/91 H Pulse Oximetry 96 87 L 97 10/21/20 14:18 Temperature Pulse Rate 69 Respiratory Rate Blood Pressure 140/97 H Pulse Oximetry 98 MDM - Male Genitourinary <Stepan CombsMarcelinaJAMES Clements - Last Filed: 10/21/20 14:12> Differential Diagnosis Differential diagnosis: Likely urinary tract infection and other (Renal stone, colitis) Medical Records Attestation: I reviewed the patient's medical records. Lab Data Attestation: I reviewed the patient's lab results. Result diagrams: 10/21/20 11:30 10/21/20 11:30 Labs: Lab Results 10/21/20 10/21/20 10/21/20 Range/Units 11:30 11:30 13:04 WBC 8.4 (4.5-11.0) X10^3/uL RBC 5.38 (4.5-5.9) X10^6/uL Hgb 16.3 (13.5-17.5) g/dL Hct 48.1 (41-53) % MCV 89.5 (80-100) fL MCH 30.3 (26-34) PG MCHC 33.8 (30-36) % RDW 14.7 (11.6-14.8) % Plt Count 315 (150-400) X10^3/uL Neut % (Auto) 68.4 (50-75) % Lymph % (Auto) 22.1 L (25-40) % Davis % (Auto) 7.5 (3-14) % Eos % (Auto) 1.8 L (2-4) % Baso % (Auto) 0.2 (0-2) % Neut # (Auto) 5700 (6926-7436) /uL Lymph # (Auto) 1900 (5519-7752) /uL Davis # (Auto) 600 (0-900) /uL Eos # (Auto) 100 (0-450) /uL Baso # (Auto) 0 (0-100) /uL Sodium 139 (137-145) mmol/L Potassium 4.5 (3.4-5.1) mmol/L Chloride 103 (98-107) mmol/L Carbon Dioxide 26 (22-32) mmol/L BUN 10 (9-20) mg/dL Creatinine 0.91 (0.66-1.25) mg/dL Estimated GFR > 60.0 (>60) mL/min BUN/Creatinine Ratio 11.0 (6-22) Glucose 104 H (70-100) mg/dL Calcium 10.5 H (8.4-10.2) mg/dL Urine RBC 5-10/hpf H (0-5/HPF) Urine WBC 0-1/hpf (0-5/HPF) Ur Squamous Epith Cells 0-1 /hpf (0-5/HPF) Urine Bacteria None seen (None) Ur Culture Indicated? Cult not indicated Urine Dip Bedside Urine Glucose Negative Bedside Urine Bilirubin - Negative Bedside Urine Ketone - Negative Urine Specific [place] 1.020 Bedside Urine Occult Blood ++ Bedside Urine pH 6 Bedside Urine Protein - Negative Bedside Urine Urobilinogen - Negative Bedside Urine Nitrite - Negative Bedside Urine Leukocytes - Negative Esterase Imaging Data CT scan - abdomen/pelvis: Radiologist's Impression: [address] [id number] Scan ReportSigned Patient: Maciel Urban RMR#: [id number]: 1970Acct:[id number]/Sex: 50 / MDate of Service: 10/21/20Loc: EDAccession Number: [id number] Procedure: CT kidney ureter bladder (KUB) Ordering Provider: Stepan Oquendo PROCEDURE: CT KIDNEY URETER BLADDER (KUB) INDICATIONS: hx of kidney stone, right side pain TECHNIQUE: Noncontrast 5 mm thick sections acquired from the diaphragms to the symphysis. 5 mm thick coronal and sagittal reformats were then performed. For radiation dose reduction, the following was used: automated exposure control, adjustment of mA and/or kV according to patient size. COMPARISON: [facility], CT, CT KIDNEY URETER BLADDER (KUB), 11/03/2019, 18:21. [facility], CR, XR KUB, 05/03/2020, 11:40. [facility], CR, XR ABDOMEN 1V, 05/03/2020, 13:28. [facility], CT, CT KIDNEY URETER BLADDER (KUB), 020, 22:44. FINDINGS: Image quality: Excellent. Lung bases: Left basilar atelectasis. Heart size is normal. Postsurgical changes in the interatrial septum. Tiny hiatal hernia. Urinary system: There is a 4 mm stone in the distal right ureter. There is moderate right hydronephrosis and hydroureter with periureteral stranding and perinephric stranding. There are 2 nonobstructive stones in the inferior pole of the right kidney measuring 4 mm and 6 mm. A couple of small 1-2 mm nonobstructive stones are seen in left kidney. No left hydronephrosis. Kidneys are normal in size. Bladder wall may be mildly thickened but bladder is not fully distended. No bladder stones. Other solid organs: Hepatic steatosis. Liver is prominent in size. Gallbladder is surgically absent. Pancreas is normal in contours. Spleen is normal in size. No adrenal nodules. Peritoneum and bowel: Post surgical changes in cecum. Unenhanced bowel loops demonstrate normal wall thickness and caliber. No free fluid or air. Nodes and vessels: No retroperitoneal or mesenteric adenopathy by size criteria. Aorta and inferior vena cava are normal in caliber. Abdominal wall: No ventral hernias. Pelvis: No free pelvic fluid. No inguinal hernias or adenopathy. Bones: No suspicious bony lesions. No vertebral body compression fractures. IMPRESSION: 1. There is a 4 mm obstructive stone in the distal right ureter causing moderate right hydronephrosis. 2. Nephrolithiasis with nonobstructive stones bilaterally. Dictated by: Lionel Dick M.D. on 10/21/2020 at 13:40 Approved by: Lionel Dick M.D. on 10/21/2020 at 13:51 MDM Narrative Medical decision making narrative: This is a 50-year-old male who presents to ED with frequent kidney stone history who reports his symptoms are very similar to previous kidney stones. However, Crohn's disease with bowel resection and reports has had diarrhea all day yesterday and has nausea currently from the pain and history of 5 surgeries to remove stones, CT of KUB ordered. Patient reports normal state of health up until 2 days ago until his symptoms started. Denies constitutional symptoms except nausea. Denies urinary symptoms. Patient has ran out of Flomax 2 days ago which he uses when he has kidney stone symptoms. Patient has established care with Dr. Keith which she had seen him once. Labs unremarkable including normal kidney function test and leukocytosis. Urine test appears to be having on infection with negative leukocytosis or nitrites but positive occult blood. KUB CT result shows 4 mm stone in distal right ureter with moderate right hydronephrosis and hydroureter with hydronephrosis and perinephric stranding. There are also 2 nonobstructive stones in inferior pole of the right kidney measuring 4 mm and 6 mm. A couple of small 1-2 mm nonobstructing stones are seen in left kidneys. Patient's pain has controlled with Toradol 15 mg, Zofran 4 mg, and Dilaudid total 2 mg with IV fluid 1 L normal saline. Patient advised to follow-up with Dr. Keith. He is discharged with medications Percocet, Zofran for anti nausea, and Flomax to help sing this stone. Return precautions just with patient and he verbalized understanding in agreement with the treatment plan. <Arcenio Marte DO - Last Filed: 10/21/20 16:49> Lab Data Labs: Lab Results 10/21/20 10/21/20 10/21/20 Range/Units 11:30 11:30 13:04 WBC 8.4 (4.5-11.0) X10^3/uL RBC 5.38 (4.5-5.9) X10^6/uL Hgb 16.3 (13.5-17.5) g/dL Hct 48.1 (41-53) % MCV 89.5 (80-100) fL MCH 30.3 (26-34) PG MCHC 33.8 (30-36) % RDW 14.7 (11.6-14.8) % Plt Count 315 (150-400) X10^3/uL Neut % (Auto) 68.4 (50-75) % Lymph % (Auto) 22.1 L (25-40) % Davis % (Auto) 7.5 (3-14) % Eos % (Auto) 1.8 L (2-4) % Baso % (Auto) 0.2 (0-2) % Neut # (Auto) 5700 (1475-6797) /uL Lymph # (Auto) 1900 (3254-7585) /uL Davis # (Auto) 600 (0-900) /uL Eos # (Auto) 100 (0-450) /uL Baso # (Auto) 0 (0-100) /uL Sodium 139 (137-145) mmol/L Potassium 4.5 (3.4-5.1) mmol/L Chloride 103 (98-107) mmol/L Carbon Dioxide 26 (22-32) mmol/L BUN 10 (9-20) mg/dL Creatinine 0.91 (0.66-1.25) mg/dL Estimated GFR > 60.0 (>60) mL/min BUN/Creatinine Ratio 11.0 (6-22) Glucose 104 H (70-100) mg/dL Calcium 10.5 H (8.4-10.2) mg/dL Urine RBC 5-10/hpf H (0-5/HPF) Urine WBC 0-1/hpf (0-5/HPF) Ur Squamous Epith Cells 0-1 /hpf (0-5/HPF) Urine Bacteria None seen (None) Ur Culture Indicated? Cult not indicated Urine Dip Bedside Urine Glucose Negative Bedside Urine Bilirubin - Negative Bedside Urine Ketone - Negative Urine Specific [place] 1.020 Bedside Urine Occult Blood ++ Bedside Urine pH 6 Bedside Urine Protein - Negative Bedside Urine Urobilinogen - Negative Bedside Urine Nitrite - Negative Bedside Urine Leukocytes - Negative Esterase Discharge Plan Departure Patient Disposition: Home Clinical Impression: Right distal ureteral calculus Instructions: DI for Kidney Stones Activity Restrictions/Additional Instructions: You have been diagnosed with [right distal ureter stone measuring 4 mm. Labs and urine tests are assuring. No indications for infection or obstruction.]. What to do: *Take your medications as directed. Take Percocet as needed for pain. This can cause drowsiness so please do not drive, drink alcohol, or operate heavy equipments. You can take NSAIDS such as Motrin, Aleve, or Naproxen with food to decrease inflammation. You can take [id number] Tylenol as needed for pain as well. Tylenol 650 mg up to 3 times a day. *Follow up with your primary care provider in 2-3 days, call for an appointment. Let them know you were seen in the ED and that we asked you to be seen in follow up. *Return to ED if you have any new, worsening, or concerning symptoms, such as [worsening pain, unable to void, chest pain, breathing difficulty, fever, unable to tolerate fluids or medications, or any other acute symptoms.]. Prescriptions: New tamsulosin 0.4 mg capsule 0.4 mg PO BEDTIME Qty: 7 RF: 0 ondansetron 4 mg tablet,disintegrating 4 mg PO Q6-8H PRN (Reason: nausea and vomiting) Qty: 7 RF: 0 oxycodone-acetaminophen [Percocet] 5-325 mg tablet 1 tab PO Q8H PRN (Reason: pain) Qty: 14 RF: 0 No Action tamsulosin [Flomax] 0.4 mg capsule 0.4 mg PO PRN PRN (Reason: kidney stone) RF: 0 Referrals: Jacquelin Keith MD [Physician] - Isac Haines MD [Primary Care Provider] - <Arcenio Marte DO - Last Filed: 10/21/20 16:49> Cosign ED Attending Cosmiguelature Attestation: I was immediately available in the department for consultation. This do cumentation has been reviewed and I agree with assessment and plan. Supervised by Arcenio Marte DO
[2020-10-21 13:35] LABS: Bacteria Urine None Seen
[2020-10-21 14:02] LABS: RBC Urine 5-10/HPF (0-5/HPF); WBC Urine 0-1/HPF (0-5/HPF)
[2020-10-21 14:03] LABS: Culture Indicated Urine Cult Not Indicated; Squamous Epithelial Cell Urine 0-1 /HPF (0-5/HPF)
--- NOTE | 2020-10-21 15:54 | PC.NURSE ---
2nd dose of dilaudid 1 mg given @ 1300 by Martha Al. Confirmed administration w/ both patient and Martha. Did not save correctly after sign off.
== END 2020-10-21 14:37 | disposition home or self-care (01) ==
PROVIDERS: Emergency Medicine; Emergency Provider Nurse Practitioner Family; PCP Internal Medicine
DX: N20.1 Calculus of ureter (principal); Z87.442 Personal history of urinary calculi; R11.0 Nausea
CPT/HCPCS: 36415; 74176; 80048; 81003; 81015; 85025; 96361; 96374; 96375; 99284; J1170; J1885; J2405

== ENCOUNTER → 2020-10-23 15:26 | Outpatient (CLI) | payer OTHER, MEDICAID, SELFPAY ==
[2020-10-29 19:06] LABS: CaHPO4 (Brushite) 80 % (.); Hydroxyapatite 20 % (.); Size 3x3 mm (.)
== END ==
PROVIDERS: PCP Internal Medicine; Visit Provider Specialist
DX: N20.0 Calculus of kidney (principal); Z87.442 Personal history of urinary calculi
CPT/HCPCS: 51798; 81002; 82365; 99215

== ENCOUNTER 2020-12-30 09:04 | Emergency (ER) | payer OTHER, MEDICAID, SELFPAY ==
[2020-12-30 09:05] VITALS: BP 137/96; PULSE 68; RESP 14; TEMP 36.7; O2SAT 98
--- NOTE | 2020-12-30 09:22 | ED.EXTPRO ---
HPI - Extremity Problem General Chief complaint: Extremity Problem,Nontraumatic Stated complaint: left side hip pain Time Seen by Provider: 12/30/20 09:14 Source: patient Mode of arrival: Ambulatory Limitations: no limitations History of Present Illness HPI Narrative: The patient is a 50-year-old male with history of kidney stones, Crohn's disease with bowel resection presenting today with left buttock pain ongoing for the last couple of days. He has been taken ibuprofen but his last dose was yesterday. He says he has been sitting could every movement hurts. He feels like it is radiating up his back. It is not going down his leg. He has no numbness tingling or weakness of his leg. This is not a kidney stone it is truly pain in his buttock. He does sit at work but is also on a ladder taping. He denies any injury. He says it just has started hurting hand does not seem to be getting any better. Related Data Home Medications Medication Instructions Recorded Confirmed aspirin 81 mg tablet 81 mg PO DAILY 12/30/20 12/30/20 Previous Rx's Medication Instructions Recorded methocarbamol 750 mg tablet 1,500 mg PO Q8H PRN #20 tab 12/30/20 Allergies Allergy/AdvReac Type Severity Reaction Status Date / Time No Known Drug Allergies Allergy Verified 12/30/20 09:14 Review of Systems Review of Systems Narrative: GENERAL: Denies chills,fever HEENT: Denies throat pain RESPIRATORY: Denies dyspnea, cough, wheezing CARDIOVASCULAR: Denies chest pain, palpitations GASTROINTESTINAL: Denies nausea, vomiting MUSCULOSKELETAL: Left buttock pain SKIN: No rash, no laceration, no pruritus NEUROLOGIC: Denies weakness, dizziness, headache, numbness 8 point review of systems is negative except for those stated above and HPI Patient History Medical History Chronic back pain Crohn disease (~1999) Iritis Kidney stones (~2007) Personal history of stroke with current residual effects (~2017) Surgical History Anesthesia History of bowel resection History of lithotripsy S/P cholecystectomy S/P exploratory laparotomy (~1999) S/P knee surgery S/P patent foramen ovale closure (~2017) Family History Father History of heart disease Hyperlipidemia Grandmother Diabetes mellitus Grandmother Diabetes mellitus Social History marital status: household members: spouse Smoking Status: Current every day smoker alcohol intake: current Smoking Status: Current every day smoker tobacco type: cigarettes alcohol intake frequency: a few times a month Substance Use Type: does not use Exam Initial Vital Signs Initial Vital Signs: Vital Signs Temperature 98.0 F 12/30/20 09:05 Pulse Rate 68 12/30/20 09:05 Respiratory Rate 14 12/30/20 09:05 Blood Pressure 137/96 H 12/30/20 09:05 Pulse Oximetry 98 12/30/20 09:05 GENERAL: Alert 50-year-old male no acute distress CARDIOVASCULAR: peripheral pulses in tact, cap refill <2 sec RESPIRATORY: No respiratory distress, speaks in full sentences without difficulty EXTREMITIES: Normal range of motion, no clubbing or edema. Neurovascularly intact Left buttock is painful to touch. He has pain with internal and external hip rotation. No erythema or rash noted. Sensation in lower extremities equal and intact NEUROLOGICAL: Cranial nerves II through XII grossly intact. Normal gait and speech. SKIN: Warm, dry, no petechiae, no rashes or lesions. Course Orders Ordered: Discontinued Medications Ketorolac Tromethamine (Ketorolac 30 Mg/Ml Vial) 30 mg IM NOW ONE Stop: 12/30/20 09:23 Last Admin: 12/30/20 09:29 Dose: 30 mg Documented by: EDGAR Vital Signs Vital signs: Vital Signs - 8 hr 12/30/20 09:05 12/30/20 09:52 Temperature 98.0 F Pulse Rate 68 61 Respiratory Rate 14 16 Blood Pressure 137/96 H 134/89 Pulse Oximetry 98 99 MDM - Extremity (Nontraumatic) MDM Narrative Medical decision making narrative: Patient's symptoms are definitely worse with palpation and movement most consistent with musculoskeletal. He is afebrile no concern for infection or other etiology at this time. Discharge Plan Departure Patient Disposition: Home Clinical Impression: Muscle spasm Instructions: DI for Muscle Spasm Activity Restrictions/Additional Instructions: *You have been diagnosed with the left muscle spasm *What to do: Recommend heating pad, stretching. If is not continues to may require physical therapy and possibly an outpatient MRI. Please follow-up your primary care provider *Continue to take medications as directed Methocarbamol 1500 *Follow up with your primary care provider in 2-3 days *Return to ER if you should have increasing pain numbness tingling weakness or any new, worsening or concerning symptoms Prescriptions: New methocarbamol 750 mg tablet 1,500 mg PO Q8H PRN (Reason: muscle spasm) Qty: 20 RF: 0 No Action aspirin 81 mg Tablet 81 mg PO DAILY RF: 0 Referrals: Isac Haines MD [Primary Care Provider] -
[2020-12-30] MEDS: KETOROLAC 30 MG/ML VIAL IM (09:29)
[2020-12-30 09:52] VITALS: BP 134/89; PULSE 61; RESP 16; O2SAT 99
== END 2020-12-30 09:53 | disposition home or self-care (01) ==
PROVIDERS: Emergency Provider Emergency Medicine; PCP Internal Medicine
DX: M62.838 Other muscle spasm (principal)
CPT/HCPCS: 96372; 99283; J1885

== ENCOUNTER 2021-01-12 12:45 | Emergency (ER) | payer OTHER, MEDICAID, SELFPAY ==
[2021-01-12 12:54] VITALS: BP 134/88; PULSE 75; RESP 14; TEMP 36.7; O2SAT 99
[2021-01-12 13:29] LABS: Bacteria Urine None Seen; RBC Urine None Seen (0-5/HPF)
[2021-01-12 13:31] LABS: Appearance Urine UA CLEAR; Bilirubin Urine UA NEGATIVE (NEGATIVE); Color Urine UA YELLOW; Glucose Urine UA NEGATIVE (Negative); Ketones Urine UA NEGATIVE (NEGATIVE); Leukocyte Esterase Urine UA TRACE (NEGATIVE); Nitrite Urine UA NEGATIVE (Negative); Occult Blood Urine UA NEGATIVE (Negative); Protein Urine UA NEGATIVE (Negative); Specific Gravity Urine UA 1.015 (1.000-1.035); Urobilinogen Urine UA 0.2 E.U./dL (0.2); pH Urine UA 6.5 (4.5-8.0)
[2021-01-12 13:41] LABS: Culture Indicated Urine Cult Not Indicated; Squamous Epithelial Cell Urine 0-1 /HPF (0-5/HPF); WBC Urine 0-1/HPF (0-5/HPF)
--- NOTE | 2021-01-12 16:09 | ED_ITS ---
HPI - Male Genitourinary General Chief complaint: Urogenital-Male Stated complaint: kidney stones Time Seen by Provider: 01/12/21 16:06 Source: patient Mode of arrival: Ambulatory Limitations: no limitations History of Present Illness HPI Narrative: This is a 50-year-old male who comes to the emergency department with complaint of kidney stone. Patient states he has had flank pain on the right side for about 24 hours. Patient denies any fevers or chills. Patient has any vomiting she has felt mildly nauseated. He denies any abdominal pain. Patient Um has had flank pain. He has had normal bowel movements. Patient has not appreciate any dysuria, frequency or urgency. He has had multiple kidney stones in the past and feels this is likely the cause. He states he is out of his Flomax. He states this isn't intense as his past kidney stones. Patient does have a history of ulcerative colitis/Crohn's. He has established with Dr. Keith for urology. Related Data Home Medications Medication Instructions Recorded Confirmed aspirin 81 mg tablet 81 mg PO DAILY 12/30/20 01/12/21 Previous Rx's Medication Instructions Recorded ciprofloxacin HCl 500 mg tablet 500 mg PO Q12H #20 tab 01/12/21 oxycodone-acetaminophen 5 mg-325 1 tab PO QID PRN #10 tab 01/12/21 mg tablet (Percocet) tamsulosin 0.4 mg capsule (Flomax) 0.4 mg PO DAILY #7 cap 01/12/21 Allergies Allergy/AdvReac Type Severity Reaction Status Date / Time No Known Drug Allergies Allergy Verified 01/12/21 12:55 Review of Systems Review of Systems ROS Unobtainable: All systems reviewed & are unremarkable except as noted in HPI and below Patient History Medical History Chronic back pain Crohn disease (~1999) Iritis Kidney stones (~2007) Personal history of stroke with current residual effects (~2016) Surgical History Anesthesia History of bowel resection History of lithotripsy S/P cholecystectomy S/P exploratory laparotomy (~1999) S/P knee surgery S/P patent foramen ovale closure (~2017) Family History Father History of heart disease Hyperlipidemia Grandmother Diabetes mellitus Grandmother Diabetes mellitus Social History marital status: household members: spouse Smoking Status: Current every day smoker alcohol intake: current Smoking Status: Current every day smoker tobacco type: cigarettes alcohol intake frequency: a few times a month Substance Use Type: does not use Exam Narrative Exam Narrative: GENERAL: Alert and oriented x three, male in mild distress. HEENT: Head normocephalic, atraumatic, EOMI, pupils reactive, face symmetric, moist mucous membranes NECK: Supple, full range of motion CARDIOVASCULAR: Regular rate and rhythm without murmurs, rubs or gallops. RESPIRATORY: Breath sounds equal bilaterally, no wheezes rales or rhonchi. ABDOMEN: Soft, nontender. Normoactive bowel sounds all 4 quadrants. No guarding or rebound, rigidity, no mass : No CVA tenderness EXTREMITIES: Normal range of motion, no clubbing or edema. Neurovascularly intact NEUROLOGICAL: Cranial nerves II through XII grossly intact. Moving all extremities SKIN: Warm, dry, no petechiae, no rashes or lesions. Initial Vital Signs Initial Vital Signs: Vital Signs Temperature 98.1 F 01/12/21 12:54 Pulse Rate 75 01/12/21 12:54 Respiratory Rate 14 01/12/21 12:54 Blood Pressure 134/88 01/12/21 12:54 Pulse Oximetry 99 01/12/21 12:54 Course Orders Ordered: ED Orders 01/12/21 13:00 Urinalysis and Microscopic Stat 01/12/21 18:47 Urine Culture Stat Discontinued Medications Ketorolac Tromethamine (Ketorolac 30 Mg/Ml Vial) 30 mg IM NOW ONE Stop: 01/12/21 16:38 Last Admin: 01/12/21 16:44 Dose: 30 mg Documented by: SAMMY Vital Signs Vital signs: Vital Signs - 8 hr 01/12/21 12:54 01/12/21 16:49 Temperature 98.1 F Pulse Rate 75 76 Respiratory Rate 14 16 Blood Pressure 134/88 136/89 Pulse Oximetry 99 99 MDM - Male Genitourinary Lab Data Labs: Lab Results 01/12/21 Range/Units 13:00 Urine Color Yellow Urine Appearance Clear Urine pH 6.5 (4.5-8.0) Ur Specific [place] 1.015 (1.000-1.035) Urine Protein Negative (Negative) Urine Glucose (UA) Negative (Negative) g/dL Urine Ketones Negative (NEGATIVE) Urine Occult Blood Negative (Negative) Urine Nitrate Negative (Negative) Urine Bilirubin Negative (NEGATIVE) Urine Urobilinogen 0.2 (0.2) E.U./dL Ur Leukocyte Esterase Trace H (NEGATIVE) Urine RBC None seen (0-5/HPF) Urine WBC 0-1/hpf (0-5/HPF) Ur Squamous Epith Cells 0-1 /hpf (0-5/HPF) Urine Bacteria None seen (None) Ur Culture Indicated? Cult not indicated MDM Narrative Medical decision making narrative: This is a 50-year-old male who comes to the emergency department with complaint of flank pain. Patient's urine does not have hematuria but does have some leukocyte esterase. Patient was given a prescription for antibiotics to cover for possible UTI pyelonephritis although patient is afebrile with normal vital signs and nontender on exam. Patient has had multiple stones in the past states this feels somewhat similar so he defers any lab work or imaging at this time but would like prescription for Flomax and something short-term for pain control. Discharge Plan Departure Patient Disposition: Home Clinical Impression: Flank pain Instructions: DI for Kidney Infection Activity Restrictions/Additional Instructions: Your urine today shows some signs of infection. You can have a kidney stone and infection at the same time. As we discussed we have not done any imaging or lab work today so if her not having improvement in 24-48 hours please return for recheck. Take Flomax daily for at least 7 days. Take antibiotics until gone. You may take prescription pain medication as prescribed. This medication can make you sleepy do not drive, perform hazardous activities or make any major decisions while taking it. This medication will make you constipated please take a stool softener once to twice daily until stools are soft and regular. [facility] [place]. Please return for fevers, worsening back or flank pain, persistent vomiting, black or bloody stools, inability urinate, lightheadedness or passing out or other new or concerning symptoms. Prescriptions: New tamsulosin [Flomax] 0.4 mg capsule 0.4 mg PO DAILY Qty: 7 RF: 0 ciprofloxacin HCl 500 mg tablet 500 mg PO Q12H Qty: 20 RF: 0 oxycodone-acetaminophen [Percocet] 5-325 mg tablet 1 tab PO QID PRN (Reason: pain) Qty: 10 RF: 0 No Action aspirin 81 mg Tablet 81 mg PO DAILY RF: 0 Referrals: Isac Haines MD [Primary Care Provider] -
[2021-01-12] MEDS: KETOROLAC 30 MG/ML VIAL IM (16:44)
[2021-01-12 16:49] VITALS: BP 136/89; PULSE 76; RESP 16; O2SAT 99
== END 2021-01-12 16:49 | disposition home or self-care (01) ==
PROVIDERS: Emergency Provider Emergency Medicine; PCP Internal Medicine
DX: R10.9 Unspecified abdominal pain (principal); R11.0 Nausea
CPT/HCPCS: 81001; 87086; 96372; 99283; J1885

== ENCOUNTER 2021-04-03 08:54 | Emergency (ER) | payer OTHER, MEDICAID, SELFPAY ==
[2021-04-03 09:21] VITALS: BP 167/70; PULSE 86; RESP 16; TEMP 37.1; O2SAT 97; BMI 26.5
--- NOTE | 2021-04-03 09:30 | DI.RAD.S_ITS ---
PROCEDURE: XR KUB INDICATIONS: Left flank pain TECHNIQUE: One view of the abdomen acquired. COMPARISON: [facility], CR, XR ABDOMEN 1V, 05/03/2020, 13:28. [facility], CT, CT KIDNEY URETER BLADDER (KUB), 10/21/2020, 12:43. [facility], CR, XR KUB, 05/03/2020, 11:40. FINDINGS: Surgical changes and devices: None. Bowel: Bowel gas pattern is normal. Soft tissues: There is a 7 mm calcific density projecting to the inferior pole of the right kidney, suspicious for a renal calculus. Small left renal calculi seen on the comparison CT dated 10/21/2020 are obscured by stool content. Visualized solid organ contours appear normal in size. Cholecystectomy clips are noted. Surgical clips are also seen in the right lower quadrant and left pelvis. Bones: No suspicious bony lesions. IMPRESSION: 1. A 7 cm stone in the inferior pole of the right kidney. 2. Small calculi seen on the prior comparison CT are likely obscured by stool content. If clinically indicated, repeat CT KUB may be helpful. Dictated by: Lionel Dick M.D. on 04/03/2021 at 9:56 Approved by: Lionel Dick M.D. on 04/03/2021 at 9:59
--- NOTE | 2021-04-03 09:30 | DI.US.S_ITS ---
PROCEDURE: US RENAL COMPLETE INDICATIONS: LEFT FLANK PAIN TECHNIQUE: Real-time scanning was performed of the kidneys and bladder, with image documentation. COMPARISON: [facility], CT, CT KIDNEY URETER BLADDER (KUB), 10/21/2020, 12:43. [facility], US, US RENAL COMPLETE, 04/29/2019, 12:29. FINDINGS: Kidneys: Kidneys are normal in size. Right kidney measures 11.7 cm long; left kidney measures 12.8 cm long. Right renal cortical thickness is 1.5 cm; left renal cortical thickness is 1.8 cm. Renal cortical echotexture is normal. No suspicious solid mass lesions. Several right kidney stones are seen. The largest is seen inferiorly measuring up to 11 mm. The left ureter is prominent at 2 cm, with associated moderate to severe left-sided hydronephrosis. Bladder: Pre-void bladder volume is 19 mL. Post-void residual measurement was not obtained. Pre-void images demonstrate no intraluminal masses or stones. On pre-void images, only the right ureteral jet can be seen with color Doppler interrogation. (Of note, ureteral jets may not be detectable in up to 25% of cases due to insufficient differences in specific gravity between ureteral and bladder urine). Miscellaneous: No free pelvic fluid. An enlarged, fatty liver is incidentally noted. Overall scan quality is limited by bowel gas. IMPRESSION: Moderate to severe left-sided hydronephrosis is seen, with a prominent proximal left ureter. Only the right ureteral jet can be seen. Nonobstructing right-sided kidney stones are seen, with the largest measuring 11 mm. If it would be helpful for clinical management decision making, please consider a dedicated noncontrast CT of the abdomen and pelvis for further evaluation. Dictated by: Terry Sanabria M.D. on 04/03/2021 at 9:58 Approved by: Terry Sanabria M.D. on 04/03/2021 at 10:01
[2021-04-03] MEDS: SODIUM CHLORIDE 0.9% 1,000 ML 1000 ML IV (09:31)
[2021-04-03] MEDS: KETOROLAC 30 MG/ML VIAL 15 MG IV (09:31)
[2021-04-03] MEDS: ONDANSETRON 4 MG/2 ML INJ IV (09:31)
--- NOTE | 2021-04-03 09:31 | ED.BACK ---
HPI - Back Pain/Injury General Chief Complaint: Back Pain/Injury Stated Complaint: Poss Kidney Stone Time Seen by Provider: 04/03/21 09:25 History of Present Illness HPI Narrative: Patient complains of left flank pain that started this morning. No recent illness. No cough cold congestion fever chills. No urinary complaints. No vomiting or diarrhea. Patient states feels like another kidney stone. Has multiple stones in the past. Has had stents and lithotripsy. Patient has had a CT scan of abdomen pelvis in the past 3 years. Agrees at this time will do ultrasound and x-ray. Girlfriend at bedside. Does not radiate to the groin. No hematuria or dysuria Patient states he sees Dr. Keith, urologist. He states he has Flomax at home. Related Data Home Medications Medication Instructions Recorded Confirmed aspirin 81 mg tablet 81 mg PO DAILY 12/30/20 01/12/21 Previous Rx's Medication Instructions Recorded ciprofloxacin HCl 500 mg tablet 500 mg PO Q12H #20 tab 01/12/21 oxycodone-acetaminophen 5 mg-325 1 tab PO QID PRN #10 tab 01/12/21 mg tablet (Percocet) tamsulosin 0.4 mg capsule (Flomax) 0.4 mg PO DAILY #7 cap 01/12/21 ondansetron 4 mg disintegrating 4 mg PO Q8H PRN #10 tab 04/03/21 tablet oxycodone-acetaminophen 10 mg-325 1 tab PO Q8H PRN #14 tab 04/03/21 mg tablet (Percocet) Allergies Allergy/AdvReac Type Severity Reaction Status Date / Time No Known Drug Allergies Allergy Verified 01/12/21 12:55 Review of Systems Review of Systems Narrative: GENERAL: Denies chills, fatigue, malaise, fever, sweats. HEENT: Denies sinus pain, ear pain, sore throat RESPIRATORY: Denies dyspnea, cough CARDIOVASCULAR: Denies chest pain, palpitations GASTROINTESTINAL: Denies nausea, vomiting, positive for flank abdominal pain : Denies dysuria, frequency, hematuria MUSCULOSKELETAL: denies muscle or bony pain SKIN: Denies rash, skin lesions NEUROLOGIC: Denies weakness, numbness ROS Unobtainable: All systems reviewed & are unremarkable except as noted in HPI and below Patient History Medical History Chronic back pain Crohn disease (~1999) Iritis Kidney stones (~2007) Personal history of stroke with current residual effects (~2017) Surgical History Anesthesia History of bowel resection History of lithotripsy S/P cholecystectomy S/P exploratory laparotomy (~1999) S/P knee surgery S/P patent foramen ovale closure (~2017) Family History Father History of heart disease Hyperlipidemia Grandmother Diabetes mellitus Grandmother Diabetes mellitus Social History marital status: household members: spouse Smoking Status: Current every day smoker alcohol intake: current Smoking Status: Current every day smoker tobacco type: cigarettes alcohol intake frequency: a few times a month Substance Use Type: does not use Exam Narrative Exam Narrative: GENERAL: in no distress, not toxic not dyspneic HEAD: Normocephalic. CARDIOVASCULAR: Regular rate and rhythm without murmurs RESPIRATORY: Clear to auscultation. Breath sounds equal bilaterally. No wheezes, rales, or rhonchi. GASTROINTESTINAL: Abdomen soft, non-tender, no peritoneal signs, bowel sounds present EXTREMITIES: No gross deformities. BACK: No flank tenderness. NEURO: AOx4. SKIN: Warm and dry PSYCH: Not anxious, is cooperative Initial Vital Signs Initial Vital Signs: Vital Signs Temperature 98.7 F 04/03/21 09:21 Pulse Rate 86 04/03/21 09:21 Respiratory Rate 16 04/03/21 09:21 Blood Pressure 167/70 H 04/03/21 09:21 Pulse Oximetry 97 04/03/21 09:21 Course Course Course Narrative: No new issues during course of stay Orders Ordered: Discontinued Medications Hydromorphone HCl (Hydromorphone 1 Mg Inj) 1 mg IV NOW ONE Stop: 04/03/21 09:30 Last Admin: 04/03/21 09:37 Dose: 1 mg Documented by: ASHLEY Hydromorphone HCl (Hydromorphone 1 Mg Inj) 1 mg IV NOW ONE Stop: 04/03/21 11:21 Last Admin: 04/03/21 11:29 Dose: 1 mg Documented by: ASHLEY Sodium Chloride (Normal Saline 0.9%) 1,000 mls @ 1,000 mls/hr IV BOLUS ONE Stop: 04/03/21 10:28 Last Infusion: 04/03/21 10: Dose: 0 mls/hr Documented by: Admin: 04/03/21 09:31 Dose: 1,000 mls/hr Documented by: ASHLEY Ketorolac Tromethamine (Ketorolac 30 Mg/Ml Vial) 15 mg IV NOW ONE Stop: 04/03/21 09:25 Last Admin: 04/03/21:31 Dose: 15 mg Documented by: ASHLEY Ondansetron HCl (Ondansetron 4 Mg/2 Ml Inj) 4 mg IV NOW ONE Stop: 04/03/21:25 Last Admin: 04/03/21: Dose: 4 mg Documented by: ASHLEY Reevaluation(s) Reevaluation #1: Pain is controlled but he states he would like a little bit more pain medication. He does not want CT scan imaging at this time. He states he would like to try to go home for attempt to pass the stone. He has Flomax at home. He will contact Dr. Keith. Has a motor vehicle escort driver here. Reviewed results with patient Time: 11:27 Vital Signs Vital signs: Vital Signs - 8 hr 04/03/21 09:04/03/21 10:23 Temperature 98.7 F Pulse Rate 86 58 L Respiratory Rate 16 18 Blood Pressure 167/70 H 134/84 Pulse Oximetry 97 98 MDM - Back Pain/Injury Differential Diagnosis Differential diagnosis: Likely other (UTI/kidney stone) Lab Data Result diagrams: 04/03/21 09:18 04/03/21 09:18 Labs: Lab Results 04/03/21 04/03/21 04/03/21 Range/Units 09:18 09:18 09:30 WBC 11.6 H (4.5-11.0) X10^3/uL RBC 5.42 (4.5-5.9) X10^6/uL Hgb 16.3 (13.5-17.5) g/dL Hct 49.7 (41-53) % MCV 91.8 (80-100) fL MCH 30.1 (26-34) PG MCHC 32.8 (30-36) % RDW 14.1 (11.6-14.8) % Plt Count 335 (150-400) X10^3/uL Neut % (Auto) 73.2 (50-75) % Lymph % (Auto) 18.7 L (25-40) % [facility] [place] % (Auto) 6.3 (3-14) % Eos % (Auto) 1.1 L (2-4) % Baso % (Auto) 0.7 (0-2) % Neut # (Auto) 8500 H (0229-8805) /uL Lymph # (Auto) 2200 (3989-3688) /uL [facility] # (Auto) 700 (0-900) /uL Eos # (Auto) 100 (0-450) /uL Baso # (Auto) 100 (0-100) /uL Sodium 142 (137-145) mmol/L Potassium 4.3 (3.4-5.1) mmol/L Chloride 104 (98-107) mmol/L Carbon Dioxide 28 (22-32) mmol/L BUN 13 (9-20) mg/dL Creatinine 1.14 (0.66-1.25) mg/dL Estimated GFR > 60.0 (>60) mL/min BUN/Creatinine Ratio 11.4 (6-22) Glucose 112 H (70-100) mg/dL Calcium 10.4 H (8.4-10.2) mg/dL Total Bilirubin 0.6 (0.2-1.3) mg/dL AST 36 (17-59) IU/L ALT 63 H (<50) IU/L Alkaline Phosphatase 100 (38-126) U/L Total Protein 8.6 H (6.3-8.2) g/dL Albumin 5.0 (3.5-5.0) g/dL Globulin 3.6 (1.7-4.1) g/dL Albumin/Globulin Ratio 1.4 (1.0-2.8) Urine Color Yellow Urine Appearance Clear Urine pH 5.5 (4.5-8.0) Ur Specific [place] 1.025 (1.000-1.035) Urine Protein 1+ H (Negative) Urine Glucose (UA) Negative (Negative) g/dL Urine Ketones Negative (NEGATIVE) Urine Occult Blood 3+ H (Negative) Urine Nitrate Negative (Negative) Urine Bilirubin Negative (NEGATIVE) Urine Urobilinogen 0.2 (0.2) E.U./dL Ur Leukocyte Esterase Trace H (NEGATIVE) Urine RBC 5-10/hpf H (0-5/HPF) Urine WBC None seen (0-5/HPF) Urine Bacteria None seen (None) Ur Culture Indicated? Cult not indicated Imaging Data Abdominal x-ray: Radiologist's Impression: [address] [id number] XRay Report Signed Patient: Maciel Urban MR#: [id number] : 1970 Acct:[id number] Age/Sex: 51 / M Date of Service: 04/03/21 Loc: ED Accession Number: [id number] ?? Procedure: XR KUB Ordering Provider: Ernesto Velásquez MD PROCEDURE:? XR KUB ? INDICATIONS:? Left flank pain ? TECHNIQUE:? One view of the abdomen acquired.? ? COMPARISON:? [facility], CR, XR ABDOMEN 1V, 05/03/2020, 13:28.? [facility], CT, CT KIDNEY URETER BLADDER (KUB), 10/21/2020, 12:43.? [facility], CR, XR KUB, 05/03/2020, 11:40. ? FINDINGS:? ? Surgical changes and devices:? None.? ? Bowel:? Bowel gas pattern is normal.? ? Soft tissues:? There is a 7 mm calcific density projecting to the inferior pole of the right kidney, suspicious for a renal calculus.? Small left renal calculi seen on the comparison CT dated 10/21/2020 are obscured by stool content.? Visualized solid organ contours appear normal in size.? Cholecystectomy clips are noted.? Surgical clips are also seen in the right lower quadrant and left pelvis. ? Bones:? No suspicious bony lesions.? ? IMPRESSION:? ? 1. A 7 cm stone in the inferior pole of the right kidney. 2. Small calculi seen on the prior comparison CT are likely obscured by stool content.? If clinically indicated, repeat CT KUB may be helpful. ? ? Dictated by: Lionel Dick M.D. on 04/03/2021 at 9:56 ? ? Approved by: Lionel Dick M.D. on 04/03/2021 at 9:59 ? Ultrasound kidneys: Radiologist's Impression: [address] [address] Ultrasound Report Signed Patient: Maciel Urban MR#: [id number] : 1970 Acct:[id number] Age/Sex: 51 / M Date of Service: 04/03/21 Loc: ED Accession Number: [id number] ?? Procedure: US renal complete Ordering Provider: Ernesto Velásquez MD PROCEDURE:? US RENAL COMPLETE ? INDICATIONS:? LEFT FLANK PAIN ? TECHNIQUE:? Real-time scanning was performed of the kidneys and bladder, with image documentation.? ? COMPARISON:? [facility], CT, CT KIDNEY URETER BLADDER (KUB), 10/21/2020, 12:43.? [facility], US, US RENAL COMPLETE, 04/29/2019, 12:29. ? FINDINGS:? ? Kidneys:? Kidneys are normal in size.? Right kidney measures 11.7 cm long; left kidney measures 12.8 cm long.? Right renal cortical thickness is 1.5 cm; left renal cortical thickness is 1.8 cm.? Renal cortical echotexture is normal.? No suspicious solid mass lesions. ? Several right kidney stones are seen.? The largest is seen inferiorly measuring up to 11 mm. ? The left ureter is prominent at 2 cm, with associated moderate to severe left-sided hydronephrosis. ? Bladder:? Pre-void bladder volume is 19 mL.? Post-void residual measurement was not obtained.? Pre-void images demonstrate no intraluminal masses or stones.? On pre-void images, only the right ureteral jet can be seen with color Doppler interrogation.? (Of note, ureteral jets may not be detectable in up to 25% of cases due to insufficient differences in specific gravity between ureteral and bladder urine).? ? Miscellaneous:? No free pelvic fluid.? ? An enlarged, fatty liver is incidentally noted. ? Overall scan quality is limited by bowel gas. ? ? ? IMPRESSION:? Moderate to severe left-sided hydronephrosis is seen, with a prominent proximal left ureter. ? Only the right ureteral jet can be seen. ? Nonobstructing right-sided kidney stones are seen, with the largest measuring 11 mm. ? If it would be helpful for clinical management decision making, please consider a dedicated noncontrast CT of the abdomen and pelvis for further evaluation.? ? Dictated by: Terry Sanabria M.D. on 04/03/2021 at 9:58 ? ? Approved by: Terry Sanabria M.D. on 04/03/2021 at 10:01 ? [facility] Narrative Medical decision making narrative: Appropriate for discharge home. Imaging and laboratory studies and exam reassuring. Patient is not want stay. Prefers discharge home to try to pass the stone. Secondary signs of ultrasound likely kidney stone that is early onset. Return precautions reviewed him. The patient states he has had many kidney stones and is very comfortable going home and returning if not improving. Nontoxic at discharge. Discharge Plan Departure Patient Disposition: Home Clinical Impression: Kidney stones Instructions: DI for Kidney Stones Activity Restrictions/Additional Instructions: No driving or operating machine should day or when taking prescribed pain medication. Continue home Flomax. Call Dr. Keith office today for office recheck this week. Return immediately if worse if any questions or concerns or unable to pass kidney stone. Prescriptions: New ondansetron 4 mg tablet,disintegrating 4 mg PO Q8H PRN (Reason: nausea and vomiting) Qty: 10 RF: 0 oxycodone-acetaminophen [Percocet] 10-325 mg tablet 1 tab PO Q8H PRN (Reason: pain) Qty: 14 RF: 0 No Action aspirin 81 mg Tablet 81 mg PO DAILY RF: 0 tamsulosin [Flomax] 0.4 mg capsule 0.4 mg PO DAILY Qty: 7 RF: 0 ciprofloxacin HCl 500 mg tablet 500 mg PO Q12H Qty: 20 RF: 0 oxycodone-acetaminophen [Percocet] 5-325 mg tablet 1 tab PO QID PRN (Reason: pain) Qty: 10 RF: 0 Referrals: Jacquelin Keith MD [Physician] - Isac Haines MD [Primary Care Provider] -
[2021-04-03] MEDS: HYDROMORPHONE 1 MG INJ IV ×2 (09:37→11:29)
[2021-04-03 09:40] LABS: Add Manual Diff / Slide Review NO; Basophils Absolute Auto 100 /uL (0-100); Basophils Percent Auto 0.7 % (0-2); Eosinophils Absolute Auto 100 /uL (0-450); Eosinophils Percent Auto 1.1 % (2-4); Hematocrit 49.7 % (41-53); Hemoglobin 16.3 g/dL (13.5-17.5); Lymphocytes Absolute Auto 2200 /uL (1100-4500); Lymphocytes Percent Auto 18.7 % (25-40); Mean Corpuscular HGB Conc 32.8 % (30-36); Mean Corpuscular Hemoglobin 30.1 PG (26-34); Mean Corpuscular Volume 91.8 fL (80-100); Monocytes Absolute Auto 700 /uL (0-900); Monocytes Percent Auto 6.3 % (3-14); Neutrophils Absolute Auto 8500 /uL (1500-7000); Neutrophils Percent Auto 73.2 % (50-75); Platelet Count 335 X10^3/uL (150-400); Red Blood Cell Count 5.42 X10^6/uL (4.5-5.9); Red Cell Distribution Width 14.1 % (11.6-14.8); White Blood Cell Count 11.6 X10^3/uL (4.5-11.0)
[2021-04-03 09:50] LABS: Appearance Urine UA CLEAR; Bilirubin Urine UA NEGATIVE (NEGATIVE); Color Urine UA YELLOW; Glucose Urine UA NEGATIVE (Negative); Ketones Urine UA NEGATIVE (NEGATIVE); Leukocyte Esterase Urine UA TRACE (NEGATIVE); Nitrite Urine UA NEGATIVE (Negative); Occult Blood Urine UA 3+ (Negative); Protein Urine UA 1+ (Negative); Specific Gravity Urine UA 1.025 (1.000-1.035); Urobilinogen Urine UA 0.2 E.U./dL (0.2); pH Urine UA 5.5 (4.5-8.0)
[2021-04-03 10:11] LABS: Alanine Aminotransferase 63 IU/L (<50); Albumin Globulin Ratio 1.4 (1.0-2.8); Alkaline Phosphatase 100 U/L (38-126); Aspartate Aminotransferase 36 IU/L (17-59); BUN Creatinine Ratio 11.4 (6-22); Bilirubin Total 0.6 mg/dL (0.2-1.3); Blood Urea Nitrogen 13 mg/dL (9-20); Calcium 10.4 mg/dL (8.4-10.2); Carbon Dioxide 28 mmol/L (22-32); Chloride 104 mmol/L (98-107); Estimated Glomerular Filt Rate > 60.0 mL/min (>60); Globulin 3.6 g/dL (1.7-4.1); Glucose 112 mg/dL (70-100); HEMOLYSIS < 15 (0-50); Potassium 4.3 mmol/L (3.4-5.1); Sodium 142 mmol/L (137-145); Total Protein 8.6 g/dL (6.3-8.2)
[2021-04-03 10:21] LABS: RBC Urine 5-10/HPF (0-5/HPF); WBC Urine None Seen (0-5/HPF)
[2021-04-03 10:22] LABS: Bacteria Urine None Seen; Culture Indicated Urine Cult Not Indicated
[2021-04-03 10:23] VITALS: BP 134/84; PULSE 58; RESP 18; O2SAT 98
[2021-04-03 10:30] VITALS: BP 141/89; PULSE 61; RESP 18; O2SAT 96
[2021-04-03 11:00] VITALS: PULSE 59; O2SAT 97
[2021-04-03 11:01] VITALS: BP 155/90; PULSE 59; RESP 17; O2SAT 97
[2021-04-03 11:30] VITALS: BP 154/98; PULSE 63; O2SAT 97
== END 2021-04-03 11:38 | disposition home or self-care (01) ==
PROVIDERS: Emergency Provider Emergency Medicine; PCP Internal Medicine
DX: N20.0 Calculus of kidney (principal)
CPT/HCPCS: 36415; 74018; 76770; 80053; 81001; 85025; 96361; 96374; 96375; 96376; 99284; J1170; J1885; J2405

== ENCOUNTER 2021-07-18 09:58 | Emergency (ER) | payer OTHER, MEDICAID, SELFPAY ==
[2021-07-18 10:03] VITALS: BP 142/95; PULSE 84; RESP 16; TEMP 36.6; O2SAT 97; BMI 25.8
[2021-07-18 11:49] LABS: Bacteria Urine None Seen; Calcium Oxalate Crystals Urine Moderate; Culture Indicated Urine Specimen Cultured; Ictotest Urine Negative (Negative); RBC Urine 10-30/HPF (0-5/HPF); WBC Urine 5-10/HPF (0-5/HPF)
[2021-07-18 12:27] LABS: Add Manual Diff / Slide Review NO; Basophils Absolute Auto 100 /uL (0-100); Basophils Percent Auto 0.7 % (0-2); Eosinophils Absolute Auto 100 /uL (0-450); Eosinophils Percent Auto 1.1 % (2-4); Hematocrit 46.6 % (41-53); Hemoglobin 16.2 g/dL (13.5-17.5); Lymphocytes Absolute Auto 1600 /uL (1100-4500); Mean Corpuscular HGB Conc 34.7 % (30-36); Mean Corpuscular Hemoglobin 30.9 PG (26-34); Mean Corpuscular Volume 89.1 fL (80-100); Monocytes Absolute Auto 700 /uL (0-900); Monocytes Percent Auto 6.4 % (3-14); Neutrophils Absolute Auto 7800 /uL (1500-7000); Neutrophils Percent Auto 75.8 % (50-75); Platelet Count 330 X10^3/uL (150-400); Red Blood Cell Count 5.23 X10^6/uL (4.5-5.9); Red Cell Distribution Width 14.1 % (11.6-14.8); White Blood Cell Count 10.3 X10^3/uL (4.5-11.0)
--- NOTE | 2021-07-18 12:31 | DI.CT.S_ITS ---
PROCEDURE: CT ABDOMEN PELVIS WO CON INDICATIONS: kidney stone TECHNIQUE: Axial sections were acquired from the lung bases to the pubic symphysis. Coronal and sagittal reformats were performed. For radiation dose reduction, the following was used: automated exposure control, adjustment of mA and/or kV according to patient size. COMPARISON: None. FINDINGS: Image quality: Excellent. Lung bases: Unremarkable. Heart: Atrial septal metallic device in place. The heart size is normal. URINARY: Right Kidney: There are nonobstructing calculi in the right kidney, measuring 4 mm in the upper pole and a cluster measuring 8 mm in the lower pole. No right hydronephrosis or perinephric inflammation. Right Ureter: No hydroureter or ureteral calcifications. Left Kidney: Moderate left hydronephrosis. No significant perinephric inflammation. No intrarenal calculi. Left Ureter: Mild left hydroureter without significant ureteral inflammation. There is an obstructing stone in the distal ureter measuring 4 mm where there is moderate surrounding inflammation. Bladder: Normal wall thickness. No stones. ABDOMEN: Liver: Mild hepatomegaly and steatosis. Gallbladder: Surgically absent Biliary ducts: Nondilated. Pancreas: Normal. Spleen: Normal size. Adrenal Glands: No nodules. . Stomach and Bowel: There is a bowel anastomosis in the right lower quadrant. Stomach, small bowel loops, and colon are otherwise unremarkable. Peritoneum: No abnormal intraperitoneal fluid. No free air. Ventral Wall: No hernia. Abdominal Nodes: No enlarged retroperitoneal or mesenteric lymph nodes. Vessels: Aorta and inferior vena cava are normal in size. PELVIS: Pelvic Organs: Mild prostatomegaly. Pelvic Nodes: Unremarkable. Miscellaneous: No inguinal hernias are seen. Bones: Both sacroiliac joints demonstrate irregularity, subcortical sclerosis, and possible erosive changes. IMPRESSION: 1. 4 mm obstructing left distal ureteral calcification. 2. Two nonobstructing clusters of intrarenal calculi in the right kidney. 3. Changes of sacroiliitis. 4. Mild hepatomegaly and hepatic steatosis. Dictated by: Shannon Odell M.D. on 07/18/2021 at 13:07 Approved by: Shannon Odell M.D. on 07/18/2021 at 13:31
--- NOTE | 2021-07-18 12:32 | ED.MALEGU ---
HPI - Male Genitourinary <Cesar Jain PA-C - Last Filed: 07/18/21 13:55> General Chief complaint: Urogenital-Male Stated complaint: Kidney stone Time Seen by Provider: 07/18/21 12:10 Source: patient Mode of arrival: Ambulatory History of Present Illness HPI Narrative: Patient is a 51-year-old male who presents to the ED complaining of pain in his right groin region. He reports extensive history of kidney stones in the past and Crohn's. He states that his last time he passed a stone was 4-5 months ago. He states this morning when he woke up his urine was extremely bloody which to him indicates a kidney stone. He had some Percocet at home that he admits to taking 1 this morning that did help some however he is out of pain medication and he is out of Flomax that he has taken in the past and presents to the ED for evaluation. He reports on with his history of Crohn's that he has chronic diarrhea and he had loose stool today that he states is normal. No reported nausea or vomiting no fever no chills no body aches no cough no sore throat no congestion no shortness of breath. Related Data Home Medications Medication Instructions Recorded Confirmed aspirin 81 mg tablet 81 mg PO DAILY 12/30/20 01/12/21 Previous Rx's Medication Instructions Recorded ciprofloxacin HCl 500 mg tablet 500 mg PO Q12H #20 tab 01/12/21 oxycodone-acetaminophen 5 mg-325 1 tab PO QID PRN #10 tab 01/12/21 mg tablet (Percocet) tamsulosin 0.4 mg capsule (Flomax) 0.4 mg PO DAILY #7 cap 01/12/21 ondansetron 4 mg disintegrating 4 mg PO Q8H PRN #10 tab 04/03/21 tablet oxycodone-acetaminophen 10 mg-325 1 tab PO Q8H PRN #14 tab 04/03/21 mg tablet (Percocet) oxycodone-acetaminophen 10 mg-325 1 tab PO Q8H PRN #7 tab 07/18/21 mg tablet (Percocet) tamsulosin 0.4 mg capsule (Flomax) 0.4 mg PO DAILY #30 cap 07/18/21 Allergies Allergy/AdvReac Type Severity Reaction Status Date / Time No Known Drug Allergies Allergy Verified 07/18/21 10:03 Review of Systems <Cesar Jain PA-C - Last Filed: 07/18/21 13:55> Review of Systems ROS Unobtainable: All systems reviewed & are unremarkable except as noted in HPI and below Constitutional Constitutional: Denies chills, Denies fatigue, Denies fever(s), Denies frequent falls, Denies lethargy and Denies weakness Eyes Eyes: Denies change in vision, Denies eye discharge, Denies irritation and Denies loss of vision ENT Ears, Nose, Mouth, and Throat: Denies change in voice, Denies dizziness, Denies neck pain, Denies sore throat and Denies throat swelling Cardiovascular Cardiovascular: Denies chest pain, Denies irregular heart rhythm, Denies lightheadedness, Denies palpitations, Denies dyspnea, Denies dyspnea on exertion and Denies orthopnea Respiratory Respiratory: Denies cough, Denies dyspnea, Denies dyspnea on exertion and Denies wheezing Gastrointestinal Gastrointestinal: Reports abdominal pain, Denies change in bowel habits, Reports diarrhea, Denies nausea and Denies vomiting Genitourinary Genitourinary: Reports hematuria, Denies flank pain, Denies urinary incontinence and Denies urinary urgency Musculoskeletal Musculoskeletal: Denies back pain, Denies muscle weakness, Denies neck pain, Denies numbness and Denies tingling Integumentary/Breasts Skin/Breast: Denies pruritus, Denies erythema, Denies rash and Denies wounds Neurologic Neurologic: Denies behavioral changes, Denies confusion, Denies dizziness, Denies frequent falls, Denies loss of vision, Denies numbness, Denies tingling and Denies weakness Psychiatric Psychiatric: Denies anxiety, Denies behavioral changes, Denies confusion, Denies depression, Denies homicidal ideation and Denies suicidal ideation Endocrine Endocrine: Denies fatigue, Denies flushing and Denies palpitations Hematologic/Lymphatic Hematologic/Lymphatic: Denies easy bruising Allergic/Immunologic Allergic/Immunologic: Denies urticaria, Denies throat swelling and Denies wheezing Patient History <Cesar Jain PA-C - Last Filed: 07/18/21 13:55> Medical History Chronic back pain Crohn disease (~1999) Iritis Kidney stones (~2007) Personal history of stroke with current residual effects (~2017) Surgical History Anesthesia History of bowel resection History of lithotripsy S/P cholecystectomy S/P exploratory laparotomy (~1999) S/P knee surgery S/P patent foramen ovale closure (~2017) Family History Father History of heart disease Hyperlipidemia Grandmother Diabetes mellitus Grandmother Diabetes mellitus Social History marital status: household members: spouse Smoking Status: Current every day smoker alcohol intake: current Smoking Status: Current every day smoker tobacco type: cigarettes alcohol intake frequency: a few times a month Substance Use Type: does not use Exam <Cesar Jain PA-C - Last Filed: 07/18/21 13:55> Initial Vital Signs Initial Vital Signs: Vital Signs Temperature 97.8 F 07/18/21 10:03 Pulse Rate 84 07/18/21 10:03 Respiratory Rate 16 07/18/21 10:03 Blood Pressure 142/95 H 07/18/21 10:03 Pulse Oximetry 97 07/18/21 10:03 Const General: cooperative and healthy appearing Nutritional Appearance: average body habitus Orientation: Orientation [facility] Head: normal to inspection and normocephalic Ears: hearing grossly normal bilaterally Nose: external nose normal Face and sinus: normal facial exam Mouth: oral mucosae normal Eyes Pupils: PERRL Resp Effort & Inspection: normal respiratory effort and able to speak in complete sentences Auscultation: clear to auscultation bilaterally Percussion: percussion normal Cardio Palpation: normal PMI Rate: regular rate Rhythm: regular rhythm Heart Sounds: S1 normal and S2 normal GI Inspection: normal to inspection Palpation: soft Percussion: normal to percussion Auscultation: normal bowel sounds Psych Appearance: grossly normal Mental Status: mental status grossly normal Course <Cesar Jain PA-C - Last Filed: 07/18/21 13:55> Orders Ordered: ED Orders 07/18/21 10:43 Ictotest Urine Stat Urine Culture Stat Urine Microscopic Stat 07/18/21 12:00 Complete Blood Count AUTO DIFF Stat Comprehensive Metabolic Panel Stat 07/18/21 12:30 Lipase Stat 07/18/21 12:31 CT abdomen pelvis wo con Stat Discontinued Medications Hydromorphone HCl (Hydromorphone 1 Mg Inj) 1 mg IV NOW ONE Stop: 07/18/21 13:06 Last Admin: 07/18/21 13:08 Dose: 1 mg Documented by: ATAYLOR Sodium Chloride (Normal Saline 0.9%) 1,000 mls @ 1,000 mls/hr IV BOLUS ONE Stop: 07/18/21 13:29 Last Infusion: 07/18/21 14:15 Dose: 0 mls/hr Documented by: Admin: 07/18/21 12:52 Dose: 1,000 mls/hr Documented by: ATAYLOR Ketorolac Tromethamine (Ketorolac 30 Mg/Ml Vial) 30 mg IV NOW ONE Stop: 07/18/21 12:31 Last Admin: 07/18/21 12:52 Dose: 30 mg Documented by: ATASAVANNAHOR Vital Signs Vital signs: Vital Signs - 8 hr 07/18/21 13:02 07/18/21 14:20 Pulse Rate 64 64 Respiratory Rate 18 18 Blood Pressure 140/94 H 133/88 Pulse Oximetry 99 99 MDM - Male Genitourinary <Cesar Jain PA-C - Last Filed: 07/18/21 13:55> Differential Diagnosis Differential diagnosis: Likely other Lab Data Result diagrams: 07/18/21 12:00 07/18/21 12:00 Labs: Lab Results 07/18/21 07/18/21 07/18/21 Range/Units 10:43 12:00 12:00 WBC 10.3 (4.5-11.0) X10^3/uL RBC 5.23 (4.5-5.9) X10^6/uL Hgb 16.2 (13.5-17.5) g/dL Hct 46.6 (41-53) % MCV 89.1 (80-100) fL MCH 30.9 (26-34) PG MCHC 34.7 (30-36) % RDW 14.1 (11.6-14.8) % Plt Count 330 (150-400) X10^3/uL Neut % (Auto) 75.8 H (50-75) % Lymph % (Auto) 16.0 L (25-40) % [place] % (Auto) 6.4 (3-14) % Eos % (Auto) 1.1 L (2-4) % Baso % (Auto) 0.7 (0-2) % Neut # (Auto) 7800 H (2132-5739) /uL Lymph # (Auto) 1600 (1585-9306) /uL [place] # (Auto) 700 (0-900) /uL Eos # (Auto) 100 (0-450) /uL Baso # (Auto) 100 (0-100) /uL Sodium 141 (137-145) mmol/L Potassium 4.8 (3.4-5.1) mmol/L Chloride 106 (98-107) mmol/L Carbon Dioxide 25 (22-32) mmol/L BUN 14 (9-20) mg/dL Creatinine 0.91 (0.66-1.25) mg/dL Estimated GFR > 60.0 (>60) mL/min BUN/Creatinine Ratio 15.4 (6-22) Glucose 104 H (70-100) mg/dL Calcium 10.2 (8.4-10.2) mg/dL Total Bilirubin 0.4 (0.2-1.3) mg/dL AST 31 (17-59) IU/L ALT 44 (<50) IU/L Alkaline Phosphatase 92 (38-126) U/L Total Protein 8.5 H (6.3-8.2) g/dL Albumin 4.9 (3.5-5.0) g/dL Globulin 3.6 (1.7-4.1) g/dL Albumin/Globulin Ratio 1.4 (1.0-2.8) Lipase (23-300) U/L Ur Bilirubin Confirm Negative (Negative) Urine RBC 10-30/hpf H (0-5/HPF) Urine WBC 5-10/hpf H (0-5/HPF) Calcium Oxalate Crystal Moderate H Urine Bacteria None seen (None) Ur Culture Indicated? Specimen cultured 07/18/21 Range/Units 12:30 WBC (4.5-11.0) X10^3/uL RBC (4.5-5.9) X10^6/uL Hgb (13.5-17.5) g/dL Hct (41-53) % MCV (80-100) fL MCH (26-34) PG MCHC (30-36) % RDW (11.6-14.8) % Plt Count (150-400) X10^3/uL Neut % (Auto) (50-75) % Lymph % (Auto) (25-40) % [place] % (Auto) (3-14) % Eos % (Auto) (2-4) % Baso % (Auto) (0-2) % Neut # (Auto) (9922-4896) /uL Lymph # (Auto) (1536-0408) /uL [place] # (Auto) (0-900) /uL Eos # (Auto) (0-450) /uL Baso # (Auto) (0-100) /uL Sodium (137-145) mmol/L Potassium (3.4-5.1) mmol/L Chloride (98-107) mmol/L Carbon Dioxide (22-32) mmol/L BUN (9-20) mg/dL Creatinine (0.66-1.25) mg/dL Estimated GFR (>60) mL/min BUN/Creatinine Ratio (6-22) Glucose (70-100) mg/dL Calcium (8.4-10.2) mg/dL Total Bilirubin (0.2-1.3) mg/dL AST (17-59) IU/L ALT (<50) IU/L Alkaline Phosphatase (38-126) U/L Total Protein (6.3-8.2) g/dL Albumin (3.5-5.0) g/dL Globulin (1.7-4.1) g/dL Albumin/Globulin Ratio (1.0-2.8) Lipase 235 (23-300) U/L Ur Bilirubin Confirm (Negative) Urine RBC (0-5/HPF) Urine WBC (0-5/HPF) Calcium Oxalate Crystal Urine Bacteria (None) Ur Culture Indicated? Urine Dip Bedside Urine Glucose Negative Bedside Urine Bilirubin + 1 Bedside Urine Ketone - Negative Urine Specific [place] 1.030 Bedside Urine Occult Blood +++ Bedside Urine pH 6.0 Bedside Urine Protein + 30 Bedside Urine Urobilinogen - Negative Bedside Urine Nitrite - Negative Bedside Urine Leukocytes +/- [address] scan - abdomen/pelvis: Radiologist's Impression: PROCEDURE:? CT ABDOMEN PELVIS WO CON ? INDICATIONS:? kidney stone ? TECHNIQUE:? Axial sections were acquired from the lung bases to the pubic symphysis.? Coronal and sagittal reformats were performed.? For radiation dose reduction, the following was used: ?automated exposure control, adjustment of mA and/or kV according to patient size.? ? COMPARISON:? None. ? FINDINGS:? Image quality:? Excellent.? ? Lung bases:? Unremarkable.? ? Heart:? Atrial septal metallic device in place.? The heart size is normal. ? URINARY: Right Kidney:? There are nonobstructing calculi in the right kidney, measuring 4 mm in the upper pole and a cluster measuring 8 mm in the lower pole.? No right hydronephrosis or perinephric inflammation. Right Ureter:? No hydroureter or ureteral calcifications. ? Left Kidney:? Moderate left hydronephrosis.? No significant perinephric inflammation.? No intrarenal calculi. Left Ureter:? Mild left hydroureter without significant ureteral inflammation.? There is an obstructing stone in the distal ureter measuring 4 mm where there is moderate surrounding inflammation. ? Bladder:? Normal wall thickness. No stones. ? ? ? ABDOMEN: Liver:? Mild hepatomegaly and steatosis. Gallbladder:? Surgically absent Biliary ducts:? Nondilated. Pancreas:? Normal. Spleen:? Normal size. Adrenal Glands:? No nodules. .? ? Stomach and Bowel:? There is a bowel anastomosis in the right lower quadrant.? Stomach, small bowel loops, and colon are otherwise unremarkable.? Peritoneum:? No abnormal intraperitoneal fluid.? No free air.? ? Ventral Wall: ? No hernia.? Abdominal Nodes:? No enlarged retroperitoneal or mesenteric lymph nodes.? Vessels:? Aorta and inferior vena cava are normal in size.? ? PELVIS: Pelvic Organs:? Mild prostatomegaly.? ? Pelvic Nodes: Unremarkable. Miscellaneous: No inguinal hernias are seen. ? ? ? Bones:? Both sacroiliac joints demonstrate irregularity, subcortical sclerosis, and possible erosive changes. ? IMPRESSION:? ? 1. 4 mm obstructing left distal ureteral calcification. ? 2. Two nonobstructing clusters of intrarenal calculi in the right kidney. ? 3. Changes of sacroiliitis. ? 4. Mild hepatomegaly and hepatic steatosis.? ? ? Dictated by: Shannon Odell M.D. on 07/18/2021 at 13:07 ? ? Approved by: Shannon Odell M.D. on 07/18/2021 at 13:31?? MDM Narrative Medical decision making narrative: The patient was evaluated and treated for kidney stones. Patient has extensive history of this issue and has been very familiar with the previous course of treatment options. Patient has required multiple treatments to include stents and lithotripsy for previous kidney stones. CT confirms kidney stones in both sides. In my opinion prescribing Flomax and pain medication this patient can be treated outpatient and he is agreeable with this treatment option. He will follow-up with his PCP and will be discharged home. Discharge Plan Departure Patient Disposition: Home Clinical Impression: Kidney stones Instructions: DI for Kidney Stones Activity Restrictions/Additional Instructions: The CT scan you had done today identified kidney stones in both the right and left kidney. The left ureter has a 4 mm stone that has caused some mild hydronephrosis of the kidney. There are extensive history of kidney stones comfortable with sending her home with pain medication and Flomax. I would recommend increasing your fluid intake take the Flomax once daily and pain medication as needed and follow-up with your PCP. Return to the emergency room if symptoms become worse or no improvement in 2-3 days. Prescriptions: New tamsulosin [Flomax] 0.4 mg capsule 0.4 mg PO DAILY Qty: 30 0RF oxycodone-acetaminophen [Percocet] 10-325 mg tablet 1 tab PO Q8H PRN (Reason: pain) Qty: 7 0RF No Action aspirin 81 mg Tablet 81 mg PO DAILY 0RF tamsulosin [Flomax] 0.4 mg capsule 0.4 mg PO DAILY Qty: 7 0RF ciprofloxacin HCl 500 mg tablet 500 mg PO Q12H Qty: 20 0RF oxycodone-acetaminophen [Percocet] 5-325 mg tablet 1 tab PO QID PRN (Reason: pain) Qty: 10 0RF ondansetron 4 mg tablet,disintegrating 4 mg PO Q8H PRN (Reason: nausea and vomiting) Qty: 10 0RF oxycodone-acetaminophen [Percocet] 10-325 mg tablet 1 tab PO Q8H PRN (Reason: pain) Qty: 14 0RF Referrals: Isac Haines MD [Primary Care Provider] -
[2021-07-18 12:39] LABS: Alanine Aminotransferase 44 IU/L (<50); Albumin 4.9 g/dL (3.5-5.0); Albumin Globulin Ratio 1.4 (1.0-2.8); Alkaline Phosphatase 92 U/L (38-126); Aspartate Aminotransferase 31 IU/L (17-59); BUN Creatinine Ratio 15.4 (6-22); Bilirubin Total 0.4 mg/dL (0.2-1.3); Blood Urea Nitrogen 14 mg/dL (9-20); Calcium 10.2 mg/dL (8.4-10.2); Carbon Dioxide 25 mmol/L (22-32); Chloride 106 mmol/L (98-107); Estimated Glomerular Filt Rate > 60.0 mL/min (>60); Globulin 3.6 g/dL (1.7-4.1); Glucose 104 mg/dL (70-100); HEMOLYSIS 28 (0-50); Potassium 4.8 mmol/L (3.4-5.1); Sodium 141 mmol/L (137-145); Total Protein 8.5 g/dL (6.3-8.2)
[2021-07-18] MEDS: SODIUM CHLORIDE 0.9% 1,000 ML 1000 ML IV (12:52)
[2021-07-18] MEDS: KETOROLAC 30 MG/ML VIAL IV (12:52)
[2021-07-18 12:58] LABS: Lipase 235 U/L (23-300)
[2021-07-18 13:02] VITALS: BP 140/94; PULSE 64; RESP 18; O2SAT 99
[2021-07-18] MEDS: HYDROMORPHONE 1 MG INJ IV (13:08)
[2021-07-18 14:20] VITALS: BP 133/88; PULSE 64; RESP 18; O2SAT 99
== END 2021-07-18 14:21 | disposition home or self-care (01) ==
PROVIDERS: Emergency Medicine; Emergency Provider Physician Assistant; PCP Internal Medicine
DX: N20.0 Calculus of kidney (principal)
CPT/HCPCS: 36415; 74176; 80053; 81003; 81015; 83690; 85025; 87086; 96361; 96374; 96375; 99284; J1170; J1885

== ENCOUNTER 2021-12-20 12:22 | Emergency (ER) | payer OTHER, MEDICAID, SELFPAY ==
[2021-12-20 12:26] VITALS: BP 131/99; PULSE 80; RESP 18; TEMP 36.4; O2SAT 98; BMI 26.1
[2021-12-20 12:45] LABS: Appearance Urine UA CLEAR; Bilirubin Urine UA NEGATIVE (NEGATIVE); Color Urine UA YELLOW; Glucose Urine UA NEGATIVE (Negative); Ketones Urine UA TRACE (NEGATIVE); Leukocyte Esterase Urine UA NEGATIVE (NEGATIVE); Nitrite Urine UA NEGATIVE (Negative); Occult Blood Urine UA TRACE-INTACT (Negative); Protein Urine UA NEGATIVE (Negative); Urobilinogen Urine UA 0.2 E.U./dL (0.2)
--- NOTE | 2021-12-20 12:47 | ED.MALEGU ---
HPI - Male Genitourinary <JAMES Arambula - Last Filed: 12/20/21 15:11> General Chief complaint: Urogenital-Male Stated complaint: Kidney Stone Time Seen by Provider: 12/20/21 12:36 Source: patient Mode of arrival: Ambulatory History of Present Illness HPI Narrative: 51-year-old male, daily smoker, presents to the emergency department with complaints of right flank pain since 5:00 a.m.. Patient has an extensive history of kidney stones that include stents and lithotripsy. Patient took a dose of Flomax at 5:00 a.m. but reports that they pain is gradually worsening. Patient reports that his urine was very dark this morning, which is consistent with previous kidney stones. Patient informed the provider that Toradol does not immediately addressed the pain and last time required Dilaudid. Related Data Home Medications Medication Instructions Recorded Confirmed aspirin 81 mg tablet 81 mg PO DAILY 12/30/20 07/21/21 Previous Rx's Medication Instructions Recorded oxycodone-acetaminophen 10 mg-325 1 tab PO Q8H PRN pain #7 tabs 07/18/21 mg tablet (Percocet) tamsulosin 0.4 mg capsule (Flomax) 0.4 mg PO DAILY #90 caps 07/21/21 oxycodone-acetaminophen 10 mg-325 1 tab PO Q8H PRN back pain #10 tabs 12/20/21 mg tablet Allergies Allergy/AdvReac Type Severity Reaction Status Date / Time No Known Drug Allergies Allergy Verified 07/21/21 14:31 Review of Systems <JAMES Arambula - Last Filed: 12/20/21 15:11> Review of Systems Narrative: Narrative: GENERAL: Denies chills, fatigue, fever, sweats. HEENT: Denies sinus pain, ear pain, sore throat, difficulty swallowing, dizziness. RESPIRATORY: Denies dyspnea, cough, wheezing, sputum. CARDIOVASCULAR: Denies chest pain, palpitations, edema. GASTROINTESTINAL: Denies vomiting, abdominal pain, diarrhea, constipation. : Denies dysuria, frequency, incontinence, urinary retention. MUSCULOSKELETAL: Denies weakness, joint pain, or bony pain. SKIN: Denies rash, skin lesions, or pruritis. NEUROLOGIC: Denies weakness, dizziness, headache, numbness. PSYCHIATRIC: No concerning psychosocial issues. Patient History <JAMES Arambula - Last Filed: 12/20/21 15:11> Medical History Chronic back pain Crohn disease (~1999) Iritis Kidney stones (~2007) Personal history of stroke with current residual effects (~2016) Surgical History Anesthesia History of bowel resection History of lithotripsy S/P cholecystectomy S/P exploratory laparotomy (~1999) S/P knee surgery S/P patent foramen ovale closure (~2017) Family History Father History of heart disease Hyperlipidemia Grandmother Diabetes mellitus Grandmother Diabetes mellitus Social History marital status: household members: spouse Smoking Status: Current every day smoker alcohol intake: current Smoking Status: Current every day smoker tobacco type: cigarettes alcohol intake frequency: a few times a month Substance Use Type: does not use Exam <JAMES Arambula - Last Filed: 12/20/21 15:11> Narrative Exam Narrative: Exam Narrative: GENERAL: This is a well-nourished, well-developed patient, in acute distress HEAD: Atraumatic. Normocephalic. EYES: Pupils equal round and reactive. Extraocular motions intact. No injection or drainage. ENT: Nose without bleeding, purulent drainage. Airway patent. NECK: Trachea midline. No JVD or lymphadenopathy. Supple and nontender. CARDIOVASCULAR: Regular rate and rhythm, peripheral pulses intact, cap refill <2 sec. RESPIRATORY: Breath sounds equal and clear bilaterally. No wheezes, rales, or rhonchi. No cough. No increased respiratory effort. No accessory muscle use. GASTROINTESTINAL: Abdomen soft, non-tender, nondistended without guarding or rebound. No suprapubic pain. No hepato-splenomegaly, or palpable masses. Right-sided CVA tenderness EXTREMITIES: Normal range of motion, no clubbing or edema. Neurovascularly intact. NEURO: A&O x 3. SKIN: Warm, dry, no rashes or lesions noted. Initial Vital Signs Initial Vital Signs: Vital Signs Temperature 97.6 F 12/20/21 12:26 Pulse Rate 80 12/20/21 12:26 Respiratory Rate 18 07/09/22 12:26 Blood Pressure 131/99 H 12/20/21 12:26 Pulse Oximetry 98 12/20/21 12:26 Oxygen Delivery Method 12/20/21 12:26 Reviewed <Elidia Madsen DO - Last Filed: 12/22/21 13:25> Initial Vital Signs Initial Vital Signs: Vital Signs Temperature 97.6 F 12/20/21 12:26 Pulse Rate 80 12/20/21 12:26 Respiratory Rate 18 12/20/21 12:26 Blood Pressure 131/99 H 12/20/21 12:26 Pulse Oximetry 98 12/20/21 12:26 Oxygen Delivery Method 12/20/21 12:26 Course <JAMES Arambula - Last Filed: 12/20/21 15:11> Orders Ordered: Discontinued Medications Hydromorphone HCl (Hydromorphone 1 Mg Inj) 1 mg IV NOW ONE Stop: 12/20/21 12:56 Last Admin: 12/20/21 13:09 Dose: 1 mg Documented By: GERARDO Sodium Chloride (Normal Saline 0.9%) 1,000 mls @ 1,000 mls/hr IV BOLUS ONE Stop: 12/20/21 13:51 Last Infusion: 12/20/21 14:21 Dose: 1,000 mls/hr Documented By: Admin: 12/20/21 13:09 Dose: 1,000 mls/hr Documented By: GERARDO Ketorolac Tromethamine (Ketorolac 30 Mg/Ml Vial) 30 mg IV NOW ONE Stop: 12/20/21 12:55 Last Admin: 12/20/21 13:01 Dose: 30 mg Documented By: GERARDO Ondansetron HCl (Ondansetron 4 Mg/2 Ml Inj) 4 mg IV NOW ONE Stop: 12/20/21 12:59 Last Admin: 12/20/21 13:08 Dose: 4 mg Documented By: GERARDO Vital Signs Vital signs: Vital Signs - 8 hr 12/20/21 12:26 Temperature 97.6 F Pulse Rate 80 Respiratory Rate 18 Blood Pressure 131/99 H Pulse Oximetry 98 Oxygen Delivery Method Room Air <Elidia Madsen DO - Last Filed: 12/22/21 13:25> Orders Ordered: Discontinued Medications Hydromorphone HCl (Hydromorphone 1 Mg Inj) 1 mg IV NOW ONE Stop: 12/20/21 12:56 Last Admin: 12/20/21 13:09 Dose: 1 mg Documented By: GERARDO Sodium Chloride (Normal Saline 0.9%) 1,000 mls @ 1,000 mls/hr IV BOLUS ONE Stop: 12/20/21 13:51 Last Infusion: 12/20/21 14:21 Dose: 1,000 mls/hr Documented By: Admin: 12/20/21 13:09 Dose: 1,000 mls/hr Documented By: GERARDO Ketorolac Tromethamine (Ketorolac 30 Mg/Ml Vial) 30 mg IV NOW ONE Stop: 12/20/21 12:55 Last Admin: 12/20/21 13:01 Dose: 30 mg Documented By: GERARDO Ondansetron HCl (Ondansetron 4 Mg/2 Ml Inj) 4 mg IV NOW ONE Stop: 12/20/21 12:59 Last Admin: 12/20/21 13:08 Dose: 4 mg Documented By: GERARDO Vital Signs Vital signs: Vital Signs - 8 hr 12/20/21 12:26 Temperature 97.6 F Pulse Rate 80 Respiratory Rate 18 Blood Pressure 131/99 H Pulse Oximetry 98 Oxygen Delivery Method Room Air MDM - Male Genitourinary <JAMES Arambula - Last Filed: 12/20/21 15:11> Differential Diagnosis Differential diagnosis: Likely other (Nephrolithiasis); Unlikely urinary tract infection or acute retention of urine Lab Data Result diagrams: 12/20/21 13:00 12/20/21 13:00 Labs: Lab Results 12/20/21 12/20/21 12/20/21 Range/Units 12:30 13:00 13:00 WBC 8.1 (4.5-11.0) X10^3/uL RBC 5.07 (4.5-5.9) X10^6/uL Hgb 15.5 (13.5-17.5) g/dL Hct 45.2 (41-53) % MCV 89.1 (80-100) fL MCH 30.7 (26-34) PG MCHC 34.4 (30-36) % RDW 14.7 (11.6-14.8) % Plt Count 315 (150-400) X10^3/uL Neut % (Auto) 70.1 (50-75) % Lymph % (Auto) 19.6 L (25-40) % [place] % (Auto) 8.1 (3-14) % Eos % (Auto) 1.4 L (2-4) % Baso % (Auto) 0.8 (0-2) % Neut # (Auto) 5700 (2876-9793) /uL Lymph # (Auto) 1600 (5836-2114) /uL [place] # (Auto) 700 (0-900) /uL Eos # (Auto) 100 (0-450) /uL Baso # (Auto) 100 (0-100) /uL Sodium 141 (137-145) mmol/L Potassium 4.3 (3.4-5.1) mmol/L Chloride 104 (98-107) mmol/L Carbon Dioxide 24 (22-32) mmol/L BUN 13 (9-20) mg/dL Creatinine 0.99 (0.66-1.25) mg/dL Estimated GFR > 60 (>60) mL/min BUN/Creatinine Ratio 13.1 (6-22) Glucose 82 (70-100) mg/dL Calcium 9.9 (8.4-10.2) mg/dL Total Bilirubin 0.5 (0.2-1.3) mg/dL AST 31 (17-59) IU/L ALT 32 (<50) IU/L Alkaline Phosphatase 93 (38-126) U/L Total Protein 7.9 (6.3-8.2) g/dL Albumin 4.9 (3.5-5.0) g/dL Globulin 3.0 (1.7-4.1) g/dL Albumin/Globulin Ratio 1.6 (1.0-2.8) Lipase (23-300) U/L Urine Color Yellow Urine Appearance Clear Urine pH 6.0 (4.5-8.0) Ur Specific [place] 1.020 (1.000-1.035) Urine Protein Negative (Negative) Urine Glucose (UA) Negative (Negative) g/dL Urine Ketones Trace H (NEGATIVE) Urine Occult Blood Trace-intact (Negative) Urine Nitrate Negative (Negative) Urine Bilirubin Negative (NEGATIVE) Urine Urobilinogen 0.2 (0.2) E.U./dL Ur Leukocyte Esterase Negative (NEGATIVE) Urine RBC 1-5/hpf D (0-5/HPF) Urine WBC 0-1/hpf (0-5/HPF) Urine Bacteria None seen (None) Ur Culture Indicated? Cult not indicated 12/20/21 Range/Units 13:00 WBC (4.5-11.0) X10^3/uL RBC (4.5-5.9) X10^6/uL Hgb (13.5-17.5) g/dL Hct (41-53) % MCV (80-100) fL MCH (26-34) PG MCHC (30-36) % RDW (11.6-14.8) % Plt Count (150-400) X10^3/uL Neut % (Auto) (50-75) % Lymph % (Auto) (25-40) % [place] % (Auto) (3-14) % Eos % (Auto) (2-4) % Baso % (Auto) (0-2) % Neut # (Auto) (0354-3066) /uL Lymph # (Auto) (1575-6211) /uL [place] # (Auto) (0-900) /uL Eos # (Auto) (0-450) /uL Baso # (Auto) (0-100) /uL Sodium (137-145) mmol/L Potassium (3.4-5.1) mmol/L Chloride (98-107) mmol/L Carbon Dioxide (22-32) mmol/L BUN (9-20) mg/dL Creatinine (0.66-1.25) mg/dL Estimated GFR (>60) mL/min BUN/Creatinine Ratio (6-22) Glucose (70-100) mg/dL Calcium (8.4-10.2) mg/dL Total Bilirubin (0.2-1.3) mg/dL AST (17-59) IU/L ALT (<50) IU/L Alkaline Phosphatase (38-126) U/L Total Protein (6.3-8.2) g/dL Albumin (3.5-5.0) g/dL Globulin (1.7-4.1) g/dL Albumin/Globulin Ratio (1.0-2.8) Lipase 268 (23-300) U/L Urine Color Urine Appearance Urine pH (4.5-8.0) Ur Specific [place] (1.000-1.035) Urine Protein (Negative) Urine Glucose (UA) (Negative) g/dL Urine Ketones (NEGATIVE) Urine Occult Blood (Negative) Urine Nitrate (Negative) Urine Bilirubin (NEGATIVE) Urine Urobilinogen (0.2) E.U./dL Ur Leukocyte Esterase (NEGATIVE) Urine RBC (0-5/HPF) Urine WBC (0-5/HPF) Urine Bacteria (None) Ur Culture Indicated? Imaging Data CT scan - abdomen/pelvis: Radiologist's Impression: Close Abdomen/Pelvis CT (Signed) Sanjiv Zhao - 12/20/21 Launch?Image [address] [address] [address] Scan Report Signed Patient: Maciel Urban MR#: [id number] : 1970 Acct:[id number] Age/Sex: 51 / M Date of Service: 12/20/21 Loc: ED Accession Number: [id number] ?? Procedure: CT abdomen pelvis wo con Ordering Provider: Ki Jim PROCEDURE:? CT ABDOMEN PELVIS WO CON ? INDICATIONS:? Right flank pain r/o kidney stone ? TECHNIQUE:? Noncontrast 5 mm thick sections acquired from the diaphragms to the symphysis.? 5 mm coronal and sagittal reformats were then performed.? For radiation dose reduction, the following was used:? automated exposure control, adjustment of mA and/or kV according to patient size.? ? COMPARISON:? [facility], CT, CT ABDOMEN PELVIS WO CON, 07/18/2021, 12:43. ? FINDINGS:? Image quality:? Excellent.? ? ABDOMEN:? Lung bases:? Lung bases are clear.? Heart size is normal.? Metallic atrial closure device is noted between the right and left atrium. ? Solid organs:? Liver is enlarged with decreased density consistent with hepatic steatosis.? Gallbladder is status post cholecystectomy.? Pancreas is normal in contours.? Spleen is normal in size.? No adrenal nodules.? There is a nonobstructing calculus in the right upper pole measuring 4 mm and in the lower pole measuring 8 mm.? No hydronephrosis. ?No obstructing nephroureteral calculi.? No kidney stones on the left.? No stones in the bladder.? ? Peritoneum and bowel:? Unenhanced bowel loops demonstrate normal wall thickness and caliber.? Anastomotic deborah are seen in the right lower quadrant with a patulous appearance of this segment of bowel, unchanged compared to the prior CT.? No free fluid or air.? ? Nodes and vessels:? No retroperitoneal or mesenteric adenopathy by size criteria.? Aorta and inferior vena cava are normal in caliber.? ? Miscellaneous:? No ventral hernias.? ? ? PELVIS:? Genitourinary:? Bladder wall thickness is normal.? ? Miscellaneous:? No inguinal hernias or adenopathy.? ? Bones:? The sacroiliac joints demonstrate degenerative changes and subchondral sclerosis bilaterally.? No suspicious bony lesions.? No vertebral body compression fractures.? ? IMPRESSION:? 1. Previously seen obstructing left distal ureteral kidney stone is no longer visualized. 2. 2 nonobstructing calculi in the right kidney are unchanged. 3. Hepatic steatosis and hepatomegaly? ? ? Dictated by: Sanjiv Zhao M.D. on 12/20/2021 at 12:49 ? ? Approved by: Sanjiv Zhao M.D. on 12/20/2021 at 12:57 ? MDM Narrative Medical decision making narrative: 51-year-old male with history of kidney stones presents to the emergency department with right CVA pain. Urine dip revealed trace amount of blood and ketones. Labs were all within normal limits. Abdominal CT reveals right-sided kidney stones. Pain was controlled with ketorolac and Dilaudid. Will treat with tamsulosin and Percocet. Discussed return precautions and plan of care with patient, who is agreeable with course of action. <Elidia Madsen, DO - Last Filed: 12/22/21 13:25> Lab Data Labs: Lab Results 12/20/21 12/20/21 12/20/21 Range/Units 12:30 13:00 13:00 WBC 8.1 (4.5-11.0) X10^3/uL RBC 5.07 (4.5-5.9) X10^6/uL Hgb 15.5 (13.5-17.5) g/dL Hct 45.2 (41-53) % MCV 89.1 (80-100) fL MCH 30.7 (26-34) PG MCHC 34.4 (30-36) % RDW 14.7 (11.6-14.8) % Plt Count 315 (150-400) X10^3/uL Neut % (Auto) 70.1 (50-75) % Lymph % (Auto) 19.6 L (25-40) % [place] % (Auto) 8.1 (3-14) % Eos % (Auto) 1.4 L (2-4) % Baso % (Auto) 0.8 (0-2) % Neut # (Auto) 5700 (4134-2761) /uL Lymph # (Auto) 1600 (2094-4750) /uL [place] # (Auto) 700 (0-900) /uL Eos # (Auto) 100 (0-450) /uL Baso # (Auto) 100 (0-100) /uL Sodium 141 (137-145) mmol/L Potassium 4.3 (3.4-5.1) mmol/L Chloride 104 (98-107) mmol/L Carbon Dioxide 24 (22-32) mmol/L BUN 13 (9-20) mg/dL Creatinine 0.99 (0.66-1.25) mg/dL Estimated GFR > 60 (>60) mL/min BUN/Creatinine Ratio 13.1 (6-22) Glucose 82 (70-100) mg/dL Calcium 9.9 (8.4-10.2) mg/dL Total Bilirubin 0.5 (0.2-1.3) mg/dL AST 31 (17-59) IU/L ALT 32 (<50) IU/L Alkaline Phosphatase 93 (38-126) U/L Total Protein 7.9 (6.3-8.2) g/dL Albumin 4.9 (3.5-5.0) g/dL Globulin 3.0 (1.7-4.1) g/dL Albumin/Globulin Ratio 1.6 (1.0-2.8) Lipase (23-300) U/L Urine Color Yellow Urine Appearance Clear Urine pH 6.0 (4.5-8.0) Ur Specific [place] 1.020 (1.000-1.035) Urine Protein Negative (Negative) Urine Glucose (UA) Negative (Negative) g/dL Urine Ketones Trace H (NEGATIVE) Urine Occult Blood Trace-intact (Negative) Urine Nitrate Negative (Negative) Urine Bilirubin Negative (NEGATIVE) Urine Urobilinogen 0.2 (0.2) E.U./dL Ur Leukocyte Esterase Negative (NEGATIVE) Urine RBC 1-5/hpf D (0-5/HPF) Urine WBC 0-1/hpf (0-5/HPF) Urine Bacteria None seen (None) Ur Culture Indicated? Cult not indicated 12/20/21 Range/Units 13:00 WBC (4.5-11.0) X10^3/uL RBC (4.5-5.9) X10^6/uL Hgb (13.5-17.5) g/dL Hct (41-53) % MCV (80-100) fL MCH (26-34) PG MCHC (30-36) % RDW (11.6-14.8) % Plt Count (150-400) X10^3/uL Neut % (Auto) (50-75) % Lymph % (Auto) (25-40) % [place] % (Auto) (3-14) % Eos % (Auto) (2-4) % Baso % (Auto) (0-2) % Neut # (Auto) (6084-3309) /uL Lymph # (Auto) (6873-9848) /uL [place] # (Auto) (0-900) /uL Eos # (Auto) (0-450) /uL Baso # (Auto) (0-100) /uL Sodium (137-145) mmol/L Potassium (3.4-5.1) mmol/L Chloride (98-107) mmol/L Carbon Dioxide (22-32) mmol/L BUN (9-20) mg/dL Creatinine (0.66-1.25) mg/dL Estimated GFR (>60) mL/min BUN/Creatinine Ratio (6-22) Glucose (70-100) mg/dL Calcium (8.4-10.2) mg/dL Total Bilirubin (0.2-1.3) mg/dL AST (17-59) IU/L ALT (<50) IU/L Alkaline Phosphatase (38-126) U/L Total Protein (6.3-8.2) g/dL Albumin (3.5-5.0) g/dL Globulin (1.7-4.1) g/dL Albumin/Globulin Ratio (1.0-2.8) Lipase 268 (23-300) U/L Urine Color Urine Appearance Urine pH (4.5-8.0) Ur Specific [place] (1.000-1.035) Urine Protein (Negative) Urine Glucose (UA) (Negative) g/dL Urine Ketones (NEGATIVE) Urine Occult Blood (Negative) Urine Nitrate (Negative) Urine Bilirubin (NEGATIVE) Urine Urobilinogen (0.2) E.U./dL Ur Leukocyte Esterase (NEGATIVE) Urine RBC (0-5/HPF) Urine WBC (0-5/HPF) Urine Bacteria (None) Ur Culture Indicated? Discharge Plan Departure Patient Disposition: Home Clinical Impression: Kidney stone on right side Instructions: DI for Kidney Stones Activity Restrictions/Additional Instructions: *You have been diagnosed with right-sided kidney stone. Please continue to take your Flomax daily, as previously prescribed and take your pain medications as needed. Please follow-up with your family doctor if symptoms persist or worsen. *What to do: *Please continue to take your regular medications as directed. [x ] New medication prescriptions sent to your pharmacy: [[facility] in [place]] [ ] New medication written as a paper prescription [ ] No new medications given *Please follow up with your primary care provider in 2-3 days, call for an appointment. Let them know you were seen in the Emergency Department and that we ask that you be seen in follow up. We will electronically transmit a record of today's note if your PCP is in our system *If you do not have a primary care provider please contact the [facility] Resource line at [phone]. They will ask some questions about your medical history and help get you set up with a doctor in the community. ? Return to ER if you should have any new, worsening or concerning symptoms, such as worsening pain, severe headache, confusion, chest pain, difficulty breathing, fever greater than 101 F, shaking chills, persistent vomiting to the point that you cannot drink fluids, or other new or worsening symptoms. Prescriptions: New oxycodone-acetaminophen 10-325 mg tablet 1 tab PO Q8H PRN (Reason: back pain) Qty: 10 0RF No Action tamsulosin [Flomax] 0.4 mg capsule 0.4 mg PO DAILY Qty: 90 3RF oxycodone-acetaminophen [Percocet] 10-325 mg tablet 1 tab PO Q8H PRN (Reason: pain) Qty: 7 0RF aspirin 81 mg Tablet 81 mg PO DAILY Referrals: Isac Haines MD [Primary Care Provider] - Visit Report Forms: Patient Portal/API <Elidia Madsen DO - Last Filed: 12/22/21 13:25> Cosign ED Attending Siennaature Attestation: I was immediately available in the department for consultation. Documentation has been reviewed. Patient was seen briefly by myself. He is feeling much better after his treatment.
--- NOTE | 2021-12-20 12:56 | DI.CT.S_ITS ---
PROCEDURE: CT ABDOMEN PELVIS WO CON INDICATIONS: Right flank pain r/o kidney stone TECHNIQUE: Noncontrast 5 mm thick sections acquired from the diaphragms to the symphysis. 5 mm coronal and sagittal reformats were then performed. For radiation dose reduction, the following was used: automated exposure control, adjustment of mA and/or kV according to patient size. COMPARISON: [facility], CT, CT ABDOMEN PELVIS WO CON, 07/18/2021, 12:43. FINDINGS: Image quality: Excellent. ABDOMEN: Lung bases: Lung bases are clear. Heart size is normal. Metallic atrial closure device is noted between the right and left atrium. Solid organs: Liver is enlarged with decreased density consistent with hepatic steatosis. Gallbladder is status post cholecystectomy. Pancreas is normal in contours. Spleen is normal in size. No adrenal nodules. There is a nonobstructing calculus in the right upper pole measuring 4 mm and in the lower pole measuring 8 mm. No hydronephrosis. No obstructing nephroureteral calculi. No kidney stones on the left. No stones in the bladder. Peritoneum and bowel: Unenhanced bowel loops demonstrate normal wall thickness and caliber. Anastomotic deborah are seen in the right lower quadrant with a patulous appearance of this segment of bowel, unchanged compared to the prior CT. No free fluid or air. Nodes and vessels: No retroperitoneal or mesenteric adenopathy by size criteria. Aorta and inferior vena cava are normal in caliber. Miscellaneous: No ventral hernias. PELVIS: Genitourinary: Bladder wall thickness is normal. Miscellaneous: No inguinal hernias or adenopathy. Bones: The sacroiliac joints demonstrate degenerative changes and subchondral sclerosis bilaterally. No suspicious bony lesions. No vertebral body compression fractures. IMPRESSION: 1. Previously seen obstructing left distal ureteral kidney stone is no longer visualized. 2. 2 nonobstructing calculi in the right kidney are unchanged. 3. Hepatic steatosis and hepatomegaly Dictated by: Sanjiv Zhao M.D. on 12/20/2021 at 12:49 Approved by: Sanjiv Zhao M.D. on 12/20/2021 at 12:57
[2021-12-20 12:57] LABS: Bacteria Urine None Seen; Culture Indicated Urine Cult Not Indicated; RBC Urine 1-5/HPF (0-5/HPF); WBC Urine 0-1/HPF (0-5/HPF)
[2021-12-20] MEDS: KETOROLAC 30 MG/ML VIAL IV (13:01)
[2021-12-20] MEDS: ONDANSETRON 4 MG/2 ML INJ IV (13:08)
[2021-12-20] MEDS: SODIUM CHLORIDE 0.9% 1,000 ML 1000 ML IV (13:09)
[2021-12-20] MEDS: HYDROMORPHONE 1 MG INJ IV (13:09)
[2021-12-20 14:29] LABS: Alanine Aminotransferase 32 IU/L (<50); Albumin 4.9 g/dL (3.5-5.0); Albumin Globulin Ratio 1.6 (1.0-2.8); Alkaline Phosphatase 93 U/L (38-126); Aspartate Aminotransferase 31 IU/L (17-59); BUN Creatinine Ratio 13.1 (6-22); Bilirubin Total 0.5 mg/dL (0.2-1.3); Blood Urea Nitrogen 13 mg/dL (9-20); Calcium 9.9 mg/dL (8.4-10.2); Carbon Dioxide 24 mmol/L (22-32); Chloride 104 mmol/L (98-107); Estimated Glomerular Filt Rate > 60 mL/min (>60); Glucose 82 mg/dL (70-100); HEMOLYSIS 30 (0-50); Lipase 268 U/L (23-300); Potassium 4.3 mmol/L (3.4-5.1); Sodium 141 mmol/L (137-145); Total Protein 7.9 g/dL (6.3-8.2)
[2021-12-20 14:30] LABS: Add Manual Diff / Slide Review NO; Basophils Absolute Auto 100 /uL (0-100); Basophils Percent Auto 0.8 % (0-2); Eosinophils Absolute Auto 100 /uL (0-450); Eosinophils Percent Auto 1.4 % (2-4); Hematocrit 45.2 % (41-53); Hemoglobin 15.5 g/dL (13.5-17.5); Lymphocytes Absolute Auto 1600 /uL (1100-4500); Lymphocytes Percent Auto 19.6 % (25-40); Mean Corpuscular HGB Conc 34.4 % (30-36); Mean Corpuscular Hemoglobin 30.7 PG (26-34); Mean Corpuscular Volume 89.1 fL (80-100); Monocytes Absolute Auto 700 /uL (0-900); Monocytes Percent Auto 8.1 % (3-14); Neutrophils Absolute Auto 5700 /uL (1500-7000); Neutrophils Percent Auto 70.1 % (50-75); Platelet Count 315 X10^3/uL (150-400); Red Blood Cell Count 5.07 X10^6/uL (4.5-5.9); Red Cell Distribution Width 14.7 % (11.6-14.8); White Blood Cell Count 8.1 X10^3/uL (4.5-11.0)
[2021-12-20 15:15] VITALS: BP 115/60; PULSE 70; RESP 18; TEMP 36.6; O2SAT 99
== END 2021-12-20 15:15 | disposition home or self-care (01) ==
PROVIDERS: Emergency Medicine; Emergency Provider Registered Nurse; PCP Internal Medicine
DX: N20.0 Calculus of kidney (principal); Z87.442 Personal history of urinary calculi
CPT/HCPCS: 36415; 74176; 80053; 81001; 83690; 85025; 96361; 96374; 96375; 99284; J1170; J1885; J2405

== ENCOUNTER 2022-01-28 16:28 | Emergency (ER) | payer OTHER, MEDICAID, SELFPAY ==
[2022-01-28] VITALS (12 sets, daily range): BP systolic 107–143; BP diastolic 66–92; PULSE 62–89; RESP 13–19; TEMP 36.3; O2SAT 96–99; BMI 25.8
[2022-01-28] MEDS: ONDANSETRON 4 MG/2 ML INJ (16:50)
[2022-01-28 17:10] LABS: Alanine Aminotransferase 73 IU/L (<50); Albumin 5.1 g/dL (3.5-5.0); Albumin Globulin Ratio 1.3 (1.0-2.8); Alkaline Phosphatase 92 U/L (38-126); Aspartate Aminotransferase 42 IU/L (17-59); BUN Creatinine Ratio 17.3 (6-22); Bilirubin Total 1.2 mg/dL (0.2-1.3); Blood Urea Nitrogen 19 mg/dL (9-20); Calcium 9.8 mg/dL (8.4-10.2); Carbon Dioxide 27 mmol/L (22-32); Chloride 99 mmol/L (98-107); Estimated Glomerular Filt Rate > 60 mL/min (>60); Globulin 3.9 g/dL (1.7-4.1); Glucose 118 mg/dL (70-100); HEMOLYSIS < 15 (0-50); Lipase 180 U/L (23-300); Potassium 4.4 mmol/L (3.4-5.1); Sodium 140 mmol/L (137-145)
[2022-01-28 17:53] LABS: Add Manual Diff / Slide Review NO; Basophils Absolute Auto 0 /uL (0-100); Basophils Percent Auto 0.3 % (0-2); Eosinophils Absolute Auto 100 /uL (0-450); Eosinophils Percent Auto 0.5 % (2-4); Hematocrit 49.9 % (41-53); Lymphocytes Absolute Auto 1300 /uL (1100-4500); Lymphocytes Percent Auto 12.1 % (25-40); Mean Corpuscular HGB Conc 34.1 % (30-36); Mean Corpuscular Hemoglobin 30.1 PG (26-34); Mean Corpuscular Volume 88.5 fL (80-100); Monocytes Absolute Auto 500 /uL (0-900); Monocytes Percent Auto 4.7 % (3-14); Neutrophils Absolute Auto 9100 /uL (1500-7000); Neutrophils Percent Auto 82.4 % (50-75); Platelet Count 358 X10^3/uL (150-400); Red Blood Cell Count 5.65 X10^6/uL (4.5-5.9); Red Cell Distribution Width 14.5 % (11.6-14.8)
[2022-01-28 18:13] LABS: Ictotest Urine Negative (Negative)
[2022-01-28 18:23] LABS: Bacteria Urine None Seen; Hyaline Casts Urine 0-1/LPF; Mucus Urine 1+ (Negative); RBC Urine None Seen (0-5/HPF); Squamous Epithelial Cell Urine 0-1 /HPF (0-5/HPF); WBC Urine 0-1/HPF (0-5/HPF)
--- NOTE | 2022-01-28 19:44 | ED_ITS ---
HPI - Abdominal Pain General Chief Complaint: Abdominal Pain Stated Complaint: vomiting/weak/abd. 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 Patient states he has history of Crohn's disease as well as kidney stones. Complains of left lower quadrant pain. He states he does not feel like either 1 of those. Has had history of bowel resection due to Crohn's. He is not on any medications for Crohn's. Primary care is Dr. Haines. Has had nonbloody vomiting and diarrhea. No urinary complaints. Complains of sharp pain nonradiating. Related Data Home Medications Medication Instructions Recorded Confirmed aspirin 81 mg tablet 81 mg PO DAILY 12/30/20 07/21/21 Previous Rx's Medication Instructions Recorded oxycodone-acetaminophen 10 mg-325 1 tab PO Q8H PRN pain #7 tabs 07/18/21 mg tablet (Percocet) tamsulosin 0.4 mg capsule (Flomax) 0.4 mg PO DAILY #90 caps 07/21/21 oxycodone-acetaminophen 10 mg-325 1 tab PO Q8H PRN back pain #10 tabs 12/20/21 mg tablet ciprofloxacin HCl 500 mg tablet 500 mg PO Q12H #14 tabs 01/28/22 (Cipro) methylprednisolone 4 mg tablets in See Rx Instructions PO .COMPLEX 01/28/22 a dose pack (Medrol (Denis)) #21 ea metronidazole 500 mg tablet 500 mg PO TID #21 tabs 01/28/22 ondansetron 4 mg disintegrating 4 mg PO Q8H PRN nausea and 01/28/22 tablet vomiting #10 tabs Allergies Allergy/AdvReac Type Severity Reaction Status Date / Time No Known Drug Allergies Allergy Verified 01/28/22 16:32 Review of Systems Review of Systems Narrative: GENERAL: Denies chills, fatigue, malaise, fever, sweats. HEENT: Denies sinus pain, ear pain, sore throat RESPIRATORY: Denies dyspnea, cough CARDIOVASCULAR: Denies chest pain, palpitations GASTROINTESTINAL: Positive diarrhea and nausea, vomiting, abdominal pain : Denies dysuria, frequency, hematuria MUSCULOSKELETAL: denies muscle or bony pain SKIN: Denies rash, skin lesions NEUROLOGIC: Denies weakness, numbness ROS Unobtainable: All systems reviewed & are unremarkable except as noted in HPI and below Patient History Medical History Chronic back pain Crohn disease (~1999) Iritis Kidney stones (~2007) Personal history of stroke with current residual effects (~2016) Surgical History Anesthesia History of bowel resection History of lithotripsy S/P cholecystectomy S/P exploratory laparotomy (~1999) S/P knee surgery S/P patent foramen ovale closure (~2017) Family History Father History of heart disease Hyperlipidemia Grandmother Diabetes mellitus Grandmother Diabetes mellitus Social History marital status: household members: spouse Smoking Status: Current every day smoker alcohol intake: current Smoking Status: Current every day smoker tobacco type: cigarettes alcohol intake frequency: a few times a month Substance Use Type: does not use Exam Narrative Exam Narrative: GENERAL: in no distress, not toxic not dyspneic HEAD: Normocephalic. EYES: Pupils equal round No scleral icterus. ENT: Mucous membranes moist. NECK: Trachea midline. CARDIOVASCULAR: Regular rate and rhythm without murmurs RESPIRATORY: Clear to auscultation. Breath sounds equal bilaterally. No wheezes, rales, or rhonchi. GASTROINTESTINAL: Abdomen soft, Tender Touch left lower quadrant no peritoneal signs bowel sounds are present. EXTREMITIES: No gross deformities. BACK: No flank tenderness. NEURO: AOx4. SKIN: Warm and dry PSYCH: Not anxious, is cooperative Initial Vital Signs Initial Vital Signs: Vital Signs Temperature 97.4 F L 01/28/22 16:32 Pulse Rate 89 01/28/22 16:32 Respiratory Rate 18 01/28/22 16:32 Blood Pressure 127/82 01/28/22 16:32 Pulse Oximetry 99 01/28/22 16:32 Oxygen Delivery Method 01/28/22 16:32 Course Course Course Narrative: No new issues during course of stay Orders Ordered: ED Orders 01/28/22 16:44 Complete Blood Count AUTO DIFF Stat Comprehensive Metabolic Panel Stat Lipase Stat 01/28/22 17:44 Ictotest Urine Stat Urine Culture Stat Urine Microscopic Stat 01/28/22 19:44 CT abdomen pelvis w con Stat 01/28/22 21:03 COVID19 -Nasal RAPID/Pre-Proc Stat Discontinued Medications Ciprofloxacin (Ciprofloxacin 250 Mg Tablet) 500 mg PO NOW ONE Stop: 01/28/22 21:12 Last Admin: 01/28/22 21:20 Dose: 500 mg Documented By: BS Hydromorphone HCl (Hydromorphone 1 Mg Inj) 1 mg IV NOW ONE Stop: 01/28/22 19:44 Last Admin: 01/28/22 19:50 Dose: 1 mg Documented By: SB Metronidazole (Metronidazole 500 Mg Tablet) 500 mg PO NOW ONE Stop: 01/28/22 21:12 Last Admin: 01/28/22 21:20 Dose: 500 mg Documented By: BS Prednisone (Prednisone 20 Mg Tablet) 40 mg PO NOW ONE Stop: 01/28/22 21:12 Last Admin: 01/28/22 21:20 Dose: 40 mg Documented By: BS Reevaluation(s) Reevaluation #1: Spoke with patient results. Agrees with antibiotics and short course of steroids. He states as long as it is short course. He does not do well with long-term and high dose. Return precautions reviewed with him. Pain controlled at time of discharge. Time: 21:13 Consultations Consultation #1: Spoke with Dr. Arevalo, on-call for primary care Dr. Haines. Recommends given patient's Cipro and Flagyl and Medrol Dosepak and follow up in the office this week. Time: 21:00 Vital Signs Vital signs: Vital Signs - 8 hr 01/28/22 16:32 01/28/22 17:10 01/28/22 17:12 Temperature 97.4 F L Pulse Rate 89 77 77 Respiratory Rate 18 Blood Pressure 127/82 Pulse Oximetry 99 99 98 Oxygen Delivery Method Room Air 01/28/22 17:12 01/28/22 17:30 01/28/22 17:30 Temperature Pulse Rate 69 Respiratory Rate 13 Blood Pressure 123/87 113/78 Pulse Oximetry 97 Oxygen Delivery Method 01/28/22 18:00 01/28/22 18:00 01/28/22 18:30 Temperature Pulse Rate 63 63 Respiratory Rate 16 19 Blood Pressure 107/66 Pulse Oximetry 99 99 Oxygen Delivery Method 01/28/22 19:00 01/28/22 19:30 01/28/22 20:00 Temperature Pulse Rate 62 65 70 Respiratory Rate 17 15 Blood Pressure Pulse Oximetry 96 Oxygen Delivery Method 01/28/22 20:01 01/28/22 20:01 01/28/22 20:30 Temperature Pulse Rate 69 68 Respiratory Rate Blood Pressure 143/92 H Pulse Oximetry 99 97 Oxygen Delivery Method 01/28/22 21:00 Temperature Pulse Rate 71 Respiratory Rate Blood Pressure Pulse Oximetry 96 Oxygen Delivery Method MDM - Abdominal Pain Differential Diagnosis Differential diagnosis: Likely abdominal pain, acute appendicitis, calculus of kidney, constipation, diverticulitis, pancreatitis and small bowel obstruction Lab Data Result diagrams: 01/28/22 16:44 01/28/22 16:44 Labs: Lab Results 01/28/22 01/28/22 01/28/22 Range/Units 16:44 16:44 17:44 WBC 11.0 (4.5-11.0) X10^3/uL RBC 5.65 (4.5-5.9) X10^6/uL Hgb 17.0 (13.5-17.5) g/dL Hct 49.9 (41-53) % MCV 88.5 (80-100) fL MCH 30.1 (26-34) PG MCHC 34.1 (30-36) % RDW 14.5 (11.6-14.8) % Plt Count 358 (150-400) X10^3/uL Neut % (Auto) 82.4 H (50-75) % Lymph % (Auto) 12.1 L (25-40) % [place] % (Auto) 4.7 (3-14) % Eos % (Auto) 0.5 L (2-4) % Baso % (Auto) 0.3 (0-2) % Neut # (Auto) 9100 H (4177-3483) /uL Lymph # (Auto) 1300 (7579-8506) /uL [place] # (Auto) 500 (0-900) /uL Eos # (Auto) 100 (0-450) /uL Baso # (Auto) 0 (0-100) /uL Sodium 140 (137-145) mmol/L Potassium 4.4 (3.4-5.1) mmol/L Chloride 99 (98-107) mmol/L Carbon Dioxide 27 (22-32) mmol/L BUN 19 (9-20) mg/dL Creatinine 1.10 (0.66-1.25) mg/dL Estimated GFR > 60 (>60) mL/min BUN/Creatinine Ratio 17.3 (6-22) Glucose 118 H (70-100) mg/dL Calcium 9.8 (8.4-10.2) mg/dL Total Bilirubin 1.2 (0.2-1.3) mg/dL AST 42 (17-59) IU/L ALT 73 H (<50) IU/L Alkaline Phosphatase 92 (38-126) U/L Total Protein 9.0 H (6.3-8.2) g/dL Albumin 5.1 H (3.5-5.0) g/dL Globulin 3.9 (1.7-4.1) g/dL Albumin/Globulin Ratio 1.3 (1.0-2.8) Lipase 180 (23-300) U/L Ur Bilirubin Confirm (Negative) Urine RBC None seen (0-5/HPF) Urine WBC 0-1/hpf (0-5/HPF) Ur Squamous Epith Cells 0-1 /hpf (0-5/HPF) Urine Bacteria None seen (None) Hyaline Casts 0-1/lpf (None) Urine Mucus 1+ H (Negative) Ur Culture Indicated? Culture not indicate SARS-CoV-2 (PCR) (Negative) 01/28/22 01/28/22 Range/Units 17:44 21:03 WBC (4.5-11.0) X10^3/uL RBC (4.5-5.9) X10^6/uL Hgb (13.5-17.5) g/dL Hct (41-53) % MCV (80-100) fL MCH (26-34) PG MCHC (30-36) % RDW (11.6-14.8) % Plt Count (150-400) X10^3/uL Neut % (Auto) (50-75) % Lymph % (Auto) (25-40) % [place] % (Auto) (3-14) % Eos % (Auto) (2-4) % Baso % (Auto) (0-2) % Neut # (Auto) (5532-5258) /uL Lymph # (Auto) (0114-9248) /uL [place] # (Auto) (0-900) /uL Eos # (Auto) (0-450) /uL Baso # (Auto) (0-100) /uL Sodium (137-145) mmol/L Potassium (3.4-5.1) mmol/L Chloride (98-107) mmol/L Carbon Dioxide (22-32) mmol/L BUN (9-20) mg/dL Creatinine (0.66-1.25) mg/dL Estimated GFR (>60) mL/min BUN/Creatinine Ratio (6-22) Glucose (70-100) mg/dL Calcium (8.4-10.2) mg/dL Total Bilirubin (0.2-1.3) mg/dL AST (17-59) IU/L ALT (<50) IU/L Alkaline Phosphatase (38-126) U/L Total Protein (6.3-8.2) g/dL Albumin (3.5-5.0) g/dL Globulin (1.7-4.1) g/dL Albumin/Globulin Ratio (1.0-2.8) Lipase (23-300) U/L Ur Bilirubin Confirm Negative (Negative) Urine RBC (0-5/HPF) Urine WBC (0-5/HPF) Ur Squamous Epith Cells (0-5/HPF) Urine Bacteria (None) Hyaline Casts (None) Urine Mucus (Negative) Ur Culture Indicated? SARS-CoV-2 (PCR) Negative (Negative) Point of care testing: Urine Dip Bedside Urine Glucose Negative Bedside Urine Bilirubin ++ 2 Bedside Urine Ketone - Negative Urine Specific [place] 1.025 Bedside Urine Occult Blood +/- Bedside Urine pH 6.0 Bedside Urine Protein ++ 100 Bedside Urine Urobilinogen - Negative Bedside Urine Nitrite - Negative Bedside Urine Leukocytes - Negative Esterase Imaging Data CT scan - abdomen/pelvis: Radiologist's Impression: [address] [address] [address] Scan Report Signed Patient: Maciel Urban MR#: [id number] : 1970 Acct:[id number] Age/Sex: 51 / M Date of Service: 01/28/22 Loc: ED Accession Number: [id number] ?? Procedure: CT abdomen pelvis w con Ordering Provider: Ernesto Velásquez MD PROCEDURE:? CT ABDOMEN PELVIS W CON ? INDICATIONS:? left lower quadrant pain ? TECHNIQUE:? After the administration of IV contrast, axial sections were acquired from the lung bases to the pubic symphysis.? Coronal and sagittal reformats were performed.? For radiation dose reduction, the following was used:? automated exposure control, adjustment of mA and/or kV according to patient size. ? COMPARISON:? [facility], CT, ABDOMEN/PELVIS WITH CONTRAST, 01/12/2011, 5:15. ? FINDINGS:? Image quality:? Excellent.? ? Lung bases:? There is mild dependent atelectasis.? ? Heart:? Heart is normal in size. ? ? ABDOMEN: Liver:? There is hypoattenuation of the liver consistent with fatty infiltration. Gallbladder:? Surgically absent. Biliary ducts:? No biliary ductal dilatation.? ? Pancreas:? Unremarkable.? ? Spleen:? Normal in size.? ? Adrenal Glands:? No adrenal nodules.? ? Kidneys and Ureters:? No hydronephrosis.? There are 3 nonobstructing right renal stones, with the largest stone measuring up to 0.8 cm in the inferior pole and demonstrating attenuation values of approximately 900-1000 Hounsfield units.? ? Stomach and Bowel:? There is mild gastric wall thickening.? There are a few mildly distended loops of small bowel, measuring up to 4.4 cm with scattered air-fluid levels.? These are associated with a few short segments of mild small bowel wall thickening likely reflecting a nonspecific enteritis.? There is also mild fluid distention of the ascending and transverse colon with scattered air-fluid levels.? A no associated focal transition point.? The findings likely reflect an ileus.? No pericecal inflammatory changes to suggest appendicitis. Peritoneum:? No abnormal intraperitoneal fluid.? No free air.? ? Ventral Wall: ? No hernia.? Abdominal Nodes:? No retroperitoneal or mesenteric adenopathy by size criteria.? Vessels:? Aorta and inferior vena cava are normal in size.? ? PELVIS: Pelvic Organs:? Unremarkable.? ? Bladder:? Unremarkable.? ? Pelvic Nodes: No enlarged lymph nodes.? Miscellaneous: No inguinal hernias are seen. ? ? ? Bones:? Visualized osseous structures demonstrate no suspicious focal lesions. ? IMPRESSION:? ? 1. Scattered segments of mild small bowel wall thickening likely reflecting an infectious or inflammatory enteritis including possible inflammatory bowel disease.? Multiple mildly dilated segments of small bowel with air-fluid levels are demonstrated suggestive of an associated ileus or mild functional obstruction.? No high-grade small-bowel obstruction. ? 2. Mild fluid distention of the proximal colon with air-fluid levels also likely reflect an ileus. ? 3. Right nephrolithiasis without evidence of obstructive uropathy.? ? ? Dictated by: Sampson Hardwick M.D. on 01/28/2022 at 20:08 ? ? Approved by: Sampson Hardwick M.D. on 01/28/2022 at 20:20 ? MDM Narrative Medical decision making narrative: Appropriate for discharge home. Exam and laboratory studies otherwise reassuring. No fever. Has no elevated white count. Reviewed with primary care on-call. Return precautions reviewed with patient. Medications started here in the department. Pain controlled at time of discharge. 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 Not toxic at discharge. Discharge Plan Departure Patient Disposition: Home Clinical Impression: Crohn disease Instructions: DI for Crohn Disease, DI for Crohn's Disease Flare Activity Restrictions/Additional Instructions: No driving or operating machinery tonight. Please continue steroid pack and ant ibiotics tomorrow. Please see your family doctor this week for re-evaluation. Call in the morning for office appointment. Return if worse if any questions or concerns. Keep well hydrated Prescriptions: New methylprednisolone [Medrol (Denis)] 4 mg tablets,dose pack See Rx Instructions .ROUTE .COMPLEX Qty: 21 0RF Rx Instructions: orally per package directions ciprofloxacin HCl [Cipro] 500 mg tablet 500 mg PO Q12H Qty: 14 0RF metronidazole 500 mg tablet 500 mg PO TID Qty: 21 0RF ondansetron 4 mg tablet,disintegrating 4 mg PO Q8H PRN (Reason: nausea and vomiting) Qty: 10 0RF No Action tamsulosin [Flomax] 0.4 mg capsule 0.4 mg PO DAILY Qty: 90 3RF oxycodone-acetaminophen [Percocet] 10-325 mg tablet 1 tab PO Q8H PRN (Reason: pain) Qty: 7 0RF oxycodone-acetaminophen 10-325 mg tablet 1 tab PO Q8H PRN (Reason: back pain) Qty: 10 0RF aspirin 81 mg Tablet 81 mg PO DAILY Referrals: Isac Haines MD [Primary Care Provider] - Visit Report Forms: Patient Portal/API
--- NOTE | 2022-01-28 19:44 | DI.CT.S_ITS ---
PROCEDURE: CT ABDOMEN PELVIS W CON INDICATIONS: left lower quadrant pain TECHNIQUE: After the administration of IV contrast, axial sections were acquired from the lung bases to the pubic symphysis. Coronal and sagittal reformats were performed. For radiation dose reduction, the following was used: automated exposure control, adjustment of mA and/or kV according to patient size. COMPARISON: [facility], CT, ABDOMEN/PELVIS WITH CONTRAST, 01/12/2011, 5:15. FINDINGS: Image quality: Excellent. Lung bases: There is mild dependent atelectasis. Heart: Heart is normal in size. ABDOMEN: Liver: There is hypoattenuation of the liver consistent with fatty infiltration. Gallbladder: Surgically absent. Biliary ducts: No biliary ductal dilatation. Pancreas: Unremarkable. Spleen: Normal in size. Adrenal Glands: No adrenal nodules. Kidneys and Ureters: No hydronephrosis. There are 3 nonobstructing right renal stones, with the largest stone measuring up to 0.8 cm in the inferior pole and demonstrating attenuation values of approximately 900-1000 Hounsfield units. Stomach and Bowel: There is mild gastric wall thickening. There are a few mildly distended loops of small bowel, measuring up to 4.4 cm with scattered air-fluid levels. These are associated with a few short segments of mild small bowel wall thickening likely reflecting a nonspecific enteritis. There is also mild fluid distention of the ascending and transverse colon with scattered air-fluid levels. A no associated focal transition point. The findings likely reflect an ileus. No pericecal inflammatory changes to suggest appendicitis. Peritoneum: No abnormal intraperitoneal fluid. No free air. Ventral Wall: No hernia. Abdominal Nodes: No retroperitoneal or mesenteric adenopathy by size criteria. Vessels: Aorta and inferior vena cava are normal in size. PELVIS: Pelvic Organs: Unremarkable. Bladder: Unremarkable. Pelvic Nodes: No enlarged lymph nodes. Miscellaneous: No inguinal hernias are seen. Bones: Visualized osseous structures demonstrate no suspicious focal lesions. IMPRESSION: 1. Scattered segments of mild small bowel wall thickening likely reflecting an infectious or inflammatory enteritis including possible inflammatory bowel disease. Multiple mildly dilated segments of small bowel with air-fluid levels are demonstrated suggestive of an associated ileus or mild functional obstruction. No high-grade small-bowel obstruction. 2. Mild fluid distention of the proximal colon with air-fluid levels also likely reflect an ileus. 3. Right nephrolithiasis without evidence of obstructive uropathy. Dictated by: Sampson Hardwick M.D. on 01/28/2022 at 20:08 Approved by: Smapson Hardwick M.D. on 01/28/2022 at 20:20
[2022-01-28] MEDS: HYDROMORPHONE 1 MG INJ IV (19:50)
[2022-01-28] MEDS: predniSONE 20 MG TABLET 40 MG PO (21:20)
[2022-01-28] MEDS: metroNIDAZOLE 500 MG TABLET PO (21:20)
[2022-01-28] MEDS: CIPROFLOXACIN 250 MG TABLET 500 MG PO (21:20)
[2022-01-28 21:36] LABS: COVID19 -Nasal RAPID Negative (Negative)
== END 2022-01-28 21:26 | disposition home or self-care (01) ==
PROVIDERS: Emergency Medicine; Emergency Provider Emergency Medicine; PCP Internal Medicine
DX: K50.90 Crohn's disease, unspecified, without complications (principal); Z20.822 Contact with and (suspected) exposure to COVID-19
CPT/HCPCS: 36415; 74177; 80053; 81003; 81015; 83690; 85025; 87086; 87635; 96374; 99284; C9803; J1170; J2405; Q9967

== ENCOUNTER 2022-06-23 04:43 | Emergency (ER) | payer OTHER, MEDICAID, SELFPAY ==
[2022-06-23 05:34] VITALS: BP 125/89; PULSE 69; RESP 16; TEMP 36.3; O2SAT 97; BMI 25.8
== END 2022-06-23 07:10 | disposition left against medical advice (07) ==
PROVIDERS: Emergency Provider Emergency Medicine; PCP Internal Medicine
DX: N20.0 Calculus of kidney (principal)
CPT/HCPCS: 81003; 99281

== ENCOUNTER 2022-07-23 14:05 | Emergency (ER) | payer OTHER, MEDICAID, SELFPAY ==
[2022-07-23 14:23] VITALS: BP 133/83; PULSE 81; RESP 17; TEMP 36.4; O2SAT 98; BMI 25.8
--- NOTE | 2022-07-23 14:37 | DI.CT.S_ITS ---
PROCEDURE: CT KIDNEY URETER BLADDER (KUB) INDICATIONS: flank pain, h/o kidney stones. TECHNIQUE: Axial sections were acquired from the lung bases to the pubic symphysis. Coronal and sagittal reformats were performed. For radiation dose reduction, the following was used: automated exposure control, adjustment of mA and/or kV according to patient size. COMPARISON: [facility], CT, CT ABDOMEN PELVIS WO CON, 12/20/2021, 13:30. [facility], CT, CT KIDNEY URETER BLADDER (KUB), 10/21/2020, 12:43. FINDINGS: Image quality: Excellent. Lung bases: Unremarkable. Heart: No significant findings. URINARY: Right Kidney: There is a 7 mm stone and also a 6 mm stone present in the same lower pole calyceal system of the right kidney. They are nonobstructive. The larger stone has a Hounsfield measurement of 960 and the smaller stone has a Hounsfield measurement of 942. No hydronephrosis. Right Ureter: No hydroureter. Left Kidney: 2 mm nonobstructing middle pole stone. No hydronephrosis. Left Ureter: No hydroureter. Bladder: Normal wall thickness. No stones. ABDOMEN: Liver: At least moderate diffuse hepatic steatosis. Mild hepatomegaly. Gallbladder: Surgically absent Biliary ducts: Unremarkable. Pancreas: Unremarkable. Spleen: Unremarkable. Adrenal Glands: Unremarkable. Stomach and Bowel: Stomach, small bowel loops, and colon are unremarkable. Peritoneum: No abnormal intraperitoneal fluid. No free air. Ventral Wall: No hernia. Abdominal Nodes: No enlarged retroperitoneal or mesenteric lymph nodes. Vessels: Aorta and inferior vena cava are normal in size. PELVIS: Pelvic Organs: Unremarkable. Pelvic Nodes: Unremarkable. Miscellaneous: No inguinal hernias are seen. Bones: Unremarkable. IMPRESSION: 1. There are 2 nonobstructing stones in the lower pole of the right kidney, measuring 7 mm and 6 mm respectively. There is also a 2 mm nonobstructing left renal stone. 2. No hydronephrosis. No evidence of acute abdominal process. 3. Diffuse hepatic steatosis, mild hepatomegaly. Dictated by: Huy Chatman M.D. on 07/23/2022 at 15:48 Approved by: Huy Chatman M.D. on 07/23/2022 at 15:54
[2022-07-23 14:42] LABS: Add Manual Diff / Slide Review NO; Basophils Absolute Auto 0 /uL (0-100); Basophils Percent Auto 0.5 % (0-2); Eosinophils Absolute Auto 100 /uL (0-450); Hematocrit 45.7 % (41-53); Hemoglobin 15.2 g/dL (13.5-17.5); Lymphocytes Absolute Auto 1500 /uL (1100-4500); Lymphocytes Percent Auto 20.3 % (25-40); Mean Corpuscular HGB Conc 33.3 % (30-36); Mean Corpuscular Volume 90.2 fL (80-100); Monocytes Absolute Auto 300 /uL (0-900); Monocytes Percent Auto 4.2 % (3-14); Neutrophils Absolute Auto 5400 /uL (1500-7000); Platelet Count 319 X10^3/uL (150-400); Red Blood Cell Count 5.07 X10^6/uL (4.5-5.9); Red Cell Distribution Width 14.2 % (11.6-14.8); White Blood Cell Count 7.3 X10^3/uL (4.5-11.0)
[2022-07-23] MEDS: ONDANSETRON 4 MG/2 ML INJ IV (14:42)
[2022-07-23] MEDS: KETOROLAC 30 MG/ML VIAL IV (14:43)
[2022-07-23] MEDS: SODIUM CHLORIDE 0.9% 1,000 ML 1000 ML IV (14:43)
[2022-07-23 14:51] LABS: Amorphous Sediment Urine 2+; Bacteria Urine Few (2-10); Culture Indicated Urine Specimen Cultured; Ictotest Urine Negative (Negative); Mucus Urine 3+ (Negative); RBC Urine 0-1/HPF (0-5/HPF); WBC Urine 10-30/HPF (0-5/HPF)
[2022-07-23 14:54] LABS: Alanine Aminotransferase 37 IU/L (<50); Albumin Globulin Ratio 1.5 (1.0-2.8); Alkaline Phosphatase 99 U/L (38-126); Aspartate Aminotransferase 32 IU/L (17-59); BUN Creatinine Ratio 14.3 (6-22); Bilirubin Total 0.5 mg/dL (0.2-1.3); Blood Urea Nitrogen 15 mg/dL (9-20); Calcium 10.1 mg/dL (8.4-10.2); Carbon Dioxide 28 mmol/L (22-32); Chloride 101 mmol/L (98-107); Estimated Glomerular Filt Rate > 60 mL/min (>60); Globulin 3.4 g/dL (1.7-4.1); Glucose 101 mg/dL (70-100); HEMOLYSIS < 15 (0-50); Lipase 266 U/L (23-300); Sodium 140 mmol/L (137-145); Total Protein 8.4 g/dL (6.3-8.2)
[2022-07-23] MEDS: HYDROCODONE/ACET 10/325 TABLET 1 TAB PO (15:42)
[2022-07-23 16:00] VITALS: BP 114/74; PULSE 70; RESP 14; O2SAT 99
--- NOTE | 2022-07-23 16:28 | ED.ABDPAIN ---
HPI - Abdominal Pain <Davin Osborne PA-C - Last Filed: 07/23/22 16:38> General Chief Complaint: Abdominal Pain Stated Complaint: Kidney Stones Time Seen by Provider: 07/23/22 14:51 Source: patient Mode of arrival: Ambulatory History of Present Illness HPI narrative: This is a 52-year-old male with extensive history of kidney stones presents to the emergency department due to right-sided abdominal pain onset earlier today. He states that the pain is very severe and he states that it feels ?just like a kidney stone?. Also reports some nausea but denies any vomiting. Denies any hematuria, penile discharge, testicular pain, or any other concerning signs or symptoms. History of multiple ureteral surgeries in the past remove stones has an established urologist. Related Data Previous Rx's Medication Instructions Recorded tamsulosin 0.4 mg capsule (Flomax) 0.4 mg PO DAILY #90 caps 07/21/21 hydrocodone 10 mg-acetaminophen 1 tab PO Q6H PRN pain from kidney 07/23/22 325 mg tablet stone #20 tabs Allergies Allergy/AdvReac Type Severity Reaction Status Date / Time No Known Drug Allergies Allergy Verified 07/23/22 14:25 Review of Systems <Davin Osborne PA-C - Last Filed: 07/23/22 16:38> Review of Systems Narrative: GENERAL: Denies chills, fatigue, malaise, fever, sweats. HEENT: Denies sinus pain, ear pain, sore throat, difficulty swallowing, dizziness. RESPIRATORY: Denies dyspnea, cough, wheezing, hemoptysis, sputum. CARDIOVASCULAR: Denies chest pain, palpitations, orthopnea, edema, GASTROINTESTINAL: Reports right-sided abdominal pain, nausea, denies, diarrhea, constipation, melena. : Denies dysuria, frequency, incontinence, hematuria, urinary retention. MUSCULOSKELETAL: denies weakness, joint pain, or bony pain SKIN: Denies rash, skin lesions, or other NEUROLOGIC: Denies weakness, headache, numbness, change in speech, confusion, seizures, incoordination. PSYCHIATRIC: No concerning psychosocial issues. 12 point review of systems is negative except for those stated above Patient History <Davin Osborne PA-C - Last Filed: 07/23/22 16:38> Medical History Chronic back pain Crohn disease (~1999) Iritis Kidney stones (~2007) Personal history of stroke with current residual effects (~2017) Surgical History Anesthesia History of bowel resection History of lithotripsy S/P cholecystectomy S/P exploratory laparotomy (~1999) S/P knee surgery S/P patent foramen ovale closure (~2017) Family History Father History of heart disease Hyperlipidemia Grandmother Diabetes mellitus Grandmother Diabetes mellitus Social History marital status: household members: spouse Smoking Status: Current every day smoker alcohol intake: current Smoking Status: Current every day smoker tobacco type: cigarettes alcohol intake frequency: holidays/special occasions only Substance Use Type: does not use Exam <Davin Osborne PA-C - Last Filed: 07/23/22 16:38> Narrative Exam Narrative: GENERAL: Well-developed patient, in mild distress. HEAD: Atraumatic. Normocephalic. EYES: Pupils equal round and reactive. Extraocular motions intact. No scleral icterus. No injection or drainage. ENT: Nose without bleeding, purulent drainage. Throat without erythema, tonsillar hypertrophy or exudate. Airway patent. NECK: Trachea midline. Non tender CARDIOVASCULAR: Regular rate and rhythm without murmurs, gallops, or rubs. RESPIRATORY: Clear to auscultation. Breath sounds equal bilaterally. No wheezes, rales, or rhonchi. GASTROINTESTINAL: Moderate right-sided abdominal tenderness to palpation, nondistended EXTREMITIES: No edema or joint tenderness. BACK: Nontender without deformity or crepitance. No flank tenderness. NEURO: AOx3. SKIN: No rash or erythema of visible areas Initial Vital Signs Initial Vital Signs: Vital Signs Temperature 97.6 F 07/23/22 14:23 Pulse Rate 81 07/23/22 14:23 Respiratory Rate 17 07/23/22 14:23 Blood Pressure 133/83 07/23/22 14:23 Pulse Oximetry 98 07/23/22 14:23 Oxygen Delivery Method 07/23/22 14:23 <Ernesto Velásquez MD - Last Filed: 07/29/22 09:18> Initial Vital Signs Initial Vital Signs: Vital Signs Temperature 97.6 F 07/23/22 14:23 Pulse Rate 81 07/23/22 14:23 Respiratory Rate 17 07/23/22 14:23 Blood Pressure 133/83 07/23/22 14:23 Pulse Oximetry 98 07/23/22 14:23 Oxygen Delivery Method 07/23/22 14:23 Course <Davin Osborne PA-C - Last Filed: 07/23/22 16:38> Orders Ordered: Discontinued Medications Hydrocodone Bitart/Acetaminophen (Hydrocodone/Acet 10/325 Tablet) 1 tab PO NOW ONE Stop: 07/23/22 15:35 Last Admin: 07/23/22 15:42 Dose: 1 tab Documented By: MARION Sodium Chloride (Normal Saline 0.9%) 1,000 mls @ 1,000 mls/hr IV BOLUS ONE Stop: 07/23/22 15:36 Last Infusion: 07/23/22 15:42 Dose: 0 mls/hr Documented By: Admin: 07/23/22 14:43 Dose: 1,000 mls/hr Documented By: FRANCISCO Ketorolac Tromethamine (Ketorolac 30 Mg/Ml Vial) 30 mg IV NOW ONE Stop: 07/23/22 14:38 Last Admin: 07/23/22 14:43 Dose: 30 mg Documented By: FRANCISCO Ondansetron HCl (Ondansetron 4 Mg/2 Ml Inj) 4 mg IV NOW PRN PRN Reason: Nausea And Vomiting Last Admin: 07/23/22 14:42 Dose: 4 mg Documented By: FRANCISCO Vital Signs Vital signs: Vital Signs - 8 hr 07/23/22 14:23 Temperature 97.6 F Pulse Rate 81 Respiratory Rate 17 Blood Pressure 133/83 Pulse Oximetry 98 Oxygen Delivery Method Room Air <Ernesto Velásquez MD - Last Filed: 07/29/22 09:18> Orders Ordered: Discontinued Medications Hydrocodone Bitart/Acetaminophen (Hydrocodone/Acet 10/325 Tablet) 1 tab PO NOW ONE Stop: 07/23/22 15:35 Last Admin: 07/23/22 15:42 Dose: 1 tab Documented By: MARION Sodium Chloride (Normal Saline 0.9%) 1,000 mls @ 1,000 mls/hr IV BOLUS ONE Stop: 07/23/22 15:36 Last Infusion: 07/23/22 15:42 Dose: 0 mls/hr Documented By: Admin: 07/23/22 14:43 Dose: 1,000 mls/hr Documented By: FRANCISCO Ketorolac Tromethamine (Ketorolac 30 Mg/Ml Vial) 30 mg IV NOW ONE Stop: 07/23/22 14:38 Last Admin: 07/23/22 14:43 Dose: 30 mg Documented By: FRANCISCO Ondansetron HCl (Ondansetron 4 Mg/2 Ml Inj) 4 mg IV NOW PRN PRN Reason: Nausea And Vomiting Last Admin: 07/23/22 14:42 Dose: 4 mg Documented By: FRANCISCO Vital Signs Vital signs: Vital Signs - 8 hr 07/23/22 14:23 Temperature 97.6 F Pulse Rate 81 Respiratory Rate 17 Blood Pressure 133/83 Pulse Oximetry 98 Oxygen Delivery Method Room Air MDM - Abdominal Pain <Davin Osborne PA-C - Last Filed: 07/23/22 16:38> Lab Data 07/23/22 14:32 07/23/22 14:32 Labs: Lab Results 07/23/22 07/23/22 07/23/22 Range/Units 14:29 14:32 14:32 WBC 7.3 (4.5-11.0) X10^3/uL RBC 5.07 (4.5-5.9) X10^6/uL Hgb 15.2 (13.5-17.5) g/dL Hct 45.7 (41-53) % MCV 90.2 (80-100) fL MCH 30.0 (26-34) PG MCHC 33.3 (30-36) % RDW 14.2 (11.6-14.8) % Plt Count 319 (150-400) X10^3/uL Neut % (Auto) 74.0 (50-75) % Lymph % (Auto) 20.3 L (25-40) % Delta % (Auto) 4.2 (3-14) % Eos % (Auto) 1.0 L (2-4) % Baso % (Auto) 0.5 (0-2) % Neut # (Auto) 5400 (5761-1730) /uL Lymph # (Auto) 1500 (6546-3869) /uL Delta # (Auto) 300 (0-900) /uL Eos # (Auto) 100 (0-450) /uL Baso # (Auto) 0 (0-100) /uL Sodium 140 (137-145) mmol/L Potassium 4.0 (3.4-5.1) mmol/L Chloride 101 (98-107) mmol/L Carbon Dioxide 28 (22-32) mmol/L BUN 15 (9-20) mg/dL Creatinine 1.05 (0.66-1.25) mg/dL Estimated GFR > 60 (>60) mL/min BUN/Creatinine Ratio 14.3 (6-22) Glucose 101 H (70-100) mg/dL Calcium 10.1 (8.4-10.2) mg/dL Total Bilirubin 0.5 (0.2-1.3) mg/dL AST 32 (17-59) IU/L ALT 37 (<50) IU/L Alkaline Phosphatase 99 (38-126) U/L Total Protein 8.4 H (6.3-8.2) g/dL Albumin 5.0 (3.5-5.0) g/dL Globulin 3.4 (1.7-4.1) g/dL Albumin/Globulin Ratio 1.5 (1.0-2.8) Lipase 266 (23-300) U/L Ur Bilirubin Confirm Negative (Negative) Urine RBC 0-1/hpf (0-5/HPF) Urine WBC 10-30/hpf H (0-5/HPF) Amorphous Sediment 2+ Urine Bacteria Few (2-10) H (None) Urine Mucus 3+ H D (Negative) Ur Culture Indicated? Specimen cultured Point of care testing: Urine Dip Bedside Urine Glucose Negative Bedside Urine Bilirubin + 1 Bedside Urine Ketone - Negative Urine Specific [place] 1.030 Bedside Urine Occult Blood - Negative Bedside Urine pH 6.0 Bedside Urine Protein +/- 15 Bedside Urine Urobilinogen - Negative Bedside Urine Nitrite - Negative Bedside Urine Leukocytes - Negative Esterase Imaging Data CT scan - abdomen/pelvis: Radiologist's Impression: [address] [id number] Scan ReportSigned Patient: Maciel Urban RMR#: [id number]: [id number]:[id number]/Sex: 52 / MDate of Service: 07/23/22Loc: EDAccession Number: [id number] Procedure: CT kidney ureter bladder (KUB) Ordering Provider: Davin Osborne P.A-C PROCEDURE: CT KIDNEY URETER BLADDER (KUB) INDICATIONS: flank pain, h/o kidney stones. TECHNIQUE: Axial sections were acquired from the lung bases to the pubic symphysis. Coronal and sagittal reformats were performed. For radiation dose reduction, the following was used: automated exposure control, adjustment of mA and/or kV according to patient size. COMPARISON: [facility], CT, CT ABDOMEN PELVIS WO CON, 12/20/2021, 13:30. [facility], CT, CT KIDNEY URETER BLADDER (KUB), 10/21/2020, 12:43. FINDINGS: Image quality: Excellent. Lung bases: Unremarkable. Heart: No significant findings. URINARY: Right Kidney: There is a 7 mm stone and also a 6 mm stone present in the same lower pole calyceal system of the right kidney. They are nonobstructive. The larger stone has a Hounsfield measurement of 960 and the smaller stone has a Hounsfield measurement of 942. No hydronephrosis. Right Ureter: No hydroureter. Left Kidney: 2 mm nonobstructing middle pole stone. No hydronephrosis. Left Ureter: No hydroureter. Bladder: Normal wall thickness. No stones. ABDOMEN: Liver: At least moderate diffuse hepatic steatosis. Mild hepatomegaly. Gallbladder: Surgically absent Biliary ducts: Unremarkable. Pancreas: Unremarkable. Spleen: Unremarkable. Adrenal Glands: Unremarkable. Stomach and Bowel: Stomach, small bowel loops, and colon are unremarkable. Peritoneum: No abnormal intraperitoneal fluid. No free air. Ventral Wall: No hernia. Abdominal Nodes: No enlarged retroperitoneal or mesenteric lymph nodes. Vessels: Aorta and inferior vena cava are normal in size. PELVIS: Pelvic Organs: Unremarkable. Pelvic Nodes: Unremarkable. Miscellaneous: No inguinal hernias are seen. Bones: Unremarkable. IMPRESSION: 1. There are 2 nonobstructing stones in the lower pole of the right kidney, measuring 7 mm and 6 mm respectively. There is also a 2 mm nonobstructing left renal stone. 2. No hydronephrosis. No evidence of acute abdominal process. 3. Diffuse hepatic steatosis, mild hepatomegaly. Dictated by: Huy Chatman M.D. on 07/23/2022 at 15:48 Approved by: Huy Chatman M.D. on 07/23/2022 at 15:54 MDM Narrative Medical decision making narrative: MDM * differential diagnosis includes but not limited to appendicitis, cholecystitis, kidney stone, hydronephrosis, gonorrhea and chlamydia * Prior records reviewed: Which showed patient was here approximately 7 months ago for very similar symptoms with kidney stones in the right * My lab interpretation: Lab work unremarkable no evidence of infection or abnormal kidney function * My imgaing interpretation: CT scan showed a 6 mm as well as a 7 mm nonobstructing stone to the pole the right kidney as well as a 2 mm nonobstructing stone on the left * Clinical Decision Rules/Scores evaluated: None * Independent discussions with: None ED Course: This is a 52-year-old male presents emergency department with an extensive history of kidney stones presenting for very similar pain. CT abdomen and pelvis was ordered which showed multiple stones in the right as well as 1 on the left. Recommended patient follow-up with his established urologist further evaluation and follow-up regarding the stones although I suspect this should pass on their own. Patient already has ?plenty of ?Flomax but will prescribe pain medication help manage the pain. He states that nausea medication does not work for him and declined a prescription. Shared Decision Making: Discussed plan with patient who is agreeable with plan Social Considerations: None Disposition: Discharged to home <Ernesto Velásquez MD - Last Filed: 07/29/22 09:18> Lab Data Labs: Lab Results 07/23/22 07/23/22 07/23/22 Range/Units 14:29 14:32 14:32 WBC 7.3 (4.5-11.0) X10^3/uL RBC 5.07 (4.5-5.9) X10^6/uL Hgb 15.2 (13.5-17.5) g/dL Hct 45.7 (41-53) % MCV 90.2 (80-100) fL MCH 30.0 (26-34) PG MCHC 33.3 (30-36) % RDW 14.2 (11.6-14.8) % Plt Count 319 (150-400) X10^3/uL Neut % (Auto) 74.0 (50-75) % Lymph % (Auto) 20.3 L (25-40) % Delta % (Auto) 4.2 (3-14) % Eos % (Auto) 1.0 L (2-4) % Baso % (Auto) 0.5 (0-2) % Neut # (Auto) 5400 (7082-5218) /uL Lymph # (Auto) 1500 (4245-2207) /uL Delta # (Auto) 300 (0-900) /uL Eos # (Auto) 100 (0-450) /uL Baso # (Auto) 0 (0-100) /uL Sodium 140 (137-145) mmol/L Potassium 4.0 (3.4-5.1) mmol/L Chloride 101 (98-107) mmol/L Carbon Dioxide 28 (22-32) mmol/L BUN 15 (9-20) mg/dL Creatinine 1.05 (0.66-1.25) mg/dL Estimated GFR > 60 (>60) mL/min BUN/Creatinine Ratio 14.3 (6-22) Glucose 101 H (70-100) mg/dL Calcium 10.1 (8.4-10.2) mg/dL Total Bilirubin 0.5 (0.2-1.3) mg/dL AST 32 (17-59) IU/L ALT 37 (<50) IU/L Alkaline Phosphatase 99 (38-126) U/L Total Protein 8.4 H (6.3-8.2) g/dL Albumin 5.0 (3.5-5.0) g/dL Globulin 3.4 (1.7-4.1) g/dL Albumin/Globulin Ratio 1.5 (1.0-2.8) Lipase 266 (23-300) U/L Ur Bilirubin Confirm Negative (Negative) Urine RBC 0-1/hpf (0-5/HPF) Urine WBC 10-30/hpf H (0-5/HPF) Amorphous Sediment 2+ Urine Bacteria Few (2-10) H (None) Urine Mucus 3+ H D (Negative) Ur Culture Indicated? Specimen cultured Point of care testing: Urine Dip Bedside Urine Glucose Negative Bedside Urine Bilirubin + 1 Bedside Urine Ketone - Negative Urine Specific [place] 1.030 Bedside Urine Occult Blood - Negative Bedside Urine pH 6.0 Bedside Urine Protein +/- 15 Bedside Urine Urobilinogen - Negative Bedside Urine Nitrite - Negative Bedside Urine Leukocytes - Negative Esterase Discharge Plan Departure Patient Disposition: Home Clinical Impression: Bilateral kidney stones Instructions: DI for Kidney Stones Activity Restrictions/Additional Instructions: Thank you for coming to the [facility] Emergency Department today. As discussed you have multiple kidney stones on the right as well as 1 in the left which should pass on their own due to the size. Please continue taking the Flomax. Please use the pain medication as needed for the pain. I strongly recommended follow-up with your established urologist that you prefer for further evaluation and management of the stones if the pain continues. I hope you feel better soon. Prescriptions: New hydrocodone-acetaminophen 10-325 mg tablet 1 tab PO Q6H PRN (Reason: pain from kidney stone) Qty: 20 0RF No Action tamsulosin [Flomax] 0.4 mg capsule 0.4 mg PO DAILY Qty: 90 3RF Referrals: Isac Haines MD [Primary Care Provider] - Stand Alone Forms: Patient Portal/API <Ernesto Velásquez MD - Last Filed: 07/29/22 09:18> [facility] Attestation: I was immediately available in the department for consultation. ?This documentation has been reviewed and I agree with assessment and plan. Supervised by Ernesto Velásquez MD
== END 2022-07-23 16:46 | disposition home or self-care (01) ==
PROVIDERS: Emergency Medicine; Emergency Provider Physician Assistant Medical; PCP Internal Medicine
DX: N20.0 Calculus of kidney (principal); R11.0 Nausea; Z87.442 Personal history of urinary calculi
CPT/HCPCS: 36415; 74176; 80053; 81003; 81015; 83690; 85025; 87086; 96361; 96374; 96375; 99284; J1885; J2405

== ENCOUNTER 2022-10-31 11:47 | Emergency (ER) | payer OTHER, MEDICAID, SELFPAY ==
[2022-10-31] VITALS (8 sets, daily range): BP systolic 138–157; BP diastolic 71–100; PULSE 55–72; RESP 16; TEMP 36.3; O2SAT 95–99; BMI 26.5
--- NOTE | 2022-10-31 11:51 | DI.US.S_ITS ---
PROCEDURE: US RENAL COMPLETE INDICATIONS: RIGHT FLANK PAIN TECHNIQUE: Real-time scanning was performed of the kidneys and bladder, with image documentation. COMPARISON: [facility], , RENAL COMPLETE, 04/03/2021, 10:34. FINDINGS: Kidneys: Kidneys are normal in size. Right kidney measures 14.3 cm long; left kidney measures 12.1 cm long. Right renal cortical thickness is 2.0 cm; left renal cortical thickness is 1.8 cm. Renal cortical echotexture is normal. Severe right hydronephrosis. No left hydronephrosis. No suspicious solid mass lesions. Bladder: Patient had voided prior to the examination. Miscellaneous: No free pelvic fluid. IMPRESSION: Severe right hydronephrosis. Dictated by: Manisha Romero M.D. on 10/31/2022 at 11:57 Approved by: Manisha Romero M.D. on 10/31/2022 at 11:58
--- NOTE | 2022-10-31 11:53 | ED_ITS ---
HPI - General Adult General Chief complaint: Abdominal Pain Stated complaint: poss kidney stone Time Seen by Provider: 10/31/22 11:51 History of Present Illness HPI narrative: 52-year-old male smoker with extensive history of kidney stones presents with a chief complaint of a relatively sudden onset right flank and groin pain that started last night and into this morning. He states that there is always a base level of pain but he has episodes or ramped up without any obvious provocation or palliation. As noted it radiates up into his right flank. He does have some nausea but denies any vomiting or fever. He is had some mild chills which he attributes to pain. Denies runny nose, sore throat or cough. Related Data Previous Rx's Medication Instructions Recorded tamsulosin 0.4 mg capsule (Flomax) 0.4 mg PO DAILY #90 caps 07/21/21 hydrocodone 10 mg-acetaminophen 1 tab PO Q6H PRN pain from kidney 07/23/22 325 mg tablet stone #20 tabs cephalexin 500 mg capsule 500 mg PO Q6H 7 days #28 caps 10/31/22 oxycodone 5 mg tablet 5 mg PO Q6H PRN pain #20 tabs 10/31/22 Allergies Allergy/AdvReac Type Severity Reaction Status Date / Time No Known Drug Allergies Allergy Verified 10/31/22 12:02 Review of Systems Review of Systems Narrative: GENERAL: Denies chills, fatigue, malaise, fever, sweats. HEENT: Denies sinus pain, ear pain, sore throat, difficulty swallowing, dizz iness. RESPIRATORY: Denies dyspnea, cough, wheezing, hemoptysis, sputum. CARDIOVASCULAR: Denies chest pain, palpitations, orthopnea, edema, GASTROINTESTINAL: Denies nausea, vomiting, abdominal pain, diarrhea, constipation, melena. : See HPI MUSCULOSKELETAL: denies weakness, joint pain, or bony pain SKIN: Denies rash, skin lesions, or other NEUROLOGIC: Denies weakness, headache, numbness, change in speech, confusion, seizures, incoordination. PSYCHIATRIC: No concerning psychosocial issues. 12 point review of systems is negative except for those stated above Patient History Medical History Chronic back pain Crohn disease (~1999) Iritis Kidney stones (~2007) Personal history of stroke with current residual effects (~2017) Surgical History Anesthesia History of bowel resection History of lithotripsy S/P cholecystectomy S/P exploratory laparotomy (~1999) S/P knee surgery S/P patent foramen ovale closure (~2017) Family History Father History of heart disease Hyperlipidemia Grandmother Diabetes mellitus Grandmother Diabetes mellitus Social History marital status: household members: spouse Smoking Status: Current every day smoker alcohol intake: current Smoking Status: Current every day smoker tobacco type: cigarettes alcohol intake frequency: holidays/special occasions only Substance Use Type: does not use Exam Narrative Exam Narrative: GENERAL: [52] year old patient appears stated age. Well-developed patient, in mild distress. HEAD: Atraumatic. Normocephalic. EYES: Pupils equal round and reactive. Extraocular motions intact. No scleral icterus. No injection or drainage. ENT: Nose without bleeding, purulent drainage. Throat without erythema, tonsillar hypertrophy or exudate. Airway patent. NECK: Trachea midline. Non tender CARDIOVASCULAR: Regular rate and rhythm without murmurs, gallops, or rubs. RESPIRATORY: Clear to auscultation. Breath sounds equal bilaterally. No wheezes, rales, or rhonchi. GASTROINTESTINAL: Abdomen soft, mild tenderness, nondistended. EXTREMITIES: No edema or joint tenderness. BACK: Nontender without deformity or crepitance. No flank tenderness. NEURO: AOx3. SKIN: No rash or erythema of visible areas Initial Vital Signs Initial Vital Signs: Vital Signs Pulse Rate 70 10/31/22 11:52 Pulse Oximetry 98 10/31/22 11:52 Course Orders Ordered: ED Orders 10/31/22 11:51 US renal complete Stat 10/31/22 12:00 Basic Metabolic Panel Stat Complete Blood Count AUTO DIFF Stat Lactate (Lactic Acid) Stat 10/31/22 12:11 Urine Microscopic Stat 10/31/22 12:20 Blood Culture Stat 10/31/22 12:56 CT kidney ureter bladder (KUB) Stat 10/31/22 13:55 Urine Culture Stat Discontinued Medications Hydromorphone HCl (Hydromorphone 0.5 Mg Inj) 0.5 mg IV NOW ONE Stop: 10/31/22 11:52 Last Admin: 10/31/22 12:10 Dose: 0.5 mg Documented By: RB Hydromorphone HCl (Hydromorphone 0.5 Mg Inj) 0.5 mg IV NOW ONE Stop: 10/31/22 13:42 Last Admin: 10/31/22 13:45 Dose: 0.5 mg Documented By: RB Sodium Chloride (Normal Saline 0.9%) 1,000 mls @ 1,000 mls/hr IV BOLUS ONE Stop: 10/31/22 12:50 Last Infusion: 10/31/22 14:33 Dose: 0 mls/hr Documented By: Infusion: 10/31/22 13:15 Dose: 1,000 mls/hr Documented By: Infusion: 10/31/22 12:50 Dose: 0 mls/hr Documented By: Admin: 10/31/22 12:10 Dose: 1,000 mls/hr Documented By: RB Lidocaine HCl 6 ml/ Sodium (Chloride) 56 mls @ 336 mls/hr IV NOW ONE Stop: 10/31/22 13:46 Last Infusion: 10/31/22 14:33 Dose: 0 mls/hr Documented By: Admin: 10/31/22 14:00 Dose: 336 mls/hr Documented By: RL Ketorolac Tromethamine (Ketorolac 30 Mg/Ml Vial) 15 mg IV NOW ONE Stop: 10/31/22 11:52 Last Admin: 10/31/22 12:11 Dose: 15 mg Documented By: RB Ondansetron HCl (Ondansetron 4 Mg/2 Ml Inj) 4 mg IV NOW ONE Stop: 10/31/22 11:52 Last Admin: 10/31/22 12:10 Dose: 4 mg Documented By: RB Vital Signs Vital signs: Vital Signs - 8 hr 10/31/22 11:59 10/31/22 11:52 10/31/22 11:53 Temperature 97.4 F L Pulse Rate 72 70 Respiratory Rate 16 Blood Pressure 157/99 H 157/99 H Pulse Oximetry 98 98 Oxygen Delivery Method Room Air 10/31/22 11:53 10/31/22 12:24 10/31/22 12:24 Temperature Pulse Rate 67 60 Respiratory Rate Blood Pressure 155/100 H Pulse Oximetry 97 97 Oxygen Delivery Method 10/31/22 12:30 10/31/22 12:30 10/31/22 13:00 Temperature Pulse Rate 62 Respiratory Rate Blood Pressure 138/71 141/92 H Pulse Oximetry 98 Oxygen Delivery Method 10/31/22 13:00 10/31/22 13:12 10/31/22 13:12 Temperature Pulse Rate 56 L 55 L Respiratory Rate Blood Pressure 156/98 H Pulse Oximetry 95 99 Oxygen Delivery Method 10/31/22 15:03 Temperature Pulse Rate 68 Respiratory Rate 16 Blood Pressure 140/93 H Pulse Oximetry 99 Oxygen Delivery Method Room Air Medical Decision Making Lab Data 10/31/22 12:00 10/31/22 12:00 Labs: Lab Results 10/31/22 10/31/22 10/31/22 Range/Units 12:00 12:00 12:00 WBC 9.1 (4.5-11.0) X10^3/uL RBC 5.05 (4.5-5.9) X10^6/uL Hgb 15.6 (13.5-17.5) g/dL Hct 45.7 (41-53) % MCV 90.6 (80-100) fL MCH 30.9 (26-34) PG MCHC 34.1 (30-36) % RDW 14.8 (11.6-14.8) % Plt Count 320 (150-400) X10^3/uL Neut % (Auto) 70.4 (50-75) % Lymph % (Auto) 20.3 L (25-40) % [place] % (Auto) 7.1 (3-14) % Eos % (Auto) 1.6 L (2-4) % Baso % (Auto) 0.6 (0-2) % Neut # (Auto) 6400 (1861-6203) /uL Lymph # (Auto) 1900 (5114-5066) /uL [place] # (Auto) 600 (0-900) /uL Eos # (Auto) 100 (0-450) /uL Baso # (Auto) 100 (0-100) /uL Sodium 137 (137-145) mmol/L Potassium 4.1 (3.4-5.1) mmol/L Chloride 106 (98-107) mmol/L Carbon Dioxide 21 L (22-32) mmol/L BUN 16 (9-20) mg/dL Creatinine 1.23 (0.66-1.25) mg/dL Estimated GFR > 60 (>60) mL/min BUN/Creatinine Ratio 13.0 (6-22) Glucose 120 H (70-100) mg/dL Lactate 2.7 H (0.7-2.1) mmol/L Calcium 9.9 (8.4-10.2) mg/dL Urine RBC (0-5/HPF) Urine WBC (0-5/HPF) Ur Renal Epithelial Cell (0-1/HPF) Calcium Oxalate Crystal Urine Bacteria (None) Urine Mucus (Negative) 10/31/22 10/31/22 Range/Units 12:11 14:15 WBC (4.5-11.0) X10^3/uL RBC (4.5-5.9) X10^6/uL Hgb (13.5-17.5) g/dL Hct (41-53) % MCV (80-100) fL MCH (26-34) PG MCHC (30-36) % RDW (11.6-14.8) % Plt Count (150-400) X10^3/uL Neut % (Auto) (50-75) % Lymph % (Auto) (25-40) % [place] % (Auto) (3-14) % Eos % (Auto) (2-4) % Baso % (Auto) (0-2) % Neut # (Auto) (4871-0944) /uL Lymph # (Auto) (6353-9276) /uL [place] # (Auto) (0-900) /uL Eos # (Auto) (0-450) /uL Baso # (Auto) (0-100) /uL Sodium (137-145) mmol/L Potassium (3.4-5.1) mmol/L Chloride (98-107) mmol/L Carbon Dioxide (22-32) mmol/L BUN (9-20) mg/dL Creatinine (0.66-1.25) mg/dL Estimated GFR (>60) mL/min BUN/Creatinine Ratio (6-22) Glucose (70-100) mg/dL Lactate 0.8 (0.7-2.1) mmol/L Calcium (8.4-10.2) mg/dL Urine RBC 5-10/hpf H (0-5/HPF) Urine WBC 0-1/hpf (0-5/HPF) Ur Renal Epithelial Cell 0-1/hpf (0-1/HPF) Calcium Oxalate Crystal Few H Urine Bacteria Occasional (0-1) (None) Urine Mucus 2+ H (Negative) Urine Dip Bedside Urine Glucose Negative Bedside Urine Bilirubin - Negative Bedside Urine Ketone - Negative Urine Specific Dexter 1.030 Bedside Urine Occult Blood +++ Bedside Urine pH 6.0 Bedside Urine Protein + 30 Bedside Urine Urobilinogen - Negative Bedside Urine Nitrite - Negative Bedside Urine Leukocytes +/- 15 Esterase Point of care testing: Urine Dip Bedside Urine Glucose Negative Bedside Urine Bilirubin - Negative Bedside Urine Ketone - Negative Urine Specific Dexter 1.030 Bedside Urine Occult Blood +++ Bedside Urine pH 6.0 Bedside Urine Protein + 30 Bedside Urine Urobilinogen - Negative Bedside Urine Nitrite - Negative Bedside Urine Leukocytes +/- 15 Esterase MDM Narrative Medical decision making narrative: [52] year old patient presents with flank pain and history of stones Multiple etiologies for patient's symptoms considered including, but not limited to: [Kidney stone versus pyelonephritis versus other] Prior Charts reviewed in our EMR Primary Historian: patient Labs reviewed and interpreted by myself:no leukocytosis or left shift, no electrolyte abnormality or renal impairment, no signs of sepsis Imaging reviewed:CT demonstrates 10mm stones, with associated hydro Consultations: Patient's symptoms improved over duration of stay with above-stated therapies. Findings and discharge diagnosis discussed with patient/family followed by verbalization of understanding Return precautions discussed with patient/family whom verbalize understanding of diagnosis and plan Discharge Plan Departure Patient Disposition: Home Clinical Impression: Kidney stones Instructions: DI for Kidney Stones Activity Restrictions/Additional Instructions: *You have been diagnosed with [ kidney stones *What to do: *Please continue to take your regular medications as directed. [ x] New medication prescriptions sent to your pharmacy: [[facility] ] [ ] New medication written as a paper prescription [ ] No new medications given *Please follow up with your primary care provider in 2-3 days, call for an appointment. Let them know you were seen in the Emergency Department and that we ask that you be seen in follow up. We will electronically transmit a record of today's note if your PCP is in our system *As we discussed, follow up with urology is important. I have included contact info for the local urology group and will electronically transmit *If you do not have a primary care provider please contact the [facility] Resource line at [phone]. They will ask some questions about your medical history and help get you set up with a doctor in the community. *Return to Emergency Department if you should have any new, worsening or concerning symptoms, such as [fever greater than 101 F, shaking chills, worsening pain, persistent vomiting or other bothersome symptoms] Prescriptions: New oxycodone 5 mg tablet 5 mg PO Q6H PRN (Reason: pain) Qty: 20 0RF cephalexin 500 mg capsule 500 mg PO Q6H 7 Days Qty: 28 0RF No Action tamsulosin [Flomax] 0.4 mg capsule 0.4 mg PO DAILY Qty: 90 3RF hydrocodone-acetaminophen 10-325 mg tablet 1 tab PO Q6H PRN (Reason: pain from kidney stone) Qty: 20 0RF Referrals: Isac Haines MD [Primary Care Provider] - Ernesto Estrada MD [Physician] - Stand Alone Forms: Patient Portal/API
[2022-10-31] MEDS: ONDANSETRON 4 MG/2 ML INJ IV (12:10)
[2022-10-31] MEDS: HYDROMORPHONE 0.5 MG INJ IV ×2 (12:10→13:45)
[2022-10-31] MEDS: SODIUM CHLORIDE 0.9% 1,000 ML 1000 ML IV (12:10)
[2022-10-31 12:11] LABS: Add Manual Diff / Slide Review NO; Basophils Absolute Auto 100 /uL (0-100); Basophils Percent Auto 0.6 % (0-2); Eosinophils Absolute Auto 100 /uL (0-450); Eosinophils Percent Auto 1.6 % (2-4); Hematocrit 45.7 % (41-53); Hemoglobin 15.6 g/dL (13.5-17.5); Lymphocytes Absolute Auto 1900 /uL (1100-4500); Lymphocytes Percent Auto 20.3 % (25-40); Mean Corpuscular HGB Conc 34.1 % (30-36); Mean Corpuscular Hemoglobin 30.9 PG (26-34); Mean Corpuscular Volume 90.6 fL (80-100); Monocytes Absolute Auto 600 /uL (0-900); Monocytes Percent Auto 7.1 % (3-14); Neutrophils Absolute Auto 6400 /uL (1500-7000); Neutrophils Percent Auto 70.4 % (50-75); Platelet Count 320 X10^3/uL (150-400); Red Blood Cell Count 5.05 X10^6/uL (4.5-5.9); Red Cell Distribution Width 14.8 % (11.6-14.8); White Blood Cell Count 9.1 X10^3/uL (4.5-11.0)
[2022-10-31] MEDS: KETOROLAC 30 MG/ML VIAL 15 MG IV (12:11)
[2022-10-31 12:29] LABS: Lactate (Lactic Acid) 2.7 mmol/L (0.7-2.1)
[2022-10-31 12:30] LABS: Blood Urea Nitrogen 16 mg/dL (9-20); Calcium 9.9 mg/dL (8.4-10.2); Carbon Dioxide 21 mmol/L (22-32); Chloride 106 mmol/L (98-107); Estimated Glomerular Filt Rate > 60 mL/min (>60); Glucose 120 mg/dL (70-100); HEMOLYSIS 16 (0-50); Potassium 4.1 mmol/L (3.4-5.1); Sodium 137 mmol/L (137-145)
[2022-10-31 12:46] LABS: Bacteria Urine Occasional (0-1); Calcium Oxalate Crystals Urine Few; Mucus Urine 2+ (Negative); RBC Urine 5-10/HPF (0-5/HPF); Renal Epithelial Cells Urine 0-1/HPF (0-1/HPF); WBC Urine 0-1/HPF (0-5/HPF)
--- NOTE | 2022-10-31 12:56 | DI.CT.S_ITS ---
PROCEDURE: CT KIDNEY URETER BLADDER (KUB) INDICATIONS: severe RLQ and R flank pain TECHNIQUE: Axial sections were acquired from the lung bases to the pubic symphysis. Coronal and sagittal reformats were performed. For radiation dose reduction, the following was used: automated exposure control, adjustment of mA and/or kV according to patient size. COMPARISON: [facility], CT, CT KIDNEY URETER BLADDER (KUB), 07/23/2022, 14:40. FINDINGS: Image quality: Excellent. Lung bases: Unremarkable. Heart: No significant findings. URINARY: Right Kidney: Severe hydronephrosis and renal pelvic dilatation. Moderate perinephric fat stranding. There are 2 adjacent nonobstructing calculi within the inferior pole right kidney, measuring 7 mm and 3 mm. Right Ureter: Moderate diffuse right ureteral dilatation. Right distal ureteral calculus measuring 10 mm and demonstrating Hounsfield units of 620. Left Kidney: No stones or hydronephrosis. Left Ureter: No hydroureter. Bladder: Normal wall thickness. No stones. ABDOMEN: Liver: Unremarkable. Gallbladder: Unremarkable. Biliary ducts: Unremarkable. Pancreas: Unremarkable. Spleen: Unremarkable. Adrenal Glands: Unremarkable. Stomach and Bowel: Stomach, small bowel loops, and colon are unremarkable. Appendix not seen. No evidence of appendicitis. Peritoneum: No abnormal intraperitoneal fluid. No free air. Ventral Wall: No hernia. Abdominal Nodes: No enlarged retroperitoneal or mesenteric lymph nodes. Vessels: Aorta and inferior vena cava are normal in size. PELVIS: Pelvic Organs: Unremarkable. Pelvic Nodes: Unremarkable. Miscellaneous: No inguinal hernias are seen. Bones: Unremarkable. IMPRESSION: 1. Right distal ureteral calculus associated with severe right hydronephrosis. 2. Appendix not seen. No evidence of appendicitis. Dictated by: Manisha Romero M.D. on 10/31/2022 at 12:13 Approved by: Manisha Romero M.D. on 10/31/2022 at 12:15
[2022-10-31] MEDS: LIDOCAINE 2% (PF) 6 ML in SODIUM CHLORIDE 0.9% 50 ML 336 ML IV (14:00)
[2022-10-31 14:07] LABS: Reflexed Lactate in 2 Hours Y
[2022-10-31 14:36] LABS: Lactate 2HR (Lactic Acid Rflx) 0.8 mmol/L (0.7-2.1)
== END 2022-10-31 15:19 | disposition home or self-care (01) ==
PROVIDERS: Emergency Provider Emergency Medicine; PCP Internal Medicine
DX: N20.0 Calculus of kidney (principal)
CPT/HCPCS: 36415; 74176; 76770; 80048; 81003; 81015; 83605; 85025; 87040; 87086; 96365; 96375; 96376; 99284; 99285; J1170; J1885; J2405

== ENCOUNTER 2023-01-18 21:36 | Observation (INO) | payer OTHER, MEDICAID, SELFPAY ==
[2023-01-18 21:40] VITALS: BP 127/86; PULSE 100; RESP 18; TEMP 36.6; O2SAT 96; BMI 25.8
[2023-01-18 22:08] LABS: Add Manual Diff / Slide Review NO; Basophils Absolute Auto 0 /uL (0-100); Basophils Percent Auto 0.3 % (0-2); Eosinophils Absolute Auto 0 /uL (0-450); Eosinophils Percent Auto 0.2 % (2-4); Hematocrit 50.3 % (41-53); Hemoglobin 17.1 g/dL (13.5-17.5); Lymphocytes Absolute Auto 900 /uL (1100-4500); Lymphocytes Percent Auto 7.3 % (25-40); Mean Corpuscular Hemoglobin 30.6 PG (26-34); Monocytes Absolute Auto 1100 /uL (0-900); Monocytes Percent Auto 8.6 % (3-14); Neutrophils Absolute Auto 10900 /uL (1500-7000); Neutrophils Percent Auto 83.6 % (50-75); Platelet Count 328 X10^3/uL (150-400); Red Blood Cell Count 5.59 X10^6/uL (4.5-5.9); Red Cell Distribution Width 14.4 % (11.6-14.8)
[2023-01-18 22:17] LABS: Ictotest Urine Negative (Negative)
[2023-01-18 22:24] LABS: Alanine Aminotransferase 37 IU/L (<50); Albumin Globulin Ratio 1.3 (1.0-2.8); Alkaline Phosphatase 78 U/L (38-126); Aspartate Aminotransferase 28 IU/L (17-59); BUN Creatinine Ratio 21.4 (6-22); Bilirubin Total 0.9 mg/dL (0.2-1.3); Blood Urea Nitrogen 46 mg/dL (9-20); Calcium 10.1 mg/dL (8.4-10.2); Carbon Dioxide 21 mmol/L (22-32); Chloride 97 mmol/L (98-107); Estimated Glomerular Filt Rate 37 mL/min (>60); Globulin 3.9 g/dL (1.7-4.1); Glucose 122 mg/dL (70-100); HEMOLYSIS 25 (0-50); Lipase 73 U/L (23-300); Potassium 4.7 mmol/L (3.4-5.1); Sodium 133 mmol/L (137-145); Total Protein 8.9 g/dL (6.3-8.2)
[2023-01-18 22:25] LABS: Bacteria Urine Few (2-10); Culture Indicated Urine Cult Not Indicated; Granular Casts Urine 0-1/LPF; Hyaline Casts Urine 5-10/LPF; RBC Urine 1-5/HPF (0-5/HPF); Squamous Epithelial Cell Urine 1-5 /HPF (0-5/HPF); WBC Urine 10-30/HPF (0-5/HPF)
--- NOTE | 2023-01-18 22:30 | DI.CT.S_ITS ---
PROCEDURE: CT KIDNEY URETER BLADDER (KUB) INDICATIONS: back pain, known stones, acute kidney injury TECHNIQUE: Axial sections were acquired from the lung bases to the pubic symphysis. Coronal and sagittal reformats were performed. For radiation dose reduction, the following was used: automated exposure control, adjustment of mA and/or kV according to patient size. COMPARISON: [facility], CT, CT KIDNEY URETER BLADDER (KUB), 10/31/2022, 13:08. FINDINGS: Image quality: Excellent. Lung bases: There is minimal atelectasis. Heart: Heart is normal in size. URINARY: Right Kidney and Ureter: There is a nonobstructing stone within the inferior pole of the right kidney measuring up to 0.7 cm with attenuation values of approximately 700-800 Hounsfield units. No hydronephrosis. No hydroureter. Left Kidney and Ureter: No stones or hydronephrosis. No hydroureter. Bladder: Normal wall thickness. No stones. ABDOMEN: Liver: Noncontrast evaluation of the liver demonstrates no discrete mass. Gallbladder: Surgically absent. Biliary ducts: No biliary ductal dilatation. Pancreas: Unremarkable. Spleen: Normal in size. Adrenal Glands: No adrenal nodules. Stomach and Bowel: There are postsurgical changes suggestive of prior partial colectomy in the ascending colon. Mild distention of small-bowel is demonstrated, measuring up to 3.9 cm extending to the ileocecal junction suggestive of an ileus. Peritoneum: No abnormal intraperitoneal fluid. No free air. Ventral Wall: No hernia. Abdominal Nodes: No retroperitoneal or mesenteric adenopathy by size criteria. Vessels: Aorta and inferior vena cava are normal in size. PELVIS: Pelvic Organs: Unremarkable. Pelvic Nodes: No enlarged lymph nodes. Miscellaneous: No inguinal hernias identified. Bones: Visualized osseous structures demonstrate no suspicious focal lesions. IMPRESSION: 1. Right nephrolithiasis without obstructive uropathy. 2. Mild distention throughout the small bowel with scattered air-fluid levels extending to the ileocecal junction. The findings are suggestive of an ileus. The differential also includes a partial obstruction. Dictated by: Sampson Hardwick M.D. on 01/18/2023 at 23:45 Approved by: Sampson Hardwick M.D. on 01/18/2023 at 23:53
[2023-01-18] MEDS: KETOROLAC 30 MG/ML VIAL 15 MG IV (23:22)
--- NOTE | 2023-01-18 23:22 | ED.ABDPAIN ---
HPI - Abdominal Pain General Chief Complaint: Abdominal Pain Stated Complaint: Vomiting, Lower back pain Time Seen by Provider: 01/18/23 21:59 Source: patient Mode of arrival: Ambulatory History of Present Illness HPI narrative: 52-year-old male smoker with history of kidney stones presents with a chief complaint of severe left flank pain with nausea and vomiting. It feels similar to prior kidney stones. He most recently seen here in the end of October at a CT demonstrating severe right-sided hydronephrosis with renal pelvic dilatation. There is a right distal ureteral stone measuring 10 mm. He has had persistent N/V over the day, the pain started after the vomiting. He has had no fever or chills. He denies any dizziness, weakness or lightheadedness. He has no chest pain or shortness of breath. Denies any change in his bowel habits or urinary habits. His pain is worse when he moves and improves with rest. He denies any antibiotics, exposure to other ill persons or bad food. Denies recent travel Related Data Previous Rx's Medication Instructions Recorded tamsulosin 0.4 mg capsule (Flomax) 0.4 mg PO DAILY #90 caps 07/21/21 hydrocodone 10 mg-acetaminophen 1 tab PO Q6H PRN pain from kidney 07/23/22 325 mg tablet stone #20 tabs oxycodone 5 mg tablet 5 mg PO Q6H PRN pain #20 tabs 10/31/22 Allergies Allergy/AdvReac Type Severity Reaction Status Date / Time No Known Drug Allergies Allergy Verified 01/18/23 21:42 Review of Systems Review of Systems Narrative: GENERAL: Denies chills, fatigue, malaise, fever, sweats. HEENT: Denies sinus pain, ear pain, sore throat, difficulty swallowing, dizziness. RESPIRATORY: Denies dyspnea, cough, wheezing, hemoptysis, sputum. CARDIOVASCULAR: Denies chest pain, palpitations, orthopnea, edema, GASTROINTESTINAL: See HPI : Denies dysuria, frequency, incontinence, hematuria, urinary retention. MUSCULOSKELETAL: denies weakness, joint pain, or bony pain SKIN: Denies rash, skin lesions, or other NEUROLOGIC: Denies weakness, headache, numbness, change in speech, confusion, seizures, incoordination. PSYCHIATRIC: No concerning psychosocial issues. 12 point review of systems is negative except for those stated above Patient History Medical History Chronic back pain Crohn disease (~1999) Iritis Kidney stones (~2007) Personal history of stroke with current residual effects (~2017) Surgical History Anesthesia History of bowel resection History of lithotripsy S/P cholecystectomy S/P exploratory laparotomy (~1999) S/P knee surgery S/P patent foramen ovale closure (~2017) Family History Father History of heart disease Hyperlipidemia Grandmother Diabetes mellitus Grandmother Diabetes mellitus Social History marital status: household members: spouse Smoking Status: Current every day smoker alcohol intake: current Smoking Status: Current every day smoker tobacco type: cigarettes alcohol intake frequency: holidays/special occasions only Substance Use Type: does not use Exam Narrative Exam Narrative: GENERAL: [52] year old patient appears stated age. Well-developed patient, in mild distress. HEAD: Atraumatic. Normocephalic. EYES: Pupils equal round and reactive. Extraocular motions intact. No scleral icterus. No injection or drainage. ENT: Nose without bleeding, purulent drainage. Throat without erythema, tonsillar hypertrophy or exudate. Airway patent. NECK: Trachea midline. Non tender CARDIOVASCULAR: Regular rate and rhythm without murmurs, gallops, or rubs. RESPIRATORY: Clear to auscultation. Breath sounds equal bilaterally. No wheezes, rales, or rhonchi. GASTROINTESTINAL: Abdomen soft, tender in left lower quadrant, nondistended. EXTREMITIES: No edema or joint tenderness. BACK: Nontender without deformity or crepitance. No flank tenderness. NEURO: AOx3. SKIN: No rash or erythema of visible areas Initial Vital Signs Initial Vital Signs: Vital Signs Temperature 97.9 F 01/18/23 21:40 Pulse Rate 100 H 01/18/23 21:40 Respiratory Rate 18 01/18/23 21:40 Blood Pressure 127/86 01/18/23 21:40 Pulse Oximetry 96 01/18/23 21:40 Oxygen Delivery Method Room Air 01/18/23 21:40 Course Orders Ordered: ED Orders 01/18/23 21:51 EKG-12 Lead Stat 01/18/23 21:55 Complete Blood Count AUTO DIFF Stat Comprehensive Metabolic Panel Stat Ictotest Urine Stat Lipase Stat Urine Culture Stat Urine Microscopic Stat 01/18/23 22:30 CT kidney ureter bladder (KUB) Stat Lactated Ringer's (Lactated Ringers) 1,000 mls @ 1,000 mls/hr IV BOLUS ONE Stop: 01/19/23 01:01 Ondansetron HCl (Ondansetron 4 Mg Odt) 4 mg PO NOW PRN PRN Reason: Nausea And Vomiting Ondansetron HCl (Ondansetron 4 Mg/2 Ml Inj) 4 mg IV NOW PRN PRN Reason: Nausea And Vomiting Discontinued Medications Hydromorphone HCl (Hydromorphone 1 Mg Inj) 1 mg IV NOW ONE Stop: 01/19/23 00:03 Ketorolac Tromethamine (Ketorolac 30 Mg/Ml Vial) 15 mg IV NOW ONE Stop: 01/18/23 23:08 Last Admin: 01/18/23 23:22 Dose: 15 mg Documented By: JILLIAN Vital Signs Vital signs: Vital Signs - 8 hr 01/18/23 21:40 Temperature 97.9 F Pulse Rate 100 H Respiratory Rate 18 Blood Pressure 127/86 Pulse Oximetry 96 Oxygen Delivery Method Room Air MDM - Abdominal Pain Lab Data 01/18/23 21:55 01/18/23 21:55 Labs: Lab Results 01/18/23 01/18/23 01/18/23 Range/Units 21:55 21:55 21:55 WBC 13.0 H (4.5-11.0) X10^3/uL RBC 5.59 (4.5-5.9) X10^6/uL Hgb 17.1 (13.5-17.5) g/dL Hct 50.3 (41-53) % MCV 90.0 (80-100) fL MCH 30.6 (26-34) PG MCHC 34.0 (30-36) % RDW 14.4 (11.6-14.8) % Plt Count 328 (150-400) X10^3/uL Neut % (Auto) 83.6 H (50-75) % Lymph % (Auto) 7.3 L (25-40) % [place] % (Auto) 8.6 (3-14) % Eos % (Auto) 0.2 L (2-4) % Baso % (Auto) 0.3 (0-2) % Neut # (Auto) 52759 H (5971-5111) /uL Lymph # (Auto) 900 L (0127-5383) /uL [place] # (Auto) 1100 H (0-900) /uL Eos # (Auto) 0 (0-450) /uL Baso # (Auto) 0 (0-100) /uL Sodium 133 L (137-145) mmol/L Potassium 4.7 (3.4-5.1) mmol/L Chloride 97 L (98-107) mmol/L Carbon Dioxide 21 L (22-32) mmol/L BUN 46 H (9-20) mg/dL Creatinine 2.15 H (0.66-1.25) mg/dL Estimated GFR 37 L (>60) mL/min BUN/Creatinine Ratio 21.4 (6-22) Glucose 122 H (70-100) mg/dL Calcium 10.1 (8.4-10.2) mg/dL Total Bilirubin 0.9 (0.2-1.3) mg/dL AST 28 (17-59) IU/L ALT 37 (<50) IU/L Alkaline Phosphatase 78 (38-126) U/L Total Protein 8.9 H (6.3-8.2) g/dL Albumin 5.0 (3.5-5.0) g/dL Globulin 3.9 (1.7-4.1) g/dL Albumin/Globulin Ratio 1.3 (1.0-2.8) Lipase 73 (23-300) U/L Ur Bilirubin Confirm Negative (Negative) Urine RBC 1-5/hpf (0-5/HPF) Urine WBC 10-30/hpf H (0-5/HPF) Ur Squamous Epith Cells 1-5 /hpf (0-5/HPF) Urine Bacteria Few (2-10) H (None) Hyaline Casts 5-10/lpf (None) Granular Casts 0-1/lpf (None) Ur Culture Indicated? Cult not indicated Point of care testing: Urine Dip Bedside Urine Glucose Negative Bedside Urine Bilirubin ++ 2 Bedside Urine Ketone +/- 5 Urine Specific [place] 1.030 Bedside Urine Occult Blood + Bedside Urine pH 5.5 Bedside Urine Protein + 30 Bedside Urine Urobilinogen - Negative Bedside Urine Nitrite - Negative Bedside Urine Leukocytes +/- 15 Esterase MDM Narrative Medical decision making narrative: CC: 52-year-old male with multiple episodes of nausea and vomiting and left lower quadrant pain Complicating co-morbidities: Crohn's, kidney stones Data collected from: Patient Medical records reviewed: Prior notes reviewed in our EMR Differential considered, but not limited to: Kidney stone versus gastroenteritis versus bowel obstruction versus perforation versus pyelonephritis versus other Exam documented above, pertinent findings include: Heart rate regular, lungs clear and nonlabored, abdomen soft but tender in the left lower quadrant Lab Test results independently reviewed as above. Pertinent findings: Leukocytosis of 13,000 with left shift, no anemia. Sodium 133, slight increase in BUN to 46, creatinine bumped to 2.15 with GFR of 37 Independently reviewed EKG as above Imaging studies independently reviewed: CT KUB demonstrates ileus versus obstruction with scattered air-fluid levels Treatments: Fluids, Dilaudid, Toradol, Zofran Re-evaluations: Pain improved, vomiting improved Discussion: 52-year-old male known well to myself and others for frequent kidney stones presents under different circumstances tonight complaining of persistent vomiting over the course of the day and left lower quadrant pain that feels different than his stones. He denies fever or chills. His abdomen is quite tender in the left lower quadrant. He has dry mucous membranes and feels lightheaded on standing. His creatinine has taken a significant rise up to over 2 from a baseline of 1.2. Urine without evidence of infection and no obstructive uropathy on imaging. Patient requires hospitalization for fluid resuscitation, pain control and resolution of symptoms Dr. Rouse happy to accept on behalf of Dr. Haines Discharge Plan Departure Patient Disposition: Admitted As Inpatient
[2023-01-19] MEDS: HYDROMORPHONE 1 MG INJ IV (00:11)
[2023-01-19] MEDS: LACTATED RINGERS 1,000 ML 1000 ML IV (00:11)
[2023-01-19 01:29] VITALS: BP 116/81; PULSE 74; RESP 16; O2SAT 96
[2023-01-19 01:45] VITALS: BP 115/78; PULSE 77; RESP 18; TEMP 36.2; O2SAT 96
[2023-01-19 01:50] VITALS: BMI 25.8
[2023-01-19] MEDS: SODIUM CHLORIDE 0.9% 1,000 ML 125 ML IV (02:27)
[2023-01-19] MEDS: HYDROMORPHONE 0.5 MG INJ IV ×4 (02:36→17:51)
--- NOTE | 2023-01-19 07:21 | P.HP_ITS ---
History of Present Illness History of Present Illness Date Patient Seen: 01/19/23 Time Patient Seen: 07:21 Chief complaint: Vomiting, Lower back pain Narrative: 52-year-old male admitted via emergency department with small-bowel obstruction/ileus Patient with symptoms of left lower quadrant abdominal pain with emesis. He had been recently struggling with some kidney stones initially thought this perhaps might be recurrent kidney stone but symptoms seem completely different than his previous stone related symptoms. ER evaluation demonstrated leukocytosis with evidence of more likely ileus on CT imaging Patient does have known Crohn's disease status post resection of part of his small bowel part of his colon and terminal ileum. That was performed several years ago and patient has been asymptomatic from a Crohn's standpoint since that procedure. Patient does report that he gets episodes pain and more commonly significant vomiting for 8-12 hours off and on. He will switch to a liquid diet and take it very easy during these time frames any generally passes. Never been hospitalized for anything like this. Patient also with known patent foramen ovale resulting in stroke the end of 2016. This resulted in closure at the [facility] with some mild persistent left-sided symptoms. [facility] Medical History Chronic back pain Crohn disease (~1999) Iritis Kidney stones (~2007) Personal history of stroke with current residual effects (~2016) Surgical History Anesthesia History of bowel resection History of lithotripsy S/P cholecystectomy S/P exploratory laparotomy (~1999) S/P knee surgery S/P patent foramen ovale closure (~2017) Family History Father History of heart disease Hyperlipidemia Grandmother Diabetes mellitus Grandmother Diabetes mellitus Social History marital status: household members: none Smoking Status: Current every day smoker alcohol intake: current Meds Home Medications and Allergies Home Medications Medication Instructions Recorded Confirmed Type oxycodone 5 mg tablet 5 mg PO Q6H PRN pain #20 tabs 10/31/22 01/19/23 Rx tamsulosin 0.4 mg capsule 0.4 mg PO PRN PRN When I have 01/19/23 01/19/23 Hist ory kidney stones Allergies Allergy/AdvReac Type Severity Reaction Status Date / Time No Known Drug Allergies Allergy Verified 01/18/23 21:42 Review of Systems Review of Systems ROS: Yes All systems reviewed with the patient and are negative except as otherwise documented Exam Vital Signs (past 8 hours): - 01/19/23 01:29 01/19/23 01:50 01/19/23 01:45 Temperature 97.2 F L Pulse Rate 74 77 Respiratory Rate 16 18 Blood Pressure 116/81 115/78 Pulse Oximetry 96 96 Oxygen Delivery Method Room Air Room Air Oxygen Flow Rate 0 Oxygen Delivery Method Room Air Oxygen Flow Rate 0 Narrative Exam Narrative: HEENT-unremarkable Neck-no bruits Lungs-clear with good breath sounds Heart-regular rate and rhythm no murmur Abdomen-somewhat diminished bowel tones but present, significant tenderness left lower quadrant without rebound or guarding, no masses palpable Extremities-no cyanosis clubbing or edema Objective Labs 01/18/23 21:55 01/18/23 21:55 Labs: Laboratory Results - last 24 hr 01/18/23 01/18/23 01/18/23 21:55 21:55 21:55 WBC 13.0 H RBC 5.59 Hgb 17.1 Hct 50.3 MCV 90.0 MCH 30.6 MCHC 34.0 RDW 14.4 Plt Count 328 Neut % (Auto) 83.6 H Lymph % (Auto) 7.3 L [place] % (Auto) 8.6 Eos % (Auto) 0.2 L Baso % (Auto) 0.3 Neut # (Auto) 13830 H Lymph # (Auto) 900 L [place] # (Auto) 1100 H Eos # (Auto) 0 Baso # (Auto) 0 Sodium 133 L Potassium 4.7 Chloride 97 L Carbon Dioxide 21 L BUN 46 H Creatinine 2.15 H Estimated GFR 37 L BUN/Creatinine Ratio 21.4 Glucose 122 H Calcium 10.1 Total Bilirubin 0.9 AST 28 ALT 37 Alkaline Phosphatase 78 Total Protein 8.9 H Albumin 5.0 Globulin 3.9 Albumin/Globulin Ratio 1.3 Lipase 73 Ur Bilirubin Confirm Negative Urine RBC 1-5/hpf Urine WBC 10-30/hpf H Ur Squamous Epith Cells 1-5 /hpf Urine Bacteria Few (2-10) H Hyaline Casts 5-10/lpf Granular Casts 0-1/lpf Ur Culture Indicated? Cult not indicated Assessment & Plan Assessment & Plan narrative: 1. Small-bowel obstruction/ileus-patient with history of his extensive abdominal surgery as above. This is most likely etiology for probable least partial small-bowel obstruction in my opinion. Patient has not had evidence of recurren t inflammatory bowel issues that seems less likely but certainly is on the differential diagnosis This point he needs pain and symptom management with IV narcotics and IV antiemetics. He will need to be kept NPO and need significant IV fluids as well 2. Acute kidney injury-likely secondary to volume loss and lack of oral intake as above. Continue with aggressive IV fluid resuscitation 3. Kidney stones-no evidence of obstructive uropathy based on imaging at this time. Not an active issue 4. History of Crohn's-as above seems unlikely to me this is recurrence of inflammatory bowel disease but will leave that on the differential for now 5. 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 Not felt to be an active issue 6. Code status-patient requests full code in the event of a sudden cardiac or respiratory arrest which is not anticipated 7. VTE prophylaxis-patient would benefit from Lovenox at this time which has been ordered. Quality VTE Deep Vein Thrombosis/Pulmonary Embolism Present on Admission: No
[2023-01-19 08:19] VITALS: BP 110/70; PULSE 64; RESP 16; TEMP 36.3; O2SAT 95
[2023-01-19] MEDS: ENOXAPARIN 40 MG/0.4 ML SYRINGE SUBCUT (09:28)
[2023-01-19] MEDS: LACTATED RINGERS 1,000 ML 150 ML IV ×2 (09:48→17:53)
[2023-01-19] MEDS: ONDANSETRON 4 MG/2 ML INJ IV (09:49)
--- NOTE | 2023-01-19 12:30 | CM.DANOTE ---
DCP Assessment Note: Patient is a 52yo male here under the care of Dr. Haines following a partial obstruction of the small intestine/SELENA. PCP Zaki Payer tate healthy options and medicaid HOME TEACHING GRADES 9 THRU 12 TEACHER reviewed EMR. HOME TEACHING GRADES 9 THRU 12 TEACHER entered room and introduced self and role. Patient was sitting up in bed and appeared A/Ox4. Patient lives in an RV on his aunt's property and helps her occasionally. Patient reports if needed his aunt could help him upon d/c from here. Patient has two dogs that are currently with patient's friend/Emergency Contact, Noris Monte ([phone]). Patient drives and is independent. Patient is hopeful to d/c tonight. Patient is interested in potentially switching PCPs. HOME TEACHING GRADES 9 THRU 12 TEACHER provided patient with list of PCPs in area that accept his insurance and are accepting new patients. Plan: patient will d/c home with family/friends when medically stable. Likely transport with self or friend. CM team to follow as needed. TIM Beckman Discharge Planning/Care Management CM Discharge Assessment Start: 01/19/23 12:28 Freq: Status: Active Protocol: Document 01/19/23 12:28 (Rec: 01/19/23 12:29 [id number]) Discharge Planning Assessment Assigned Circuit Design Engineer TIM Ng DPOA/Assigned Designee Name Noris Monte (friend) Contact Information [phone] Advance Directives? No History Provided By Patient,Medical Record Prior Living Arrangements RV Comment Lives on Aunt's property in RV with two small dogs. Helps look after aunt. Pt son from overdose October 2022 Household Members none Type of transporation used prior to Drives own vehicle admit Independent with ADL's Yes Is patient alert and oriented? Yes Caregiver for Another helps care for aunt Discharge Plan Home Transportation Arrangement self or friend Whiteboard Updated in Patient Room with Yes name and ext. # of Circuit Design Engineer Review Status In Process Next Review Type Continued Stay Review
[2023-01-19 16:00] VITALS: BP 114/71; PULSE 60; RESP 16; TEMP 36.3; O2SAT 97
[2023-01-19 22:02] VITALS: BP 130/85; PULSE 63; RESP 18; TEMP 36.5; O2SAT 95
[2023-01-20 02:28] VITALS: BMI 25.0
[2023-01-20] MEDS: LACTATED RINGERS 1,000 ML 100 ML IV (02:41)
[2023-01-20] MEDS: HYDROMORPHONE 0.5 MG INJ IV (05:04)
[2023-01-20 05:30] VITALS: BP 107/66; PULSE 59; RESP 18; TEMP 36.6; O2SAT 95
[2023-01-20 07:01] LABS: Add Manual Diff / Slide Review NO; Basophils Absolute Auto 0 /uL (0-100); Basophils Percent Auto 0.2 % (0-2); Eosinophils Absolute Auto 100 /uL (0-450); Eosinophils Percent Auto 1.4 % (2-4); Hematocrit 40.9 % (41-53); Hemoglobin 14.1 g/dL (13.5-17.5); Lymphocytes Absolute Auto 1200 /uL (1100-4500); Lymphocytes Percent Auto 23.4 % (25-40); Mean Corpuscular HGB Conc 34.5 % (30-36); Mean Corpuscular Hemoglobin 30.7 PG (26-34); Mean Corpuscular Volume 89.2 fL (80-100); Monocytes Absolute Auto 600 /uL (0-900); Monocytes Percent Auto 12.2 % (3-14); Neutrophils Absolute Auto 3100 /uL (1500-7000); Neutrophils Percent Auto 62.8 % (50-75); Platelet Count 270 X10^3/uL (150-400); Red Blood Cell Count 4.58 X10^6/uL (4.5-5.9); Red Cell Distribution Width 14.2 % (11.6-14.8)
[2023-01-20 07:07] LABS: BUN Creatinine Ratio 27.9 (6-22); Blood Urea Nitrogen 24 mg/dL (9-20); Calcium 8.9 mg/dL (8.4-10.2); Carbon Dioxide 25 mmol/L (22-32); Chloride 103 mmol/L (98-107); Estimated Glomerular Filt Rate > 60 mL/min (>60); Glucose 129 mg/dL (70-100); HEMOLYSIS < 15 (0-50); Potassium 4.1 mmol/L (3.4-5.1); Sodium 135 mmol/L (137-145)
--- NOTE | 2023-01-20 08:02 | PM.DS.1 ---
History of Present Illness History of Present Illness Date Patient Seen: 01/20/23 Time Patient Seen: 08:02 Chief complaint: Vomiting, Lower back pain Narrative: 52-year-old male admitted via emergency department with small-bowel obstruction/ileus Patient with symptoms of left lower quadrant abdominal pain with emesis. He had been recently struggling with some kidney stones initially thought this perhaps might be recurrent kidney stone but symptoms seem completely different than his previous stone related symptoms. ER evaluation demonstrated leukocytosis with evidence of more likely ileus on CT imaging Patient does have known Crohn's disease status post resection of part of his small bowel part of his colon and terminal ileum. That was performed several years ago and patient has been asymptomatic from a Crohn's standpoint since that procedure. Patient does report that he gets episodes pain and more commonly significant vomiting for 8-12 hours off and on. He will switch to a liquid diet and take it very easy during these time frames any generally passes. Never been hospitalized for anything like this. Patient also with known patent foramen ovale resulting in stroke the end of 2016. This resulted in closure at the [facility] with some mild persistent left-sided symptoms. Discharge Providers Provider Date of admission: 01/19/23 00:39 Discharge Date: 01/20/23 Primary care physician: Isac Haines MD Discharge provider: Isac Haines MD Summary Hospital Course Discharge Diagnosis: 1. Ileus of small intestine 2. Nausea vomiting 3. Crohn's disease 4. Acute kidney injury 5. Dehydration Hospital Course: Patient was admitted as noted above with persistent nausea vomiting abdominal pain. Suggested probable ileus versus small-bowel obstruction. Patient was placed NPO with IV fluids. His symptoms slowly resolved and he was able to be re fed without any particular difficulty. In the end I feel like this was more of an ileus rather than any sort of mechanical obstruction whatsoever Patient also with evidence of acute kidney injury with bump in creatinine to just over 2. Prior to discharge patient's creatinine had returned to normal after IV fluids were administered etcetera Exam Vital Signs (past 8 hours): - 01/20/23 05:30 Temperature 97.9 F Pulse Rate 59 L Respiratory Rate 18 Blood Pressure 107/66 Pulse Oximetry 95 Oxygen Flow Rate 0 Oxygen Delivery Method Room Air Oxygen Flow Rate 0 Objective Labs 01/20/23 06:25 01/20/23 06:25 Labs: Laboratory Results - last 24 hr 01/20/23 01/20/23 06:25 06:25 WBC 5.0 D RBC 4.58 Hgb 14.1 Hct 40.9 L MCV 89.2 MCH 30.7 MCHC 34.5 RDW 14.2 Plt Count 270 Neut % (Auto) 62.8 D Lymph % (Auto) 23.4 L [place] % (Auto) 12.2 Eos % (Auto) 1.4 L Baso % (Auto) 0.2 Neut # (Auto) 3100 Lymph # (Auto) 1200 [place] # (Auto) 600 Eos # (Auto) 100 Baso # (Auto) 0 Sodium 135 L Potassium 4.1 Chloride 103 Carbon Dioxide 25 BUN 24 H Creatinine 0.86 Estimated GFR > 60 BUN/Creatinine Ratio 27.9 H Glucose 129 H Calcium 8.9 PFSH Medical History Chronic back pain Crohn disease (~1999) Iritis Kidney stones (~2007) Personal history of stroke with current residual effects (~2016) Surgical History Anesthesia History of bowel resection History of lithotripsy S/P cholecystectomy S/P exploratory laparotomy (~1999) S/P knee surgery S/P patent foramen ovale closure (~2017) Family History Father History of heart disease Hyperlipidemia Grandmother Diabetes mellitus Grandmother Diabetes mellitus Social History marital status: household members: none Smoking Status: Current every day smoker alcohol intake: current Discharge Assessment & Plan Assessment and Plan Plan of Treatment: Continue with low residue diet Follow-up with Dr. Haines in 2-3 weeks Discharge Plan Discharge Plan Patient Disposition: Home Discharge orders & Medications Prescriptions: Continued oxycodone 5 mg tablet 5 mg PO Q6H PRN (Reason: pain) Qty: 20 0RF tamsulosin 0.4 mg Capsule 0.4 mg PO PRN PRN (Reason: When I have kidney stones) Follow up/Referrals: Isac Haines MD [Primary Care Provider] - 2 Weeks Discharge Health Status Multidrug resistant organism: No MDRO Diet/Activity/Treatments Diet: Diet as Tolerated Visit Report/Discharge Packet Instructions: Ileus Stand Alone Forms: Patient Portal/API Discharge Data Primary Care Provider: Isac Haines Attending Provider: Isac Haines Admit Date/Time: 01/19/23 00:39 Quality VTE Deep Vein Thrombosis/Pulmonary Embolism Present on Admission: No
[2023-01-20 09:08] VITALS: BP 105/75; PULSE 62; RESP 16; TEMP 36.4; O2SAT 95
--- NOTE | 2023-01-20 11:28 | PC.NURSE ---
Discharge: Pt feels ready to d/c to home. Tolerated diet w/out problems. he is passing flatus and has had a bm. No nausea. Vds w/out problems. Pain is in control. Reviewed d/c packet and questions answered. Pt d/c to home via his own vehicle. He drove himself here.
== END 2023-01-20 09:45 | disposition home or self-care (01) ==
LOC: ED 01-19 00:24 → AC 01-19 01:30
PROVIDERS: Admitting Provider Internal Medicine; Emergency Provider Emergency Medicine; PCP Internal Medicine; Referring Provider Emergency Medicine; Visit Provider Internal Medicine
DX: K56.7 Ileus, unspecified (principal); E86.0 Dehydration; N17.9 Acute kidney failure, unspecified; Z90.49 Acquired absence of other specified parts of digestive tract
CPT/HCPCS: 36415; 74176; 80048; 80053; 81003; 81015; 83690; 85025; 87086; 96361; 96374; 96375; 96376; 99222; 99238; 99284; G0378; J1170; J1650; J1885; J2405

== ENCOUNTER 2023-08-13 21:46 | Emergency (ER) | payer OTHER, MEDICAID, SELFPAY ==
[2023-08-13 22:06] VITALS: BP 135/97; PULSE 77; RESP 18; TEMP 36.6; O2SAT 97; BMI 25.8
== END 2023-08-13 23:12 | disposition left against medical advice (07) ==
PROVIDERS: Emergency Provider Emergency Medicine; PCP Internal Medicine
DX: M54.50 Low back pain, unspecified (principal)
CPT/HCPCS: 99281

== ENCOUNTER 2023-08-19 09:32 | Emergency (ER) | payer OTHER, MEDICAID, SELFPAY ==
[2023-08-19 09:41] VITALS: BP 140/96; PULSE 76; RESP 15; TEMP 36.3; O2SAT 98; BMI 25.8
[2023-08-19 11:07] VITALS: BP 131/98; PULSE 72; O2SAT 98
[2023-08-19 11:22] LABS: Add Manual Diff / Slide Review NO; Basophils Absolute Auto 100 /uL (0-100); Eosinophils Absolute Auto 100 /uL (0-450); Eosinophils Percent Auto 1.1 % (2-4); Hematocrit 49.4 % (41-53); Hemoglobin 16.7 g/dL (13.5-17.5); Lymphocytes Absolute Auto 1700 /uL (1100-4500); Lymphocytes Percent Auto 21.2 % (25-40); Mean Corpuscular HGB Conc 33.8 % (30-36); Mean Corpuscular Hemoglobin 31.1 PG (26-34); Monocytes Absolute Auto 600 /uL (0-900); Monocytes Percent Auto 6.9 % (3-14); Neutrophils Absolute Auto 5700 /uL (1500-7000); Neutrophils Percent Auto 69.8 % (50-75); Platelet Count 319 X10^3/uL (150-400); Red Blood Cell Count 5.36 X10^6/uL (4.5-5.9); Red Cell Distribution Width 14.7 % (11.6-14.8); White Blood Cell Count 8.1 X10^3/uL (4.5-11.0)
[2023-08-19 11:36] LABS: Alanine Aminotransferase 30 IU/L (<50); Albumin 4.7 g/dL (3.5-5.0); Albumin Globulin Ratio 1.3 (1.0-2.8); Alkaline Phosphatase 86 U/L (38-126); Aspartate Aminotransferase 25 IU/L (17-59); Bilirubin Total 0.6 mg/dL (0.2-1.3); Blood Urea Nitrogen 13 mg/dL (9-20); Calcium 10.4 mg/dL (8.4-10.2); Carbon Dioxide 30 mmol/L (22-32); Chloride 104 mmol/L (98-107); Estimated Glomerular Filt Rate > 60 mL/min (>60); Globulin 3.5 g/dL (1.7-4.1); Glucose 96 mg/dL (70-100); HEMOLYSIS < 15 (0-50); Lipase 153 U/L (23-300); Potassium 4.4 mmol/L (3.4-5.1); Sodium 140 mmol/L (137-145); Total Protein 8.2 g/dL (6.3-8.2)
[2023-08-19 11:40] VITALS: BP 128/88; PULSE 76; RESP 16; O2SAT 97
[2023-08-19 12:07] LABS: Bacteria Urine None Seen; Calcium Oxalate Crystals Urine Few; Culture Indicated Urine Cult Not Indicated; Mucus Urine 1+ (Negative); RBC Urine None Seen (0-5/HPF); Squamous Epithelial Cell Urine None Seen (0-5/HPF); Urine Volume 10mL (spun); WBC Urine 0-1/HPF (0-5/HPF)
[2023-08-19 12:10] VITALS: BP 134/82; PULSE 77; RESP 16; O2SAT 98
[2023-08-19 12:21] LABS: C-Reactive Protein Quant 0.7 mg/dL (<1.0)
[2023-08-19 13:06] VITALS: BP 134/58; PULSE 74; RESP 15; O2SAT 98
--- NOTE | 2023-08-19 13:34 | DI.CT.S_ITS ---
PROCEDURE: CT ABDOMEN PELVIS W CON INDICATIONS: left lower quadrant pain TECHNIQUE: After the administration of intravenous contrast, axial sections acquired from the lung bases to the pubic symphysis. Coronal and sagittal reformats were performed. For radiation dose reduction, the following was used: automated exposure control, adjustment of mA and/or kV according to patient size. COMPARISON: [facility], CT, CT KIDNEY URETER BLADDER (KUB), 01/18/2023, 22:49. FINDINGS: Image quality: Diagnostic. Lower Chest: No significant findings. Partially visualized septal closure device. ABDOMEN: Liver: No solid mass. Diffuse fatty infiltration of the liver. Gallbladder: Gallbladder is surgically absent. Biliary ducts: No biliary dilation. Pancreas: No ductal dilation. Spleen: Size is within normal limits. Adrenal Glands: No adrenal nodules. Kidneys and Ureters: Stable 7 millimeter nonobstructing stone in the lower pole of the right kidney. No hydronephrosis. No solid mass. No complex renal cystic lesion which requires follow up. Stomach and Bowel: Stable partial right colectomy postsurgical changes. Normal colonic caliber, without significant wall thickening. Fluid-filled, distended loops of small bowel noted in the left lower abdomen and the pelvis. Circumferential wall thickening involving several of the head distended loops of small bowel in the right lower abdomen Peritoneum: No abnormal intraperitoneal fluid. No free air. Ventral Wall: No significant ventral hernia. Abdominal Nodes: No retroperitoneal or mesenteric adenopathy by size criteria. Vessels: Aorta and inferior vena cava are normal in size. PELVIS: Pelvic Organs: Unremarkable. Bladder: No bladder wall thickening, accounting for underdistention. Pelvic Nodes: No enlarged lymph nodes. Miscellaneous: No inguinal hernias are seen. Bones: No aggressive osseous abnormality. IMPRESSION: Distended, fluid-filled loops of small bowel in the left abdomen and the pelvis with circumferential wall thickening involving several distal loops of small bowel in the right lower quadrant. Findings are suggestive of nonspecific enteritis with ileus or partial obstruction. No free fluid or air. Hepatic steatosis. 7 millimeter nonobstructing right renal stone. Dictated by: Candy Menon MD, PhD on 08/19/2023 at 14:14 Approved by: Candy Menon MD, PhD on 08/19/2023 at 14:21
--- NOTE | 2023-08-19 13:36 | ED.ABDPAIN ---
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 Is not allergic to Dilaudid. Patient complains of left lower quadrant pain that started about 1 or 2 days ago. He states he has not had a Crohn's flare-up in over 20 years. He is manage his Crohn's with diet control. Is not being managed by any provider. No black or bloody stools. No urinary complaints. No history of diverticulosis or diverticulitis. Pain is worse with eating. Pain is sharp left lower quadrant pain does not radiate. Related Data Previous Rx's Medication Instructions Recorded prednisone 20 mg tablet 60 mg (3 x 20 mg) PO DAILY #16 tabs 08/20/23 Allergies Allergy/AdvReac Type Severity Reaction Status Date / Time No Known Drug Allergies Allergy Verified 08/20/23 12:12 Review of Systems Review of Systems Narrative: GENERAL: negative chills, fatigue, malaise, fever, sweats. HEENT: negative sinus pain, ear pain, sore throat RESPIRATORY: negative dyspnea, cough CARDIOVASCULAR: negative chest pain, palpitations GASTROINTESTINAL: negative nausea, vomiting, positive abdominal pain : negative dysuria, frequency, hematuria MUSCULOSKELETAL: negative muscle or bony pain SKIN: negative rash, skin lesions NEUROLOGIC: negative weakness, numbness ROS Unobtainable: All systems reviewed & are unremarkable except as noted in HPI and below Patient History Medical History Iritis Chronic back pain Kidney stones (~2007) Crohn disease (~1999) Personal history of stroke with current residual effects (~2016) Surgical History Anesthesia S/P exploratory laparotomy (~1999) S/P cholecystectomy S/P patent foramen ovale closure (~2017) S/P knee surgery History of bowel resection History of lithotripsy Family History Father History of heart disease Hyperlipidemia Grandmother Diabetes mellitus Grandmother Diabetes mellitus Social History marital status: household members: none Smoking Status: Current every day smoker alcohol intake: current Smoking Status: Current every day smoker tobacco type: cigarettes alcohol intake frequency: holidays/special occasions only Substance Use Type: does not use Exam Narrative Exam Narrative: GENERAL: in no distress, not toxic not dyspneic HEAD: Normocephalic. EYES: Pupils equal round ENT: Mucous membranes moist. NECK: Trachea midline. CARDIOVASCULAR: Regular rate and rhythm RESPIRATORY: Clear to auscultation. Breath sounds equal bilaterally. No wheezes, rales, or rhonchi. GASTROINTESTINAL: Abdomen soft, reproducible left lower quadrant tenderness. No peritoneal signs. Bowel sounds are present. No pain out of portion exam EXTREMITIES: No gross deformities. NEURO: AOx4. SKIN: Warm and dry PSYCH: Not anxious, is cooperative Initial Vital Signs Initial Vital Signs: Vital Signs Temperature 97.3 F L 08/19/23 09:41 Pulse Rate 76 08/19/23 09:41 Respiratory Rate 15 08/19/23 09:41 Blood Pressure 140/96 H 08/19/23 09:41 Pulse Oximetry 98 08/19/23 09:41 Oxygen Delivery Method Room Air 08/19/23 09:41 Course Orders Ordered: Discontinued Medications Hydromorphone HCl (Hydromorphone 1 Mg Inj) 1 mg IV NOW ONE Stop: 08/19/23 13:34 Last Admin: 08/19/23 13:55 Dose: 1 mg Documented By: CRYSTAL Sodium Chloride (Normal Saline 0.9%) 1,000 mls @ 1,000 mls/hr IV BOLUS ONE Stop: 08/19/23 14:32 Last Infusion: 08/19/23 15:15 Dose: Infused Documented By: Admin: 08/19/23 13:56 Dose: 1,000 mls/hr Documented By: CRYSTAL Methylprednisolone (Methylprednisolone 125 Mg/2 Ml Vial) 125 mg IV NOW ONE Stop: 08/19/23 15:41 Last Admin: 08/19/23 15:51 Dose: 125 mg Documented By: CRYSTAL(2) Ondansetron HCl (Ondansetron 4 Mg/2 Ml Inj) 4 mg IV NOW PRN PRN Reason: Nausea And Vomiting Last Admin: 08/19/23 13:55 Dose: 4 mg Documented By: CRYSTAL Vital Signs Vital signs: Vital Signs - 8 hr 08/19/23 09:41 08/19/23 11:07 08/19/23 11:07 Temperature 97.3 F L Pulse Rate 76 72 Respiratory Rate 15 Blood Pressure 140/96 H 131/98 H Pulse Oximetry 98 98 Oxygen Delivery Method Room Air 08/19/23 11:40 08/19/23 12:10 08/19/23 13:06 Temperature Pulse Rate 76 77 74 Respiratory Rate 16 16 15 Blood Pressure 128/88 134/82 134/58 L Pulse Oximetry 97 98 98 Oxygen Delivery Method Room Air Room Air Room Air MDM - Abdominal Pain Lab Data 08/19/23 11:03 08/19/23 11:03 Labs: Lab Results 08/19/23 08/19/23 Range/Units 11:03 11:56 WBC 8.1 (4.5-11.0) X10^3/uL RBC 5.36 (4.5-5.9) X10^6/uL Hgb 16.7 (13.5-17.5) g/dL Hct 49.4 (41-53) % MCV 92.0 (80-100) fL MCH 31.1 (26-34) PG MCHC 33.8 (30-36) % RDW 14.7 (11.6-14.8) % Plt Count 319 (150-400) X10^3/uL Neut % (Auto) 69.8 (50-75) % Lymph % (Auto) 21.2 L (25-40) % Campbell % (Auto) 6.9 (3-14) % Eos % (Auto) 1.1 L (2-4) % Baso % (Auto) 1.0 (0-2) % Neut # (Auto) 5700 (2805-6053) /uL Lymph # (Auto) 1700 (4745-4109) /uL Campbell # (Auto) 600 (0-900) /uL Eos # (Auto) 100 (0-450) /uL Baso # (Auto) 100 (0-100) /uL Sodium 140 (137-145) mmol/L Potassium 4.4 (3.4-5.1) mmol/L Chloride 104 (98-107) mmol/L Carbon Dioxide 30 (22-32) mmol/L BUN 13 (9-20) mg/dL Creatinine 0.93 (0.66-1.25) mg/dL Estimated GFR > 60 (>60) mL/min BUN/Creatinine Ratio 14.0 (6-22) Glucose 96 (70-100) mg/dL Calcium 10.4 H (8.4-10.2) mg/dL Total Bilirubin 0.6 (0.2-1.3) mg/dL AST 25 (17-59) IU/L ALT 30 (<50) IU/L Alkaline Phosphatase 86 (38-126) U/L C-Reactive Protein 0.7 (<1.0) mg/dL Total Protein 8.2 (6.3-8.2) g/dL Albumin 4.7 (3.5-5.0) g/dL Globulin 3.5 (1.7-4.1) g/dL Albumin/Globulin Ratio 1.3 (1.0-2.8) Lipase 153 (23-300) U/L Urine RBC None seen (0-5/HPF) Urine WBC 0-1/hpf (0-5/HPF) Ur Squamous Epith Cells None seen (0-5/HPF) Calcium Oxalate Crystal Few H Urine Bacteria None seen (None) Urine Mucus 1+ H (Negative) Ur Culture Indicated? Cult not indicated Vol Urine Centrifuged 10ml (spun) Point of care testing: Urine Dip Bedside Urine Glucose Negative Bedside Urine Bilirubin - Negative Bedside Urine Ketone - Negative Urine Specific Lost[place] 1.025 Bedside Urine Occult Blood - Negative Bedside Urine pH 6.0 Bedside Urine Protein +/- 15 Bedside Urine Urobilinogen - Negative Bedside Urine Nitrite - Negative Bedside Urine Leukocytes - Negative Esterase Imaging Data CT scan - abdomen/pelvis: Radiologist's Impression: [address] [address] [address] Scan Report Signed Patient: Maciel Urban MR#: [id number] : 1970 Acct:[id number] Age/Sex: 53 / M Date of Service: 08/19/23 Loc: ED Accession Number: [id number] Procedure: CT abdomen pelvis w con Ordering Provider: Ernesto Velásquez MD PROCEDURE: CT ABDOMEN PELVIS W CON INDICATIONS: left lower quadrant pain TECHNIQUE: After the administration of intravenous contrast, axial sections acquired from the lung bases to the pubic symphysis. Coronal and sagittal reformats were performed. For radiation dose reduction, the following was used: automated exposure control, adjustment of mA and/or kV according to patient size. COMPARISON: [facility], CT, CT KIDNEY URETER BLADDER (KUB), 01/18/2023, 22:49. FINDINGS: Image quality: Diagnostic. Lower Chest: No significant findings. Partially visualized septal closure device. ABDOMEN: Liver: No solid mass. Diffuse fatty infiltration of the liver. Gallbladder: Gallbladder is surgically absent. Biliary ducts: No biliary dilation. Pancreas: No ductal dilation. Spleen: Size is within normal limits. Adrenal Glands: No adrenal nodules. Kidneys and Ureters: Stable 7 millimeter nonobstructing stone in the lower pole of the right kidney. No hydronephrosis. No solid mass. No complex renal cystic lesion which requires follow up. Stomach and Bowel: Stable partial right colectomy postsurgical changes. Normal colonic caliber, without significant wall thickening. Fluid-filled, distended loops of small bowel noted in the left lower abdomen and the pelvis. Circumferential wall thickening involving several of the head distended loops of small bowel in the right lower abdomen Peritoneum: No abnormal intraperitoneal fluid. No free air. Ventral Wall: No significant ventral hernia. Abdominal Nodes: No retroperitoneal or mesenteric adenopathy by size criteria. Vessels: Aorta and inferior vena cava are normal in size. PELVIS: Pelvic Organs: Unremarkable. Bladder: No bladder wall thickening, accounting for underdistention. Pelvic Nodes: No enlarged lymph nodes. Miscellaneous: No inguinal hernias are seen. Bones: No aggressive osseous abnormality. IMPRESSION: Distended, fluid-filled loops of small bowel in the left abdomen and the pelvis with circumferential wall thickening involving several distal loops of small bowel in the right lower quadrant. Findings are suggestive of nonspecific enteritis with ileus or partial obstruction. No free fluid or air. Hepatic steatosis. 7 millimeter nonobstructing right renal stone. 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 Is not allergic to Dilaudid. Patient complains of left lower quadrant pain that started about 1 or 2 days ago. He states he has not had a Crohn's flare-up in over 20 years. He is manage his Crohn's with diet control. Is not being managed by any provider. No black or bloody stools. No urinary complaints. No history of diverticulosis or diverticulitis. Pain is worse with eating. Pain is sharp left lower quadrant pain does not radiate. After history and exam CBC CMP Dilaudid Zofran normal saline CT abdomen pelvis MDM CC: Left lower abdominal pain Complicating co-morbidities: History of Crohn Data collected from: Patient Medical records reviewed: Patient seen by me last year for left lower quadrant pain Differential considered: Includes but not limited to diverticulitis kidney stone bowel obstruction Crohn's flare-up Exam documented above, pertinent findings include: Left lower quadrant tenderness Lab Test results independently reviewed as above. Pertinent findings: WBC 8.1 hemoglobin 16.7 GFR greater than 60 AST 25 ALT 30 Imaging studies independently reviewed: CT abdomen pelvis partial bowel obstruction Consultations: 3:[address] Livingston, general surgery, he recommends admitting to hospitalist Treatments: Dilaudid Zofran normal saline Solu-Medrol Re-evaluations: 3:43 p.m.. Reviewed with patient my conversation with General surgery and image results of partial bowel obstruction recommend admission. He states he has too much to do and unable to stay. I did review with him risks of leaving against medical advice including but not limited to sepsis permanent injury perforated bowel loss of limb or organ or tissue. He is awake alert oriented x4. Not altered. Discussion: Patient has decided to go/leave against medical advice. I implored with him to stay. He has decided to leave against medical advice Diagnosis: Partial bowel obstruction Discharge Plan Departure Patient Disposition: Left Against Medical Advice Clinical Impression: Partial bowel obstruction Qualifiers: Intestinal obstruction type: unspecified Qualified Code(s): K56.600 - Partial intestinal obstruction, unspecified as to cause Instructions: Refusal of Consent to Treatment (Against Medical Advice) Activity Restrictions/Additional Instructions: No driving operating machinery today. Please return immediately if you do decide/change your mind to be admitted Prescriptions: No Action prednisone 20 mg tablet 60 mg PO DAILY Qty: 16 0RF Rx Instructions: take 60mg (three tablets) daily for 2 days, then 40mg (two tablets) daily for 3 days then 20mg (one tablet) daily for 3 days then 10mg (1/2 tablet) daily for 2 days Referrals: Isac Haines MD [Primary Care Provider] - Stand Alone Forms: Patient Portal/API, Against Medical Advice
[2023-08-19] MEDS: ONDANSETRON 4 MG/2 ML INJ IV (13:55)
[2023-08-19] MEDS: HYDROMORPHONE 1 MG INJ IV (13:55)
[2023-08-19] MEDS: SODIUM CHLORIDE 0.9% 1,000 ML 1000 ML IV (13:56)
[2023-08-19] MEDS: methylPREDNISolone 125 MG/2 ML VIAL IV (15:51)
[2023-08-19 15:55] VITALS: BP 128/74; PULSE 72; RESP 16; O2SAT 97
== END 2023-08-19 15:58 | disposition left against medical advice (07) ==
PROVIDERS: Student in an Organized Health Care Education/Training Program; Emergency Provider Emergency Medicine; PCP Internal Medicine
DX: K56.600 Partial intestinal obstruction, unspecified as to cause (principal)
CPT/HCPCS: 36415; 74177; 80053; 81003; 81015; 83690; 85025; 86140; 96361; 96374; 96375; 99284; J1170; J2405; J2919

== ENCOUNTER 2023-08-20 11:50 | Emergency (ER) | payer OTHER, MEDICAID, SELFPAY ==
[2023-08-20 12:09] VITALS: BP 138/91; PULSE 67; RESP 17; TEMP 36.6; O2SAT 99; BMI 25.8
[2023-08-20] MEDS: SODIUM CHLORIDE 0.9% 1,000 ML 1000 ML IV (12:42)
[2023-08-20 12:53] LABS: Add Manual Diff / Slide Review NO; Basophils Absolute Auto 100 /uL (0-100); Basophils Percent Auto 0.4 % (0-2); Eosinophils Absolute Auto 0 /uL (0-450); Eosinophils Percent Auto 0.2 % (2-4); Hematocrit 45.9 % (41-53); Hemoglobin 15.5 g/dL (13.5-17.5); Lymphocytes Absolute Auto 1400 /uL (1100-4500); Lymphocytes Percent Auto 11.1 % (25-40); Mean Corpuscular HGB Conc 33.8 % (30-36); Mean Corpuscular Hemoglobin 31.1 PG (26-34); Monocytes Absolute Auto 900 /uL (0-900); Monocytes Percent Auto 7.3 % (3-14); Neutrophils Absolute Auto 10000 /uL (1500-7000); Platelet Count 300 X10^3/uL (150-400); Red Blood Cell Count 4.99 X10^6/uL (4.5-5.9); Red Cell Distribution Width 14.5 % (11.6-14.8); White Blood Cell Count 12.4 X10^3/uL (4.5-11.0)
[2023-08-20 13:05] LABS: Lipase 166 U/L (23-300)
[2023-08-20 13:06] LABS: Alanine Aminotransferase 31 IU/L (<50); Albumin 4.7 g/dL (3.5-5.0); Albumin Globulin Ratio 1.3 (1.0-2.8); Alkaline Phosphatase 72 U/L (38-126); Aspartate Aminotransferase 32 IU/L (17-59); BUN Creatinine Ratio 15.7 (6-22); Bilirubin Total 0.7 mg/dL (0.2-1.3); Blood Urea Nitrogen 13 mg/dL (9-20); Calcium 9.8 mg/dL (8.4-10.2); Carbon Dioxide 27 mmol/L (22-32); Chloride 106 mmol/L (98-107); Estimated Glomerular Filt Rate > 60 mL/min (>60); Globulin 3.5 g/dL (1.7-4.1); Glucose 89 mg/dL (70-100); HEMOLYSIS 41 (0-50); Potassium 4.2 mmol/L (3.4-5.1); Sodium 139 mmol/L (137-145); Total Protein 8.2 g/dL (6.3-8.2)
--- NOTE | 2023-08-20 13:14 | PC.NURSE ---
Pt reports that he has had clear liquids at home and has not had a BM. Pt reports hx of SBO w/o the need of a NG tube. Pt ambulates w/o issue. Pt denies N/V.
[2023-08-20 13:25] LABS: Amylase 102 U/L (30-110)
--- NOTE | 2023-08-20 13:26 | ED.ABDPAIN ---
HPI - Abdominal Pain General Chief Complaint: Abdominal Pain Stated Complaint: needs fluids Time Seen by Provider: 08/20/23 11:57 Source: patient Mode of arrival: Ambulatory History of Present Illness HPI narrative: This is a 53-year-old male with a history of Crohn's disease that is required bowel resection in the past. He has presently not on any disease modifying treatment. 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 He was seen in the emergency department for abdominal pain yesterday. Imaging was obtained with the results below, he had a normal white count he was given IV Solu-Medrol 125 mg. The patient left against medical advice. CT report as noted below. IMPRESSION: Distended, fluid-filled loops of small bowel in the left abdomen and the pelvis with circumferential wall thickening involving several distal loops of small bowel in the right lower quadrant. Findings are suggestive of nonspecific enteritis with ileus or partial obstruction. No free fluid or air. Hepatic steatosis. 7 millimeter nonobstructing right renal stone. The patient states that he has been able to eat and drink last night and today. He is still having some crampy abdominal pain, he also had a bowel movement this afternoon. His stool was solid there was no blood. He has not having fevers. He has not having nausea or vomiting. Related Data Previous Rx's Medication Instructions Recorded prednisone 20 mg tablet 60 mg (3 x 20 mg) PO DAILY #16 tabs 08/20/23 Allergies Allergy/AdvReac Type Severity Reaction Status Date / Time No Known Drug Allergies Allergy Verified 08/20/23 12:12 Patient History Medical History Iritis Chronic back pain Kidney stones (~2007) Crohn disease (~1999) Personal history of stroke with current residual effects (~2016) Surgical History Anesthesia S/P exploratory laparotomy (~1999) S/P cholecystectomy S/P patent foramen ovale closure (~2017) S/P knee surgery History of bowel resection History of lithotripsy Family History Father History of heart disease Hyperlipidemia Grandmother Diabetes mellitus Grandmother Diabetes mellitus Social History marital status: household members: none Smoking Status: Current every day smoker alcohol intake: current Smoking Status: Current every day smoker tobacco type: cigarettes alcohol intake frequency: holidays/special occasions only Substance Use Type: does not use Exam Initial Vital Signs Initial Vital Signs: Vital Signs Temperature 98 F 08/20/23 12:09 Pulse Rate 67 08/20/23 12:09 Respiratory Rate 17 08/20/23 12:09 Blood Pressure 138/91 H 08/20/23 12:09 Pulse Oximetry 99 08/20/23 12:09 Oxygen Delivery Method Room Air 08/20/23 12:09 Const General: No acute distress Resp Other: Lungs are clear, speaking in full sentenc Cardio Other: regular rhythm and rate no murmur rub or gallop GI Other: normal bowel sounds soft mild lower abdominal tenderness more prominent on the left than the right no guarding or rebound Skin General: other ( skin is warm and dry) Neuro General: patient alert and patient oriented x3 Course Orders Ordered: ED Orders 08/20/23 12:37 Amylase Stat CBC Auto Diff [Complete Blood Count AUTO DIFF] Stat CMP [Comprehensive Metabolic Panel] Stat Lipase Stat Discontinued Medications Sodium Chloride (Normal Saline 0.9%) 1,000 mls @ 1,000 mls/hr IV BOLUS ONE Stop: 08/20/23 13:27 Last Admin: 08/20/23 12:42 Dose: 1,000 mls/hr Documented By: SAVANNAH Vital Signs Vital signs: Vital Signs - 8 hr 08/20/23 12:09 Temperature 98 F Pulse Rate 67 Respiratory Rate 17 Blood Pressure 138/91 H Pulse Oximetry 99 Oxygen Delivery Method Room Air MDM - Abdominal Pain Lab Data Lab results narrative: CBC shows a leukocytosis, this is new compared to yesterday however he got steroids. CMP is reassuring. 08/20/23 12:37 08/20/23 12:37 Labs: Lab Results 08/20/23 Range/Units 12:37 WBC 12.4 H D (4.5-11.0) X10^3/uL RBC 4.99 (4.5-5.9) X10^6/uL Hgb 15.5 (13.5-17.5) g/dL Hct 45.9 (41-53) % MCV 92.0 (80-100) fL MCH 31.1 (26-34) PG MCHC 33.8 (30-36) % RDW 14.5 (11.6-14.8) % Plt Count 300 (150-400) X10^3/uL Neut % (Auto) 81.0 H (50-75) % Lymph % (Auto) 11.1 L (25-40) % Moody % (Auto) 7.3 (3-14) % Eos % (Auto) 0.2 L (2-4) % Baso % (Auto) 0.4 (0-2) % Neut # (Auto) 88132 H (6152-5013) /uL Lymph # (Auto) 1400 (4286-0694) /uL Moody # (Auto) 900 (0-900) /uL Eos # (Auto) 0 (0-450) /uL Baso # (Auto) 100 (0-100) /uL Sodium 139 (137-145) mmol/L Potassium 4.2 (3.4-5.1) mmol/L Chloride 106 (98-107) mmol/L Carbon Dioxide 27 (22-32) mmol/L BUN 13 (9-20) mg/dL Creatinine 0.83 (0.66-1.25) mg/dL Estimated GFR > 60 (>60) mL/min BUN/Creatinine Ratio 15.7 (6-22) Glucose 89 (70-100) mg/dL Calcium 9.8 (8.4-10.2) mg/dL Total Bilirubin 0.7 (0.2-1.3) mg/dL AST 32 (17-59) IU/L ALT 31 (<50) IU/L Alkaline Phosphatase 72 (38-126) U/L Total Protein 8.2 (6.3-8.2) g/dL Albumin 4.7 (3.5-5.0) g/dL Globulin 3.5 (1.7-4.1) g/dL Albumin/Globulin Ratio 1.3 (1.0-2.8) Amylase 102 (30-110) U/L Lipase 166 (23-300) U/L [facility] Narrative Medical decision making narrative: 53-year-old male with a history of Crohn's presenting with abdominal pain. There was concern yesterday for a bowel obstruction as well as colitis and he was discharged against medical advice. He returns today for a recheck concerned he might need to be admitted. He got steroids yesterday, he is feeling better today he has leukocytosis he has some persistent abdominal tenderness but he is eating drinking and moving his bowels. I do not think that imaging needs to be repeated today, I do not suspect that he has having a complication of his Crohn's related to this what seems to be likely Crohn's flare. The patient is interested in going home as opposed to being admitted and I think this is appropriate disposition at this point. I put him on a tapering course of prednisone. Recommended he follow up with primary care soon as possible, indications for return to emergency department were reviewed Discharge Plan Departure Patient Disposition: Home Clinical Impression: Acute Crohn's disease Qualifiers: Digestive disease complication type: without complication Qualified Code(s): K50.90 - Crohn's disease, unspecified, without complications Activity Restrictions/Additional Instructions: I am glad that you are doing better today, and I think you can go home. I recommend that you get adequate fluids, and be cautious with your diet as we discussed. Avoid excessive fiber or fatty foods. I have sent a prescription for prednisone to your pharmacy. Start this today. Make an appointment to see your regular doctor soon. Although we have made every effort to ensure that you are safe for discharge, if your symptoms are getting worse, or if you are having other acute symptoms such as chest pain shortness of breath high fevers, abdominal pain or uncontrolled vomiting recheck in the emergency department. Prescriptions: New prednisone 20 mg tablet 60 mg PO DAILY Qty: 16 0RF Rx Instructions: take 60mg (three tablets) daily for 2 days, then 40mg (two tablets) daily for 3 days then 20mg (one tablet) daily for 3 days then 10mg (1/2 tablet) daily for 2 days Referrals: Isac Haines MD [Primary Care Provider] - Stand Alone Forms: Patient Portal/API
[2023-08-20 14:12] VITALS: BP 128/77; PULSE 77; RESP 16; O2SAT 99
--- NOTE | 2023-08-20 14:15 | PC.NURSE ---
Tolerating PO fluids, ok to DC per Dr. Thompson.
== END 2023-08-20 14:16 | disposition home or self-care (01) ==
PROVIDERS: Emergency Provider Emergency Medicine; PCP Internal Medicine
DX: K50.90 Crohn's disease, unspecified, without complications (principal)
CPT/HCPCS: 36415; 80053; 82150; 83690; 85025; 99283; 99284

== ENCOUNTER 2023-08-29 11:04 | Emergency (ER) | payer OTHER, MEDICAID, SELFPAY ==
[2023-08-29 11:11] VITALS: BP 143/94; PULSE 69; RESP 18; TEMP 36.6; O2SAT 100; BMI 25.8
--- NOTE | 2023-08-29 11:36 | ED_ITS ---
HPI - Back Pain/Injury <Lesly Lo PA-C - Last Filed: 08/29/23 18:47> General Chief Complaint: Back Pain/Injury Stated Complaint: thinks Pinched Sciatic Nerve/leg pain Source: patient History of Present Illness HPI Narrative: 53-year-old male with multiple medical problems including Crohn's disease, many episodes of kidney stones, and chronic back pain here today for acute onset right-sided buttock pain that radiates down his right thigh and all the way to his right ankle. States that his right leg feels numb and tingling which makes it difficult to walk but he denies weakness. States he has had episodes like this before but usually the pain only radiates to the back of his knee and not all the way to his ankle. He does not recall any injury where he was lifting something heavy or where he may have strained his back. He was laid up in bed recently due to an acute Crohn's flare up which he was seen for here in this ED 10 days ago. He took a prednisone taper which seems to have helped with the Crohn's flare-up and abdominal pain. He has visited this ER frequently in the past for many episodes of kidney stones, abdominal pain, and occasionally a complaint of low back pain or sciatica like symptoms. He reports that in the past he has been given Toradol in the ED and it does not seem to help with anything. He plans to see the chiropractor and massage therapist but states he would like something for the pain to get him through until he can make an appointment with the chiropractor. He denies any bowel or bladder incontinence, aside from his usual Crohn's disease diarrhea symptoms which are at his baseline. Related Data Previous Rx's Medication Instructions Recorded cyclobenzaprine 10 mg tablet 10 mg PO TID PRN muscle spasm #20 09/02/23 tabs oxycodone-acetaminophen 10 mg-325 1 tab PO BID PRN pain #10 tabs 09/02/23 mg tablet (Percocet) Allergies Allergy/AdvReac Type Severity Reaction Status Date / Time No Known Drug Allergies Allergy Verified 09/02/23 10:35 Patient History <Lesly Lo PA-C - Last Filed: 08/29/23 18:47> Medical History Iritis Chronic back pain Kidney stones (~2007) Crohn disease (~1999) Personal history of stroke with current residual effects (~2017) Surgical History Anesthesia S/P exploratory laparotomy (~1999) S/P cholecystectomy S/P patent foramen ovale closure (~2017) S/P knee surgery History of bowel resection History of lithotripsy Family History Father History of heart disease Hyperlipidemia Grandmother Diabetes mellitus Grandmother Diabetes mellitus Social History marital status: household members: none Smoking Status: Current every day smoker alcohol intake: current Smoking Status: Current every day smoker tobacco type: cigarettes alcohol intake frequency: holidays/special occasions only Substance Use Type: does not use Exam <Lesly Lo PA-C - Last Filed: 08/29/23 18:47> Narrative Exam Narrative: GENERAL: Well-developed, well-nourished, appears stated age. In no acute distress. Sitting very comfortably in the exam room. Very talkative. HEAD: Atraumatic. Normocephalic. EYES: Pupils equal round and reactive. Extraocular motions intact. No scleral icterus. No injection or drainage. ENT: Nose without bleeding, purulent drainage. Airway patent. NECK: Trachea midline. Non tender RESPIRATORY: Respiratory rate and effort normal BACK/EXT: Spine midline, nontender, no step-offs or deformities. Significant tenderness present to the right buttocks over the sciatic nerve. Patient am bulates independently but with a slow and cautious gait. There is no foot drop. His left lower extremity strength is 5/5 and right lower extremity is 5/5 except for in his foot which is 4/5. Sensation intact. Normal distal pulses. Patient has decent range of motion in all directions including flexion, extension, and rotation. NEURO: AOx3. SKIN: No rash or erythema of visible areas Initial Vital Signs Initial Vital Signs: Vital Signs Temperature 97.8 F 08/29/23 11:11 Pulse Rate 69 08/29/23 11:11 Respiratory Rate 18 08/29/23 11:11 Blood Pressure 143/94 H 08/29/23 11:11 Pulse Oximetry 100 08/29/23 11:11 Oxygen Delivery Method Room Air 08/29/23 11:11 <Elidia Crespo MD - Last Filed: 09/04/23 07:05> Initial Vital Signs Initial Vital Signs: Vital Signs Temperature 97.8 F 08/29/23 11:11 Pulse Rate 69 08/29/23 11:11 Respiratory Rate 18 08/29/23 11:11 Blood Pressure 143/94 H 08/29/23 11:11 Pulse Oximetry 100 08/29/23 11:11 Oxygen Delivery Method Room Air 08/29/23 11:11 Course <Lesly Lo PA-C - Last Filed: 08/29/23 18:47> Orders Ordered: Discontinued Medications Cyclobenzaprine HCl (Cyclobenzaprine 10 Mg Tablet) 10 mg PO NOW ONE Stop: 08/29/23 12:23 Last Admin: 08/29/23 12:38 Dose: 10 mg Documented By: MANI Ketorolac Tromethamine (Ketorolac 30 Mg/Ml Vial) 30 mg IM NOW ONE Stop: 08/29/23 12:23 Last Admin: 08/29/23 12:38 Dose: 30 mg Documented By: MANI Oxycodone/Acetaminophen (Oxycodone/Acetaminophen 5/325 Tablet) 1 tab PO NOW ONE Stop: 08/29/23 12:23 Last Admin: 08/29/23 12:38 Dose: 1 tab Documented By: MANI Vital Signs Vital signs: Vital Signs - 8 hr 08/29/23 11:11 08/29/23 13:55 Temperature 97.8 F Pulse Rate 69 68 Respiratory Rate 18 14 Blood Pressure 143/94 H 128/88 Pulse Oximetry 100 99 Oxygen Delivery Method Room Air Room Air <Elidia Crespo MD - Last Filed: 09/04/23 07:05> Orders Ordered: Discontinued Medications Cyclobenzaprine HCl (Cyclobenzaprine 10 Mg Tablet) 10 mg PO NOW ONE Stop: 08/29/23 12:23 Last Admin: 08/29/23 12:38 Dose: 10 mg Documented By: MANI Ketorolac Tromethamine (Ketorolac 30 Mg/Ml Vial) 30 mg IM NOW ONE Stop: 08/29/23 12:23 Last Admin: 08/29/23 12:38 Dose: 30 mg Documented By: MANI Oxycodone/Acetaminophen (Oxycodone/Acetaminophen 5/325 Tablet) 1 tab PO NOW ONE Stop: 08/29/23 12:23 Last Admin: 08/29/23 12:38 Dose: 1 tab Documented By: MANI Vital Signs Vital signs: Vital Signs - 8 hr 08/29/23 11:11 08/29/23 13:55 Temperature 97.8 F Pulse Rate 69 68 Respiratory Rate 18 14 Blood Pressure 143/94 H 128/88 Pulse Oximetry 100 99 Oxygen Delivery Method Room Air Room Air MDM - Back Pain/Injury <Lesly Lo PA-C - Last Filed: 08/29/23 18:47> MDM Narrative Medical decision making narrative: DDx: Sciatica, low back pain with radiculopathy, herniated disc, chronic back pain, drug-seeking behavior Patient is here for low back pain with radiation from his right buttocks down to his right ankle. This is been ongoing for about 1 week. He reports history of similar episodes in the past but with radiation to the back of his knee and never all the way to his ankle. He reports some numbness and tingling in his right lower leg down to the foot making it difficult to walk. On exam he is sitting very comfortably in the exam chair, is extremely talkative, and appears to be in no amount of discomfort while sitting. However when patient asked to stand and walk he has a significant limp, with no foot drop, and reports it is difficult to walk due to numbness and tingling. His sensation is intact on exam. He has normal and equal muscle strength in both lower extremities except his right foot which appears to have slightly decreased strength but still 4/5. He does not have any other red flag symptoms that would warrant imaging today. He does have tenderness over the right buttocks. I do not think that this patient is necessarily drug seeking however I do have concerns given his frequent ER visits which often include a dose of Dilaudid while he is here. Patient also mentions multiple times that Toradol has never helped him. He also states that he has a high pain tolerance, and previous ER providers have given him the choice of high or low doses of Dilaudid and he feels today would warrant a dose on the higher end. These comments are a bit concerning however I do not see any recent history of narcotic prescriptions in patient's chart. It is possible he is obtained them from other facilities. But since I have no evidence of that today and patient does appear to be in a lot of pain when walking I have given him a dose of Toradol, Flexeril, and Percocet here in the ED. patient reports mild improvement upon recheck. I have given patient a prescription for 10 Percocet today but I advised patient that if he returns for refills within the next couple of weeks he will be denied. Strongly recommend that patient utilize ibuprofen and muscle relaxers 1st and only use Percocet for severe breakthrough pain. Also recommend other pain relief modalities such as sciatica stretches, heating pads, lidocaine patches. Patient understands and agrees with plan Discharge Plan Departure Patient Disposition: Home Clinical Impression: Acute back pain with radiculopathy Sciatica Qualifiers: Laterality: right Qualified Code(s): M54.31 - Sciatica, right side Instructions: DI for Sciatica, DI for Back Pain With Sciatica Activity Restrictions/Additional Instructions: Thank you for choosing us to care for you today. You were seen today for back pain with sciatica. You did not have any red flag symptoms that require imaging at this time. You were given several different medications for your pain in the emergency department and given a prescription for muscle relaxers and pain medication. Please take ibuprofen 600 mg every 6-8 hours along with the muscle relaxer. If you have any breakthrough pain, you may use the Percocet sparingly for that. No refills will be given for the Percocet. Please perform daily stretches and exercises for sciatica several times daily. If you have sudden worsening pain along with increased weakness in your right leg or inability to use your right foot please return to the emergency department. You may seek care from a chiropractor or massage therapist if desired to help with your pain. Please follow up with her primary care physician for continued management of this condition. Prescriptions: No Action cyclobenzaprine 10 mg tablet 10 mg PO TID PRN (Reason: muscle spasm) Qty: 20 0RF oxycodone-acetaminophen [Percocet] 10-325 mg tablet 1 tab PO BID MDD 2 tabs PRN (Reason: pain) Qty: 10 0RF Referrals: Isac Haines MD [Primary Care Provider] - Stand Alone Forms: Patient Portal/API ED Sign-out <Elidia Crespo MD - Last Filed: 09/04/23 07:05> Cosign ED Attending Cosignature Attestation: I did not see this patient. I was available all times for consultation.
--- NOTE | 2023-08-29 11:36 | PC.NURSE ---
patient recently was seen in the ER here for a chrones flare up. he's been resting in bed at home and on wednesday he developed a pain in his right hip that he states is similar to previous episodes that he's had off and on since age 22. He has tried motrin and states that has not been helping but has not taken any since wednesday. He has also tried warm blankets to the affected side and said that helps reduce pain.
[2023-08-29] MEDS: CYCLOBENZAPRINE 10 MG TABLET PO (12:38)
[2023-08-29] MEDS: OXYCODONE/ACETAMINOPHEN 5/325 TABLET 1 TAB PO (12:38)
[2023-08-29] MEDS: KETOROLAC 30 MG/ML VIAL IM (12:38)
[2023-08-29 13:55] VITALS: BP 128/88; PULSE 68; RESP 14; O2SAT 99
== END 2023-08-29 13:58 | disposition home or self-care (01) ==
PROVIDERS: Emergency Provider Physician Assistant; PCP Internal Medicine
DX: M54.16 Radiculopathy, lumbar region (principal); M54.31 Sciatica, right side
CPT/HCPCS: 96372; 99283; J1885

== ENCOUNTER 2023-09-04 08:29 | Emergency (ER) | payer OTHER, MEDICAID, SELFPAY ==
--- NOTE | 2023-09-04 08:50 | ED_ITS ---
HPI - Wound/Laceration General Chief Complaint: Wound/Laceration Stated Complaint: shot nail in arm check for infection Time Seen by Provider: 09/04/23 08:30 History of Present Illness HPI narrative: 53-year-old male presents for evaluation right forearm injury. Yesterday patient was using a nail gun and accidentally shot a nail into his right forearm. He states this was a fresh, never-used nail that he immediately pulled out and cleaned. He states he is concerned something may have been left behind in the wound and wants to have it evaluated for infection. He placed liquid bandage over the wound. Denies numbness, weakness, tingling of his forearm. The nail was inserted horizontally up his forearm and not vertically through his forearm. Not UTD on tetanus Related Data Previous Rx's Medication Instructions Recorded cyclobenzaprine 10 mg tablet 10 mg PO TID PRN muscle spasm #20 09/02/23 tabs oxycodone-acetaminophen 10 mg-325 1 tab PO BID PRN pain #10 tabs 09/02/23 mg tablet (Percocet) Allergies Allergy/AdvReac Type Severity Reaction Status Date / Time No Known Drug Allergies Allergy Verified 09/04/23 08:58 Review of Systems Review of Systems Narrative: Negative except as noted above Patient History Medical History Iritis Chronic back pain Kidney stones (~2007) Crohn disease (~1999) Personal history of stroke with current residual effects (~2016) Surgical History Anesthesia S/P exploratory laparotomy (~1999) S/P cholecystectomy S/P patent foramen ovale closure (~2017) S/P knee surgery History of bowel resection History of lithotripsy Family History Father History of heart disease Hyperlipidemia Grandmother Diabetes mellitus Grandmother Diabetes mellitus Social History marital status: household members: none Smoking Status: Current every day smoker alcohol intake: current Smoking Status: Current every day smoker tobacco type: cigarettes alcohol intake frequency: holidays/special occasions only Substance Use Type: does not use Exam Initial Vital Signs Initial Vital Signs: Vital Signs Temperature 98.3 F 09/04/23 08:51 Pulse Rate 85 09/04/23 08:51 Respiratory Rate 15 09/04/23 08:51 Blood Pressure 121/92 H 09/04/23 08:51 Pulse Oximetry 97 09/04/23 08:51 Oxygen Delivery Method Room Air 09/04/23 08:51 Const: Awake, alert, no acute distress, nontoxic appearing Cardiac: regular rate, regular rhythm RESP: unlabored, clear bilaterally, no wheezing GI: Soft, nontender, nondistended, no rebound, no guarding MSK: Small puncture wound distal right forearm, small amount of swelling around site. No erythema, no warmth, no fluctuance. 2+ radial pulses, sensation/movement equal bilaterally Skin: Warm, Dry, intact, no rashes Neuro: AO x3, CN II-XII grossly intact, moves all extremities Course Orders Ordered: ED Orders 09/04/23 08:49 XR forearm RT 2V Stat Discontinued Medications Diphtheria/Tetanus/Acell Pertussis (Tet,Diph,Pertuss(Acell),Vac/Pf 0.5 Ml Syringe) 0.5 ml IM .ONCE ONE Stop: 09/04/23 08:51 Last Admin: 09/04/23 09:33 Dose: 0.5 ml Documented By: RUI Vital Signs Vital signs: Vital Signs - 8 hr 09/04/23 08:51 Temperature 98.3 F Pulse Rate 85 Respiratory Rate 15 Blood Pressure 121/92 H Pulse Oximetry 97 Oxygen Delivery Method Room Air MDM - Wound/Laceration Differential Diagnosis Differential diagnosis: Likely laceration, abscess and abrasion Imaging Data Extremity x-ray #1: Radiologist's Impression: PROCEDURE: XR FOREARM RT 2V INDICATIONS: injury from a nail gun TECHNIQUE: 2 views of the forearm were acquired. COMPARISON: None. FINDINGS: Bones: No fractures or dislocations. No suspicious bony lesions. Soft tissues: No suspicious soft tissue calcifications or masses. IMPRESSION: No acute bony abnormality. No retained radiopaque foreign body Dictated by: Ernesto Lake M.D. on 09/04/2023 at 8:20 Approved by: Ernesto Lake M.D. on 09/04/2023 at 8:21 [facility] Narrative Medical decision making narrative: Encounter for wound evaluation. Neurovascularly intact. Wound superficial and shallow. Tetanus shot updated, x-ray shows no radiolucent foreign bodies. Patient already has the wound covered in liquid bandage. On my exam there was no sign or symptom of infection, since this was an unused nail at this time there is no indication for antibiotics. Patient counseled on x-ray findings and given wound care precautions. Counseled to return in the emergency department if he develops redness, drainage, worsening swelling from the wound. Discharge Plan Departure Patient Disposition: Home Clinical Impression: Accident caused by nail gun Qualifiers: Encounter type: initial encounter Qualified Code(s): W29.4XXA - Contact with nail gun, initial encounter Instructions: DI for Puncture Wound Activity Restrictions/Additional Instructions: Your x-ray today did not show any foreign bodies that has been left behind. I do not feel or see any signs of infection at this time. You received a tetanus update today, this should be good for the next 10 years. If you notice any redness, drainage from the wound, or increased swelling please return for evaluation. Apply ice as needed for pain. Prescriptions: No Action cyclobenzaprine 10 mg tablet 10 mg PO TID PRN (Reason: muscle spasm) Qty: 20 0RF oxycodone-acetaminophen [Percocet] 10-325 mg tablet 1 tab PO BID MDD 2 tabs PRN (Reason: pain) Qty: 10 0RF Referrals: Isac Haines MD [Primary Care Provider] - Stand Alone Forms: Patient Portal/API
[2023-09-04 08:51] VITALS: BP 121/92; PULSE 85; RESP 15; TEMP 36.8; O2SAT 97; BMI 26.9
[2023-09-04] MEDS: TET,DIPH,PERTUSS(ACELL),VAC/PF 0.5 ML SYRINGE IM (09:33)
== END 2023-09-04 09:45 | disposition home or self-care (01) ==
PROVIDERS: Emergency Provider Emergency Medicine; PCP Internal Medicine
DX: S51.831A Puncture wound without foreign body of right forearm, initial encounter (principal); W29.4XXA Contact with nail gun, initial encounter; Z23 Encounter for immunization
CPT/HCPCS: 73090; 90471; 99283; 90715

== ENCOUNTER 2024-05-04 22:37 | Emergency (ER) | payer OTHER, MEDICAID, SELFPAY ==
[2024-05-04 22:44] VITALS: BP 170/103
[2024-05-04 22:45] VITALS: PULSE 72; O2SAT 99
[2024-05-04 22:48] VITALS: BP 170/103; PULSE 66; RESP 16; TEMP 36.4; O2SAT 98; BMI 25.8
--- NOTE | 2024-05-04 22:49 | ED_ITS ---
HPI - Male Genitourinary General Chief complaint: Abdominal Pain Stated complaint: kidney stone Time Seen by Provider: 05/04/24 22:39 History of Present Illness HPI Narrative: 54-year-old male with history of Crohn's disease, tobacco abuse, hx nephrolithiasis requiring lithotripsy presents for 1 day of right-sided flank and groin pain concerning for kidney stone. Reports associated nausea and belching. Patient states that he was supposed to follow with a urologist, however [place]. Patient does not regularly follow with doctors because they're all assholes, and states that he refuses to take regular daily medications. patient states that he is here for pain control. Related Data Previous Rx's Medication Instructions Recorded ondansetron 4 mg disintegrating 4 mg PO Q8H PRN nausea and 05/05/24 tablet vomiting #30 tabs oxycodone-acetaminophen 5 mg-325 1 tab PO TID PRN pain #14 tabs 05/05/24 mg tablet Allergies Allergy/AdvReac Type Severity Reaction Status Date / Time No Known Drug Allergies Allergy Verified 09/04/23 08:58 Patient History Medical History Iritis Chronic back pain Kidney stones (~2007) Crohn disease (~1999) Personal history of stroke with current residual effects (~2016) Surgical History Anesthesia S/P exploratory laparotomy (~1999) S/P cholecystectomy S/P patent foramen ovale closure (~2017) S/P knee surgery History of bowel resection History of lithotripsy Family History Father History of heart disease Hyperlipidemia Grandmother Diabetes mellitus Grandmother Diabetes mellitus Social History marital status: household members: none Smoking Status: Current every day smoker alcohol intake: current Smoking Status: Current every day smoker tobacco type: cigarettes alcohol intake frequency: holidays/special occasions only Substance Use Type: does not use Exam Initial Vital Signs Initial Vital Signs: Vital Signs Blood Pressure 170/103 H 05/04/24 22:44 Const: Awake, alert, in pain, nontoxic appearing Cardiac: regular rate, regular rhythm RESP: unlabored, clear bilaterally, no wheezing GI: Soft, generalized tenderness to deep palpation without rebound or guarding Skin: Warm, Dry, intact, no rashes Neuro: AO x3, CN II-XII grossly intact, moves all extremities Course Orders Ordered: ED Orders 05/04/24 22:20 UA Complete [Urinalysis and Microscopic] Stat Urine Culture Stat 05/04/24 22:47 CBC Auto Diff [Complete Blood Count AUTO DIFF] Stat CMP [Comprehensive Metabolic Panel] Stat Lipase Stat 05/04/24 22:48 CT kidney ureter bladder (KUB) Stat Discontinued Medications Hydromorphone HCl (Hydromorphone 0.5 Mg Inj) 0.5 mg IV NOW ONE Stop: 05/05/24 00:19 Last Admin: 05/05/24 00:33 Dose: 0.5 mg Documented By: CARRIE Sodium Chloride (Normal Saline 0.9%) 1,000 mls @ 1,000 mls/hr IV BOLUS ONE Stop: 05/04/24 23:46 Last Infusion: 05/04/24 23:56 Dose: Infused Documented By: Admin: 05/04/24 22:56 Dose: 1,000 mls/hr Documented By: CARRIE Ketorolac Tromethamine (Ketorolac 30 Mg/Ml Vial) 15 mg IV NOW ONE Stop: 05/04/24 22:49 Last Admin: 05/04/24 22:55 Dose: 15 mg Documented By: CARRIE Ondansetron HCl (Ondansetron 4 Mg/2 Ml Inj) 4 mg IV NOW ONE Stop: 05/04/24 22:49 Last Admin: 05/04/24 22:55 Dose: 4 mg Documented By: CARRIE Vital Signs Vital signs: Vital Signs - 8 hr 05/04/24 22:44 05/04/24 22:45 05/04/24 22:48 Temperature 97.6 F Pulse Rate 72 66 Respiratory Rate 16 Blood Pressure 170/103 H 170/103 H Pulse Oximetry 99 98 Oxygen Delivery Method Room Air 05/04/24 23:09 05/04/24 23:15 05/04/24 23:15 Temperature Pulse Rate 66 65 Respiratory Rate Blood Pressure 169/106 H Pulse Oximetry 96 97 Oxygen Delivery Method 05/04/24 23:30 05/05/24 00:06 05/05/24 00:38 Temperature Pulse Rate 65 68 67 Respiratory Rate 18 Blood Pressure 123/77 Pulse Oximetry 97 97 96 Oxygen Delivery Method Room Air MDM - Male Genitourinary Lab Data 05/04/24 22:47 05/04/24 22:47 Labs: Lab Results 05/04/24 05/04/24 Range/Units 22:20 22:47 WBC 9.5 (4.5-11.0) X10^3/uL RBC 5.41 (4.5-5.9) X10^6/uL Hgb 16.8 (13.5-17.5) g/dL Hct 49.7 (41-53) % MCV 91.8 (80-100) fL MCH 31.1 (26-34) PG MCHC 33.9 (30-36) % RDW 14.6 (11.6-14.8) % Plt Count 332 (150-400) X10^3/uL Neut % (Auto) 69.4 (50-75) % Lymph % (Auto) 21.8 L (25-40) % [place] % (Auto) 6.0 (3-14) % Eos % (Auto) 2.0 (2-4) % Baso % (Auto) 0.8 (0-2) % Neut # (Auto) 6600 (9182-5961) /uL Lymph # (Auto) 2100 (5992-6504) /uL [place] # (Auto) 600 (0-900) /uL Eos # (Auto) 200 (0-450) /uL Baso # (Auto) 100 (0-100) /uL Sodium 137 (137-145) mmol/L Potassium 4.7 (3.4-5.1) mmol/L Chloride 106 (98-107) mmol/L Carbon Dioxide 26 (22-32) mmol/L BUN 15 (9-20) mg/dL Creatinine 1.00 (0.66-1.25) mg/dL Estimated GFR > 60 (>60) mL/min BUN/Creatinine Ratio 15.0 (6-22) Glucose 112 H (70-100) mg/dL Calcium 10.2 (8.4-10.2) mg/dL Total Bilirubin 0.8 (0.2-1.3) mg/dL AST 31 (17-59) IU/L ALT 38 (<50) IU/L Alkaline Phosphatase 86 (38-126) U/L Total Protein 8.2 (6.3-8.2) g/dL Albumin 4.6 (3.5-5.0) g/dL Globulin 3.6 (1.7-4.1) g/dL Albumin/Globulin Ratio 1.3 (1.0-2.8) Lipase 275 (23-300) U/L Urine Color Yellow Urine Appearance Clear Urine pH 5.5 (4.5-8.0) Ur Specific [place] >=1.030 H (1.000-1.035) Urine Protein Trace H (Negative) Urine Glucose (UA) Negative (Negative) g/dL Urine Ketones Negative (NEGATIVE) Urine Occult Blood 3+ H (Negative) Urine Nitrate Negative (Negative) Urine Bilirubin Negative (NEGATIVE) Urine Urobilinogen 0.2 (0.2) E.U./dL Ur Leukocyte Esterase Negative (NEGATIVE) Urine RBC 30-100/hpf H (0-5/HPF) Urine WBC 0-1/hpf (0-5/HPF) Ur Squamous Epith Cells 0-1 /hpf (0-5/HPF) Calcium Oxalate Crystal Few H Urine Bacteria Occasional (0-1) (None) Hyaline Casts 0-1/lpf (None) Urine Mucus 2+ H (Negative) Vol Urine Centrifuged 10ml (spun) Urine Dip Bedside Urine Glucose Negative Bedside Urine Bilirubin - Negative Bedside Urine Ketone - Negative Urine Specific [place] 1.030 Bedside Urine Occult Blood +++ Bedside Urine pH 6.0 Bedside Urine Protein - Negative Bedside Urine Urobilinogen - Negative Bedside Urine Nitrite - Negative Bedside Urine Leukocytes - Negative Esterase Imaging Data CT scan - abdomen/pelvis: Radiologist's Impression: PROCEDURE: CT KIDNEY URETER BLADDER (KUB) INDICATIONS: R FLANK PAIN, HX STONES TECHNIQUE: Axial sections were acquired from the lung bases to the pubic symphysis. Coronal and sagittal reformats were performed. For radiation dose reduction, the following was used: automated exposure control, adjustment of mA and/or kV according to patient size. COMPARISON: [facility], CT, CT KUB, 02/08/2024, 21:41. [facility], CT, CT KIDNEY URETER BLADDER (KUB), 01/18/2023, 22:49. FINDINGS: Image quality: Diagnostic. Lower Chest: No significant findings. URINARY: Right Kidney and ureter: Moderate to severe right hydronephrosis and dilatation of the extrarenal pelvis. Moderate proximal right hydroureter. There is a punctate ureteral calculus in the distal ureter at the level of the pelvic inlet, and one just beyond the level of the pelvic inlet. Within the right kidney, there remains a few scattered upper pole calculi and cluster of lower pole calculi which measures 9 mm together and up to 6 mm individually. There is mild right perinephric inflammation. Left Kidney: No hydronephrosis. There a is a nonobstructing calculus in the lower pole measuring 4 mm. No perinephric inflammation. Left Ureter: No hydroureter, ureteral calculus, or periureteric inflammation. Bladder: Decompressed. Normal wall thickness. No stone. ABDOMEN: Liver: Moderate hepatic steatosis. Mild hepatomegaly. No contour deforming mass. Gallbladder: Surgically absent. Biliary ducts: Appropriate biliary tree caliber post cholecystectomy. Pancreas: Normal size and morphology without visible ductal dilatation or inflammation. Spleen: Size is within normal limits. Adrenal Glands: No adrenal nodules. Stomach and Bowel: Decompressed stomach. A few loops small bowel are prominent with air-fluid levels and demonstrates signs of stasis. There is mild mesenteric congestion of lower abdominal small bowel loops. Possible pericecal surgical changes. The colon demonstrates air-fluid levels and predominantly liquid stool. No colon wall thickening. Peritoneum: No abnormal intraperitoneal fluid. No free air. Ventral Wall: No hernia. Abdominal Nodes: No enlarged retroperitoneal or mesenteric lymph nodes. Vessels: The abdominal aorta, IVC, and portal vein are of normal caliber. PELVIS: Pelvic Organs: Unremarkable. Pelvic Nodes: Unremarkable. Miscellaneous: No inguinal hernias are seen. Bones: Unremarkable. IMPRESSION: There are punctate, tandem right distal ureteral calcifications resulting in right-sided hydronephrosis and mild perinephric inflammation. There are retained calculi bilaterally, most numerous in the right kidney as seen previously. Chronic small bowel dilatation, signs of stasis, and enteritis, similar compared to several prior studies and suggestive of inflammatory bowel disease. Correlate clinically. Moderate hepatic steatosis. Dictated by: Shannon Odell M.D. on 05/04/2024 at 23:50 Approved by: Shannon Odell M.D. on 05/05/2024 at 0:01 [facility] Narrative Medical decision making narrative: Flank/groin pain similar to previous episodes of kidney stones. Based on patient exam and history of stones requiringLithotripsy a CT scan will be ordered. Laboratory work shows no acute findings, creatinine stable. CT scan shows 2 punctate kidney stones on the right-hand side with hydronephrosis. Patient's pain control, he was tolerating p.o.. There were chronic findings of the small bowel, patient has known Crohn's disease and states that He was no new abdominal symptoms today other than his kidney stone. Patient states that he has Flomax at home, he was counseled to restart this medication. pain and nausea medication sent to pharmacy of choice. Patient was instructed to follow up with Urology. [employer]OSPECTING DRILLER reviewed before prescription sent Discharge Plan Departure Patient Disposition: Home Clinical Impression: Renal colic Instructions: Kidney Stones -- Adult Activity Restrictions/Additional Instructions: You have two very tiny kidney stones on the Right hand side. Take the flomax you have at home daily. Nausea and pain medications have been sent to your pharmacy. Follow up with urology Prescriptions: New oxycodone-acetaminophen 5-325 mg tablet 1 tab PO TID PRN (Reason: pain) Qty: 14 0RF ondansetron 4 mg tablet,disintegrating 4 mg PO Q8H PRN (Reason: nausea and vomiting) Qty: 30 0RF Referrals: Jerardo Bang DO [Physician] - Isac Haines MD [Primary Care Provider] - Stand Alone Forms: Patient Portal/API/Survey
[2024-05-04] MEDS: ONDANSETRON 4 MG/2 ML INJ IV (22:55)
[2024-05-04] MEDS: KETOROLAC 30 MG/ML VIAL 15 MG IV (22:55)
[2024-05-04 22:56] LABS: Appearance Urine UA CLEAR; Bilirubin Urine UA NEGATIVE (NEGATIVE); Color Urine UA YELLOW; Glucose Urine UA NEGATIVE (Negative); Ketones Urine UA NEGATIVE (NEGATIVE); Leukocyte Esterase Urine UA NEGATIVE (NEGATIVE); Nitrite Urine UA NEGATIVE (Negative); Occult Blood Urine UA 3+ (Negative); Protein Urine UA TRACE (Negative); Specific Gravity Urine UA >=1.030 (1.000-1.035); Urobilinogen Urine UA 0.2 E.U./dL (0.2); pH Urine UA 5.5 (4.5-8.0)
[2024-05-04] MEDS: SODIUM CHLORIDE 0.9% 1,000 ML 1000 ML IV (22:56)
[2024-05-04 23:00] LABS: Add Manual Diff / Slide Review NO; Basophils Absolute Auto 100 /uL (0-100); Basophils Percent Auto 0.8 % (0-2); Eosinophils Absolute Auto 200 /uL (0-450); Hematocrit 49.7 % (41-53); Hemoglobin 16.8 g/dL (13.5-17.5); Lymphocytes Absolute Auto 2100 /uL (1100-4500); Lymphocytes Percent Auto 21.8 % (25-40); Mean Corpuscular HGB Conc 33.9 % (30-36); Mean Corpuscular Hemoglobin 31.1 PG (26-34); Mean Corpuscular Volume 91.8 fL (80-100); Monocytes Absolute Auto 600 /uL (0-900); Neutrophils Absolute Auto 6600 /uL (1500-7000); Neutrophils Percent Auto 69.4 % (50-75); Platelet Count 332 X10^3/uL (150-400); Red Blood Cell Count 5.41 X10^6/uL (4.5-5.9); Red Cell Distribution Width 14.6 % (11.6-14.8); White Blood Cell Count 9.5 X10^3/uL (4.5-11.0)
[2024-05-04 23:02] LABS: RBC Urine 30-100/HPF (0-5/HPF); Urine Volume 10mL (spun); WBC Urine 0-1/HPF (0-5/HPF)
[2024-05-04 23:03] LABS: Bacteria Urine Occasional (0-1); Calcium Oxalate Crystals Urine Few; Squamous Epithelial Cell Urine 0-1 /HPF (0-5/HPF)
[2024-05-04 23:04] LABS: Hyaline Casts Urine 0-1/LPF; Mucus Urine 2+ (Negative)
[2024-05-04 23:09] VITALS: PULSE 66; O2SAT 96
[2024-05-04 23:15] VITALS: BP 169/106; PULSE 65; O2SAT 97
[2024-05-04 23:20] LABS: Alanine Aminotransferase 38 IU/L (<50); Albumin 4.6 g/dL (3.5-5.0); Albumin Globulin Ratio 1.3 (1.0-2.8); Alkaline Phosphatase 86 U/L (38-126); Aspartate Aminotransferase 31 IU/L (17-59); Bilirubin Total 0.8 mg/dL (0.2-1.3); Blood Urea Nitrogen 15 mg/dL (9-20); Calcium 10.2 mg/dL (8.4-10.2); Carbon Dioxide 26 mmol/L (22-32); Chloride 106 mmol/L (98-107); Estimated Glomerular Filt Rate > 60 mL/min (>60); Globulin 3.6 g/dL (1.7-4.1); Glucose 112 mg/dL (70-100); HEMOLYSIS 24 (0-50); Lipase 275 U/L (23-300); Potassium 4.7 mmol/L (3.4-5.1); Sodium 137 mmol/L (137-145); Total Protein 8.2 g/dL (6.3-8.2)
[2024-05-04 23:30] VITALS: PULSE 65; O2SAT 97
[2024-05-05 00:06] VITALS: PULSE 68; O2SAT 97
[2024-05-05] MEDS: HYDROMORPHONE 0.5 MG INJ IV (00:33)
[2024-05-05 00:38] VITALS: BP 123/77; PULSE 67; RESP 18; O2SAT 96
== END 2024-05-05 01:04 | disposition home or self-care (01) ==
PROVIDERS: Emergency Provider Emergency Medicine; PCP Internal Medicine
DX: N13.2 Hydronephrosis with renal and ureteral calculous obstruction (principal); Z87.442 Personal history of urinary calculi
CPT/HCPCS: 36415; 74176; 80053; 81001; 81003; 83690; 85025; 87086; 96361; 96374; 96375; 99284; J1171; J1885; J2405

== ENCOUNTER 2024-05-27 19:13 | Emergency (ER) | payer OTHER, SELFPAY ==
[2024-05-27 19:27] VITALS: BP 127/83; PULSE 66; RESP 18; TEMP 36.5; O2SAT 98; BMI 25.8
--- NOTE | 2024-05-27 19:45 | PC.NURSE ---
Patient passed 2 stones when giving urine sample. Both were present at bottom of urine cup. Urine was sent down for urinalysis and micro.
[2024-05-27 19:47] LABS: Appearance Urine UA Cloudy; Bilirubin Urine UA 1+ (NEGATIVE); Color Urine UA YELLOW; Glucose Urine UA NEGATIVE (Negative); Ketones Urine UA NEGATIVE (NEGATIVE); Leukocyte Esterase Urine UA NEGATIVE (NEGATIVE); Nitrite Urine UA POSITIVE (Negative); Occult Blood Urine UA 3+ (Negative); Protein Urine UA 2+ (Negative); Specific Gravity Urine UA >=1.030 (1.000-1.035); Urobilinogen Urine UA 0.2 E.U./dL (0.2); pH Urine UA 5.5 (4.5-8.0)
[2024-05-27 19:54] LABS: Ictotest Urine Negative (Negative); Urine Volume 10mL (spun)
[2024-05-27 20:01] LABS: RBC Urine 30-100/HPF (0-5/HPF); WBC Urine 1-5/HPF (0-5/HPF)
[2024-05-27 20:03] LABS: Bacteria Urine None Seen; Culture Indicated Urine Specimen Cultured; Squamous Epithelial Cell Urine None Seen (0-5/HPF)
--- NOTE | 2024-05-27 20:54 | ED.GENADULT ---
HPI - General Adult General Chief complaint: Urogenital-Male Stated complaint: Urinary Problem Time Seen by Provider: 05/27/24 20:44 Source: patient Mode of arrival: Ambulatory History of Present Illness HPI narrative: 54-year-old male. Multiple history of kidney stones but he states that they will has been on his right side. He was scheduled to see Urology at the beginning of next month. He states earlier this evening he started have discomfort that is very similar to his prior stones however this is on his left side. When providing a urine sample in triage he did past who stones. He continues to have discomfort. No fevers. Is having some nausea. No skin changes. No change in bowel habits. Related Data Previous Rx's Medication Instructions Recorded ondansetron 4 mg disintegrating 4 mg PO Q8H PRN nausea and 05/05/24 tablet vomiting #30 tabs oxycodone-acetaminophen 5 mg-325 1 tab PO TID PRN pain #14 tabs 05/05/24 mg tablet sulfamethoxazole 800 1 tab PO BID 5 days #10 tabs 05/27/24 mg-trimethoprim 160 mg tablet (Bactrim DS) Allergies Allergy/AdvReac Type Severity Reaction Status Date / Time No Known Drug Allergies Allergy Verified 05/27/24 19:27 Review of Systems Review of Systems ROS Unobtainable: All systems reviewed & are unremarkable except as noted in HPI and below Patient History Medical History Iritis Chronic back pain Kidney stones (~2007) Crohn disease (~1999) Personal history of stroke with current residual effects (~2017) Surgical History Anesthesia S/P exploratory laparotomy (~1999) S/P cholecystectomy S/P patent foramen ovale closure (~2017) S/P knee surgery History of bowel resection History of lithotripsy Family History Father History of heart disease Hyperlipidemia Grandmother Diabetes mellitus Grandmother Diabetes mellitus Social History marital status: household members: none Smoking Status: Current every day smoker alcohol intake: current Smoking Status: Current every day smoker tobacco type: cigarettes alcohol intake frequency: holidays/special occasions only Exam Initial Vital Signs Initial Vital Signs: Vital Signs Temperature 97.7 F 05/27/24 19:27 Pulse Rate 66 05/27/24 19:27 Respiratory Rate 18 05/27/24 19:27 Blood Pressure 127/83 05/27/24 19:27 Pulse Oximetry 98 05/27/24 19:27 Oxygen Delivery Method Room Air 05/27/24 19:27 Const General: cooperative and No ill appearing HENMI Head: normal to inspection and normocephalic Resp Effort & Inspection: normal respiratory effort Cardio Rate: regular rate GI Inspection: normal to inspection and non-distended Palpation: No firm and tender Skin General: no rashes or lesions noted Neuro General: patient alert, patient awake and moves all extremities Course Orders Ordered: ED Orders 05/27/24 19:42 Ictotest Urine Stat Urinalysis and Microscopic Stat Urine Culture Stat 05/27/24 20:54 CT kidney ureter bladder (KUB) Stat 05/27/24 21:16 Basic Metabolic Panel Stat Complete Blood Count AUTO DIFF Stat Discontinued Medications Hydrocodone Bitart/Acetaminophen (Hydrocodone/Acet 5/325 Prepack) 1 bottle MISC DIRECTED ONE Stop: 05/27/24 22:24 Last Admin: 05/27/24 22:30 Dose: 1 bottle Documented By: Hydromorphone HCl (Hydromorphone 0.5 Mg Inj) 0.5 mg IV NOW ONE Stop: 05/27/24 21:36 Last Admin: 05/27/24 21:42 Dose: 0.5 mg Documented By: MADHURI Ondansetron HCl (Ondansetron 4 Mg Odt Prepack) 1 bottle MISC DIRECTED ONE Stop: 05/27/24 22:24 Last Admin: 05/27/24 22:30 Dose: 1 bottle Documented By: Trimethoprim/Sulfamethoxazole (Trimeth/Sulfa 160/800 (Ds) Tablet) 1 tab PO NOW ONE Stop: 05/27/24 21:36 Last Admin: 05/27/24 21:42 Dose: 1 tab Documented By: MADHURI Vital Signs Vital signs: Vital Signs - 8 hr 05/27/24 19:27 05/27/24 22:30 Temperature 97.7 F Pulse Rate 66 62 Respiratory Rate 18 16 Blood Pressure 127/83 135/83 Pulse Oximetry 98 99 Oxygen Delivery Method Room Air Room Air Medical Decision Making Lab Data Lab results reviewed: Yes I reviewed the patient's lab results. 05/27/24 21:16 05/27/24 21:16 Labs: Lab Results 05/27/24 05/27/24 Range/Units 19:42 21:16 WBC 5.7 (4.5-11.0) X10^3/uL RBC 5.04 (4.5-5.9) X10^6/uL Hgb 15.4 (13.5-17.5) g/dL Hct 45.5 (41-53) % MCV 90.3 (80-100) fL MCH 30.5 (26-34) PG MCHC 33.8 (30-36) % RDW 14.3 (11.6-14.8) % Plt Count 265 (150-400) X10^3/uL Neut % (Auto) 45.4 L (50-75) % Lymph % (Auto) 38.4 (25-40) % [place] % (Auto) 12.3 (3-14) % Eos % (Auto) 2.9 (2-4) % Baso % (Auto) 1.0 (0-2) % Neut # (Auto) 2600 (8705-9524) /uL Lymph # (Auto) 2200 (7748-0613) /uL [place] # (Auto) 700 (0-900) /uL Eos # (Auto) 200 (0-450) /uL Baso # (Auto) 100 (0-100) /uL Sodium 139 (137-145) mmol/L Potassium 3.7 (3.4-5.1) mmol/L Chloride 105 (98-107) mmol/L Carbon Dioxide 24 (22-32) mmol/L BUN 16 (9-20) mg/dL Creatinine 0.95 (0.66-1.25) mg/dL Estimated GFR > 60 (>60) mL/min BUN/Creatinine Ratio 16.8 (6-22) Glucose 75 (70-100) mg/dL Calcium 9.5 (8.4-10.2) mg/dL Urine Color Yellow Urine Appearance Cloudy Urine pH 5.5 (4.5-8.0) Ur Specific [place] >=1.030 H (1.000-1.035) Urine Protein 2+ H (Negative) Urine Glucose (UA) Negative (Negative) g/dL Urine Ketones Negative (NEGATIVE) Urine Occult Blood 3+ H (Negative) Urine Nitrate Positive H (Negative) Urine Bilirubin 1+ H (NEGATIVE) Ur Bilirubin Confirm Negative (Negative) Urine Urobilinogen 0.2 (0.2) E.U./dL Ur Leukocyte Esterase Negative (NEGATIVE) Urine RBC 30-100/hpf H (0-5/HPF) Urine WBC 1-5/hpf (0-5/HPF) Ur Squamous Epith Cells None seen (0-5/HPF) Urine Bacteria None seen (None) Ur Culture Indicated? Specimen cultured Vol Urine Centrifuged 10ml (spun) Imaging Data CT scan - abdomen/pelvis: Radiologist's Impression: PROCEDURE: CT KIDNEY URETER BLADDER (KUB) INDICATIONS: L sided flank pain eval for stone TECHNIQUE: Axial sections were acquired from the lung bases to the pubic symphysis. Coronal and sagittal reformats were performed. For radiation dose reduction, the following was used: automated exposure control, adjustment of mA and/or kV according to patient size. COMPARISON: [facility], CT, CT KIDNEY URETER BLADDER (KUB), 05/04/2024, 22:55. [facility], CT, CT KIDNEY URETER BLADDER (KUB), 01/18/2023, 22:49. FINDINGS: Image quality: Diagnostic. Lower Chest: No significant findings. URINARY: Right Kidney: 7 mm calculus is seen at the inferior pole of the right kidney (1200 Hounsfield units). Additional 2-3 mm nonobstructing right renal calculi are present. No significant hydronephrosis. Right Ureter: No hydroureter. Left Kidney: Previously seen left renal calculus is no longer visualized. No significant hydronephrosis. Left Ureter: Mild periureteral fat stranding without significant hydroureter. No ureteral calculus. Bladder: Normal wall thickness. No stones. ABDOMEN: Liver: No contour-deforming solid mass. Liver is hypoattenuating, consistent with diffuse fatty infiltration. Gallbladder: Status post hysterectomy. Biliary ducts: No biliary dilation. Pancreas: No ductal dilation. Spleen: Size is within normal limits. Adrenal Glands: No adrenal nodules. Stomach and Bowel: Normal colonic caliber, without significant wall thickening. Status post appendectomy. Small bowel loops and stomach are unremarkable. Peritoneum: No abnormal intraperitoneal fluid. No free air. Ventral Wall: No hernia. Abdominal Nodes: No enlarged retroperitoneal or mesenteric lymph nodes. Vessels: Aorta and inferior vena cava are normal in size. PELVIS: Pelvic Organs: Coarse calcifications are seen in the prostate similar to the prior exam. Pelvic Nodes: Unremarkable. Miscellaneous: No inguinal hernias are seen. Bones: Unremarkable. IMPRESSION: 1. Mild left periureteral fat stranding is suspicious for a recently passed calculus versus ascending infection. Recommend correlation with urinalysis. No left ureteral calculus. Previously seen left renal calculus is no longer present. 2. Multiple nonobstructing right renal calculi. Prior right hydronephrosis and right ureteral calculi have resolved. 3. Diffuse hepatic steatosis. MDM Narrative Medical decision making narrative: Patient does have a nitrite positive urine. CT scan shows what appears to be recent passage of stone and given the 2 stones that were seen in his urine sample provided at triage this does fit his diagnosis. There was also some concern about an ascending infection. No leukocytosis. Tolerating oral intake. Will treat with antibiotics given his nitrite positive urine status. He was given 1st dose here in the ER. Prescription was sent to the pharmacy of his choice. He was discharged home. We did discuss the right-sided renal stones. Will have him keep his follow-up appointment in the beginning of With Urology he was given return precautions. He expressed understanding and agreement. Discharge Plan Departure Patient Disposition: Home Clinical Impression: Urinary tract infection, Renal colic on left side Instructions: DI for Urinary Tract Infection (UTI) Activity Restrictions/Additional Instructions: Keep all of your scheduled medical appointments. Use the pain medicine and nausea medicine as needed. Return to the emergency department for new or worsening symptoms. Prescriptions: New sulfamethoxazole-trimethoprim [Bactrim DS] 800-160 mg tablet 1 tab PO BID 5 Days Qty: 10 0RF No Action oxycodone-acetaminophen 5-325 mg tablet 1 tab PO TID PRN (Reason: pain) Qty: 14 0RF ondansetron 4 mg tablet,disintegrating 4 mg PO Q8H PRN (Reason: nausea and vomiting) Qty: 30 0RF Referrals: Isac Haines MD [Primary Care Provider] - Stand Alone Forms: Patient Portal/API/Survey
[2024-05-27 21:37] LABS: Add Manual Diff / Slide Review NO; Basophils Absolute Auto 100 /uL (0-100); Eosinophils Absolute Auto 200 /uL (0-450); Eosinophils Percent Auto 2.9 % (2-4); Hematocrit 45.5 % (41-53); Hemoglobin 15.4 g/dL (13.5-17.5); Lymphocytes Absolute Auto 2200 /uL (1100-4500); Lymphocytes Percent Auto 38.4 % (25-40); Mean Corpuscular HGB Conc 33.8 % (30-36); Mean Corpuscular Hemoglobin 30.5 PG (26-34); Mean Corpuscular Volume 90.3 fL (80-100); Monocytes Absolute Auto 700 /uL (0-900); Monocytes Percent Auto 12.3 % (3-14); Neutrophils Absolute Auto 2600 /uL (1500-7000); Neutrophils Percent Auto 45.4 % (50-75); Platelet Count 265 X10^3/uL (150-400); Red Blood Cell Count 5.04 X10^6/uL (4.5-5.9); Red Cell Distribution Width 14.3 % (11.6-14.8); White Blood Cell Count 5.7 X10^3/uL (4.5-11.0)
[2024-05-27 21:42] LABS: BUN Creatinine Ratio 16.8 (6-22); Blood Urea Nitrogen 16 mg/dL (9-20); Calcium 9.5 mg/dL (8.4-10.2); Carbon Dioxide 24 mmol/L (22-32); Chloride 105 mmol/L (98-107); Estimated Glomerular Filt Rate > 60 mL/min (>60); Glucose 75 mg/dL (70-100); HEMOLYSIS < 15 (0-50); Potassium 3.7 mmol/L (3.4-5.1); Sodium 139 mmol/L (137-145)
[2024-05-27] MEDS: TRIMETH/SULFA 160/800 (DS) TABLET 1 TAB PO (21:42)
[2024-05-27] MEDS: HYDROMORPHONE 0.5 MG INJ IV (21:42)
[2024-05-27 22:30] VITALS: BP 135/83; PULSE 62; RESP 16; O2SAT 99
[2024-05-27] MEDS: HYDROCODONE/ACET 5/325 PREPACK 1 BOTTLE MISC (22:30)
[2024-05-27] MEDS: ONDANSETRON 4 MG ODT PREPACK 1 BOTTLE MISC (22:30)
== END 2024-05-27 22:33 | disposition home or self-care (01) ==
PROVIDERS: Emergency Provider Emergency Medicine; PCP Internal Medicine
DX: N39.0 Urinary tract infection, site not specified (principal); N20.0 Calculus of kidney; Z87.442 Personal history of urinary calculi
CPT/HCPCS: 74176; 80048; 81001; 85025; 87086; 96374; 99284; J1171

== ENCOUNTER → 2025-02-20 15:49 | Outpatient (CLI) | payer OTHER, SELFPAY ==
[2025-02-20 16:37] LABS: Add Manual Diff / Slide Review NO; Hematocrit 45.2 % (41-53); Hemoglobin 15.2 g/dL (13.5-17.5); Lymphocytes Absolute Auto 2000 /uL (1100-4500); Mean Corpuscular HGB Conc 33.7 % (30-36); Mean Corpuscular Hemoglobin 30.8 PG (26-34); Mean Corpuscular Volume 91.4 fL (80-100); Platelet Count 305 X10^3/uL (150-400)
[2025-02-20 16:54] LABS: Albumin 4.6 g/dL (3.5-5.0); Albumin Globulin Ratio 1.7 (1.0-2.8); Alkaline Phosphatase 87 U/L (38-126); Blood Urea Nitrogen 12 mg/dL (9-20); Calcium 9.9 mg/dL (8.4-10.2); Carbon Dioxide 27 mmol/L (22-32); Chloride 104 mmol/L (98-107); Estimated Glomerular Filt Rate > 60 mL/min (>60); Globulin 2.7 g/dL (1.7-4.1); Glucose 90 mg/dL (70-99); HEMOLYSIS < 15 (0-50); Potassium 4.2 mmol/L (3.4-5.1); Sodium 140 mmol/L (137-145); Total Protein 7.3 g/dL (6.3-8.2)
[2025-02-20 16:55] LABS: Alanine Aminotransferase 32 IU/L (<50)
== END ==
PROVIDERS: PCP Internal Medicine; Referring Provider Physician Assistant; Visit Provider Physician Assistant
DX: K50.00 Crohn's disease of small intestine without complications (principal)
CPT/HCPCS: 36415; 80053; 85025